=== PATIENT | female | born 1975 | race Caucasian/White ===

== ENCOUNTER 2019-02-02 20:59 | Emergency (ER) | payer MEDICAID ==
[~2019-02-02] VITALS: Ht 157.5 cm; Wt 101.5 kg
[2019-02-02 21:00] VITALS: BP 145/70
[2019-02-02] MEDS ORDERED: MOBI4TAB PO (23:44)
[2019-02-02] MEDS ORDERED: KETOROLAC TROMETHAMINE 10 MG TAB PO ONE (23:45)
--- NOTE | 2019-02-03 07:51 | REP ---
Clinical: Bilateral knee pain Technique: AP, lateral, bilateral oblique and sunrise views right and left knee . Findings: Right knee: The osseous structures and joint spaces are intact and normal for age. There is no evidence for acute fracture or dislocation. No joint effusion is appreciated. Surrounding soft tissues are unremarkable. No subcutaneous emphysema or radiodense foreign body. Left knee: The osseous structures and joint spaces are intact and normal for age. There is no evidence for acute fracture or dislocation. No joint effusion is appreciated. Surrounding soft tissues are unremarkable. No subcutaneous emphysema or radiodense foreign body. Impression: Normal age-appropriate bilateral knee radiograph series. Electronically Signed by Arnel Howard MD 02/03/2019 07:42 A
== END 2019-02-02 23:52 | disposition home or self-care (01) ==
LOC: M ED 20:59
DX: M25.561 Pain in right knee (principal); M25.562 Pain in left knee; J45.909 Unspecified asthma, uncomplicated; Z88.1 Allergy status to other antibiotic agents

== ENCOUNTER → 2019-02-28 | Outpatient (REF) | payer MEDICAID ==
[~2019-02-28] MED LIST: MOBI4TAB PO
[2019-02-28 16:02] LABS: BASO # 0.1 10^3/uL (0.0-0.2); BASO % 0.7 % (0.0-1.0); EOS # 0.2 10^3/uL (0.0-0.50); HEMATOCRIT 33.5 % (36.0-47.0); LYMPH # 2.3 10^3/uL (1.5-4.5); LYMPH % 25.5 % (24.0-44.0); MEAN CORPUSCULAR HEMOGLOBIN 21.4 pg (27.0-33.0); MEAN CORPUSCULAR HGB CONC 29.9 g/dl (32.0-36.5); MEAN CORPUSCULAR VOLUME 71.7 fl (80.0-96.0); MONO # 0.9 10^3/uL (0.0-0.8); MONO % 9.5 % (0.0-5.0); NEUTROPHILS # 5.6 10^3/uL (1.8-7.7); NEUTROPHILS % 61.9 % (36.0-66.0); PLATELET COUNT, AUTOMATED 483 10^3/uL (150-450); RED BLOOD COUNT 4.67 10^6/uL (4.00-5.40)
[2019-02-28 16:37] LABS: HEMOGLOBIN A1c 6.2 %
[2019-02-28 16:42] LABS: ALBUMIN 3.7 GM/DL (3.2-5.2); ALT/SGPT 19 U/L (12-78); BILIRUBIN,TOTAL 0.2 MG/DL (0.2-1.0); BLOOD UREA NITROGEN 10 MG/DL (7-18); CALCIUM LEVEL 9.7 MG/DL (8.5-10.1); CARBON DIOXIDE LEVEL 28 MEQ/L (21-32); CHLORIDE LEVEL 105 MEQ/L (98-107); CHOLESTEROL LEVEL 186 MG/DL (<200); CHOLESTEROL RISK RATIO 3.576 (<5); CREATININE FOR GFR 0.64 MG/DL (0.55-1.30); FREE T4 0.88 NG/DL (0.76-1.46); GLOMERULAR FILTRATION RATE > 60.0 (>58); GLUCOSE, FASTING 72 MG/DL (70-100); HDL CHOLESTEROL 52 MG/DL (>40); IRON (FE) 20 UG/DL (50-170); LDL CHOLESTEROL 80 MG/DL (<100); NON-HDL-C 134 MG/DL; SODIUM LEVEL 140 MEQ/L (136-145); TOTAL PROTEIN 7.5 GM/DL (6.4-8.2); TRIGLYCERIDES LEVEL 268 MG/DL (<150)
[2019-02-28 16:44] LABS: TOTAL 25(OH) VITAMIN D 17.8 NG/ML (30.0-100.0)
== END ==
LOC: M LAB REF 15:31
PROVIDERS: ATTEND Nurse Practitioner Adult Health
DX: Z13.9 Encounter for screening, unspecified (principal)

== ENCOUNTER → 2019-06-08 | Outpatient (CLI) | payer OTHER ==
--- NOTE | 2019-06-16 14:30 | REPMRS ---
Patient History The patient states she has not had a clinical breast exam in over a year. Family history of breast cancer in maternal aunt. Digital Mammo Screening Bilat: June 08, 2019 - Exam #: [id number] Bilateral CC and MLO view(s) were taken. Technologist: Estefani Bain, Technologist Prior study comparison: October 28, 2017, bilateral digital woman screen mammo, performed at [facility]. FINDINGS: There are scattered fibroglandular densities. There has been no change in the appearance of the mammogram from the prior studies. There is a mild amount of scattered fibroglandular density which is fairly symmetric. There is no interval development of dominant mass, architectural distortion, or grouped microcalcification suggestive of malignancy. 3-D tomosynthesis shows no additional findings. Assessment: BI-RADS/ACR category 1 mammogram. Negative Mammogram. Recommendation Routine screening mammogram of both breasts in 1 year (for women over age 40). This patient's Lifetime Breast Cancer Risk is estimated at 13.5 %. This mammogram was interpreted with the aid of an FDA-approved computer-aided dectection system. Electronically Signed By: Marlon Benton MD 06/16/19 [id number]
== END ==
LOC: M RAD 15:36
PROVIDERS: ATTEND Obstetrics & Gynecology
DX: Z12.31 Encounter for screening mammogram for malignant neoplasm of breast (principal)

== ENCOUNTER → 2019-06-10 | Outpatient (CLI) | payer OTHER ==
--- NOTE | 2019-06-11 13:53 | REP ---
Pelvic ultrasound including transabdominal, endovaginal and Doppler ultrasound assessment: The bladder is adequately distended. The uterus is anteverted and enlarged measuring 11.3 x 5.4 x 7.8 cm. The endometrium is not thickened for a premenopausal female, measuring 6.7 mm. If the patient is postmenopausal the endometrial thickness is thickened. There is a right subserosal fibroid measuring 3.1 x 2.0 x 2.6 cm. Right ovary: The right ovary is normal size measuring 4.0 3.2 x 3.7 cm. There is a 2.7 cm right ovarian cyst. With color Doppler assessment and venous vascular flow is identified indicating there is vascular flow in the right ovary. Left ovary: The left ovary is normal size measuring 2.4 x 1.5 x 2.0 cm. There is no dominant mass or cyst. There is vascular flow with the Doppler resistive index of the parenchymal arteries measuring 0.56. There is no free fluid in the pelvis. Impression: 2.7 cm right ovarian cyst. 1.3 cm subserosal uterine fibroid on the right . Endometrium is thickened for a postmenopausal female but not thickened for a premenopausal female. Electronically Signed by Raul Ag MD 06/11/2019 01:45 P
== END ==
LOC: M RAD 16:40
PROVIDERS: ATTEND Obstetrics & Gynecology
DX: N83.201 Unspecified ovarian cyst, right side (principal); N85.4 Malposition of uterus; D25.9 Leiomyoma of uterus, unspecified; N93.9 Abnormal uterine and vaginal bleeding, unspecified

== ENCOUNTER 2019-06-30 16:29 | Emergency (ER) | payer OTHER ==
[~2019-06-30] VITALS: Ht 157.5 cm; Wt 101.8 kg
[2019-06-30 16:29] VITALS: BP 145/84
[2019-06-30] MEDS ORDERED: FERR325T3 PO (16:35)
[2019-06-30] MEDS ORDERED: MELO7.5T35 PO (16:35)
[2019-06-30] MEDS ORDERED: D-101000 (16:35)
[2019-06-30] MEDS ORDERED: METF-791 PO (16:35)
[2019-06-30] MEDS ORDERED: AMOX875T PO (17:00)
[2019-06-30] MEDS ORDERED: AMOXICILLIN 500 MG CAP PO ONE (17:15)
== END 2019-06-30 17:12 | disposition home or self-care (01) ==
LOC: M ED 16:29
DX: H66.91 Otitis media, unspecified, right ear (principal); J06.9 Acute upper respiratory infection, unspecified; E11.9 Type 2 diabetes mellitus without complications; J45.909 Unspecified asthma, uncomplicated; M13.80 Other specified arthritis, unspecified site; Z20.828 Contact with and (suspected) exposure to other viral communicable diseases; Z79.51 Long term (current) use of inhaled steroids; Z79.2 Long term (current) use of antibiotics; Z79.84 Long term (current) use of oral hypoglycemic drugs; Z79.899 Other long term (current) drug therapy; Z88.1 Allergy status to other antibiotic agents; Z97.8 Presence of other specified devices

== ENCOUNTER → 2019-07-07 | Outpatient (REF) | payer OTHER ==
[~2019-07-07] MED LIST changes: +AMOX875T PO; +D-101000; +FERR325T3 PO; +MELO7.5T35 PO; +METF-791 PO
== END ==
LOC: M SFHCWAGY 19:18
PROVIDERS: ATTEND Obstetrics & Gynecology
DX: N93.9 Abnormal uterine and vaginal bleeding, unspecified (principal)

== ENCOUNTER 2019-07-15 07:28 | Day surgery (SDC) | payer OTHER ==
[~2019-07-15] VITALS: Ht 157.5 cm; Wt 98.9 kg
[~2019-07-15 07:28] MED LIST changes: +LR 1,000 ML IV ONE
[2019-07-15] MEDS ORDERED: ONDANSETRON 4MG/2ML VIAL (J2405) As Ordered ONE (07:52)
[2019-07-15] MEDS ORDERED: PROPOFOL 200 MG/20 ML VIAL As Ordered ONE (07:52)
[2019-07-15] MEDS ORDERED: LIDOCAINE 2% INJ 100 MG/5 ML SDV (FOR ANES.) As Ordered ONE (07:52)
[2019-07-15] MEDS ORDERED: KETOROLAC 60 MG/2 ML VIAL (J1885) As Ordered ONE (07:52)
[2019-07-15] MEDS ORDERED: dexameTHASONE 4 MG/ML 1ML VIAL (J1100) As Ordered ONE (07:52)
[2019-07-15] MEDS ORDERED: MIDAZOLAM INJ 2 MG/2 ML VIAL (J2250) As Ordered ONE (07:53)
[2019-07-15] MEDS ORDERED: fentaNYL 100 MCG/2 ML INJECTION (J3010) As Ordered ONE (07:53)
[2019-07-15 08:06] LABS: HEMATOCRIT 37.3 % (36.0-47.0); HEMOGLOBIN 11.2 g/dl (12.0-15.5); MEAN CORPUSCULAR HEMOGLOBIN 23.1 pg (27.0-33.0); MEAN CORPUSCULAR VOLUME 77.1 fl (80.0-96.0); PLATELET COUNT, AUTOMATED 427 10^3/uL (150-450); RED BLOOD COUNT 4.84 10^6/uL (4.00-5.40); WHITE BLOOD COUNT 6.7 10^3/uL (4.0-10.0)
[2019-07-15] MEDS ORDERED: OXYC1TAB23 PO (09:31)
[2019-07-15] MEDS ORDERED: IBUP80TA PO (09:32)
[2019-07-15] MEDS ORDERED: fentaNYL 100 MCG/2 ML INJECTION (J3010) IV PRN (10:15)
[2019-07-15] MEDS ORDERED: ONDANSETRON 4MG/2ML VIAL (J2405) IV PRN (10:15)
[2019-07-15] MEDS ORDERED: oxyCODONE 5MG TAB PO PRN (10:15)
[2019-07-15] MEDS ORDERED: LR 1,000 ML IV SCH ×2 (10:15)
[2019-07-15 11:05] VITALS: BP 160/80
== END 2019-07-15 11:12 | disposition home or self-care (01) ==
LOC: M SDC 07:28
PROVIDERS: ATTEND Obstetrics & Gynecology
DX: N93.9 Abnormal uterine and vaginal bleeding, unspecified (principal); E11.9 Type 2 diabetes mellitus without complications; Z79.84 Long term (current) use of oral hypoglycemic drugs; D64.9 Anemia, unspecified; J45.909 Unspecified asthma, uncomplicated; Z88.1 Allergy status to other antibiotic agents; Z79.899 Other long term (current) drug therapy
CPT/HCPCS: 36415; 58563; 84702; 85027; 86850; 86900; 86901; 88305; J1100; J1885; J2250; J2405; J3010

== ENCOUNTER 2019-09-11 20:12 | Emergency (ER) | payer OTHER ==
[~2019-09-11] VITALS: Ht 157.5 cm; Wt 100.0 kg
[~2019-09-11 20:12] MED LIST changes: +IBUP80TA PO; -LR 1,000 ML IV ONE; +OXYC1TAB23 PO
[2019-09-11 21:36] VITALS: BP 128/75
--- NOTE | 2019-09-12 08:07 | REP ---
Clinical: Trauma. Technique: AP, lateral, bilateral oblique views left first digit . Findings: Small bony shards are suggested along the lateral aspect of the first digit at the metacarpophalangeal joint level and may represent small fracture fragments. Correlation with mechanism of injury and point of tenderness is recommended. Remainder examination appears normal. Impression: Small suspected bony shards at the level of the MCP joint suggest corner fracture. Correlation with mechanism of injury and point of tenderness recommended. Electronically Signed by Arnel Howard MD 09/12/2019 07:58 A
== END 2019-09-11 21:46 | disposition home or self-care (01) ==
LOC: M ED 20:12
DX: S62.522A Displaced fracture of distal phalanx of left thumb, initial encounter for closed fracture (principal); W23.0XXA Caught, crushed, jammed, or pinched between moving objects, initial encounter; Y92.9 Unspecified place or not applicable; Y93.89 Activity, other specified; Y99.9 Unspecified external cause status; E11.9 Type 2 diabetes mellitus without complications; Z79.84 Long term (current) use of oral hypoglycemic drugs; Z79.891 Long term (current) use of opiate analgesic; Z79.899 Other long term (current) drug therapy; Z88.1 Allergy status to other antibiotic agents; Z91.013 Allergy to seafood

== ENCOUNTER → 2019-10-20 | Outpatient (CLI) | payer OTHER ==
[2019-10-20 13:12] LABS: BASO % 0.5 % (0.0-1.0); EOS # 0.2 10^3/uL (0.0-0.5); EOS % 2.1 % (0.0-3.0); HEMATOCRIT 41.9 % (36.0-47.0); HEMOGLOBIN 12.9 g/dl (12.0-15.5); LYMPH # 2.1 10^3/uL (1.5-5.0); LYMPH % 25.8 % (24.0-44.0); MEAN CORPUSCULAR HEMOGLOBIN 24.4 pg (27.0-33.0); MEAN CORPUSCULAR HGB CONC 30.8 g/dl (32.0-36.5); MEAN CORPUSCULAR VOLUME 79.2 fl (80.0-96.0); MONO # 0.9 10^3/uL (0.0-0.8); MONO % 10.6 % (0.0-5.0); NEUTROPHILS # 4.9 10^3/uL (1.5-8.5); NEUTROPHILS % 60.5 % (36.0-66.0); PLATELET COUNT, AUTOMATED 392 10^3/uL (150-450); RED BLOOD COUNT 5.29 10^6/uL (4.00-5.40); WHITE BLOOD COUNT 8.1 10^3/uL (4.0-10.0)
[2019-10-20 13:24] LABS: HEMOGLOBIN A1c 6.4 %
[2019-10-20 13:41] LABS: TOTAL 25(OH) VITAMIN D 21.4 NG/ML (30.0-100.0)
== END ==
LOC: M WUC 09:22
PROVIDERS: ATTEND Physician Assistant
DX: E61.1 Iron deficiency (principal); E55.9 Vitamin D deficiency, unspecified; R73.03 Prediabetes

== ENCOUNTER → 2020-01-10 | Outpatient (REF) | payer OTHER, MEDICAID ==
[~2020-01-10] MED LIST changes: -METF-791 PO; +METF-838 PO
== END ==
LOC: M LAB REF 12:17
PROVIDERS: ATTEND Physician Assistant
DX: R73.03 Prediabetes (principal)

== ENCOUNTER → 2020-04-11 | Outpatient (REF) | payer OTHER, MEDICAID ==
[2020-04-11 12:36] LABS: BASO % 0.2 % (0.0-1.0); EOS # 0.2 10^3/uL (0.0-0.5); EOS % 2.3 % (0.0-3.0); HEMATOCRIT 42.5 % (36.0-47.0); HEMOGLOBIN 13.6 g/dl (12.0-15.5); LYMPH # 2.1 10^3/uL (1.5-5.0); LYMPH % 23.9 % (24.0-44.0); MEAN CORPUSCULAR HEMOGLOBIN 27.3 pg (27.0-33.0); MEAN CORPUSCULAR VOLUME 85.2 fl (80.0-96.0); MONO # 0.8 10^3/uL (0.0-0.8); MONO % 8.7 % (0.0-5.0); NEUTROPHILS # 5.8 10^3/uL (1.5-8.5); NEUTROPHILS % 64.5 % (36.0-66.0); PLATELET COUNT, AUTOMATED 359 10^3/uL (150-450); RED BLOOD COUNT 4.99 10^6/uL (4.00-5.40)
[2020-04-11 13:16] LABS: ALBUMIN 3.3 GM/DL (3.2-5.2); ALT/SGPT 29 U/L (12-78); BILIRUBIN,TOTAL 0.2 MG/DL (0.2-1.0); BLOOD UREA NITROGEN 12 MG/DL (7-18); CALCIUM LEVEL 9.1 MG/DL (8.5-10.1); CARBON DIOXIDE LEVEL 27 MEQ/L (21-32); CHLORIDE LEVEL 106 MEQ/L (98-107); CHOLESTEROL LEVEL 174 MG/DL (<200); CHOLESTEROL RISK RATIO 3.702 (<5); CREATININE FOR GFR 0.62 MG/DL (0.55-1.30); FREE T4 0.94 NG/DL (0.76-1.46); GLOMERULAR FILTRATION RATE > 60.0 (>58); GLUCOSE, FASTING 106 MG/DL (70-100); HDL CHOLESTEROL 47 MG/DL (>40); LDL CHOLESTEROL 65 MG/DL (<100); NON-HDL-C 127 MG/DL; POTASSIUM SERUM 4.3 MEQ/L (3.5-5.1); SODIUM LEVEL 138 MEQ/L (136-145); TOTAL 25(OH) VITAMIN D 21.5 NG/ML (30.0-100.0); TOTAL PROTEIN 7.3 GM/DL (6.4-8.2); TRIGLYCERIDES LEVEL 310 MG/DL (<150)
[2020-04-11 13:56] LABS: HEMOGLOBIN A1c 6.1 %
== END ==
LOC: M LAB REF 08:20
PROVIDERS: ATTEND Physician Assistant
DX: J45.909 Unspecified asthma, uncomplicated (principal); E61.1 Iron deficiency; R73.03 Prediabetes; E55.9 Vitamin D deficiency, unspecified; E66.01 Morbid (severe) obesity due to excess calories; Z13.9 Encounter for screening, unspecified; Z68.41 Body mass index [BMI] 40.0-44.9, adult

== ENCOUNTER → 2020-04-19 | Outpatient (CLI) | payer OTHER, MEDICAID ==
--- NOTE | 2020-05-01 16:28 | REP ---
LUMBOSACRAL SPINE SERIES: CLINICAL: Lower back pain. TECHNIQUE: AP, lateral, flexion/extension, bilateral oblique and coned down views of the lumbosacral spine. FINDINGS: Alignment and lordosis is maintained. No acute fracture/compression injury or subluxation. No significant degenerative changes are appreciated. IMPRESSION: Essentially age appropriate lumbosacral spine radiograph series. If the patient remains symptomatic, consider MRI for further investigation. MTDD
== END ==
LOC: M RAD 11:27
PROVIDERS: ATTEND Physician Assistant
DX: M54.5 Low back pain (principal)

== ENCOUNTER → 2020-07-10 | Outpatient (REF) | payer OTHER ==
[2020-07-10 17:12] LABS: BASO % 0.4 % (0.0-1.0); EOS # 0.2 10^3/uL (0.0-0.5); EOS % 2.1 % (0.0-3.0); HEMATOCRIT 40.4 % (36.0-47.0); HEMOGLOBIN 12.9 g/dl (12.0-15.5); LYMPH # 1.9 10^3/uL (1.5-5.0); MEAN CORPUSCULAR HGB CONC 31.9 g/dl (32.0-36.5); MEAN CORPUSCULAR VOLUME 84.7 fl (80.0-96.0); MONO # 0.6 10^3/uL (0.0-0.8); MONO % 7.6 % (0.0-5.0); NEUTROPHILS # 5.3 10^3/uL (1.5-8.5); NEUTROPHILS % 65.5 % (36.0-66.0); PLATELET COUNT, AUTOMATED 351 10^3/uL (150-450); RED BLOOD COUNT 4.77 10^6/uL (4.00-5.40); WHITE BLOOD COUNT 8.1 10^3/uL (4.0-10.0)
[2020-07-10 17:18] LABS: ALBUMIN 3.4 GM/DL (3.2-5.2); ALT/SGPT 22 U/L (12-78); BILIRUBIN,TOTAL 0.2 MG/DL (0.2-1.0); BLOOD UREA NITROGEN 11 MG/DL (7-18); CALCIUM LEVEL 8.9 MG/DL (8.5-10.1); CARBON DIOXIDE LEVEL 27 MEQ/L (21-32); CHLORIDE LEVEL 108 MEQ/L (98-107); CHOLESTEROL LEVEL 166 MG/DL (<200); CHOLESTEROL RISK RATIO 3.458 (<5); CREATININE FOR GFR 0.64 MG/DL (0.55-1.30); FERRITIN 24 NG/ML (8-252); GLOMERULAR FILTRATION RATE > 60.0 (>58); GLUCOSE, FASTING 115 MG/DL (70-100); HDL CHOLESTEROL 48 MG/DL (>40); IRON (FE) 56 UG/DL (50-170); LDL CHOLESTEROL 82 MG/DL (<100); NON-HDL-C 118 MG/DL; PERCENT SATURATION 13.6 % (13.2-45.0); POTASSIUM SERUM 4.1 MEQ/L (3.5-5.1); SODIUM LEVEL 140 MEQ/L (136-145); TOTAL IRON BINDING CAPACITY 412 UG/DL (250-450); TRIGLYCERIDES LEVEL 179 MG/DL (<150)
[2020-07-10 17:20] LABS: TOTAL 25(OH) VITAMIN D 21.1 NG/ML (30.0-100.0)
== END ==
LOC: M LAB REF 16:30
PROVIDERS: ATTEND Physician Assistant
DX: E66.01 Morbid (severe) obesity due to excess calories (principal); E55.9 Vitamin D deficiency, unspecified; E61.1 Iron deficiency; R73.03 Prediabetes

== ENCOUNTER 2020-11-05 18:51 | Emergency (ER) | payer OTHER ==
[~2020-11-05] VITALS: Ht 152.4 cm; Wt 108.4 kg
[2020-11-05 22:25] LABS: BASO # 0.1 10^3/uL (0.0-0.2); BASO % 0.6 % (0.0-1.0); EOS # 0.2 10^3/uL (0.0-0.5); EOS % 1.8 % (0.0-3.0); HEMATOCRIT 44.2 % (36.0-47.0); LYMPH # 2.1 10^3/uL (1.5-5.0); LYMPH % 20.2 % (24.0-44.0); MEAN CORPUSCULAR HEMOGLOBIN 26.3 pg (27.0-33.0); MEAN CORPUSCULAR HGB CONC 31.7 g/dl (32.0-36.5); MEAN CORPUSCULAR VOLUME 82.9 fl (80.0-96.0); MONO # 0.8 10^3/uL (0.0-0.8); MONO % 7.3 % (2.0-8.0); NEUTROPHILS # 7.3 10^3/uL (1.5-8.5); NEUTROPHILS % 69.5 % (36.0-66.0); PLATELET COUNT, AUTOMATED 375 10^3/uL (150-450); RED BLOOD COUNT 5.33 10^6/uL (4.00-5.40); WHITE BLOOD COUNT 10.5 10^3/uL (4.0-10.0)
[2020-11-05 22:53] LABS: ALBUMIN 3.8 GM/DL (3.2-5.2); ALT/SGPT 27 U/L (12-78); BILIRUBIN,DIRECT < 0.1 MG/DL (0.0-0.2); BILIRUBIN,TOTAL 0.2 MG/DL (0.2-1.0); LIPASE 110 U/L (73-393)
--- NOTE | 2020-11-06 01:26 | REPVR ---
PROCEDURE INFORMATION: Exam: US Pelvis Complete, Transabdominal and US Pelvis, Transvaginal and US Duplex Artery and Vein, Ovaries, Complete Exam date and time: 11/06/2020 12:42 AM Age: 45 years old Clinical indication: Pelvic pain; Additional info: Rlq pain TECHNIQUE: Imaging protocol: Real-time transabdominal and transvaginal pelvic ultrasound (complete) with image documentation. Transvaginal imaging was used for better evaluation of the endometrium, adnexa, and/or cervix. Real-time duplex ultrasound scan of the arterial and venous flow of the ovaries with B-mode, color Doppler flow and spectral waveform analysis. COMPARISON: No relevant prior studies available. FINDINGS: Uterus/cervix: The anteverted uterus measures 11.3 cm x 6.1 cm x 8 cm. There is a 1.3 cm x 1 cm x 1 cm hypoechoic region in the right side of the body of the uterus, which likely represents an intramural fibroid. The endometrium is normal in appearance and measures 14 mm in thickness. Right adnexa: The right ovary measures 4.5 cm x 3.7 cm x 4 cm and contains a 2.8 cm x 2.5 cm x 2.7 cm dominant follicular cyst. The arterial and venous color Doppler flow and spectral waveforms within the right ovary are within normal limits, without evidence for right ovarian torsion. Left adnexa: The left ovary is normal in appearance. No left ovarian cyst or left adnexal mass is noted. The left ovary measures 2.9 cm x 2.1 cm x 2.8 cm. The arterial and venous color Doppler flow and spectral waveforms within the left ovary are within normal limits, without evidence for left ovarian torsion. Intraperitoneal space: No free fluid is seen from the images obtained. Urinary bladder: The urinary bladder was not distended for optimal evaluation. IMPRESSION: 1. 2.8 cm x 2.5 cm x 2.7 cm right ovarian follicular cyst, for which follow-up imaging is not necessary. 2. No evidence for ovarian torsion. 3. 1.3 cm x 1 cm x 1 cm hypoechoic region in the right side of the body of the uterus, which likely represents an intramural fibroid. Electronically signed by: David Trujillo On 11/06/2020 01:26:38 AM
[2020-11-06 02:55] VITALS: BP 143/76
== END 2020-11-06 02:56 | disposition home or self-care (01) ==
LOC: M ED 18:51
DX: D25.9 Leiomyoma of uterus, unspecified (principal); N83.201 Unspecified ovarian cyst, right side; R73.03 Prediabetes; Z79.84 Long term (current) use of oral hypoglycemic drugs; Z88.1 Allergy status to other antibiotic agents; Z91.018 Allergy to other foods

== ENCOUNTER 2021-06-20 15:17 | Emergency (ER) | payer OTHER ==
[~2021-06-20] VITALS: Ht 154.9 cm; Wt 106.8 kg
[2021-06-20 15:18] VITALS: BP 166/77
--- OUTSIDE RECORDS SUMMARY | 2021-06-21 02:02 | CCD | Continuity of Care Document ---
Author Author Erica WAITE PA-C Organization Unknown Address [address] [address] Phone [phone] Care Team Providers Care Developer Automatic Name Role Phone Gerson Madrid MD AUTM [phone] Ernesto Jay MD AUTM Unavailable Problems Description No Information Available Social History Type Date Description Comments Sex Unknown ETOH Use Denies alcohol use Tobacco Use Start: Unknown Denies Smoking Smoking Status Reviewed: 09/13/19 Denies Smoking Allergies and adverse reactions Active Allergies Criticality Reaction | Severity Comments Date Erythromycin Unable to assess criticality 09/13/2019 Medications Active Medications SIG Qnty Indications Ordering Provide r Date Vitamin D (Ergocalciferol) 50mcg (1999 Ut) Capsules Unknown Metformin HCL ER (Mod) 500mg Tablets ER 24HR 1 by mouth every day Unknown 000 Meloxicam 7.5mg Tablets Unknown Albuterol Sulfate (2 .5mg/3ML) 0.083% Nebulizer 1 vial four times a day as needed Unknown Oxycontin 10mg Tab ER 12H Abuse-De t 1 by mouth twice a day Unknown Iron Unknown Immunizations Description No Information Available Vital Signs Date Vital Result Comment 06/18/2021 10:46am Body Temperature 97.1 F Height 60 inches 5'0" Weight 235.25 lb BMI (Body Mass Index) 45.9 kg/m2 09/13/2019 1:21pm Body Temperature 97.3 F Height 56.5 inches 4'8.50" Weight 220.00 lb BMI (Body Mass Index) 48.4 kg/m2 Results Description No Information Available Procedures Date Code Description Status 06/18/2021 50488 Office/Outpatient Established Mo d MDM 30-39 Min Completed 06/18/2021 95203 X-Ray Knee Complete W/Obliques & Tunnel And/Or Standing Views Completed Medical Devices Description No Information Available Encounters Type Date Location Provider Dx Diagnosis Office Visit 06/18/2021 10:45a [facility] Dougie Waite PA-C M1 7.12 Unilateral primary osteoarthritis, left knee Assessments Date Code Description Provider 06/18/2021 M17.12 Unilateral primary osteoarthriti s, left knee Dougie Waite PA-C Plan of Treatment Future Appointment(s):* 07/17/2021 9:15 am - Dougie Waite PA-C at [facility] 06/18/2021 - Dougie Waite PA-C* M17.12 Unilateral primary osteoarthritis, left knee* Follow up:* 4-6 weeks Lt. knee mode with BMS. Functional Status Description No Information Available Mental Status Description No Information Available Referrals Description No Information Available
--- OUTSIDE RECORDS SUMMARY | 2021-06-21 02:02 | CCD ---
Author Organization Unknown Address [address] [place] [address] Phone [phone] Care Team Providers Care Shape Hand Name Role Phone Tyree Fuentes Parris Unavailable Unavailable Allergies Code Code System Name Reaction Severity Status Onset Erythromycin Active 019 Shellfish Containing Products Active 02/28/2019 Notes: SHELLFISH - Reaction: anaphylaxs is Medications Name Status Start Date Stop Date albuterol sulfate HFA 90 mcg/actuation aerosol inhaler Active Not available amoxicillin 500 mg capsule Completed 02/11 amoxicillin 875 mg tablet TAKE ONE TABLET BY MOUTH TWICE A DAY Completed cefdinir 300 mg capsule TAKE ONE CAPSULE BY MOUTH TWICE A DAY Completed 09/17/2019 cholecalciferol (vitamin D3) 50 mcg (2,0 00 unit) capsule TAKE ONE CAPSULE BY MOUTH EVERY DAY Active Not available ferrous sulfate 325 mg (65 mg iron) tabl et,delayed release TAKE ONE TABLET BY MOUTH EVERY DAY Active Not available fluconazole 150 mg tablet TAKE 1 TABLET BY MOUTH 7 10 DAYS NEEDED YEAST NEEDED VAGINITIS FROM ANTIBIOITC Completed 07/17/2020 hydrocodone 5 mg-acetaminophen 325 mg ta blet TAKE 1 TABLET BY MOUTH EVERY 4 6 HOUR NEEDED FOR PAIN MAXIMUM DAILY DOSE FOUR TABLETS Active Not available ibuprofen 800 mg tablet TAKE ONE TABLET BY MOUTH THREE TIMES A DAY NEEDED FOR PAIN Completed 07/17/2020 meloxicam 7.5 mg tablet TAKE ONE TABLET BY MOUTH TWICE A DAY WITH FOOD NEEDED FOR PAIN Active Not available metformin ER 500 mg tablet,extended rele ase 24 hr TAKE ONE TABLET BY MOUTH TWICE A DAY WITH FOOD Active Not available oxycodone-acetaminophen 5 mg-325 mg tabl et TAKE ONE TABLET BY MOUTH THREE TIMES A DAY NEEDED FOR PAIN MAXIMUM DAILY DOSE 3 Completed 07/17/2020 prednisone 10 mg tablet TAKE THREE TABLETS BY MOUTH EVERY DAY Completed 09/17/2019 Vitamin D2 1,250 mcg (50,000 unit) capsu le TAKE 1 CAPSULE BY MOUTH ONCE WEEKLY Completed Vitamin D3 25 mcg (1,000 unit) capsule TAKE ONE CAPSULE BY MOUTH EVERY DAY Active Not available Problems Name Status Onset Date Source Mild Intermittent Asthma Active 02/28/2019 History Pain in Right Knee Active 02/28/2019 History Procedure by Method Unknown 02/28/2019 History Pain in Female Genitalia Unknown 02/28/2019 History Clinical Finding Unknown 02/28/2019 History Severe Obesity Active 03/01/2019 History Vitamin D Deficiency Active 03/02/2019 History Iron Deficiency Active 03/02/2019 History Prediabetes Active 03/02/2019 History Finding of Body Mass Index Active 10/19/2019 Histo ry Microscopic Hematuria Unknown 02/14/2020 History Low Back Pain Active 02/14/2020 History Finding of Pattern of Menstrual Cycle Unknown 02/14/2020 History Dental Caries on Smooth Surface Penetrating into Pulp Active 04/03/2020 History Influenza Vaccine Needed Unknown 04/18/2020 History Screening Mammography Unknown 04/18/2020 History Impacted Cerumen of Bilateral Ears Unknown 04/18/2020 History Hypertriglyceridemia Active 02/28/2021 Procedures Notes: tubal ligation, ear drum replaced , uterine ablasion 07/2019 | tubal ligation, ear drum replaced, uterine ablation 07/2019 Results Lab Results Date Name Specimen Result Interpretation Description Value Range Status Address 01/22/2021 Lipid Panel, Blood Blood venous Cholesterol , Total 149 mg/dL <200 mg/dL Final [facility]: [address] [facility] Blood venous Low HDL Cholesterol 44 mg/dL > or = 50 mg/dL Final [facility]: [address] [facility] Blood venous High Triglycerides 271 mg/dL <150 mg/dL Final [facility]: [address] [facility] Blood venous LDL-cholesterol 69 mg/dL (karina c) <100 mg/dL (calc) Final [facility]: [address] [facility] Blood venous Chol/hdlc Ratio 3.4 calc <5.0 calc Final [facility]: [address] [facility] Blood venous Non HDL Cholesterol 105 mg/dL (calc) <130 mg/dL (calc) Final [facility]: [address] [facility] 01/22/2021 CMP, Serum or Plasma Blood venous High Glucose 115 mg/dL 65-99 mg/dL Final [facility]: [address] [facility] Blood venous Normal Urea Nitrogen (BUN) 12 mg/dL 7-25 mg/dL [facility]: [address] [facility] Blood venous Normal Creatinine 0.50 mg/dL 0.50-1. 10 mg/dL [facility]: [address] [facility] Blood venous Normal eGFR Non-afr. [place] 1 16 mL/min/1.73m2 > or = 60 mL/min/1.73m2 Final [facility] gh: [address] [facility] Blood venous Normal eGFR 13 5 mL/min/1.73m2 > or = 60 mL/min/1.73m2 Final [facility] gh: [address] [facility] Blood venous BUN/creatinine Ratio not applicable (calc) 6-22 (calc) [facility]: [address] [facility] Blood venous Normal Sodium 138 mmol/L 135-146 mmo l/L [facility]: [address] [facility] Blood venous Normal Potassium 3.9 mmol/L 3.5-5.3 mmol/L [facility]: [address] [facility] Blood venous Normal Chloride 104 mmol/L 98-110 mm ol/L [facility]: [address] [facility] Blood venous Normal Carbon Dioxide 24 mmol/L 20-3 2 mmol/L [facility]: [address] [facility] Blood venous Normal Calcium 9.1 mg/dL 8.6-10.2 mg /dL [facility]: [address] [facility] Blood venous Normal Protein, Total 6.7 g/dL 6.1-8 .1 g/dL [facility]: [address] [facility] Blood venous Normal Albumin 3.9 g/dL 3.6-5.1 g/dL [facility]: [address] [facility] Blood venous Normal Globulin 2.8 g/dL (calc) 1.9- 3.7 g/dL (calc) [facility]: [address] [facility] Blood venous Normal Albumin/globulin Ratio 1 .4 (calc) 1.0-2.5 (calc) [facility]: [address] [facility] Blood venous Normal Bilirubin, Total 0.3 mg/dL 0. 2-1.2 mg/dL Final [facility]: [address] [facility] Blood venous Normal Alkaline Phosphatase 74 U/L 3 1-125 U/L Final [facility]: [address] [facility] Blood venous Normal Ast 19 U/L 10-35 U/L Final [facility]: [address] [facility] Blood venous Normal Alt 23 U/L 6-29 U/L Final [facility]: [address] [facility] 01/22/2021 Vitamin D, 25-Hydroxy, Total, Serum Blood venous Low Vitamin D,25-Oh,total,ia 21 NG/mL 30-100 NG/mL Final [facility] 01/22/2021 HbA1C (Hemoglobin a1C), Blood High Hemoglobin a1C 6.2 % of total HGB <5.7 % of total HGB Final [facility]: [address] [facility] 11/06/2020 UA W/ Reflex to Culture Normal Appearance, Urine Rfx hazy clear [facility]: 83 0 [facility] Normal Color, Urine Rfx yellow yellow [facility]: [address] [facility] Normal pH,urine Rfx 5.0 units 5.0-9.0 units [facility]: [address] [facility] Normal Specific [place] Ur Auto Rfx 1.021 1.002-1.035 [facility]: [address] [facility] Normal Protein, Urine Auto Rfx negative mg/ dL negative mg/dL [facility]: [address] [facility] Normal Glucose, Urine (UA) Auto Rfx n egative mg/dL negative mg/dL [facility]: [address] [facility] High Ketone, Urine Auto Rfx trace mg/dL n egative mg/dL [facility]: [address] [facility] Normal Urobilinogen, Urine Auto Rfx 0.2 mg/ dL 0.0-2.0 mg/dL [facility]: [address] [facility] Normal Bilirubin, Urine Auto Rfx negative n egative [facility]: [address] [facility] Normal Nitrite, Urine Auto Rfx negative neg ative [facility]: [address] [facility] Normal Leukocyte Esterase Ur Auto Rfx negat julieta negative [facility]: [address] [facility] High Blood, Urine Blood Rfx 1+ negati ve [facility]: [address] [facility] Normal WBC, Urine Auto Rfx 1 /hpf 0-3 /hpf [facility]: [address] [facility] Normal RBC, Urine Auto Rfx 2 /hpf 0-3 /hpf [facility]: [address] [facility] Normal Bacteria, Urine Auto Rfx negative ne gative [facility]: [address] [facility] Normal Squam Epithelial Cell Ur Aurfx 1 /hp f 0-6 /hpf [facility]: [address] [facility] Normal Mucus, Urine Rfx small negative Fin al [facility]: [address] [facility] Normal Hyaline Cast, Urine Auto Rfx 0 /lpf 0-1 /lpf [facility]: [address] [facility] 11/05/2020 CBC W/ Auto Diff High White Blood Count 10.5 10 4.0-10.0 10 [facility]: [address] [facility] Normal Red Blood Count 5.33 10 4.00-5.40 10 [facility]: [address] [facility] Normal Hemoglobin 14.0 g/dL 12.0-15.5 g/dL [facility]: [address] [facility] Normal Hematocrit 44.2 % 36.0-47.0 % [facility]: [address] [facility] Normal Mean Corpuscular Volume 82.9 fL 80.0 -96.0 fL [facility]: [address] [facility] Low Mean Corpuscular Hemoglobin 26.3 pg 27.0-33.0 pg [facility]: [address] [facility] Low Mean Corpuscular HGB Conc 31.7 g/dL 32.0-36.5 g/dL [facility]: [address] [facility] High Red Cell Distribution Width 14.7 % 1 1.5-14.5 % [facility]: [address] [place] [address] Normal Platelet Count, Automated 375 10 150 -450 10 [facility]: [address] [facility] High Neutrophils % 69.5 % 36.0-66.0 % [facility]: [address] [facility] Low Lymph % 20.2 % 24.0-44.0 % Final [facility]: [address] [facility] Normal [place] % 7.3 % 2.0-8.0 % Final [facility]: [address] [place] [address] Normal Eos % 1.8 % 0.0-3.0 % [facility]: [address] [place] [address] Normal Baso % 0.6 % 0.0-1.0 % Final [facility]: [address] [facility] Normal Immature Granulocyte % 0.6 % 0-3.0 % [facility]: [address] [place] [address] Normal Nucleated Red Blood Cell % 0.0 % 0- 0 % [facility]: [address] [facility] Normal Neutrophils # 7.3 10 1.5-8.[address] [facility]: [address] [facility] Normal Lymph # 2.1 10 1.5-5.0 10 [facility]: [address] [facility] Normal [place] # 0.8 10 0.0-0.8 10 [facility]: [address] [place] [address] Normal Eos # 0.2 10 0.0-0.5 10 [facility]: 0 [facility] Normal Baso # 0.1 10 0.0-0.2 10 [facility]: [address] [place] [address] 11/05/2020 Istat Chem8+ Panel Normal Istat HCT 43.0 % 38. 0-51.0 % [facility]: [address] [facility] High Istat Glucose 109 mg/dL 70-105 mg/dL [facility]: [address] [facility] Normal Istat Sodium 140 mEq/L 136-145 mEq/L [facility]: [address] [facility] Normal Istat Potassium 4.0 mEq/L 3.5-5.1 mE q/L [facility]: [address] [facility] Normal Istat Ca++ 4.9 mg/dL 4.5-5.3 mg/dL F [facility]: [address] [facility] Normal Istat Chloride 102 mEq/L 98-109 mEq/ L [facility]: 0 [facility] High Istat CO2 28.0 mm/L 23.0-27.0 mm/L [facility]: [address] [facility] Normal Istat BUN 9 mg/dL 8-26 mg/dL [facility]: 0 [facility] Low Istat Creatinine 0.5 mg/dL 0.6-1.3 m g/dL [facility]: 0 [facility] 11/05/2020 Istat B-HCG Normal Istat B-HCG < 5.0 [facility]: [address] [facility] 11/05/2020 Hepatic Function Panel, Serum Normal AST/SG OT 18 U/L 7-37 U/L [facility]: [address] [facility] Normal ALT/SGPT 27 U/L 12-78 U/L [facility]: 0 [facility] Normal Alkaline Phosphatase 101 U/L 45-117 U/L [facility]: 0 [facility] Normal Bilirubin,total 0.2 mg/dL 0.2-1.0 mg /dL [facility]: 0 [facility] Normal Bilirubin,direct < 0.1 mg/dL 0.0-0.2 mg/dL [facility]: 0 [facility] Normal Total Protein 8.0 gm/dL 6.4-8.2 gm/d L [facility]: [address] [place] [address] Normal Albumin 3.8 gm/dL 3.2-5.2 gm/dL [facility]: [address] [place] [address] Low Albumin/globulin Ratio 0.9 1.2-2. 2 [facility]: [address] [place] [address] 11/05/2020 Lipase, Serum or Plasma Normal Lipase 110 U/L 73-393 U/L [facility]: [address] [place] [address] 07/10/2020 CBC W/ Auto Diff Normal White Blood Count 8.1 10 4.0-10.0 10 [facility]: [address] [place] [address] Normal Red Blood Count 4.77 10 4.00-5.40 10 [facility]: [address] [place] [address] Normal Hemoglobin 12.9 g/dL 12.0-15.5 g/dL [facility]: [address] [place] [address] Normal Hematocrit 40.4 % 36.0-47.0 % [facility]: [address] [place] [address] Normal Mean Corpuscular Volume 84.7 fL 80.0 -96.0 fL [facility]: [address] [place] [address] Normal Mean Corpuscular Hemoglobin 27.0 pg 27.0-33.0 pg [facility]: [address] [place] [address] Low Mean Corpuscular HGB Conc 31.9 g/dL 32.0-36.5 g/dL [facility]: [address] [place] [address] Normal Red Cell Distribution Width 13.2 % 1 1.5-14.5 % [facility]: [address] [place] [address] Normal Platelet Count, Automated 351 10 150 -450 10 [facility]: [address] [place] [address] Normal Neutrophils % 65.5 % 36.0-66.0 % [facility]: [address] [place] [address] Normal Lymph % 24.0 % 24.0-44.0 % [facility]: [address] [facility] High [place] % 7.6 % 0.0-5.0 % Final [facility]: [address] [place] [address] Normal Eos % 2.1 % 0.0-3.0 % [facility]: [address] [place] [address] Normal Baso % 0.4 % 0.0-1.0 % [facility]: [address] [place] [address] Normal Immature Granulocyte % 0.4 % 0-3.0 % [facility]: [address] [place] [address] Normal Nucleated Red Blood Cell % 0.0 % 0- 0 % [facility]: [address] [place] [address] Normal Neutrophils # 5.3 10 1.5-8.5 10 [facility]: [address] [place] [address] Normal Lymph # 1.9 10 1.5-5.0 10 [facility]: [address] [place] [address] Normal [place] # 0.6 10 0.0-0.8 10 [facility]: [address] [place] [address] Normal Eos # 0.2 10 0.0-0.5 10 [facility]: [address] [place] [address] Normal Baso # 0.0 10 0.0-0.2 10 [facility]: [address] [place] [address] 07/10/2020 CMP, Serum or Plasma Blood venous High Glu cose, Fasting 115 mg/dL 70-100 mg/dL [facility] nter: [address] [place] [address] Blood venous Normal Blood Urea Nitrogen 11 mg/dL 7-18 mg/dL [facility]: [address] [place] [address] Blood venous Normal Creatinine for GFR 0.64 mg/dL 0.55-1.30 mg/dL [facility]: [address] [place] [address] Blood venous Normal Glomerular Filtration Rate > 60.0 >58 [facility]: [address] [place] [address] Blood venous Normal Sodium Level 140 mEq/L 136-14 5 mEq/L [facility]: [address] [facility] Blood venous Normal Potassium Serum 4.1 mEq/L 3.5 -5.1 mEq/L [facility]: [address] [facility] Blood venous High Chloride Level 108 mEq/L 98-1 07 mEq/L [facility]: [address] [facility] Blood venous Normal Carbon Dioxide Level 27 mEq/L 21-32 mEq/L [facility]: [address] [facility] Blood venous Low Anion Gap 5 mEq/L 8-16 mEq/L [facility]: [address] [facility] Blood venous Normal Calcium Level 8.9 mg/dL 8.5-1 0.1 mg/dL [facility]: [address] [facility] Blood venous Normal AST/SGOT 10 U/L 7-37 U/L [facility] [place]: [address] [facility] Blood venous Normal ALT/SGPT 22 U/L 12-78 U/L [facility]: [address] [facility] Blood venous Normal Alkaline Phosphatase 84 U/L 4 5-117 U/L [facility]: [address] [facility] Blood venous Normal Bilirubin,total 0.2 mg/dL 0.2 -1.0 mg/dL [facility]: [address] [facility] Blood venous Normal Total Protein 7.0 gm/dL 6.4-8 .2 gm/dL [facility]: [address] [facility] Blood venous Normal Albumin 3.4 gm/dL 3.2-5.2 gm/ dL [facility]: [address] [place] [address] Blood venous Low Albumin/globulin Ratio 0.9 1.2-2.2 [facility]: 0 [facility] 07/10/2020 Lipid Panel, Blood High Triglycerides Lev el 179 mg/dL <150 mg/dL [facility]: 83 0 [facility] Normal Cholesterol Level 166 mg/dL <200 mg/ dL [facility]: [address] [facility] Normal HDL Cholesterol 48 mg/dL >40 mg/dL F inal [facility]: 0 [facility] Normal LDL Cholesterol 82 mg/dL <100 mg/dL Final [facility]: [address] [place] [address] Normal Non-hdl-c 118 mg/dL Final [facility]: [address] [facility] Normal Cholesterol Risk Ratio 3.458 <5 Final [facility]: [address] [place] [address] 07/10/2020 TIBC (Total Iron-binding Capacity), Serum Normal Iron (Fe) 56 ug/dL 50-170 ug/dL [facility] nter: [address] [place] [address] Normal Total Iron Binding Capacity 412 ug/d L 250-450 ug/dL [facility]: [address] [place] [address] Normal Percent Saturation 13.6 % 13.2-45.0 % [facility]: [address] [place] [address] 07/10/2020 Vitamin D, 25-Hydroxy, Total, Serum Blood venous Low Total 25(Oh) Vitamin D 21.1 NG/mL 30.0-100.0 NG/mL [facility]: [address] [place] [address] 07/10/2020 Ferritin, Serum or Plasma Normal Ferritin 24 NG/mL 8-252 NG/mL [facility]: [address] [place] [address] 07/10/2020 HbA1C (Hemoglobin a1C), Blood Normal Hemogl obin a1C 6.0 % [facility]: [address] [place] [address] High Estimated Average Glucose 126 mg/dL 60-110 mg/dL [facility]: [address] [place] [address] Past Encounters 05/22/2021 Iron Deficiency; Prediabetes; Vitamin D Deficiency Tyree Fuentes RPA-C: [address] [place] [address] [address] [place] [phone], Ph. 02/11/2021 Patient Informed - Test Result; Vitamin D Deficiency; Iron Deficiency; Prediabetes; Low Back Pain; Hypertriglyceridemia Tyree Fuentes RPA-C: [address] [place] [address] [address], [place] [address], Ph. 01/22/2021 Vitamin D Deficiency; Prediabetes SHON ManzanoC: [address] [facility] [address], [place] [address], Ph. 07/17/2020 Prediabetes; Severe Obesity; Vitamin D Deficiency; Iron Deficiency Tyree Fuentes RPA-C: [address] [facility], [facility] [address], [place] [address], Ph. 07/10/2020 Morbid Obesity; Vitamin D Deficiency; Iron Deficiency; Prediabetes Tyree Fuentes RPA-C: [address] [facility], [facility] [address], [place] [address], Ph. Social History Tobacco Smoking Status Never Smoker Vaccine List Vaccine Type Tdap 04/18/2020 Plan of Care Reminders Provider Appointments None recorded. Lab None recorded. Referral None recorded. Procedures None recorded. Surgeries None recorded. Imaging None recorded. Vitals 02/11/2021 11:40AM [facility] 20 Height 62 in 07/17/2020 09:50AM TELEHEALTH 20 Height 62 in 04/18/2020 Height Weight BMI Blood Pressure 62 in 234 lbs 3.2 oz 42.99 kg/m2 102/64 mm[Hg ] 02/14/2020 Height Weight BMI Blood Pressure 62 in 234 lbs 42.95 kg/m2 98/67 mm[Hg] 01/04/2020 Height Weight BMI Blood Pressure 62 in 224 lbs 6.08 oz 41.19 kg/m2 131/83 mm[H g] 10/19/2019 Height Weight BMI Blood Pressure 62 in 224 lbs 41.12 kg/m2 131/83 mm[Hg] 08/02/2019 Height Weight BMI Blood Pressure 62 in 221 lbs 3.2 oz 40.60 kg/m2 129/82 mm[Hg ] 05/31/2019 Height Weight BMI Blood Pressure 62 in 219 lbs 6.08 oz 40.27 kg/m2 126/82 mm[H g] 02/28/2019 Height Weight BMI Blood Pressure 62 in 219 lbs 9.6 oz 40.31 kg/m2 109/58 mm[Hg ]"
--- OUTSIDE RECORDS SUMMARY | 2021-06-21 02:03 | CCD ---
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 Name Role Phone FUENTES, ANDRIA TYREE RPA-C Unavailable Unavailable FUENTES, ANDRIA TYREE RPA-C Unavailable Unavailable FUENTES, ANDRIA TYREE RPA-C Unavailable Unavailable FUENTES, ANDRIA TYREE RPA-C Unavailable Unavailable FUENTES, ANDRIA TYREE RPA-C Unavailable Unavailable FUENTES, ANDRIA TYREE RPA-C Unavailable Unavailable FUENTES, ANDRIA TYREE RPA-C Unavailable Unavailable FUENTES, ANDRIA TYREE RPA-C Unavailable Unavailable FUENTES, ANDRIA TYREE RPA-C Unavailable Unavailable FUENTES, ANDRIA TYREE RPA-C Unavailable Unavailable FUENTES, ANDRIA TYREE RPA-C Unavailable Unavailable FUENTES, ANDRIA TYREE RPA-C Unavailable Unavailable FUENTES, ANDRIA TYREE RPA-C Unavailable Unavailable FUENTES, ANDRIA TYREE RPA-C Unavailable Unavailable FUENTES, ANDRIA TYREE RPA-C Unavailable Unavailable FUENTES, ANDRIA TYREE RPA-C Unavailable Unavailable FUENTES, ANDRIA TYREE RPA-C Unavailable Unavailable FUENTES, ANDRIA TYREE RPA-C Unavailable Unavailable FUENTES, ANDRIA TYREE RPA-C Unavailable Unavailable FUENTES, ANDRIA TYREE RPA-C Unavailable Unavailable FUENTES, ANDRIA TYREE RPA-C Unavailable Unavailable FUENTES, ANDRIA TYREE RPA-C Unavailable Unavailable FUENTES, ANDRIA TYREE RPA-C Unavailable Unavailable FUENTES, ANDRIA TYREE RPA-C Unavailable Unavailable FUENTES, ANDRIA TYREE RPA-C Unavailable Unavailable FUENTES, ANDRIA TYREE RPA-C Unavailable Unavailable FUENTES, ANDRIA TYREE RPA-C Unavailable Unavailable FUENTES, ANDRIA TYREE RPA-C Unavailable Unavailable FUENTES, ANDRIA TYREE RPA-C Unavailable Unavailable FUENTES, ANDRIA TYREE RPA-C Unavailable Unavailable FUENTES, ANDRIA TYREE RPA-C Unavailable Unavailable FUENTES, ANDRIA TYREE RPA-C Unavailable Unavailable FEUNTES, ANDRIA TYREE RPA-C Unavailable Unavailable FUENTES, ANDRIA TYREE RPA-C Unavailable Unavailable FUENTES, ANDRIA TYREE RPA-C Unavailable Unavailable FUENTES, ANDRIA TYREE RPA-C Unavailable Unavailable FUENTES, ANDRIA TYREE RPA-C Unavailable Unavailable FUENTES, ANDRIA TYREE RPA-C Unavailable Unavailable FUENTES, ANDRIA TYREE RPA-C Unavailable Unavailable FUENTES, ANDRIA TYREE RPA-C Unavailable Unavailable FUENTES, ANDRIA TYREE RPA-C Unavailable Unavailable FUENTES, ANDRIA TYREE RPA-C Unavailable Unavailable FUENTES, ANDRIA TYREE RPA-C Unavailable Unavailable FUENTES, ANDRIA TYREE RPA-C Unavailable Unavailable FUENTES, ANDRIA TYREE RPA-C Unavailable Unavailable FUENTES, ANDRIA TYREE RPA-C Unavailable Unavailable FUENTES, ANDRIA TYREE RPA-C Unavailable Unavailable FUENTES, ANDRIA TYREE RPA-C Unavailable Unavailable FUENTES, ANDRIA TYREE RPA-C Unavailable Unavailable FUENTES, ANDRIA TYREE RPA-C Unavailable Unavailable FUENTES, ANDRIA TYREE RPA-C Unavailable Unavailable FUENTES, ANDRIA TYREE RPA-C Unavailable Unavailable FUENTES, ANDRIA TYREE RPA-C Unavailable Unavailable FUENTES, ANDRIA TYREE RPA-C Unavailable Unavailable FUENTES, ANDRIA TYREE RPA-C Unavailable Unavailable FUENTES, ANDRIA TYREE RPA-C Unavailable Unavailable FUENTES, ANDRIA TYREE RPA-C Unavailable Unavailable FUENTES, ANDRIA TYREE RPA-C Unavailable Unavailable FUENTES, ANDRIA TYREE RPA-C Unavailable Unavailable FUENTES, ANDRIA TYREE RPA-C Unavailable Unavailable FUENTES, ANDRIA TYREE RPA-C Unavailable Unavailable FUENTES, ANDRIA TYREE RPA-C Unavailable Unavailable FUENTES, ANDRIA TYREE RPA-C Unavailable Unavailable FUENTES, ANDRIA TYREE RPA-C Unavailable Unavailable FUENTES, ANDRIA TYREE RPA-C Unavailable Unavailable FUENTES, ANDRIA TYREE RPA-C Unavailable Unavailable FUENTES, ANDRIA TYREE RPA-C Unavailable Unavailable FUENTES, ANDRIA TYREE RPA-C Unavailable Unavailable FUENTES, ANDRIA TYREE RPA-C Unavailable Unavailable FUENTES, ANDRIA TYREE RPA-C Unavailable Unavailable FUENTES, ANDRIA TYREE RPA-C Unavailable Unavailable FUENTES, ANDRIA TYREE RPA-C Unavailable Unavailable FUENTES, ANDRIA TYREE RPA-C Unavailable Unavailable FUENTES, ANDRIA TYREE RPA-C Unavailable Unavailable FUENTES, ANDRIA TYREE RPA-C Unavailable Unavailable UFENTES, ANDRIA TYREE RPA-C Unavailable Unavailable FUENTES, ANDRIA TYREE RPA-C Unavailable Unavailable FUENTES, ANDRIA TYREE RPA-C Unavailable Unavailable FUENTES, ANDRIA TYREE RPA-C Unavailable Unavailable FUENTES, ANDRIA TYREE RPA-C Unavailable Unavailable FUENTES, ANDRIA TYREE RPA-C Unavailable Unavailable FUENTES, ANDRIA TYREE RPA-C Unavailable Unavailable FUENTES, ANDRIA TYREE RPA-C Unavailable Unavailable FUENTES, ANDRIA TYREE RPA-C Unavailable Unavailable FUENTES, ANDRIA TYREE RPA-C Unavailable Unavailable FUENTES, ANDRIA TYREE RPA-C Unavailable Unavailable Quinones, Jaqueline Alice NPP Unavailable Unavailable Quinones, Jaqueline Alice NPP Unavailable Unavailable Quinones, Jaqueline Alice NPP Unavailable Unavailable Quinones, Jaqueline Alice NPP Unavailable Unavailable Quinones, Jaqueline Alice NPP Unavailable Unavailable Quinones, Jaqueline Alice NPP Unavailable Unavailable Quinones, Jaqueline Alice NPP Unavailable Unavailable Quinones, Jaqueline Alice NPP Unavailable Unavailable Quinones, Jaqueline Alice NPP Unavailable Unavailable Joni, Jaqueline Biswasie NPP Unavailable Unavailable Marino Estrada MD Unavailable Unavailable Marino Estrada MD Unavailable Unavailable Marino Estrada MD Unavailable Unavailable Marino Estrada MD Unavailable Unavailable Marino Estrada MD Unavailable Unavailable Marino Estrada MD Unavailable Unavailable Marino Estrada MD Unavailable Unavailable Marino Estrada MD Unavailable Unavailable Marino Estrada MD Unavailable Unavailable Marino Estrada MD Unavailable Unavailable Marino Estrada MD Unavailable Unavailable Marino Estrada MD Unavailable Unavailable Marino Estrada MD Unavailable Unavailable Marino Estrada MD Unavailable Unavailable Marino Estrada MD Unavailable Unavailable Marino Estrada MD Unavailable Unavailable Marino Estrada MD Unavailable Unavailable Marino Estrada MD Unavailable Unavailable Marino Estrada MD Unavailable Unavailable Marino Estrada MD Unavailable Unavailable Marino Estrada MD Unavailable Unavailable Marino Estrada MD Unavailable Unavailable Marino Estrada MD Unavailable Unavailable Marino Estrada MD Unavailable Unavailable Marino Estrada MD Unavailable Unavailable Marino Estrada MD Unavailable Unavailable Marino Estrada MD Unavailable Unavailable Marino Estrada MD Unavailable Unavailable Marino Estrada MD Unavailable Unavailable Marino Estrada MD Unavailable Unavailable Marino Estrada MD Unavailable Unavailable Marino Estrada MD Unavailable Unavailable Marino Estrada MD Unavailable Unavailable Marino Estrada MD Unavailable Unavailable Marino Estrada MD Unavailable Unavailable Marino Estrada MD Unavailable Unavailable Marino Estrada MD Unavailable Unavailable Marino Estrada MD Unavailable Unavailable Marino Estrada MD Unavailable Unavailable Marino Estrada MD Unavailable Unavailable Marino Estrada MD Unavailable Unavailable Marino Estrada MD Unavailable Unavailable Marino Estrada MD Unavailable Unavailable Marino Estrada MD Unavailable Unavailable Marino Estrada MD Unavailable Unavailable Marino Estrada MD Unavailable Unavailable Marino Estrada MD Unavailable Unavailable Marino Estrada MD Unavailable Unavailable Marino Estrada MD Unavailable Unavailable Marino Estrada MD Unavailable Unavailable Marino Estrada MD Unavailable Unavailable Marino Estrada MD Unavailable Unavailable Marino Estrada MD Unavailable Unavailable Marino Estrada MD Unavailable Unavailable Marino Estrada MD Unavailable Unavailable Marino Estrada MD Unavailable Unavailable Marino Estrada MD Unavailable Unavailable Marino Estrada MD Unavailable Unavailable Marino Estrada MD Unavailable Unavailable Marino Estrada MD Unavailable Unavailable Marino Estrada MD Unavailable Unavailable Marino Estrada MD Unavailable Unavailable Marino Estrada MD Unavailable Unavailable Marino Estrada MD Unavailable Unavailable Waite, M Barratt PA Unavailable Unavailable Waite, M Barratt PA Unavailable Unavailable Waite, M Barratt PA Unavailable Unavailable Waite, M Barratt PA Unavailable Unavailable Waite, M Barratt PA Unavailable Unavailable Waite, M Barratt PA Unavailable Unavailable Waite, M Barratt PA Unavailable Unavailable Waite, M Barratt PA Unavailable Unavailable Waite, M Barratt PA Unavailable Unavailable Waite, M Barratt PA Unavailable Unavailable Waite, M Barratt PA Unavailable Unavailable Waite, M Barratt PA Unavailable Unavailable Waite, M Barratt PA Unavailable Unavailable Waite, M Barratt PA Unavailable Unavailable Waite, M Barratt PA Unavailable Unavailable Waite, M Barratt PA Unavailable Unavailable Waite, M Barratt PA Unavailable Unavailable Waite, M Barratt PA Unavailable Unavailable Waite, M Barratt PA Unavailable Unavailable Waite, M Barratt PA Unavailable Unavailable Waite, M Barratt PA Unavailable Unavailable Waite M Barratt PA Unavailable Unavailable WaiteShane Barratt PA Unavailable Unavailable WaiteShane Barratt PA Unavailable Unavailable Waite M Barratt PA Unavailable Unavailable Waite, M Barratt PA Unavailable Unavailable Waite, M Barratt PA Unavailable Unavailable Waite, M Barratt PA Unavailable Unavailable Waite, M Barratt PA Unavailable Unavailable Re-disclosure Warning The records that you are about to access may contain information from federally-assisted alcohol or drug abuse programs. If such information is present, then the following federally mandated warning applies: This information has been disclosed to you from records protected by federal confidentiality rules (42 CFR part 2). The federal rules prohibit you from making any further disclosure of this information unless further disclosure is expressly permitted by the written consent of the person to whom it pertains or as otherwise permitted by 42 CFR part 2. A general authorization for the release of medical or other information is NOT sufficient for this purpose. The Federal rules restrict any use of the information to criminally investigate or prosecute any alcohol or drug abuse patient.The records that you are about to access may contain highly sensitive health information, the redisclosure of which is protected by Article 27-F of the [facility] Public Health law. If you continue you may have access to information: Regarding HIV / AIDS; Provided by facilities licensed or operated by the [facility] Office of Mental Health; or Provided by the [facility] Office for People With Developmental Disabilities. If such information is present, then the following [facility] mandated warning applies: This information has been disclosed to you from confidential records which are protected by state law. State law prohibits you from making any further disclosure of this information without the specific written consent of the person to whom it pertains, or as otherwise permitted by law. Any unauthorized further disclosure in violation of state law may result in a fine or residential sentence or both. A general authorization for the release of medical or other information is NOT sufficient authorization for further disc losure. Encounters Encounter Providers Location Date Indications Data Source(s ) Outpatient Attender: Dougie BULLOCK Physical Therapy 09:45:[address] [facility] Tyree Fuentes, RPA-C: [address], [facility] [address] [address], Ph. Attender: TYREE FUENTES RPA-C [facility] 05/29/2021 12:00:00 AM EDT [place] ([facility]) Outpatient Attender: Torrey Estrada MDAdmitter: Torrey Estrada MD E [email or web address] 05/27/2021 08:27:46 AM EDT [facility] Tyree Fuentes, RPA-C: [address], [place] [address], Ph. Attender: TYREE FUENTES RPA-C [facility] Medical 05/22/2021 12:00:00 AM EDT [place] ([facility]) Tyree Fuentes, RPA-C: [address], [place] [address], Ph. Attender: TYREE FUENTES RPA-C [facility] Medical 05/22/2021 12:00:00 AM EDT [place] ([facility]) Outpatient Attender: Alice WALLACE [email or web address] 04/26/2021 12:00:00 AM EDT [facility] Tyree Fuentes, RPA-C: [address], [place] [address], Ph. Attender: TYREE FUENTES RPA-C [facility] Medical 02/11/2021 12:00:00 AM EDT [place] ([facility]) Tyree Fuentes, RPA-C: [address], [place] [address], Ph. Attender: TYREE FUENTES RPA-C [facility] 02/11/2021 12:00:00 AM EDT [place] ([facility]) Tyree Fuentes, RPA-C: [address], [place] [address], Ph. Attender: TYREE FUENTES RPA-C [facility] 02/11/2021 12:00:00 AM EDT [place] ([facility]) Tyree Fuentes, RPA-C: [address], [place] [address], Ph. Attender: TYREE FUENTES RPA-C [facility] 01/22/2021 12:00:00 AM EDT [place] ([facility]) Tyree Fuentes, RPA-C: [address], [place] [address], Ph. Attender: TYREE FUENTES RPA-C [facility] 01/22/2021 12:00:00 AM EDT [place] ([facility]) Tyree Fuentes, RPA-C: [address], [place] [address], Ph. Attender: TYREE FUENTES RPA-C [facility] 01/22/2021 12:00:00 AM EDT [place] ([facility]) Tyree Fuentes, RPA-C: [address], [place] [address], Ph. Attender: TYREE FUENTES RPA-C [facility] 01/22/2021 12:00:00 AM EDT [place] ([facility]) Tyree Fuentes, RPA-C: [address], [place] [address], Ph. Attender: TYREE FUENTES RPA-C [facility] 07/17/2020 12:00:00 AM EST [place] ([facility]) Tyree Fuentes RPA-C: [address], [place] [address], Ph. Attender: TYREE FUENTES RPA-C [facility] 07/17/2020 12:00:00 AM EST [place] ([facility]) Tyree Fuentes RPA-C: [address], [place] [address], Ph. Attender: TYREE FUENTES RPA-C [facility] 07/17/2020 12:00:00 AM EST [place] ([facility]) Tyree Fuentes RPA-C: [address], [place] [address], Ph. Attender: TYREE FUENTES RPA-C [facility] 07/17/2020 12:00:00 AM EST [place] ([facility]) Tyree Fuentes RPA-C: [address], [place] [address], Ph. Attender: TYREE FUENTES RPA-C [facility] 07/17/2020 12:00:00 AM EST [place] ([facility]) Tyree Fuentes RPA-C: [address], [place] [address], Ph. Attender: TYREE FUENTES RPA-C [facility] Medical 07/10/2020 12:00:00 AM EST [place] ([facility]) Tyree Fuentes, RPA-C: [address], [place] [address], Ph. Attender: TYREE FUENTES RPA-C [facility] 07/10/2020 12:00:00 AM EST [place] ([facility]) Tyree Fuentes, RPA-C: [address], [place] [address], Ph. Attender: TYREE FUENTES RPA-C [facility] 07/10/2020 12:00:00 AM EST [place] ([facility]) Tyree Fuentes, RPA-C: [address], [place] [address], Ph. Attender: TYREE FUENTES RPA-C [facility] 07/10/2020 12:00:00 AM EST [place] ([facility]) Tyree Fuentes RPA-C: [address], [place] [address], Ph. Attender: TYREE FUENTES RPA-C [facility] 07/10/2020 12:00:00 AM EST [place] ([facility]) Tyree Fuentes RPA-C: [address], [place] [address], Ph. Attender: TYREE FUENTES RPA-C [facility] 07/10/2020 12:00:00 AM EST [place] ([facility]) Outpatient Attender: TYREE FUENTES RPA-C [facility] 05/07/2020 08:50:03 AM EDT [facility] Immunizations Vaccine Date Status Description Data Source(s) COVID-19, mRNA, LNP-S, PF, 100 mcg/0.5 mL dose 10/26/2020 12 :00:00 AM EDT completed 10/26/2020 [place] ([facility]) COVID-19 VACCINE Moderna 10/26/2020 12:00:00 AM EDT completed [facility] Vaccine Series Complete: YESThis Data wa s Submitted to [facility] Via [employer]. COVID-19, mRNA, LNP-S, PF, 100 mcg/0.5 mL dose 09/28/2020 12 :00:00 AM EST completed 09/28/2020 [place] ([facility]) COVID-19 VACCINE Moderna 09/28/2020 12:00:00 AM EST completed [facility] Vaccine Series Complete: NOThis Data was Submitted to [facility] Via [employer]. Medications Medication Brand Name Start Date Product Form Dose Route Admi nistrative Instructions Pharmacy Instructions Status Indications Reaction Description Data Source(s) 90 mcg/actuation 04/19/2020 12:00:00 AM EDT [facility] aerosol inha ler 18 INHALE 2 PUFFS BY MOUTH FOUR TIMES A DAY NEEDED INHALE 2 PUFFS BY MOUTH FOUR TIMES A DAY NEEDED SOLD: 04/25/2020 [facility] 325 mg (65 mg iron) 10/28/2019 12:00:00 AM EDT tablet, delayed release (DR/EC) 30 TAKE 1 TABLET BY MOUTH ONCE DAILY TAKE 1 TABLET BY MOUTH ONCE DAILY SOLD: 05/04/2020 [facility] 25 mcg (1,000 unit) 10/28/2019 12:00:00 AM EDT capsule 30 TAKE ONE CAPSULE BY MOUTH EVERY DAY TAKE ONE CAPSULE BY MOUTH EVERY DAY SOLD: 05/04/2020 [facility] 500 mg 10/28/2019 12:00:00 AM EDT tablet extended release 24 hr 30 TAKE ONE TABLET BY MOUTH EVERY DAY TAKE ONE TABLET BY MOUTH EVERY DAY SOLD: 05/04/2020 [facility] Ibuprofen 800 MG Oral Tablet ibuprofen 8 00 mg tablet TAKE ONE TABLET BY MOUTH THREE TIMES A DAY NEEDED FOR PAIN ibuprofen 800 mg tablet TAKE ONE TABLET BY MOUTH THREE TIMES A DAY NEEDED FOR PAIN completed ibuprofen 800 MG Oral Tablet [place] ([facility]) Ergocalciferol 63520 UNT Oral Capsule Vi tamin D2 1,250 mcg (50,000 unit) capsule TAKE 1 CAPSULE BY MOUTH ONCE WEEKLY Vitamin D2 1,250 mcg (50,000 unit) capsu le TAKE 1 CAPSULE BY MOUTH ONCE WEEKLY co mpleted ergocalciferol 1.25 MG Oral Capsule [place] ([facility]) Amoxicillin 875 MG Oral Tablet amoxicill in 875 mg tablet TAKE ONE TABLET BY MOUTH TWICE A DAY amoxicillin 875 mg tablet TAKE ONE TABLE T BY MOUTH TWICE A DAY completed amoxicillin 875 MG Oral Tablet [place] ([facility]) Fluconazole 150 MG Oral Tablet fluconazo le 150 mg tablet TAKE 1 TABLET BY MOUTH 7 10 DAYS NEEDED YEAST NEEDED VAGINITIS FROM ANTIBIOITC fluconazole 150 mg tablet TAKE 1 TABLET BY MOUTH 7 10 DAYS NEEDED YEAST NEEDED VAGINITIS FROM ANTIBIOITC completed fluconazole 150 MG Oral Tablet [place] ([facility]) Acetaminophen 325 MG / Hydrocodone Angie trate 5 MG Oral Tablet hydrocodone 5 mg- acetaminophen 325 mg tablet TAKE 1 TABLET BY MOUTH EVERY 4 6 HOUR NEEDED FOR PAIN MAXIMUM DAILY DOSE FOUR TABLETS hydrocodone 5 mg-acetaminophen 325 mg tablet TAKE 1 TABLET BY MOUTH EVERY 4 6 HOUR NEEDED FOR PAIN MAXIMUM DAILY DOSE FOUR TABLETS completed acetaminophen 325 MG / hydrocodone bitartrate 5 MG Oral Tablet [place] ([facility]) Prednisone 10 MG Oral Tablet prednisone 10 mg tablet TAKE THREE TABLETS BY MOUTH EVERY DAY prednisone 10 mg tablet TAKE THREE TABLETS BY MOUTH EVERY DAY completed prednisone 10 MG Oral Tab let [place] ([facility]) Cholecalciferol 1000 UNT Oral Capsule Vi tamin D3 25 mcg (1,000 unit) capsule TAKE ONE CAPSULE BY MOUTH EVERY DAY Vitamin D3 25 mcg (1,000 unit) capsule T [place] ONE CAPSULE BY MOUTH EVERY DAY complet ed cholecalciferol 0.025 MG Oral Capsule [place] ([facility]) cefdinir 300 MG Oral Capsule cefdinir 30 0 mg capsule TAKE ONE CAPSULE BY MOUTH TWICE A DAY cefdinir 300 mg capsule TAKE ONE CAPSULE BY MOUTH TWICE A DAY completed cefdinir 300 MG Oral Capsule [place] ([facility]) Fluconazole 150 MG Oral Tablet fluconazo le 150 mg tablet TAKE 1 TABLET BY MOUTH 7 10 DAYS NEEDED YEAST NEEDED VAGINITIS FROM ANTIBIOITC fluconazole 150 mg tablet TAKE 1 TABLET BY MOUTH 7 10 DAYS NEEDED YEAST NEEDED VAGINITIS FROM ANTIBIOITC completed fluconazole 150 MG Oral Tablet [place] ([facility]) Amoxicillin 875 MG Oral Tablet amoxicill in 875 mg tablet TAKE ONE TABLET BY MOUTH TWICE A DAY amoxicillin 875 mg tablet TAKE ONE TABLE T BY MOUTH TWICE A DAY completed amoxicillin 875 MG Oral Tablet [place] ([facility]) cefdinir 300 MG Oral Capsule cefdinir 30 0 mg capsule TAKE ONE CAPSULE BY MOUTH TWICE A DAY cefdinir 300 mg capsule TAKE ONE CAPSULE BY MOUTH TWICE A DAY completed cefdinir 300 MG Oral Capsule [place] ([facility]) Ergocalciferol 16621 UNT Oral Capsule Vi tamin D2 1,250 mcg (50,000 unit) capsule TAKE 1 CAPSULE BY MOUTH ONCE WEEKLY Vitamin D2 1,250 mcg (50,000 unit) capsu le TAKE 1 CAPSULE BY MOUTH ONCE WEEKLY co mpleted ergocalciferol 1.25 MG Oral Capsule [place] ([facility]) Fluconazole 150 MG Oral Tablet fluconazo le 150 mg tablet TAKE 1 TABLET BY MOUTH 7 10 DAYS NEEDED YEAST NEEDED VAGINITIS FROM ANTIBIOITC fluconazole 150 mg tablet TAKE 1 TABLET BY MOUTH 7 10 DAYS NEEDED YEAST NEEDED VAGINITIS FROM ANTIBIOITC completed fluconazole 150 MG Oral Tablet [place] ([facility]) Amoxicillin 875 MG Oral Tablet amoxicill in 875 mg tablet TAKE ONE TABLET BY MOUTH TWICE A DAY amoxicillin 875 mg tablet TAKE ONE TABLE T BY MOUTH TWICE A DAY completed amoxicillin 875 MG Oral Tablet [place] ([facility]) Acetaminophen 325 MG / Oxycodone Hydroch loride 5 MG Oral Tablet oxycodone- acetaminophen 5 mg-325 mg tablet TAKE ONE TABLET BY MOUTH THREE TIMES A DAY NEEDED FOR PAIN MAXIMUM DAILY DOSE 3 oxycodone-acetaminophen 5 mg-325 mg tablet TAKE ONE TABLET BY MOUTH THREE TIMES A DAY NEEDED FOR PAIN MAXIMUM DAILY DOSE 3 completed acetaminophen 325 MG / oxycodone hydrochloride 5 MG Oral Tablet [place] ([facility]) Amoxicillin 875 MG Oral Tablet amoxicill in 875 mg tablet TAKE ONE TABLET BY MOUTH TWICE A DAY amoxicillin 875 mg tablet TAKE ONE TABLE T BY MOUTH TWICE A DAY completed amoxicillin 875 MG Oral Tablet [place] ([facility]) Acetaminophen 325 MG / Oxycodone Hydroch loride 5 MG Oral Tablet oxycodone- acetaminophen 5 mg-325 mg tablet TAKE ONE TABLET BY MOUTH THREE TIMES A DAY NEEDED FOR PAIN MAXIMUM DAILY DOSE 3 oxycodone-acetaminophen 5 mg-325 mg tablet TAKE ONE TABLET BY MOUTH THREE TIMES A DAY NEEDED FOR PAIN MAXIMUM DAILY DOSE 3 completed acetaminophen 325 MG / oxycodone hydrochloride 5 MG Oral Tablet [place] ([facility]) Amoxicillin 875 MG Oral Tablet amoxicill in 875 mg tablet TAKE ONE TABLET BY MOUTH TWICE A DAY amoxicillin 875 mg tablet TAKE ONE TABLE T BY MOUTH TWICE A DAY completed amoxicillin 875 MG Oral Tablet [place] ([facility]) Amoxicillin 500 MG Oral Capsule amoxicillin 500 mg cap timbo amoxicillin 500 mg capsule completed amoxicillin 50 0 MG Oral Capsule [place] ([facility]) Prednisone 10 MG Oral Tablet prednisone 10 mg tablet TAKE THREE TABLETS BY MOUTH EVERY DAY prednisone 10 mg tablet TAKE THREE TABLETS BY MOUTH EVERY DAY completed prednisone 10 MG Oral Tab let [place] ([facility]) Ibuprofen 800 MG Oral Tablet ibuprofen 8 00 mg tablet TAKE ONE TABLET BY MOUTH THREE TIMES A DAY NEEDED FOR PAIN ibuprofen 800 mg tablet TAKE ONE TABLET BY MOUTH THREE TIMES A DAY NEEDED FOR PAIN completed ibuprofen 800 MG Oral Tablet [facility] ([facility]) Acetaminophen 325 MG / Oxycodone Hydroch loride 5 MG Oral Tablet oxycodone- acetaminophen 5 mg-325 mg tablet TAKE ONE TABLET BY MOUTH THREE TIMES A DAY NEEDED FOR PAIN MAXIMUM DAILY DOSE 3 oxycodone-acetaminophen 5 mg-325 mg tablet TAKE ONE TABLET BY MOUTH THREE TIMES A DAY NEEDED FOR PAIN MAXIMUM DAILY DOSE 3 completed acetaminophen 325 MG / oxycodone hydrochloride 5 MG Oral Tablet [facility] ([facility]) Acetaminophen 325 MG / Oxycodone Hydroch loride 5 MG Oral Tablet oxycodone- acetaminophen 5 mg-325 mg tablet TAKE ONE TABLET BY MOUTH THREE TIMES A DAY NEEDED FOR PAIN MAXIMUM DAILY DOSE 3 oxycodone-acetaminophen 5 mg-325 mg tablet TAKE ONE TABLET BY MOUTH THREE TIMES A DAY NEEDED FOR PAIN MAXIMUM DAILY DOSE 3 completed acetaminophen 325 MG / oxycodone hydrochloride 5 MG Oral Tablet [facility] ([facility]) Ibuprofen 800 MG Oral Tablet ibuprofen 8 00 mg tablet TAKE ONE TABLET BY MOUTH THREE TIMES A DAY NEEDED FOR PAIN ibuprofen 800 mg tablet TAKE ONE TABLET BY MOUTH THREE TIMES A DAY NEEDED FOR PAIN completed ibuprofen 800 MG Oral Tablet [place] ([facility]) Amoxicillin 500 MG Oral Capsule amoxicillin 500 mg cap timbo amoxicillin 500 mg capsule completed amoxicillin 50 0 MG Oral Capsule [place] ([facility]) Ergocalciferol 22058 UNT Oral Capsule Vi tamin D2 1,250 mcg (50,000 unit) capsule TAKE 1 CAPSULE BY MOUTH ONCE WEEKLY Vitamin D2 1,250 mcg (50,000 unit) capsu le TAKE 1 CAPSULE BY MOUTH ONCE WEEKLY co mpleted ergocalciferol 1.25 MG Oral Capsule [place] ([facility]) cefdinir 300 MG Oral Capsule cefdinir 30 0 mg capsule TAKE ONE CAPSULE BY MOUTH TWICE A DAY cefdinir 300 mg capsule TAKE ONE CAPSULE BY MOUTH TWICE A DAY completed cefdinir 300 MG Oral Capsule [place] ([facility]) Ergocalciferol 11906 UNT Oral Capsule Vi tamin D2 1,250 mcg (50,000 unit) capsule TAKE 1 CAPSULE BY MOUTH ONCE WEEKLY Vitamin D2 1,250 mcg (50,000 unit) capsu le TAKE 1 CAPSULE BY MOUTH ONCE WEEKLY co mpleted ergocalciferol 1.25 MG Oral Capsule [place] ([facility]) cefdinir 300 MG Oral Capsule cefdinir 30 0 mg capsule TAKE ONE CAPSULE BY MOUTH TWICE A DAY cefdinir 300 mg capsule TAKE ONE CAPSULE BY MOUTH TWICE A DAY completed cefdinir 300 MG Oral Capsule [place] ([facility]) Fluconazole 150 MG Oral Tablet fluconazo le 150 mg tablet TAKE 1 TABLET BY MOUTH 7 10 DAYS NEEDED YEAST NEEDED VAGINITIS FROM ANTIBIOITC fluconazole 150 mg tablet TAKE 1 TABLET BY MOUTH 7 10 DAYS NEEDED YEAST NEEDED VAGINITIS FROM ANTIBIOITC completed fluconazole 150 MG Oral Tablet [place] ([facility]) Prednisone 10 MG Oral Tablet prednisone 10 mg tablet TAKE THREE TABLETS BY MOUTH EVERY DAY prednisone 10 mg tablet TAKE THREE TABLETS BY MOUTH EVERY DAY completed prednisone 10 MG Oral Tab let [facility]) Ibuprofen 800 MG Oral Tablet ibuprofen 8 00 mg tablet TAKE ONE TABLET BY MOUTH THREE TIMES A DAY NEEDED FOR PAIN ibuprofen 800 mg tablet TAKE ONE TABLET BY MOUTH THREE TIMES A DAY NEEDED FOR PAIN completed ibuprofen 800 MG Oral Tablet [place] ([facility]) Amoxicillin 500 MG Oral Capsule amoxicillin 500 mg cap timbo amoxicillin 500 mg capsule completed amoxicillin 50 0 MG Oral Capsule [place] ([facility]) Acetaminophen 325 MG / Oxycodone Hydroch loride 5 MG Oral Tablet oxycodone- acetaminophen 5 mg-325 mg tablet TAKE ONE TABLET BY MOUTH THREE TIMES A DAY NEEDED FOR PAIN MAXIMUM DAILY DOSE 3 oxycodone-acetaminophen 5 mg-325 mg tablet TAKE ONE TABLET BY MOUTH THREE TIMES A DAY NEEDED FOR PAIN MAXIMUM DAILY DOSE 3 completed acetaminophen 325 MG / oxycodone hydrochloride 5 MG Oral Tablet [place] ([facility]) Prednisone 10 MG Oral Tablet prednisone 10 mg tablet TAKE THREE TABLETS BY MOUTH EVERY DAY prednisone 10 mg tablet TAKE THREE TABLETS BY MOUTH EVERY DAY completed prednisone 10 MG Oral Tab let [place] ([facility]) Ergocalciferol 74671 UNT Oral Capsule Vi tamin D2 1,250 mcg (50,000 unit) capsule TAKE 1 CAPSULE BY MOUTH ONCE WEEKLY Vitamin D2 1,250 mcg (50,000 unit) capsu le TAKE 1 CAPSULE BY MOUTH ONCE WEEKLY co mpleted ergocalciferol 1.25 MG Oral Capsule [place] ([facility]) Prednisone 10 MG Oral Tablet prednisone 10 mg tablet TAKE THREE TABLETS BY MOUTH EVERY DAY prednisone 10 mg tablet TAKE THREE TABLETS BY MOUTH EVERY DAY completed prednisone 10 MG Oral Tab let [place] ([facility]) cefdinir 300 MG Oral Capsule cefdinir 30 0 mg capsule TAKE ONE CAPSULE BY MOUTH TWICE A DAY cefdinir 300 mg capsule TAKE ONE CAPSULE BY MOUTH TWICE A DAY completed cefdinir 300 MG Oral Capsule [place] ([facility]) Ibuprofen 800 MG Oral Tablet ibuprofen 8 00 mg tablet TAKE ONE TABLET BY MOUTH THREE TIMES A DAY NEEDED FOR PAIN ibuprofen 800 mg tablet TAKE ONE TABLET BY MOUTH THREE TIMES A DAY NEEDED FOR PAIN completed ibuprofen 800 MG Oral Tablet [place] ([facility]) Fluconazole 150 MG Oral Tablet fluconazo le 150 mg tablet TAKE 1 TABLET BY MOUTH 7 10 DAYS NEEDED YEAST NEEDED VAGINITIS FROM ANTIBIOITC fluconazole 150 mg tablet TAKE 1 TABLET BY MOUTH 7 10 DAYS NEEDED YEAST NEEDED VAGINITIS FROM ANTIBIOITC completed fluconazole 150 MG Oral Tablet [place] ([facility]) Insurance Providers Payer name Policy type / Coverage type Policy ID Covered alliance party ID Covered alliance party's relationship to melara Policy Melara Plan Information Medicaid S [id number] S [id number] [place] [id number] [place] [id number] Kiya 7 [id number] Managed Care [place] P [id number] S [id number] BIR[employer]IE BUS UNAVAILABLE UNAVAIL ABLE [place] [id number] SP [id number] MEDICAID ([id number]) [id number] [employer]EDNY [id number] SP [id number] [facility] [id number] S [id number] MEDICAID [id number] Problems, Conditions, and Diagnoses Code Display Name Description Problem Type Effective Dates Data Source(s) K21.9 Gastro-esophageal reflux disease without esophagitis Gastro-esophageal reflux disease without Diagnosis 06/20/2021 01:08:06 PM [facility] [id number] Hypertriglyceridemia Hypertriglyceridemia Problem 02/28/2021 12:00:00 AM EDT [place] ([facility]) [id number] Hypertriglyceridemia Hypertriglyceridemia Problem 02/28/2021 12:00:00 AM EDT [place] ([facility]) [id number] Hypertriglyceridemia Hypertriglyceridemia Problem 02/28/2021 12:00:00 AM EDT [place] ([facility]) [id number] Impacted cerumen of bilateral ears Impac mandy Cerumen of Bilateral Ears Problem 04/18/2020 12:00:00 AM EDT - 02/11/2021 12:00:00 AM EDT [place] ([facility]) [id number] Screening mammography Screening Mammography Problem 04/18/2020 12:00:00 AM EDT - 02/28/2021 12:00:00 AM EDT [place] ([facility]) [id number] Influenza vaccine needed Influenza Vaccine Needed Pro blem 04/18/2020 12:00:00 AM EDT - 02/11/2021 12:00:00 AM EDT [place] ([facility]) [id number] Impacted cerumen of bilateral ears Impac mandy Cerumen of Bilateral Ears Problem 04/18/2020 12:00:00 AM EDT - 02/11/2021 12:00:00 AM EDT [place] ([facility]) [id number] Screening mammography Screening Mammography Problem 04/18/2020 12:00:00 AM EDT - 02/28/2021 12:00:00 AM EDT [place] ([facility]) [id number] Influenza vaccine needed Influenza Vaccine Needed Pro blem 04/18/2020 12:00:00 AM EDT - 02/11/2021 12:00:00 AM EDT [place] ([facility]) [id number] Impacted cerumen of bilateral ears Impac mandy Cerumen of Bilateral Ears Problem 04/18/2020 12:00:00 AM EDT - 02/11/2021 12:00:00 AM EDT [place] ([facility]) [id number] Screening mammography Screening Mammography Problem 04/18/2020 12:00:00 AM EDT - 02/28/2021 12:00:00 AM EDT [place] ([facility]) [id number] Influenza vaccine needed Influenza Vaccine Needed Pro blem 04/18/2020 12:00:00 AM EDT - 02/11/2021 12:00:00 AM EDT [place] ([facility]) [id number] Finding of pattern of menstrual cycle Fi nding of Pattern of Menstrual Cycle Problem 02/14/2020 12:00:00 AM EDT - 02/11/2021 12:00:00 AM EDT [place] ([facility]) [id number] Microscopic hematuria Microscopic Hematuria Problem 02/14/2020 12:00:00 AM EDT - 07/17/2020 12:00:00 AM EST [place] ([facility]) [id number] Finding of pattern of menstrual cycle Fi nding of Pattern of Menstrual Cycle Problem 02/14/2020 12:00:00 AM EDT - 02/11/2021 12:00:00 AM EDT [place] ([facility]) [id number] Microscopic hematuria Microscopic Hematuria Problem 02/14/2020 12:00:00 AM EDT - 07/17/2020 12:00:00 AM [place]ATOLIY [place] ([facility]) [id number] Finding of pattern of menstrual cycle Fi nding of Pattern of Menstrual Cycle Problem 02/14/2020 12:00:00 AM EDT - 02/11/2021 12:00:00 AM EDT [place] ([facility]) [id number] Microscopic hematuria Microscopic Hematuria Problem 02/14/2020 12:00:00 AM EDT - 07/17/2020 12:00:00 AM EST [place] ([facility]) [id number] Microscopic hematuria Microscopic Hematuria Problem 02/14/2020 12:00:00 AM EDT - 07/17/2020 12:00:00 AM EST [place] ([facility]) [id number] Microscopic hematuria Microscopic Hematuria Problem 02/14/2020 12:00:00 AM EDT - 07/17/2020 12:00:00 AM EST [place] ([facility]) [id number] Clinical finding Clinical Finding Problem 019 12:00:00 AM EDT - 07/17/2020 12:00:00 AM EST [place] ([facility]) [id number] Pain in female genitalia Pain in Female Genitalia Prob mariana 02/28/2019 12:00:00 AM EDT - 02/11/2021 12:00:00 AM EDT [place] ([facility]) [id number] Procedure by method Procedure by Method Problem 0 02/28/2019 12:00:00 AM EDT - 07/17/2020 12:00:00 AM EST [place] ([facility]) [id number] Clinical finding Clinical Finding Problem 12:00:00 AM EDT - 07/17/2020 12:00:00 AM EST [place] ([facility]) [id number] Pain in female genitalia Pain in Female Genitalia Prob mariana 02/28/2019 12:00:00 AM EDT - 02/11/2021 12:00:00 AM EDT [place] ([facility]) [id number] Procedure by method Procedure by Method Problem 0 02/28/2019 12:00:00 AM EDT - 07/17/2020 12:00:00 AM EST [place] ([facility]) [id number] Clinical finding Clinical Finding Problem 12:00:00 AM EDT - 07/17/2020 12:00:00 AM EST [place] ([facility]) [id number] Female genitalia finding Female Genitalia Finding Prob mariana 02/28/2019 12:00:00 AM EDT - 02/11/2021 12:00:00 AM EDT [place] ([facility]) [id number] Procedure by method Procedure by Method Problem 0 02/28/2019 12:00:00 AM EDT - 07/17/2020 12:00:00 AM EST [place] ([facility]) [id number] Clinical finding Clinical Finding Problem 12:00:00 AM EDT - 07/17/2020 12:00:00 AM EST [place] ([facility]) [id number] Procedure by method Procedure by Method Problem 0 02/28/2019 12:00:00 AM EDT - 07/17/2020 12:00:00 AM EST [place] ([facility]) [id number] Clinical finding Clinical Finding Problem 019 12:00:00 AM EDT - 07/17/2020 12:00:00 AM EST [place] ([facility]) [id number] Procedure by method Procedure by Method Problem 0 02/28/2019 12:00:00 AM EDT - 07/17/2020 12:00:00 AM EST [place] ([facility]) Surgeries/Procedures Procedure Description Date Indications Data Source(s) RADIOLOGIC EXAM KNEE COMPLETE 4/MORE VIEWS 06/18/2021 12:00:00 AM EST [facility] ([facility]) OFFICE OUTPATIENT VISIT 25 MINUTES 06/18/2021 12:00:00 AM EST [facility] ([facility]) Results ID Date Data Source [id number] 05/22/2021 09:13:00 AM EDT [facility]) Name Value Range Interpretation Code Description Data Gillian rce(s) Supporting Document(s) Hemoglobin A1c/Hemoglobin.total in Blood 6.4 %_of_total_HGB <5.7 Above high normal Hemoglobin a1C [place] ([facility]) ID Date Data Source [id number] 05/22/2021 09:13:00 AM EDT [place] ([facility]) Name Value Range Interpretation Code Description Data Gillian rce(s) Supporting Document(s) Calcidiol [Mass/volume] in Serum or Plasma 24 NG/mL 30-100 Below low normal Vitamin D,25-Oh,total,ia [place] ([facility]) ID Date Data Source [id number] 05/22/2021 09:13:00 AM EDT [place] ([facility]) Name Value Range Interpretation Code Description Data Gillian rce(s) Supporting Document(s) Leukocytes [#/volume] in Blood by Automated count 8.1 thousand/uL 3 .8-10.8 White Blood Cell Count [place] ([facility]) Erythrocytes [#/volume] in Blood by Automated count 4.65 million/uL 3.80-5.10 Red Blood Cell Count [place] ([facility]) Hemoglobin [Mass/volume] in Blood 12.3 g/dL 11.7-15.5 He moglobin [place] ([facility]) Hematocrit [Volume Fraction] of Blood by Automated count 37.7 % 35.0-45.0 Hematocrit [place] ([facility]) Erythrocyte mean corpuscular volume [Entitic volume] by Auto mated count 81.1 fL 80.0-100.0 Mcv [place] ([facility]) Erythrocyte mean corpuscular hemoglobin [Entitic mass] by Automated count 26.5 pg 27.0-33.0 Below low normal Mch [facility] ([facility]) Erythrocyte mean corpuscular hemoglobin concentration [Mass/volume] by Automated count 32.6 g/dL 32.0-36.0 Mchc [place] ([facility]) Platelets [#/volume] in Blood by Automated count 369 thousand/uL 14 0-400 Platelet Count [place] ([facility]) Erythrocyte distribution width [Ratio] by Automated count 14.4 % 11.0-15.0 Rdw [place] ([facility]) Platelet mean volume [Entitic volume] in Blood by Rosa Mker 9.7 fL 7.5-12.5 Mpv [place] ([facility]) Lymphocytes [#/volume] in Blood by Automated count 2365 cells/uL 85 0-3900 Absolute Lymphocytes [place] ([facility]) Neutrophils [#/volume] in Blood by Automated count 4698 cells/uL 15 00-7800 Absolute Neutrophils [place] ([facility]) Monocytes [#/volume] in Blood by Automated count 818 cells/uL 200-9 50 Absolute Monocytes [place] ([facility]) Eosinophils [#/volume] in Blood by Automated count 178 cells/uL 15- 500 Absolute Eosinophils [place] ([facility]) Basophils [#/volume] in Blood by Automated count 41 cells/uL 0-200 Absolute Basophils [place] ([facility]) Neutrophils/100 leukocytes in Blood by Automated count 58 % 38- 80 Neutrophils [place] ([facility]) Monocytes/100 leukocytes in Blood by Automated count 10.1 % 0-13 Monocytes [place] ([facility]) Lymphocytes/100 leukocytes in Blood by Automated count 29.2 % 15-49 Lymphocytes [place] ([facility]) Eosinophils/100 leukocytes in Blood by Automated count 2.2 % 0-8 Eosinophils [place] ([facility]) Basophils/100 leukocytes in Blood by Automated count 0.5 % 0-2 Basophils [place] ([facility]) ID Date Data Source [id number] 05/22/2021 09:13:00 AM EDT [place] ([facility]) Name Value Range Interpretation Code Description Data Gillian rce(s) Supporting Document(s) Glucose [Mass/volume] in Serum or Plasma 97 mg/dL 65-99 Glucose [place] ([facility]) Urea nitrogen [Mass/volume] in Serum or Plasma 16 mg/dL 7-25 Urea Nitrogen (BUN) [place] ([facility]) Creatinine [Mass/volume] in Serum or Plasma 0.50 mg/dL 0.50-1.10 Creatinine [place] ([facility]) Glomerular filtration rate/1.73 sq M.pre dicted among blacks [Volume Rate/Area] in Serum, Plasma or Blood by Creatinine-based formula (CKD-EPI) 135 mL/min/1.73m2 > or = 60 eGFR [place] ([facility]) Glomerular filtration rate/1.73 sq M.pre dicted among non-blacks [Volume Rate/Area] in Serum, Plasma or Blood by Creatinine-based formula (CKD-EPI) 116 mL/min/1.73m2 > or = 60 eGFR Non-afr. Bur[place]an [place] ([facility]) Urea nitrogen/Creatinine [Mass Ratio] in Serum or Plasma not applic able 6-22 BUN/creatinine Ratio [place] ([facility]) Sodium [Moles/volume] in Serum or Plasma 139 mmol/L 135-146 Sodium [place] ([facility]) Potassium [Moles/volume] in Serum or Plasma 4.2 mmol/L 3.5-5.3 Potassium [place] ([facility]) Chloride [Moles/volume] in Serum or Plasma 106 mmol/L 98-110 Chloride [place] ([facility]) Calcium [Mass/volume] in Serum or Plasma 8.7 mg/dL 8.6-10.2 Calcium [place] ([facility]) Carbon dioxide, total [Moles/volume] in Serum or Plasma 26 mmol/L 20-32 Carbon Dioxide [place] ([facility]) Albumin [Mass/volume] in Serum or Plasma 4.1 g/dL 3.6-5.1 Albumin [place] ([facility]) Protein [Mass/volume] in Serum or Plasma 6.9 g/dL 6.1-8.1 Protein, Total [place] ([facility]) Albumin/Globulin [Mass Ratio] in Serum or Plasma 1.5 (calc) 1.0-2 .5 Albumin/globulin Ratio [place] ([facility]) Globulin [Mass/volume] in Serum by calculation 2.8 g/dL_(calc) 1.9- 3.7 Globulin [place] ([facility]) Alkaline phosphatase [Enzymatic activity/volume] in Serum or Plasma 85 U/L 31-125 Alkaline Phosphatase [place] ([facility]) Bilirubin.total [Mass/volume] in Serum or Plasma 0.2 mg/dL 0.2-1 .2 Bilirubin, Total [place] ([facility]) Aspartate aminotransferase [Enzymatic activity/volume] in Serum or Plasma 10 U/L 10-35 Ast [place] ([facility]) Alanine aminotransferase [Enzymatic activity/volume] in Seru m or Plasma 12 U/L 6-29 Alt [facility] ([facility]) ID Date Data Source [id number] 05/22/2021 09:13:00 AM EDT [place] ([facility]) Name Value Range Interpretation Code Description Data Gillian rce(s) Supporting Document(s) Iron [Mass/volume] in Serum or Plasma 47 mcg/dL 40-190 Iron, Total [place] ([facility]) Iron binding capacity [Mass/volume] in Serum or Plasma 468 m cg/dL_(calc) 250-450 Above high normal Iron Binding Capacity [place] ([facility]) Iron saturation [Mass Fraction] in Serum or Plasma 10 %_(calc) 16-45 Below low normal % Saturation [place] ([facility]) Ferritin [Mass/volume] in Serum or Plasma 27 NG/mL 16-232 Ferritin [place] ([facility]) ID Date Data Source [id number] 01/22/2021 09:47:00 AM EDT [facility]) Name Value Range Interpretation Code Description Data Gillian rce(s) Supporting Document(s) Hemoglobin A1c/Hemoglobin.total in Blood 6.2 %_of_total_HGB <5.7 Above high normal Hemoglobin a1C [place] ([facility]) ID Date Data Source [id number] 01/22/2021 09:47:00 [facility] Name Value Range Interpretation Code Description Data Gillian rce(s) Supporting Document(s) Calcidiol [Mass/volume] in Serum or Plasma 21 NG/mL 30-100 Below low normal Vitamin D,25-Oh,total,ia [place] ([facility]) ID Date Data Source [id number] 01/22/2021 09:47:00 AM EDT [facility]) Name Value Range Interpretation Code Description Data Gillian rce(s) Supporting Document(s) Creatinine [Mass/volume] in Serum or Plasma 0.50 mg/dL 0.50-1.10 Creatinine [place] ([facility]) Glucose [Mass/volume] in Serum or Plasma 115 mg/dL 65-99 Above high normal Glucose [place] ([facility]) Urea nitrogen [Mass/volume] in Serum or Plasma 12 mg/dL 7-25 Urea Nitrogen (BUN) [place] ([facility]) Glomerular filtration rate/1.73 sq M.pre dicted among blacks [Volume Rate/Area] in Serum, Plasma or Blood by Creatinine-based formula (CKD-EPI) 135 mL/min/1.73m2 > or = 60 eGFR [place] ([facility]) Glomerular filtration rate/1.73 sq M.pre dicted among non-blacks [Volume Rate/Area] in Serum, Plasma or Blood by Creatinine-based formula (CKD-EPI) 116 mL/min/1.73m2 > or = 60 eGFR Non-afr. [place]an [place] ([facility]) Sodium [Moles/volume] in Serum or Plasma 138 mmol/L 135-146 Sodium [place] ([facility]) Urea nitrogen/Creatinine [Mass Ratio] in Serum or Plasma not applic able 6-22 BUN/creatinine Ratio [place] ([facility]) Potassium [Moles/volume] in Serum or Plasma 3.9 mmol/L 3.5-5.3 Potassium [place] ([facility]) Chloride [Moles/volume] in Serum or Plasma 104 mmol/L 98-110 [facility] Carbon dioxide, total [Moles/volume] in Serum or Plasma 24 mmol/L 20-32 Carbon Dioxide [place] ([facility]) Albumin [Mass/volume] in Serum or Plasma 3.9 g/dL 3.6-5.1 Albumin [place] ([facility]) Protein [Mass/volume] in Serum or Plasma 6.7 g/dL 6.1-8.1 Protein, Total [facility] Calcium [Mass/volume] in Serum or Plasma 9.1 mg/dL 8.6-10.2 Calcium [place] ([facility]) Globulin [Mass/volume] in Serum by calculation 2.8 g/dL_(calc) 1.9- 3.7 Globulin [place] ([facility]) Albumin/Globulin [Mass Ratio] in Serum or Plasma 1.4 (calc) 1.0-2 .5 Albumin/globulin Ratio [place] ([facility]) Alkaline phosphatase [Enzymatic activity/volume] in Serum or Plasma 74 U/L 31-125 Alkaline Phosphatase [facility] ([facility]) Aspartate aminotransferase [Enzymatic activity/volume] in Serum or Plasma 19 U/L 10-35 Ast [place] ([facility]) Bilirubin.total [Mass/volume] in Serum or Plasma 0.3 mg/dL 0.2-1 .2 Bilirubin, Total [place] ([facility]) Alanine aminotransferase [Enzymatic activity/volume] in Seru m or Plasma 23 U/L 6-29 Alt [facility] ([facility]) ID Date Data Source [id number] 01/22/2021 09:47:00 AM EDT [place] ([facility]) Name Value Range Interpretation Code Description Data Gillian rce(s) Supporting Document(s) Cholesterol [Mass/volume] in Serum or Plasma 149 mg/dL <200 Cholesterol, Total [place] ([facility]) Cholesterol in HDL [Mass/volume] in Serum or Plasma 44 mg/dL > or = 50 Below low normal HDL Cholesterol [place] ([facility]) Triglyceride [Mass/volume] in Serum or Plasma 271 mg/dL <150 Above high normal Triglycerides [facility] ([facility]) Cholesterol non HDL [Mass/volume] in Serum or Plasma 105 mg/dL_(karina c) <130 Non HDL Cholesterol [place] ([facility]) Cholesterol in LDL [Mass/volume] in Serum or Plasma by calculation 69 mg/dL_(calc) <100 LDL-cholesterol [facility] ([facility]) Cholesterol.total/Cholesterol in HDL [Mass Ratio] in Serum o r Plasma 3.4 calc <5.0 Chol/hdlc Ratio [facility] ([facility]) ID Date Data Source [id number] 01/22/2021 09:47:00 AM EDT [place] ([facility]) Name Value Range Interpretation Code Description Data Gillian rce(s) Supporting Document(s) Hemoglobin A1c/Hemoglobin.total in Blood 6.2 %_of_total_HGB <5.7 Above high normal Hemoglobin a1C [facility] ([facility]) ID Date Data Source [id number] 01/22/2021 09:47:00 AM EDT [place] ([facility]) Name Value Range Interpretation Code Description Data Gillian rce(s) Supporting Document(s) Calcidiol [Mass/volume] in Serum or Plasma 21 NG/mL 30-100 Below low normal Vitamin D,25-Oh,total,ia [place] ([facility]) ID Date Data Source [id number] 01/22/2021 09:47:00 AM EDT [facility]) Name Value Range Interpretation Code Description Data Gillian rce(s) Supporting Document(s) Glucose [Mass/volume] in Serum or Plasma 115 mg/dL 65-99 Above high normal Glucose [place] ([facility]) Urea nitrogen [Mass/volume] in Serum or Plasma 12 mg/dL 7-25 Urea Nitrogen (BUN) [facility]) Creatinine [Mass/volume] in Serum or Plasma 0.50 mg/dL 0.50-1.10 Creatinine [place] ([facility]) Glomerular filtration rate/1.73 sq M.pre dicted among non-blacks [Volume Rate/Area] in Serum, Plasma or Blood by Creatinine-based formula (CKD-EPI) 116 mL/min/1.73m2 > or = 60 eGFR Non-afr. [place] ([facility]) Urea nitrogen/Creatinine [Mass Ratio] in Serum or Plasma not applic able 6-22 BUN/creatinine Ratio [place] ([facility]) Glomerular filtration rate/1.73 sq M.pre dicted among blacks [Volume Rate/Area] in Serum, Plasma or Blood by Creatinine-based formula (CKD-EPI) 135 mL/min/1.73m2 > or = 60 eGFR [place] ([facility]) Sodium [Moles/volume] in Serum or Plasma 138 mmol/L 135-146 Sodium [place] ([facility]) Potassium [Moles/volume] in Serum or Plasma 3.9 mmol/L 3.5-5.3 Potassium [place] ([facility]) Calcium [Mass/volume] in Serum or Plasma 9.1 mg/dL 8.6-10.2 Calcium [place] ([facility]) Carbon dioxide, total [Moles/volume] in Serum or Plasma 24 mmol/L 20-32 Carbon Dioxide [place] ([facility]) Chloride [Moles/volume] in Serum or Plasma 104 mmol/L 98-110 Chloride [place] ([facility]) Protein [Mass/volume] in Serum or Plasma 6.7 g/dL 6.1-8.1 Protein, Total [place] ([facility]) Albumin [Mass/volume] in Serum or Plasma 3.9 g/dL 3.6-5.1 Albumin [place] ([facility]) Albumin/Globulin [Mass Ratio] in Serum or Plasma 1.4 (calc) 1.0-2 .5 Albumin/globulin Ratio [place] ([facility]) Globulin [Mass/volume] in Serum by calculation 2.8 g/dL_(calc) 1.9- 3.7 Globulin [place] ([facility]) Bilirubin.total [Mass/volume] in Serum or Plasma 0.3 mg/dL 0.2-1 .2 Bilirubin, Total [place] ([facility]) Alanine aminotransferase [Enzymatic activity/volume] in Seru m or Plasma 23 U/L 6-29 Alt [place] ([facility]) Alkaline phosphatase [Enzymatic activity/volume] in Serum or Plasma 74 U/L 31-125 Alkaline Phosphatase [place] ([facility]) Aspartate aminotransferase [Enzymatic activity/volume] in Serum or Plasma 19 U/L 10-35 Ast [place] ([facility]) ID Date Data Source [id number] 01/22/2021 09:47:00 AM EDT [place] ([facility]) Name Value Range Interpretation Code Description Data Gillian rce(s) Supporting Document(s) Cholesterol [Mass/volume] in Serum or Plasma 149 mg/dL <200 Cholesterol, Total [place] ([facility]) Cholesterol in HDL [Mass/volume] in Serum or Plasma 44 mg/dL > or = 50 Below low normal HDL Cholesterol [place] ([facility]) Triglyceride [Mass/volume] in Serum or Plasma 271 mg/dL <150 Above high normal Triglycerides [place] ([facility]) Cholesterol in LDL [Mass/volume] in Serum or Plasma by calculation 69 mg/dL_(calc) <100 LDL-cholesterol [place] ([facility]) Cholesterol.total/Cholesterol in HDL [Mass Ratio] in Serum o r Plasma 3.4 calc <5.0 Chol/hdlc Ratio [place] ([facility]) Cholesterol non HDL [Mass/volume] in Serum or Plasma 105 mg/dL_(karina c) <130 Non HDL Cholesterol [place] ([facility]) ID Date Data Source [id number] 01/22/2021 09:47:00 AM EDT [facility]) Name Value Range Interpretation Code Description Data Gillian rce(s) Supporting Document(s) Hemoglobin A1c/Hemoglobin.total in Blood 6.2 %_of_total_HGB <5.7 Above high normal Hemoglobin a1C [facility]) ID Date Data Source [id number] 01/22/2021 09:47:00 AM EDT [facility]) Name Value Range Interpretation Code Description Data Gillian rce(s) Supporting Document(s) Calcidiol [Mass/volume] in Serum or Plasma 21 NG/mL 30-100 Below low normal Vitamin D,25-Oh,total,ia [facility]) ID Date Data Source [id number] 01/22/2021 09:47:00 AM EDT [facility]) Name Value Range Interpretation Code Description Data Gillian rce(s) Supporting Document(s) Glucose [Mass/volume] in Serum or Plasma 115 mg/dL 65-99 Above high normal Glucose [place] ([facility]) Urea nitrogen [Mass/volume] in Serum or Plasma 12 mg/dL 7-25 Urea Nitrogen (BUN) [place] ([facility]) Creatinine [Mass/volume] in Serum or Plasma 0.50 mg/dL 0.50-1.10 Creatinine [place] ([facility]) Glomerular filtration rate/1.73 sq M.pre dicted among non-blacks [Volume Rate/Area] in Serum, Plasma or Blood by Creatinine-based formula (CKD-EPI) 116 mL/min/1.73m2 > or = 60 eGFR Non-afr. [place] ([facility]) Glomerular filtration rate/1.73 sq M.pre dicted among blacks [Volume Rate/Area] in Serum, Plasma or Blood by Creatinine-based formula (CKD-EPI) 135 mL/min/1.73m2 > or = 60 eGFR [place] ([facility]) Urea nitrogen/Creatinine [Mass Ratio] in Serum or Plasma not applic able 6-22 BUN/creatinine Ratio [place] ([facility]) Potassium [Moles/volume] in Serum or Plasma 3.9 mmol/L 3.5-5.3 Potassium [place] ([facility]) Sodium [Moles/volume] in Serum or Plasma 138 mmol/L 135-146 Sodium [place] ([facility]) Carbon dioxide, total [Moles/volume] in Serum or Plasma 24 mmol/L 20-32 Carbon Dioxide [place] ([facility]) Chloride [Moles/volume] in Serum or Plasma 104 mmol/L 98-110 Chloride [place] ([facility]) Protein [Mass/volume] in Serum or Plasma 6.7 g/dL 6.1-8.1 Protein, Total [place] ([facility]) Calcium [Mass/volume] in Serum or Plasma 9.1 mg/dL 8.6-10.2 Calcium [place] ([facility]) Albumin [Mass/volume] in Serum or Plasma 3.9 g/dL 3.6-5.1 Albumin [place] ([facility]) Albumin/Globulin [Mass Ratio] in Serum or Plasma 1.4 (calc) 1.0-2 .5 Albumin/globulin Ratio [place] ([facility]) Globulin [Mass/volume] in Serum by calculation 2.8 g/dL_(calc) 1.9- 3.7 Globulin [facility]) Bilirubin.total [Mass/volume] in Serum or Plasma 0.3 mg/dL 0.2-1 .2 Bilirubin, Total [place] ([facility]) Alkaline phosphatase [Enzymatic activity/volume] in Serum or Plasma 74 U/L 31-125 Alkaline Phosphatase [place] ([facility]) Aspartate aminotransferase [Enzymatic activity/volume] in Serum or Plasma 19 U/L 10-35 Ast [place] ([facility]) Alanine aminotransferase [Enzymatic activity/volume] in Seru m or Plasma 23 U/L 6-29 Alt [place] ([facility]) ID Date Data Source [id number] 01/22/2021 09:47:00 AM EDT [place] ([facility]) Name Value Range Interpretation Code Description Data Gillian rce(s) Supporting Document(s) Cholesterol in HDL [Mass/volume] in Serum or Plasma 44 mg/dL > or = 50 Below low normal HDL Cholesterol [place] ([facility]) Cholesterol [Mass/volume] in Serum or Plasma 149 mg/dL <200 Cholesterol, Total [facility]) Cholesterol in LDL [Mass/volume] in Serum or Plasma by calculation 69 mg/dL_(calc) <100 LDL-cholesterol [place] ([facility]) Triglyceride [Mass/volume] in Serum or Plasma 271 mg/dL <150 Above high normal Triglycerides [place] ([facility]) Cholesterol.total/Cholesterol in HDL [Mass Ratio] in Serum o r Plasma 3.4 calc <5.0 Chol/hdlc Ratio [place] ([facility]) Cholesterol non HDL [Mass/volume] in Serum or Plasma 105 mg/dL_(karina c) <130 Non HDL Cholesterol [place] ([facility]) ID Date Data Source [id number] 11/06/2020 12:45:00 AM EDT [place] ([facility]) Name Value Range Interpretation Code Description Data Gillian rce(s) Supporting Document(s) appearance, urine rfx hazy clear Appearance, Ur ine Rfx [place] ([facility]) color, urine rfx yellow yellow Color, Urine Rfx AT [place] ([facility]) specific gravity ur auto rfx 1.002-1.035 Specif ic [place] Ur Auto Rfx [place] ([facility]) pH,urine rfx 5.0 units 5.0-9.0 pH,urine Rfx [place] ([facility]) ketone, urine auto rfx trace negative Above high normal Ketone , Urine Auto Rfx [place] ([facility]) protein, urine auto rfx negative negative Protein, Uri ne Auto Rfx [place] ([facility]) glucose, urine (UA) auto rfx negative negative Glucose , Urine (UA) Auto Rfx [place] ([facility]) urobilinogen, urine auto rfx 0.2 mg/dL 0.0-2.0 Urobili nogen, Urine Auto Rfx [place] ([facility]) bilirubin, urine auto rfx negative negative Bilirubin, Urine Auto Rfx [place] ([facility]) nitrite, urine auto rfx negative negative Nitrite, Uri ne Auto Rfx [place] ([facility]) leukocyte esterase ur auto rfx negative negative Leukocyte Esterase Ur Auto Rfx [place] ([facility]) blood, urine blood rfx 1+ negative Above high normal Blood, Urine Blood Rfx [place] ([facility]) WBC, urine auto rfx 1 /hpf 0-3 WBC, Urine Auto Rfx [place] ([facility]) RBC, urine auto rfx 2 /hpf 0-3 RBC, Urine Auto Rfx [place] ([facility]) squam epithelial cell ur aurfx 1 /hpf 0-6 Squam Epithelial Cell Ur Aurfx [place] ([facility]) bacteria, urine auto rfx negative negative Bacteria, U rine Auto Rfx [place] ([facility]) hyaline cast, urine auto rfx 0 /lpf 0-1 Hyaline Cast, Urine Auto Rfx [place] ([facility]) mucus, urine rfx small negative Mucus, Urine Rfx AT [facility]) ID Date Data Source [id number] 11/06/2020 12:45:00 AM EDT [facility]) Name Value Range Interpretation Code Description Data Gillian rce(s) Supporting Document(s) appearance, urine rfx hazy clear Appearance, Ur ine Rfx [facility]) color, urine rfx yellow yellow Color, Urine Rfx AT [facility]) pH,urine rfx 5.0 units 5.0-9.0 pH,urine Rfx [place] ([facility]) protein, urine auto rfx negative negative Protein, Uri ne Auto Rfx [place] ([facility]) specific gravity ur auto rfx 1.002-1.035 Specif ic [place] Ur Auto Rfx [place] ([facility]) urobilinogen, urine auto rfx 0.2 mg/dL 0.0-2.0 Urobili nogen, Urine Auto Rfx [place] ([facility]) ketone, urine auto rfx trace negative Above high normal Ketone , Urine Auto Rfx [place] ([facility]) glucose, urine (UA) auto rfx negative negative Glucose , Urine (UA) Auto Rfx [place] ([facility]) nitrite, urine auto rfx negative negative Nitrite, Uri ne Auto Rfx [place] ([facility]) bilirubin, urine auto rfx negative negative Bilirubin, Urine Auto Rfx [place] ([facility]) WBC, urine auto rfx 1 /hpf 0-3 WBC, Urine Auto Rfx [place] ([facility]) blood, urine blood rfx 1+ negative Above high normal Blood, Urine Blood Rfx [place] ([facility]) leukocyte esterase ur auto rfx negative negative Leukocyte Esterase Ur Auto Rfx [place] ([facility]) RBC, urine auto rfx 2 /hpf 0-3 RBC, Urine Auto Rfx [place] ([facility]) bacteria, urine auto rfx negative negative Bacteria, U rine Auto Rfx [place] ([facility]) mucus, urine rfx small negative Mucus, Urine Rfx AT [facility]) squam epithelial cell ur aurfx 1 /hpf 0-6 Squam Epithelial Cell Ur Aurfx [place] ([facility]) hyaline cast, urine auto rfx 0 /lpf 0-1 Hyaline Cast, Urine Auto Rfx [facility]) ID Date Data Source [id number] 11/06/2020 12:45:00 AM EDT [place] ([facility]) Name Value Range Interpretation Code Description Data Gillian rce(s) Supporting Document(s) color, urine rfx yellow yellow Color, Urine Rfx AT [facility] ([facility]) appearance, urine rfx hazy clear Appearance, Ur ine Rfx [place] ([facility]) pH,urine rfx 5.0 units 5.0-9.0 pH,urine Rfx [place] ([facility]) specific gravity ur auto rfx 1.002-1.035 Specif ic [place] Ur Auto Rfx [place] ([facility]) glucose, urine (UA) auto rfx negative negative Glucose , Urine (UA) Auto Rfx [place] ([facility]) protein, urine auto rfx negative negative Protein, Uri ne Auto Rfx [place] ([facility]) ketone, urine auto rfx trace negative Above high normal Ketone , Urine Auto Rfx [place] ([facility]) urobilinogen, urine auto rfx 0.2 mg/dL 0.0-2.0 Urobili nogen, Urine Auto Rfx [place] ([facility]) bilirubin, urine auto rfx negative negative Bilirubin, Urine Auto Rfx [place] ([facility]) leukocyte esterase ur auto rfx negative negative Leukocyte Esterase Ur Auto Rfx [place] ([facility]) nitrite, urine auto rfx negative negative Nitrite, Uri ne Auto Rfx [place] ([facility]) blood, urine blood rfx 1+ negative Above high normal Blood, Urine Blood Rfx [place] ([facility]) WBC, urine auto rfx 1 /hpf 0-3 WBC, Urine Auto Rfx [place] ([facility]) RBC, urine auto rfx 2 /hpf 0-3 RBC, Urine Auto Rfx [place] ([facility]) squam epithelial cell ur aurfx 1 /hpf 0-6 Squam Epithelial Cell Ur Aurfx [place] ([facility]) bacteria, urine auto rfx negative negative Bacteria, U rine Auto Rfx [place] ([facility]) mucus, urine rfx small negative Mucus, Urine Rfx AT [facility] ([facility]) hyaline cast, urine auto rfx 0 /lpf 0-1 Hyaline Cast, Urine Auto Rfx [place] ([facility]) ID Date Data Source [id number] 11/06/2020 12:45:00 AM EDT [place] ([facility]) Name Value Range Interpretation Code Description Data Gillian rce(s) Supporting Document(s) appearance, urine rfx hazy clear Appearance, Ur ine Rfx [place] ([facility]) color, urine rfx yellow yellow Color, Urine Rfx AT [place] ([facility]) specific gravity ur auto rfx 1.002-1.035 Specif ic [place] Ur Auto Rfx [place] ([facility]) pH,urine rfx 5.0 units 5.0-9.0 pH,urine Rfx [place] ([facility]) glucose, urine (UA) auto rfx negative negative Glucose , Urine (UA) Auto Rfx [place] ([facility]) protein, urine auto rfx negative negative Protein, Uri ne Auto Rfx [place] ([facility]) urobilinogen, urine auto rfx 0.2 mg/dL 0.0-2.0 Urobili nogen, Urine Auto Rfx [place] ([facility]) ketone, urine auto rfx trace negative Above high normal Ketone , Urine Auto Rfx [place] ([facility]) bilirubin, urine auto rfx negative negative Bilirubin, Urine Auto Rfx [place] ([facility]) nitrite, urine auto rfx negative negative Nitrite, Uri ne Auto Rfx [place] ([facility]) leukocyte esterase ur auto rfx negative negative Leukocyte Esterase Ur Auto Rfx [place] ([facility]) blood, urine blood rfx 1+ negative Above high normal Blood, Urine Blood Rfx [place] ([facility]) WBC, urine auto rfx 1 /hpf 0-3 WBC, Urine Auto Rfx [place] ([facility]) squam epithelial cell ur aurfx 1 /hpf 0-6 Squam Epithelial Cell Ur Aurfx [place] ([facility]) bacteria, urine auto rfx negative negative Bacteria, U rine Auto Rfx [place] ([facility]) RBC, urine auto rfx 2 /hpf 0-3 RBC, Urine Auto Rfx [place] ([facility]) hyaline cast, urine auto rfx 0 /lpf 0-1 Hyaline Cast, Urine Auto Rfx [place] ([facility]) mucus, urine rfx small negative Mucus, Urine Rfx AT [facility] ([facility]) ID Date Data Source [id number] 11/05/2020 10:19:00 PM EDT [place] ([facility]) Name Value Range Interpretation Code Description Data Gillian rce(s) Supporting Document(s) lipase 110 U/L 73-393 Lipase [place] ([facility]) ID Date Data Source [id number] 11/05/2020 10:19:00 PM EDT [place] ([facility]) Name Value Range Interpretation Code Description Data Gillian rce(s) Supporting Document(s) ALT/SGPT 27 U/L 12-78 ALT/SGPT [place] ([facility]) AST/SGOT 18 U/L 7-37 AST/SGOT [place] ([facility]) bilirubin,direct < 0.1 0.0-0.2 Bilirubin,direct AT [facility] ([facility]) alkaline phosphatase 101 U/L 45-117 Alkaline Phosph atase [place] ([facility]) bilirubin,total 0.2 mg/dL 0.2-1.0 Bilirubin,total [place] ([facility]) total protein 8.0 gm/dL 6.4-8.2 Total Protein [place] ( [facility]) albumin/globulin ratio 1.2-2.2 Below low normal Albumin /globulin Ratio [place] ([facility]) albumin 3.8 gm/dL 3.2-5.2 Albumin [place] ([facility]) ID Date Data Source [id number] 11/05/2020 10:19:00 PM EDT [place] ([facility]) Name Value Range Interpretation Code Description Data Gillian rce(s) Supporting Document(s) white blood count 10.5 10 4.0-10.0 Above high normal White Blood Count [place] ([facility]) hematocrit 44.2 % 36.0-47.0 Hematocrit [place] ([facility]) hemoglobin 14.0 g/dL 12.0-15.5 Hemoglobin [place] ([facility]) red blood count 5.33 10 4.00-5.40 Red Blood Count [place] ([facility]) mean corpuscular volume 82.9 fL 80.0-96.0 Mean Corpusc ular Volume [place] ([facility]) mean corpuscular hemoglobin 26.3 pg 27.0-33.0 Below low nor mal Mean Corpuscular Hemoglobin [place] ([facility]) mean corpuscular HGB conc 31.7 g/dL 32.0-36.5 Below low antwon l Mean Corpuscular HGB Conc [place] ([facility]) platelet count, automated 375 10 150-450 Platelet C ount, Automated [place] ([facility]) red cell distribution width 14.7 % 11.5-14.5 Above high no rmal Red Cell Distribution Width [place] ([facility]) neutrophils % 69.5 % 36.0-66.0 Above high normal Neutrophils % A [place] ([facility]) mono % 7.3 % 2.0-8.0 [place] % [place] ([facility]) lymph % 20.2 % 24.0-44.0 Below low normal Lymph % [place] ( [facility]) baso % 0.6 % 0.0-1.0 Baso % [place] ([facility]) eos % 1.8 % 0.0-3.0 Eos % [place] ([facility]) immature granulocyte % 0.6 % 0-3.0 Immature Gran ulocyte % [place] ([facility]) neutrophils # 7.3 10 1.5-8.5 Neutrophils # [place] ( [facility]) nucleated red blood cell % 0.0 % 0-0 Nucleated Red Blood Cell % [place] ([facility]) lymph # 2.1 10 1.5-5.0 Lymph # [place] ([facility]) baso # 0.1 10 0.0-0.2 Baso # [place] ([facility]) mono # 0.8 10 0.0-0.8 [place] # [place] ([facility]) eos # 0.2 10 0.0-0.5 Eos # [place] ([facility]) ID Date Data Source [id number] 11/05/2020 10:19:00 PM EDT [place] ([facility]) Name Value Range Interpretation Code Description Data Gillian rce(s) Supporting Document(s) lipase 110 U/L 73-393 Lipase [place] ([facility]) ID Date Data Source [id number] 11/05/2020 10:19:00 PM EDT [place] ([facility]) Name Value Range Interpretation Code Description Data Gillian rce(s) Supporting Document(s) alkaline phosphatase 101 U/L 45-117 Alkaline Phosph atase [place] ([facility]) AST/SGOT 18 U/L 7-37 AST/SGOT [place] ([facility]) ALT/SGPT 27 U/L 12-78 ALT/SGPT [place] ([facility]) bilirubin,total 0.2 mg/dL 0.2-1.0 Bilirubin,total [place] NA ([facility]) bilirubin,direct < 0.1 0.0-0.2 Bilirubin,direct AT [place] ([facility]) total protein 8.0 gm/dL 6.4-8.2 Total Protein [place] ( [facility]) albumin 3.8 gm/dL 3.2-5.2 Albumin [place] ([facility]) albumin/globulin ratio 1.2-2.2 Below low normal Albumin /globulin Ratio [place] ([facility]) ID Date Data Source [id number] 11/05/2020 10:19:00 PM EDT [place] ([facility]) Name Value Range Interpretation Code Description Data Gillian rce(s) Supporting Document(s) white blood count 10.5 10 4.0-10.0 Above high normal White Blood Count [place] ([facility]) hemoglobin 14.0 g/dL 12.0-15.5 Hemoglobin [place] ([facility]) red blood count 5.33 10 4.00-5.40 Red Blood Count [facility] NA ([facility]) hematocrit 44.2 % 36.0-47.0 Hematocrit [place] ([facility]) mean corpuscular hemoglobin 26.3 pg 27.0-33.0 Below low nor mal Mean Corpuscular Hemoglobin [place] ([facility]) mean corpuscular HGB conc 31.7 g/dL 32.0-36.5 Below low antwon l Mean Corpuscular HGB Conc [place] ([facility]) mean corpuscular volume 82.9 fL 80.0-96.0 Mean Corpusc ular Volume [place] ([facility]) red cell distribution width 14.7 % 11.5-14.5 Above high no rmal Red Cell Distribution Width [place] ([facility]) platelet count, automated 375 10 150-450 Platelet C ount, Automated [place] ([facility]) lymph % 20.2 % 24.0-44.0 Below low normal Lymph % [place] ( [facility]) neutrophils % 69.5 % 36.0-66.0 Above high normal Neutrophils % A [place] ([facility]) eos % 1.8 % 0.0-3.0 Eos % [place] ([facility]) mono % 7.3 % 2.0-8.0 [place] % [place] ([facility]) nucleated red blood cell % 0.0 % 0-0 Nucleated Red Blood Cell % [place] ([facility]) immature granulocyte % 0.6 % 0-3.0 Immature Gran ulocyte % [place] ([facility]) baso % 0.6 % 0.0-1.0 Baso % [place] ([facility]) neutrophils # 7.3 10 1.5-8.5 Neutrophils # [place] ( [facility]) mono # 0.8 10 0.0-0.8 [place] # [place] ([facility] [facility] lymph # 2.1 10 1.5-5.0 Lymph # SHERRY ([facility]) eos # 0.2 10 0.0-0.5 Eos # [facility] ([facility]) baso # 0.1 10 0.0-0.2 Baso # SHERRY ([facility]) ID Date Data Source [id number] 11/05/2020 10:19:00 PM EDT SHERRY ([facility]) Name Value Range Interpretation Code Description Data Gillian rce(s) Supporting Document(s) lipase 110 U/L 73-393 Lipase SHERRY ([facility]) ID Date Data Source [id number] 11/05/2020 10:19:00 PM EDT SHERRY ([facility]) Name Value Range Interpretation Code Description Data Gillian rce(s) Supporting Document(s) AST/SGOT 18 U/L 7-37 AST/SGOT [place] ([facility]) ALT/SGPT 27 U/L 12-78 ALT/SGPT [place] ([facility]) alkaline phosphatase 101 U/L 45-117 Alkaline Phosph atase SHERRY ([facility]) bilirubin,direct < 0.1 0.0-0.2 Bilirubin,direct AT [place] ([facility]) bilirubin,total 0.2 mg/dL 0.2-1.0 Bilirubin,total ATHE NA ([facility]) albumin 3.8 gm/dL 3.2-5.2 Albumin SHERRY ([facility]) total protein 8.0 gm/dL 6.4-8.2 Total Protein SH[place]Y ( [facility]) albumin/globulin ratio 1.2-2.2 Below low normal Albumin /globulin Ratio SHERRY ([facility]) ID Date Data Source [id number] 11/05/2020 10:19:00 PM EDT SHERRY ([facility]) Name Value Range Interpretation Code Description Data Gillian rce(s) Supporting Document(s) white blood count 10.5 10 4.0-10.0 Above high normal White Blood Count SHERRY ([facility]) red blood count 5.33 10 4.00-5.40 Red Blood Count ATHE NA ([facility]) hemoglobin 14.0 g/dL 12.0-15.5 Hemoglobin SHERRY ([facility]) hematocrit 44.2 % 36.0-47.0 Hematocrit SHERRY ([facility]) mean corpuscular HGB conc 31.7 g/dL 32.0-36.5 Below low antwon l Mean Corpuscular HGB Conc SHERRY ([facility]) mean corpuscular hemoglobin 26.3 pg 27.0-33.0 Below low nor mal Mean Corpuscular Hemoglobin SHERRY ([facility]) mean corpuscular volume 82.9 fL 80.0-96.0 Mean Corpusc ular Volume SHERRY ([facility]) platelet count, automated 375 10 150-450 Platelet C ount, Automated SH[place]Y ([facility]) red cell distribution width 14.7 % 11.5-14.5 Above high no rmal Red Cell Distribution Width SH[place]Y ([facility]) neutrophils % 69.5 % 36.0-66.0 Above high normal Neutrophils % A THENA ([facility]) eos % 1.8 % 0.0-3.0 Eos % [place] ([facility]) lymph % 20.2 % 24.0-44.0 Below low normal Lymph % SHERRY ( [facility]) mono % 7.3 % 2.0-8.0 [place] % SHERRY ([facility]) baso % 0.6 % 0.0-1.0 Baso % SHERRY ([facility]) immature granulocyte % 0.6 % 0-3.0 Immature Gran ulocyte % SHERRY ([facility]) nucleated red blood cell % 0.0 % 0-0 Nucleated Red Blood Cell % SHERRY ([facility]) lymph # 2.1 10 1.5-5.0 Lymph # SH[place]Y ([facility]) neutrophils # 7.3 10 1.5-8.5 Neutrophils # [place] ( [facility]) eos # 0.2 10 0.0-0.5 Eos # SHERRY ([facility]) mono # 0.8 10 0.0-0.8 [place] # SHERRY ([facility]) baso # 0.1 10 0.0-0.2 Baso # SHERRY ([facility]) ID Date Data Source [id number] 11/05/2020 10:19:00 PM EDT SHERRY ([facility]) Name Value Range Interpretation Code Description Data Gillian rce(s) Supporting Document(s) lipase 110 U/L 73-393 Lipase SHERRY ([facility]) ID Date Data Source [id number] 11/05/2020 10:19:00 PM EDT SHERRY ([facility]) Name Value Range Interpretation Code Description Data Gillian rce(s) Supporting Document(s) AST/SGOT 18 U/L 7-37 AST/SGOT [place] ([facility]) ALT/SGPT 27 U/L 12-78 ALT/SGPT [place] ([facility]) alkaline phosphatase 101 U/L 45-117 Alkaline Phosph atase [place] ([facility]) bilirubin,direct < 0.1 0.0-0.2 Bilirubin,direct AT [place] ([facility]) bilirubin,total 0.2 mg/dL 0.2-1.0 Bilirubin,total ATHE NA ([facility]) albumin 3.8 gm/dL 3.2-5.2 Albumin SH[place]Y ([facility]) total protein 8.0 gm/dL 6.4-8.2 Total Protein [place] ( [facility]) albumin/globulin ratio 1.2-2.2 Below low normal Albumin /globulin Ratio SHERRY ([facility]) ID Date Data Source [id number] 11/05/2020 10:19:00 PM EDT SHERRY ([facility]) Name Value Range Interpretation Code Description Data Gillian rce(s) Supporting Document(s) white blood count 10.5 10 4.0-10.0 Above high normal White Blood Count SH[place]Y ([facility]) red blood count 5.33 10 4.00-5.40 Red Blood Count ATHE NA ([facility]) hemoglobin 14.0 g/dL 12.0-15.5 Hemoglobin SH[place]Y ([facility]) hematocrit 44.2 % 36.0-47.0 Hematocrit [place]Y ([facility]) mean corpuscular volume 82.9 fL 80.0-96.0 Mean Corpusc ular Volume SHERRY ([facility]) red cell distribution width 14.7 % 11.5-14.5 Above high no rmal Red Cell Distribution Width [place] ([facility]) mean corpuscular HGB conc 31.7 g/dL 32.0-36.5 Below low antwon l Mean Corpuscular HGB Conc SHERRY ([facility]) mean corpuscular hemoglobin 26.3 pg 27.0-33.0 Below low nor mal Mean Corpuscular Hemoglobin SHERRY ([facility]) platelet count, automated 375 10 150-450 Platelet C ount, Automated [place] ([facility]) neutrophils % 69.5 % 36.0-66.0 Above high normal Neutrophils % A THENA ([facility]) eos % 1.8 % 0.0-3.0 Eos % [place] ([facility]) lymph % 20.2 % 24.0-44.0 Below low normal Lymph % [place] ( [facility]) mono % 7.3 % 2.0-8.0 [place] % SHERRY ([facility]) nucleated red blood cell % 0.0 % 0-0 Nucleated Red Blood Cell % SHERRY ([facility]) immature granulocyte % 0.6 % 0-3.0 Immature Gran ulocyte % SH[place]Y ([facility]) baso % 0.6 % 0.0-1.0 Baso % [place] ([facility]) lymph # 2.1 10 1.5-5.0 Lymph # SH[place]Y ([facility]) neutrophils # 7.3 10 1.5-8.5 Neutrophils # [place] ( [facility]) eos # 0.2 10 0.0-0.5 Eos # [place] ([facility]) mono # 0.8 10 0.0-0.8 [place] # SHERRY ([facility]) baso # 0.1 10 0.0-0.2 Baso # SH[place]Y ([facility]) ID Date Data Source [id number] 11/05/2020 10:18:00 PM EDT SHERRY ([facility]) Name Value Range Interpretation Code Description Data Gillian rce(s) Supporting Document(s) istat B-HCG < 5.0 Istat B-HCG [place] ([facility]) ID Date Data Source [id number] 11/05/2020 10:18:00 PM EDT SHERRY ([facility]) Name Value Range Interpretation Code Description Data Gillian rce(s) Supporting Document(s) istat B-HCG < 5.0 Istat B-HCG [place] ([facility]) ID Date Data Source [id number] 11/05/2020 10:18:00 PM EDT [facility]) Name Value Range Interpretation Code Description Data Gillian rce(s) Supporting Document(s) istat B-HCG < 5.0 Istat B-HCG [place] ([facility]) ID Date Data Source [id number] 11/05/2020 10:18:00 PM EDT SHERRY ([facility]) Name Value Range Interpretation Code Description Data Gillian rce(s) Supporting Document(s) istat B-HCG < 5.0 Istat B-HCG [place] ([facility]) ID Date Data Source [id number] 11/05/2020 10:11:00 PM EDT SHERRY ([facility]) Name Value Range Interpretation Code Description Data Gillian rce(s) Supporting Document(s) istat glucose 109 mg/dL 70-105 Above high normal Istat Glucose A THENA ([facility]) istat HCT 43.0 % 38.0-51.0 Istat HCT SHERRY ([facility]) istat sodium 140 mEq/L 136-145 Istat Sodium [place]ERRY ([facility]) istat Ca++ 4.9 mg/dL 4.5-5.3 Istat Ca++ SH[place] ([facility]) istat chloride 102 mEq/L 98-109 Istat Chloride [place] ([facility]) istat potassium 4.0 mEq/L 3.5-5.1 Istat Potassium ATHE NA ([facility]) istat creatinine 0.5 mg/dL 0.6-1.3 Below low normal Istat Creatin ine SH[place]Y ([facility]) istat CO2 28.0 mm/L 23.0-27.0 Above high normal Istat CO2 [place] ([facility]) istat BUN 9 mg/dL 8-26 Istat BUN [place] ([facility]) ID Date Data Source [id number] 11/05/2020 10:11:00 PM [facility] Name Value Range Interpretation Code Description Data Gillian rce(s) Supporting Document(s) istat HCT 43.0 % 38.0-51.0 Istat HCT [place] ([facility]) istat glucose 109 mg/dL 70-105 Above high normal Istat Glucose A THENA ([facility]) istat potassium 4.0 mEq/L 3.5-5.1 Istat Potassium ATHE NA ([facility]) istat Ca++ 4.9 mg/dL 4.5-5.3 Istat Ca++ [place] ([facility]) istat sodium 140 mEq/L 136-145 Istat Sodium [facility] ([facility]) istat BUN 9 mg/dL 8-26 Istat BUN [place] ([facility]) istat chloride 102 mEq/L 98-109 Istat Chloride [place] ([facility]) istat CO2 28.0 mm/L 23.0-27.0 Above high normal Istat CO2 [place] ([facility]) istat creatinine 0.5 mg/dL 0.6-1.3 Below low normal Istat Creatin ine [place] ([facility]) ID Date Data Source [id number] 11/05/2020 10:11:00 PM EDT SH[place] ([facility]) Name Value Range Interpretation Code Description Data Gillian rce(s) Supporting Document(s) istat HCT 43.0 % 38.0-51.0 Istat HCT [place] ([facility]) istat glucose 109 mg/dL 70-105 Above high normal Istat Glucose A THENA ([facility]) istat Ca++ 4.9 mg/dL 4.5-5.3 Istat Ca++ [place] ([facility]) istat sodium 140 mEq/L 136-145 Istat Sodium [place] ([facility]) istat potassium 4.0 mEq/L 3.5-5.1 Istat Potassium ATHE NA ([facility]) istat BUN 9 mg/dL 8-26 Istat BUN [place] ([facility]) istat CO2 28.0 mm/L 23.0-27.0 Above high normal Istat CO2 [place] ([facility]) istat chloride 102 mEq/L 98-109 Istat Chloride [place] ([facility]) istat creatinine 0.5 mg/dL 0.6-1.3 Below low normal Istat Creatin ine [facility] ([facility]) ID Date Data Source [id number] 11/05/2020 10:11:00 PM EDT SHERRY ([facility]) Name Value Range Interpretation Code Description Data Gillian rce(s) Supporting Document(s) istat HCT 43.0 % 38.0-51.0 Istat HCT [place] ([facility]) istat potassium 4.0 mEq/L 3.5-5.1 Istat Potassium ATHE NA ([facility]) istat sodium 140 mEq/L 136-145 Istat Sodium [place]ERRY ([facility]) istat glucose 109 mg/dL 70-105 Above high normal Istat Glucose A THENA ([facility]) istat chloride 102 mEq/L 98-109 Istat Chloride [place] ([facility]) istat Ca++ 4.9 mg/dL 4.5-5.3 Istat Ca++ [place] ([facility]) istat CO2 28.0 mm/L 23.0-27.0 Above high normal Istat CO2 [place] ([facility]) istat creatinine 0.5 mg/dL 0.6-1.3 Below low normal Istat Creatin ine [place] ([facility]) istat BUN 9 mg/dL 8-26 Istat BUN [place] ([facility]) ID Date Data Source [id number] 07/10/2020 09:14:00 AM EST [place] ([facility]) Name Value Range Interpretation Code Description Data Gillian rce(s) Supporting Document(s) Hemoglobin A1c/Hemoglobin.total in Blood 6.0 % Hemoglobin a1C [place] ([facility]) estimated average glucose 126 mg/dL 60-110 Above high norm al Estimated Average Glucose [place]Y ([facility]) ID Date Data Source [id number] 07/10/2020 09:14:00 AM EST [place] ([facility]) Name Value Range Interpretation Code Description Data Gillian rce(s) Supporting Document(s) ferritin 24 NG/mL 8-252 Ferritin [place] ([facility]) ID Date Data Source [id number] 07/10/2020 09:14:00 AM EST [place] ([facility]) Name Value Range Interpretation Code Description Data Gillian rce(s) Supporting Document(s) total 25(oh) vitamin D 21.1 NG/mL 30.0-100.0 Below low normal T otal 25(Oh) Vitamin D SHERR[place] ([facility]) ID Date Data Source [id number] 07/10/2020 09:14:00 AM EST [place] ([facility]) Name Value Range Interpretation Code Description Data Gillian rce(s) Supporting Document(s) iron (fe) 56 ug/dL 50-170 Iron (Fe) [place] ([facility]) total iron binding capacity 412 ug/dL 250-450 Total Ir on Binding Capacity SH[place]Y ([facility]) percent saturation 13.6 % 13.2-45.0 Percent Saturatio n SHERRY ([facility]) ID Date Data Source [id number] 07/10/2020 09:14:00 AM EST [place] ([facility]) Name Value Range Interpretation Code Description Data Gillian rce(s) Supporting Document(s) triglycerides level 179 mg/dL <150 Above high normal Triglycer ides Level [place] ([facility]) cholesterol level 166 mg/dL <200 Cholesterol Level [place] ([facility]) non-HDL-C 118 mg/dL Non-hdl-c [place] ([facility]) cholesterol risk ratio <5 Cholesterol R isk Ratio SH[place]Y ([facility]) HDL cholesterol 48 mg/dL >40 HDL Cholesterol ATHE NA ([facility]) Cholesterol in LDL [Mass/volume] in Serum or Plasma 82 mg/dL <1 00 LDL Cholesterol [place] ([facility]) ID Date Data Source [id number] 07/10/2020 09:14:00 AM [facility] Name Value Range Interpretation Code Description Data Gillian rce(s) Supporting Document(s) creatinine for GFR 0.64 mg/dL 0.55-1.30 Creatinine for GF R [place] ([facility]) glomerular filtration rate > 60.0 >58 Glomerula r Filtration Rate SH[place] ([facility]) glucose, fasting 115 mg/dL 70-100 Above high normal Glucose, Fas ting [place] ([facility]) blood urea nitrogen 11 mg/dL 7-18 Blood Urea Nitro gen [place] ([facility]) carbon dioxide level 27 mEq/L 21-32 Carbon Dioxide Level [place] ([facility]) sodium level 140 mEq/L 136-145 Sodium Level [place] ([facility]) chloride level 108 mEq/L 98-107 Above high normal Chloride Level [place] ([facility]) potassium serum 4.1 mEq/L 3.5-5.1 Potassium Serum AT[place] ([facility]) alkaline phosphatase 84 U/L 45-117 Alkaline Phosph atase [place] ([facility]) anion gap 5 mEq/L 8-16 Below low normal Anion Gap [place] ( [facility]) ALT/SGPT 22 U/L 12-78 ALT/SGPT [place] ([facility]) AST/SGOT 10 U/L 7-37 AST/SGOT [place] ([facility]) calcium level 8.9 mg/dL 8.5-10.1 Calcium Level [place] ( [facility]) bilirubin,total 0.2 mg/dL 0.2-1.0 Bilirubin,total AT[place] ([facility]) total protein 7.0 gm/dL 6.4-8.2 Total Protein [place] ( [facility]) albumin/globulin ratio 1.2-2.2 Below low normal Albumin /globulin Ratio [place] ([facility]) albumin 3.4 gm/dL 3.2-5.2 Albumin [place] ([facility]) ID Date Data Source [id number] 07/10/2020 09:14:00 AM EST [place] ([facility]) Name Value Range Interpretation Code Description Data Gillian rce(s) Supporting Document(s) white blood count 8.1 10 4.0-10.0 White Blood Count [place] ([facility]) red blood count 4.77 10 4.00-5.40 Red Blood Count ATHE NA ([facility]) hematocrit 40.4 % 36.0-47.0 Hematocrit [place] ([facility]) mean corpuscular hemoglobin 27.0 pg 27.0-33.0 Mean Cor puscular Hemoglobin [place] ([facility]) mean corpuscular volume 84.7 fL 80.0-96.0 Mean Corpusc ular Volume [place] ([facility]) hemoglobin 12.9 g/dL 12.0-15.5 Hemoglobin [place] ([facility]) red cell distribution width 13.2 % 11.5-14.5 Red Cell Distribution Width [place] ([facility]) platelet count, automated 351 10 150-450 Platelet C ount, Automated [place] ([facility]) mean corpuscular HGB conc 31.9 g/dL 32.0-36.5 Below low antwon l Mean Corpuscular HGB Conc [place] ([facility]) eos % 2.1 % 0.0-3.0 Eos % [place] ([facility]) neutrophils % 65.5 % 36.0-66.0 Neutrophils % [place] ( [facility]) lymph % 24.0 % 24.0-44.0 Lymph % [place] ([facility]) mono % 7.6 % 0.0-5.0 Above high normal [place] % SH[facility] ([facility]) baso % 0.4 % 0.0-1.0 Baso % [place] ([facility]) neutrophils # 5.3 10 1.5-8.5 Neutrophils # [place] ( [facility]) nucleated red blood cell % 0.0 % 0-0 Nucleated Red Blood Cell % [place] ([facility]) immature granulocyte % 0.4 % 0-3.0 Immature Gran ulocyte % [place] ([facility]) lymph # 1.9 10 1.5-5.0 Lymph # [place] ([facility]) baso # 0.0 10 0.0-0.2 Baso # [place] ([facility]) mono # 0.6 10 0.0-0.8 [place] # [place]Y ([facility]) eos # 0.2 10 0.0-0.5 Eos # [place] ([facility]) ID Date Data Source [id number] 07/10/2020 09:14:00 AM EST [place] ([facility]) Name Value Range Interpretation Code Description Data Gillian rce(s) Supporting Document(s) estimated average glucose 126 mg/dL 60-110 Above high norm al Estimated Average Glucose [place] ([facility]) Hemoglobin A1c/Hemoglobin.total in Blood 6.0 % Hemoglobin a1C [place] ([facility]) ID Date Data Source [id number] 07/10/2020 09:14:00 AM EST [place] ([facility]) Name Value Range Interpretation Code Description Data Gillian rce(s) Supporting Document(s) ferritin 24 NG/mL 8-252 Ferritin [place] ([facility]) ID Date Data Source [id number] 07/10/2020 09:14:00 AM EST [place] ([facility]) Name Value Range Interpretation Code Description Data Gillian rce(s) Supporting Document(s) total 25(oh) vitamin D 21.1 NG/mL 30.0-100.0 Below low normal T otal 25(Oh) Vitamin D [place] ([facility]) ID Date Data Source [id number] 07/10/2020 09:14:00 AM EST [place] ([facility]) Name Value Range Interpretation Code Description Data Gillian rce(s) Supporting Document(s) iron (fe) 56 ug/dL 50-170 Iron (Fe) [place] ([facility]) total iron binding capacity 412 ug/dL 250-450 Total Ir on Binding Capacity [place] ([facility]) percent saturation 13.6 % 13.2-45.0 Percent Saturatio n [place] ([facility]) ID Date Data Source [id number] 07/10/2020 09:14:00 AM EST [place] ([facility]) Name Value Range Interpretation Code Description Data Gillian rce(s) Supporting Document(s) triglycerides level 179 mg/dL <150 Above high normal Triglycer ides Level [place] ([facility]) Cholesterol in LDL [Mass/volume] in Serum or Plasma 82 mg/dL <1 00 LDL Cholesterol [place] ([facility]) non-HDL-C 118 mg/dL Non-hdl-c [place] ([facility]) cholesterol risk ratio <5 Cholesterol R isk Ratio [place] ([facility]) HDL cholesterol 48 mg/dL >40 HDL Cholesterol ATHE ([facility]) cholesterol level 166 mg/dL <200 Cholesterol Level [place] ([facility]) ID Date Data Source [id number] 07/10/2020 09:14:00 AM EST [place] ([facility]) Name Value Range Interpretation Code Description Data Gillian rce(s) Supporting Document(s) glucose, fasting 115 mg/dL 70-100 Above high normal Glucose, Fas ting [place] ([facility]) creatinine for GFR 0.64 mg/dL 0.55-1.30 Creatinine for GF R [place] ([facility]) blood urea nitrogen 11 mg/dL 7-18 Blood Urea Nitro gen [place] ([facility]) sodium level 140 mEq/L 136-145 Sodium Level [place] ([facility]) glomerular filtration rate > 60.0 >58 Glomerula r Filtration Rate [place] ([facility]) chloride level 108 mEq/L 98-107 Above high normal Chloride Level [place] ([facility]) carbon dioxide level 27 mEq/L 21-32 Carbon Dioxide Level [place] ([facility]) potassium serum 4.1 mEq/L 3.5-5.1 Potassium Serum AT[place] ([facility]) anion gap 5 mEq/L 8-16 Below low normal Anion Gap [place] ( [facility]) alkaline phosphatase 84 U/L 45-117 Alkaline Phosph atase [place] ([facility]) ALT/SGPT 22 U/L 12-78 ALT/SGPT [place] ([facility]) AST/SGOT 10 U/L 7-37 AST/SGOT [place] ([facility]) calcium level 8.9 mg/dL 8.5-10.1 Calcium Level [place] ( [facility]) albumin/globulin ratio 1.2-2.2 Below low normal Albumin /globulin Ratio [place] ([facility]) total protein 7.0 gm/dL 6.4-8.2 Total Protein [place] ( [facility]) bilirubin,total 0.2 mg/dL 0.2-1.0 Bilirubin,total ATHE NA ([facility]) albumin 3.4 gm/dL 3.2-5.2 Albumin [place] ([facility]) ID Date Data Source [id number] 07/10/2020 09:14:00 AM EST [place] ([facility]) Name Value Range Interpretation Code Description Data Gillian rce(s) Supporting Document(s) white blood count 8.1 10 4.0-10.0 White Blood Count [place] ([facility]) red blood count 4.77 10 4.00-5.40 Red Blood Count ATHE NA ([facility]) hemoglobin 12.9 g/dL 12.0-15.5 Hemoglobin [place] ([facility]) hematocrit 40.4 % 36.0-47.0 Hematocrit [place] ([facility]) mean corpuscular volume 84.7 fL 80.0-96.0 Mean Corpusc ular Volume [place] ([facility]) mean corpuscular HGB conc 31.9 g/dL 32.0-36.5 Below low antwon l Mean Corpuscular HGB Conc [place] ([facility]) mean corpuscular hemoglobin 27.0 pg 27.0-33.0 Mean Cor puscular Hemoglobin [place] ([facility]) red cell distribution width 13.2 % 11.5-14.5 Red Cell Distribution Width [place] ([facility]) lymph % 24.0 % 24.0-44.0 Lymph % [place] ([facility]) neutrophils % 65.5 % 36.0-66.0 Neutrophils % [place] ( [facility]) platelet count, automated 351 10 150-450 Platelet C ount, Automated [place] ([facility]) mono % 7.6 % 0.0-5.0 Above high normal [place] % [facility] ([facility]) eos % 2.1 % 0.0-3.0 Eos % [place] ([facility]) baso % 0.4 % 0.0-1.0 Baso % SHERRY ([facility]) immature granulocyte % 0.4 % 0-3.0 Immature Gran ulocyte % SHERRY ([facility]) neutrophils # 5.3 10 1.5-8.5 Neutrophils # SHERRY ( [facility]) lymph # 1.9 10 1.5-5.0 Lymph # SHERRY ([facility]) mono # 0.6 10 0.0-0.8 [place] # SHERRY ([facility]) nucleated red blood cell % 0.0 % 0-0 Nucleated Red Blood Cell % SHERRY ([facility]) eos # 0.2 10 0.0-0.5 Eos # SHERRY ([facility]) baso # 0.0 10 0.0-0.2 Baso # SHERRY ([facility]) ID Date Data Source [id number] 07/10/2020 09:14:00 AM EST SHERRY ([facility]) Name Value Range Interpretation Code Description Data Gillian rce(s) Supporting Document(s) Hemoglobin A1c/Hemoglobin.total in Blood 6.0 % Hemoglobin a1C SHERRY ([facility]) estimated average glucose 126 mg/dL 60-110 Above high norm al Estimated Average Glucose SHERRY ([facility]) ID Date Data Source [id number] 07/10/2020 09:14:00 AM EST SHERRY ([facility]) Name Value Range Interpretation Code Description Data Gillian rce(s) Supporting Document(s) ferritin 24 NG/mL 8-252 Ferritin SHERRY ([facility]) ID Date Data Source [id number] 07/10/2020 09:14:00 AM EST SHERRY ([facility]) Name Value Range Interpretation Code Description Data Gillian rce(s) Supporting Document(s) total 25(oh) vitamin D 21.1 NG/mL 30.0-100.0 Below low normal T otal 25(Oh) Vitamin D SHERRY ([facility]) ID Date Data Source [id number] 07/10/2020 09:14:00 AM EST SHERRY ([facility]) Name Value Range Interpretation Code Description Data Gillian rce(s) Supporting Document(s) total iron binding capacity 412 ug/dL 250-450 Total Ir on Binding Capacity SHERRY ([facility]) iron (fe) 56 ug/dL 50-170 Iron (Fe) SHERRY ([facility]) percent saturation 13.6 % 13.2-45.0 Percent Saturatio n SHERRY ([facility]) ID Date Data Source [id number] 07/10/2020 09:14:00 AM EST SHERRY ([facility]) Name Value Range Interpretation Code Description Data Gillian rce(s) Supporting Document(s) triglycerides level 179 mg/dL <150 Above high normal Triglycer ides Level SHERRY ([facility]) cholesterol level 166 mg/dL <200 Cholesterol Level SHERRY ([facility]) Cholesterol in LDL [Mass/volume] in Serum or Plasma 82 mg/dL <1 00 LDL Cholesterol SHERRY ([facility]) HDL cholesterol 48 mg/dL >40 HDL Cholesterol ATHE NA ([facility]) cholesterol risk ratio <5 Cholesterol R isk Ratio SHERRY ([facility]) non-HDL-C 118 mg/dL Non-hdl-c SHERRY ([facility]) ID Date Data Source [id number] 07/10/2020 09:14:00 AM EST SHERRY ([facility]) Name Value Range Interpretation Code Description Data Gillian rce(s) Supporting Document(s) glucose, fasting 115 mg/dL 70-100 Above high normal Glucose, Fas ting SHERRY ([facility]) blood urea nitrogen 11 mg/dL 7-18 Blood Urea Nitro gen SHERRY ([facility]) creatinine for GFR 0.64 mg/dL 0.55-1.30 Creatinine for GF R SHERRY ([facility]) glomerular filtration rate > 60.0 >58 Glomerula r Filtration Rate SHERRY ([facility]) sodium level 140 mEq/L 136-145 Sodium Level SHERRY ([facility]) chloride level 108 mEq/L 98-107 Above high normal Chloride Level SHERRY ([facility]) carbon dioxide level 27 mEq/L 21-32 Carbon Dioxide Level [place] ([facility]) potassium serum 4.1 mEq/L 3.5-5.1 Potassium Serum ATHE NA ([facility]) AST/SGOT 10 U/L 7-37 AST/SGOT SHERRY ([facility]) ALT/SGPT 22 U/L 12-78 ALT/SGPT SHERRY ([facility]) calcium level 8.9 mg/dL 8.5-10.1 Calcium Level SHERRY ( [facility]) anion gap 5 mEq/L 8-16 Below low normal Anion Gap SHERRY ( [facility]) alkaline phosphatase 84 U/L 45-117 Alkaline Phosph atase SHERRY ([facility]) albumin 3.4 gm/dL 3.2-5.2 Albumin SHERRY ([facility]) total protein 7.0 gm/dL 6.4-8.2 Total Protein SHERRY ( [facility]) bilirubin,total 0.2 mg/dL 0.2-1.0 Bilirubin,total ATHE ([facility]) albumin/globulin ratio 1.2-2.2 Below low normal Albumin /globulin Ratio SHERRY ([facility]) ID Date Data Source [id number] 07/10/2020 09:14:00 AM EST SHERRY ([facility]) Name Value Range Interpretation Code Description Data Gillian rce(s) Supporting Document(s) white blood count 8.1 10 4.0-10.0 White Blood Count SHERRY ([facility]) hemoglobin 12.9 g/dL 12.0-15.5 Hemoglobin SHERRY ([facility]) hematocrit 40.4 % 36.0-47.0 Hematocrit SHERRY ([facility]) red blood count 4.77 10 4.00-5.40 Red Blood Count ATHE NA ([facility]) mean corpuscular HGB conc 31.9 g/dL 32.0-36.5 Below low antwon l Mean Corpuscular HGB Conc SHERRY ([facility]) mean corpuscular hemoglobin 27.0 pg 27.0-33.0 Mean Cor puscular Hemoglobin SHERRY ([facility]) mean corpuscular volume 84.7 fL 80.0-96.0 Mean Corpusc ular Volume SHERRY ([facility]) neutrophils % 65.5 % 36.0-66.0 Neutrophils % SHERRY ( [facility]) red cell distribution width 13.2 % 11.5-14.5 Red Cell Distribution Width SHERRY ([facility]) platelet count, automated 351 10 150-450 Platelet C ount, Automated SHERRY ([facility]) lymph % 24.0 % 24.0-44.0 Lymph % SHERRY ([facility]) mono % 7.6 % 0.0-5.0 Above high normal [place] % SHERRY ([facility]) eos % 2.1 % 0.0-3.0 Eos % SHERRY ([facility]) baso % 0.4 % 0.0-1.0 Baso % SHERRY ([facility]) neutrophils # 5.3 10 1.5-8.5 Neutrophils # SHERRY ( [facility]) immature granulocyte % 0.4 % 0-3.0 Immature Gran ulocyte % SHERRY ([facility]) lymph # 1.9 10 1.5-5.0 Lymph # SHERRY ([facility]) nucleated red blood cell % 0.0 % 0-0 Nucleated Red Blood Cell % SHERRY ([facility]) eos # 0.2 10 0.0-0.5 Eos # SHERRY ([facility]) mono # 0.6 10 0.0-0.8 [place] # SHERRY ([facility]) baso # 0.0 10 0.0-0.2 Baso # SHERRY ([facility]) ID Date Data Source [id number] 07/10/2020 09:14:00 AM EST SHERRY ([facility]) Name Value Range Interpretation Code Description Data Gillian rce(s) Supporting Document(s) Hemoglobin A1c/Hemoglobin.total in Blood 6.0 % Hemoglobin a1C SHERRY ([facility]) estimated average glucose 126 mg/dL 60-110 Above high norm al Estimated Average Glucose [place] ([facility]) ID Date Data Source [id number] 07/10/2020 09:14:00 AM EST SHERRY ([facility]) Name Value Range Interpretation Code Description Data Gillian rce(s) Supporting Document(s) ferritin 24 NG/mL 8-252 Ferritin SHERRY ([facility]) ID Date Data Source [id number] 07/10/2020 09:14:00 AM EST SHERRY ([facility]) Name Value Range Interpretation Code Description Data Gillian rce(s) Supporting Document(s) total 25(oh) vitamin D 21.1 NG/mL 30.0-100.0 Below low normal T otal 25(Oh) Vitamin D SHERRY ([facility]) ID Date Data Source [id number] 07/10/2020 09:14:00 AM EST SHERRY ([facility]) Name Value Range Interpretation Code Description Data Gillian rce(s) Supporting Document(s) iron (fe) 56 ug/dL 50-170 Iron (Fe) SHERRY ([facility]) percent saturation 13.6 % 13.2-45.0 Percent Saturatio n SHERRY ([facility]) total iron binding capacity 412 ug/dL 250-450 Total Ir on Binding Capacity SHERRY ([facility]) ID Date Data Source [id number] 07/10/2020 09:14:00 AM EST SHERRY ([facility]) Name Value Range Interpretation Code Description Data Gillian rce(s) Supporting Document(s) HDL cholesterol 48 mg/dL >40 HDL Cholesterol ATHE ([facility]) triglycerides level 179 mg/dL <150 Above high normal Triglycer ides Level SHERRY ([facility]) Cholesterol in LDL [Mass/volume] in Serum or Plasma 82 mg/dL <1 00 LDL Cholesterol SHERRY ([facility]) cholesterol level 166 mg/dL <200 Cholesterol Level SHERRY ([facility]) non-HDL-C 118 mg/dL Non-hdl-c SHERRY ([facility]) cholesterol risk ratio <5 Cholesterol R isk Ratio SHERRY ([facility]) ID Date Data Source [id number] 07/10/2020 09:14:00 AM EST SHERRY ([facility]) Name Value Range Interpretation Code Description Data Gillian rce(s) Supporting Document(s) glucose, fasting 115 mg/dL 70-100 Above high normal Glucose, Fas ting SHERRY ([facility]) creatinine for GFR 0.64 mg/dL 0.55-1.30 Creatinine for GF R SHERRY ([facility]) blood urea nitrogen 11 mg/dL 7-18 Blood Urea Nitro gen SHERRY ([facility]) sodium level 140 mEq/L 136-145 Sodium Level SHERRY ([facility]) glomerular filtration rate > 60.0 >58 Glomerula r Filtration Rate SHERRY ([facility]) potassium serum 4.1 mEq/L 3.5-5.1 Potassium Serum ATHE NA ([facility]) chloride level 108 mEq/L 98-107 Above high normal Chloride Level [place] ([facility]) calcium level 8.9 mg/dL 8.5-10.1 Calcium Level SHERRY ( [facility]) carbon dioxide level 27 mEq/L 21-32 Carbon Dioxide Level [place] ([facility]) anion gap 5 mEq/L 8-16 Below low normal Anion Gap SHERRY ( [facility]) ALT/SGPT 22 U/L 12-78 ALT/SGPT SHERRY ([facility]) alkaline phosphatase 84 U/L 45-117 Alkaline Phosph atase SHERRY ([facility]) AST/SGOT 10 U/L 7-37 AST/SGOT SHERRY ([facility]) albumin/globulin ratio 1.2-2.2 Below low normal Albumin /globulin Ratio SHERRY ([facility]) bilirubin,total 0.2 mg/dL 0.2-1.0 Bilirubin,total ATHE NA ([facility]) total protein 7.0 gm/dL 6.4-8.2 Total Protein SHERRY ( [facility]) albumin 3.4 gm/dL 3.2-5.2 Albumin SHERRY ([facility]) ID Date Data Source [id number] 07/10/2020 09:14:00 AM EST SHERRY ([facility]) Name Value Range Interpretation Code Description Data Gillian rce(s) Supporting Document(s) white blood count 8.1 10 4.0-10.0 White Blood Count SHERRY ([facility]) red blood count 4.77 10 4.00-5.40 Red Blood Count ATHE ([facility]) hemoglobin 12.9 g/dL 12.0-15.5 Hemoglobin SHERRY ([facility]) hematocrit 40.4 % 36.0-47.0 Hematocrit SHERRY ([facility]) mean corpuscular hemoglobin 27.0 pg 27.0-33.0 Mean Cor puscular Hemoglobin SHERRY ([facility]) mean corpuscular volume 84.7 fL 80.0-96.0 Mean Corpusc ular Volume SHERRY ([facility]) red cell distribution width 13.2 % 11.5-14.5 Red Cell Distribution Width SH[facility] ([facility]) platelet count, automated 351 10 150-450 Platelet C ount, Automated SHERRY ([facility]) mean corpuscular HGB conc 31.9 g/dL 32.0-36.5 Below low antwon l Mean Corpuscular HGB Conc SHERRY ([facility]) lymph % 24.0 % 24.0-44.0 Lymph % SHERRY ([facility]) eos % 2.1 % 0.0-3.0 Eos % SHERRY ([facility]) mono % 7.6 % 0.0-5.0 Above high normal [place] % SHERRY ([facility]) neutrophils % 65.5 % 36.0-66.0 Neutrophils % SHERRY ( [facility]) baso % 0.4 % 0.0-1.0 Baso % SHERRY ([facility]) nucleated red blood cell % 0.0 % 0-0 Nucleated Red Blood Cell % SHERRY ([facility]) immature granulocyte % 0.4 % 0-3.0 Immature Gran ulocyte % SHERRY ([facility]) neutrophils # 5.3 10 1.5-8.5 Neutrophils # SHERRY ( [facility]) lymph # 1.9 10 1.5-5.0 Lymph # SHERRY ([facility]) mono # 0.6 10 0.0-0.8 [place] # SHERRY ([facility]) baso # 0.0 10 0.0-0.2 Baso # SHERRY ([facility]) eos # 0.2 10 0.0-0.5 Eos # SHERRY ([facility]) ID Date Data Source [id number] 07/10/2020 09:14:00 AM EST SHERRY ([facility]) Name Value Range Interpretation Code Description Data Gillian rce(s) Supporting Document(s) Hemoglobin A1c/Hemoglobin.total in Blood 6.0 % Hemoglobin a1C SH[facility]Y ([facility]) estimated average glucose 126 mg/dL 60-110 Above high norm al Estimated Average Glucose SHERRY ([facility]) ID Date Data Source [id number] 07/10/2020 09:14:00 AM EST SHERRY ([facility]) Name Value Range Interpretation Code Description Data Gillian rce(s) Supporting Document(s) ferritin 24 NG/mL 8-252 Ferritin SHERRY ([facility]) ID Date Data Source [id number] 07/10/2020 09:14:00 AM EST SHERRY ([facility]) Name Value Range Interpretation Code Description Data Gillian rce(s) Supporting Document(s) total 25(oh) vitamin D 21.1 NG/mL 30.0-100.0 Below low normal T otal 25(Oh) Vitamin D SHERRY ([facility]) ID Date Data Source [id number] 07/10/2020 09:14:00 AM EST SHERRY ([facility]) Name Value Range Interpretation Code Description Data Gillian rce(s) Supporting Document(s) iron (fe) 56 ug/dL 50-170 Iron (Fe) SHERRY ([facility]) total iron binding capacity 412 ug/dL 250-450 Total Ir on Binding Capacity SHERRY ([facility]) percent saturation 13.6 % 13.2-45.0 Percent Saturatio n SHERRY ([facility]) ID Date Data Source [id number] 07/10/2020 09:14:00 AM EST SHERRY ([facility]) Name Value Range Interpretation Code Description Data Gillian rce(s) Supporting Document(s) triglycerides level 179 mg/dL <150 Above high normal Triglycer ides Level SHERRY ([facility]) cholesterol level 166 mg/dL <200 Cholesterol Level SHERRY ([facility]) Cholesterol in LDL [Mass/volume] in Serum or Plasma 82 mg/dL <1 00 LDL Cholesterol SHERRY ([facility]) non-HDL-C 118 mg/dL Non-hdl-c SH[facility] ([facility]) cholesterol risk ratio <5 Cholesterol R isk Ratio SHERRY ([facility]) HDL cholesterol 48 mg/dL >40 HDL Cholesterol ATHE NA ([facility]) ID Date Data Source [id number] 07/10/2020 09:14:00 AM EST SHERRY ([facility]) Name Value Range Interpretation Code Description Data Gillian rce(s) Supporting Document(s) glucose, fasting 115 mg/dL 70-100 Above high normal Glucose, Fas ting SHERRY ([facility]) blood urea nitrogen 11 mg/dL 7-18 Blood Urea Nitro gen SHERRY ([facility]) glomerular filtration rate > 60.0 >58 Glomerula r Filtration Rate SHERRY ([facility]) sodium level 140 mEq/L 136-145 Sodium Level SHERRY ([facility]) chloride level 108 mEq/L 98-107 Above high normal Chloride Level [facility] ([facility]) creatinine for GFR 0.64 mg/dL 0.55-1.30 Creatinine for GF R SHERRY ([facility]) potassium serum 4.1 mEq/L 3.5-5.1 Potassium Serum ATHE ([facility]) carbon dioxide level 27 mEq/L 21-32 Carbon Dioxide Level [place] ([facility]) anion gap 5 mEq/L 8-16 Below low normal Anion Gap SHERRY ( [facility]) AST/SGOT 10 U/L 7-37 AST/SGOT [facility] ([facility]) calcium level 8.9 mg/dL 8.5-10.1 Calcium Level SHERRY ( [facility]) total protein 7.0 gm/dL 6.4-8.2 Total Protein SHERRY ( [facility]) ALT/SGPT 22 U/L 12-78 ALT/SGPT [facility] ([facility]) bilirubin,total 0.2 mg/dL 0.2-1.0 Bilirubin,total ATHE ([facility]) alkaline phosphatase 84 U/L 45-117 Alkaline Phosph atase SHERRY ([facility]) albumin/globulin ratio 1.2-2.2 Below low normal Albumin /globulin Ratio SHERRY ([facility]) albumin 3.4 gm/dL 3.2-5.2 Albumin SHERRY ([facility]) ID Date Data Source [id number] 07/10/2020 09:14:00 AM EST SHERRY ([facility]) Name Value Range Interpretation Code Description Data Gillian rce(s) Supporting Document(s) white blood count 8.1 10 4.0-10.0 White Blood Count SHERRY ([facility]) hematocrit 40.4 % 36.0-47.0 Hematocrit SH[facility]Y ([facility]) red blood count 4.77 10 4.00-5.40 Red Blood Count ATHE NA ([facility]) hemoglobin 12.9 g/dL 12.0-15.5 Hemoglobin SHERRY ([facility]) mean corpuscular volume 84.7 fL 80.0-96.0 Mean Corpusc ular Volume SHERRY ([facility]) mean corpuscular HGB conc 31.9 g/dL 32.0-36.5 Below low antwon l Mean Corpuscular HGB Conc SHERRY ([facility]) mean corpuscular hemoglobin 27.0 pg 27.0-33.0 Mean Cor puscular Hemoglobin SHERRY ([facility]) lymph % 24.0 % 24.0-44.0 Lymph % SHERRY ([facility]) platelet count, automated 351 10 150-450 Platelet C ount, Automated SHERRY ([facility]) neutrophils % 65.5 % 36.0-66.0 Neutrophils % SHERRY ( [facility]) mono % 7.6 % 0.0-5.0 Above high normal [place] % SHERRY ([facility]) immature granulocyte % 0.4 % 0-3.0 Immature Gran ulocyte % SHERRY ([facility]) eos % 2.1 % 0.0-3.0 Eos % SHERRY ([facility]) baso % 0.4 % 0.0-1.0 Baso % SHERRY ([facility]) lymph # 1.9 10 1.5-5.0 Lymph # SHERRY ([facility]) mono # 0.6 10 0.0-0.8 [place] # SHERRY ([facility]) neutrophils # 5.3 10 1.5-8.5 Neutrophils # SHERRY ( [facility]) nucleated red blood cell % 0.0 % 0-0 Nucleated Red Blood Cell % SHERRY ([facility]) eos # 0.2 10 0.0-0.5 Eos # SHERRY ([facility]) baso # 0.0 10 0.0-0.2 Baso # SHERRY ([facility]) Procedure Social History No Information Vital Signs ID Date Data Source [id number] Name Value Range Interpretation Code Description Data Source(s) Body weight 235.25 [lb_av] 235.25 [lb_av] MEDEN T ([facility]) Body mass index (BMI) [Ratio] 45.9 kg/m2 45.9 k g/m2 MEDENT ([facility]) Body temperature 97.1 [degF] 97.1 [degF] MEDENT ([facility]) Body height 60 [in_i] 60 [in_i] MEDENT ([facility]) 5'0" Diastolic blood pressure 83 mm[Hg] 83 mm[Hg] SHERRY ([facility]) Body height 62 [in_i] 62 [in_i] SHERRY ([facility]) Body mass index (BMI) [Ratio] 43.3 kg/m2 43.3 k g/m2 SHERRY ([facility]) Systolic blood pressure 132 mm[Hg] 132 mm[Hg] Tre THENA ([facility]) Body weight 3788.8 [oz_av] 3788.8 [oz_av] ATHEN A ([facility]) Body height 62 [in_i] 62 [in_i] SHERRY ([facility]) Body height 62 [in_i] 62 [in_i] SHERRY ([facility]) Body height 62 [in_i] 62 [in_i] SHERRY ([facility]) Body height 62 [in_i] 62 [in_i] SHERRY ([facility]) Body height 62 [in_i] 62 [in_i] SHERRY ([facility]) Body height 62 [in_i] 62 [in_i] SHERRY ([facility]) Body height 62 [in_i] 62 [in_i] SHERRY ([facility]) Body height 62 [in_i] 62 [in_i] SHERRY ([facility]) Patient Treatment Plan of Care Planned Activity Planned Date Details Description Data Source (s) Ibuprofen 800 MG Oral Tablet SHERRY ([facility]) Acetaminophen 325 MG / Hydrocodone Bitartrate 5 MG Oral Tablet SHERRY ([facility]) Fluconazole 150 MG Oral Tablet [facility]ERRY ([facility]) cefdinir 300 MG Oral Capsule SHERRY ([facility]) Amoxicillin 875 MG Oral Tablet [facility]Y ([facility]) Amoxicillin 500 MG Oral Capsule SHERRY ([facility]) Ergocalciferol 73226 UNT Oral Capsule SHERRY ([facility]) Prednisone 10 MG Oral Tablet SHERRY ([facility]) Acetaminophen 325 MG / Oxycodone Hydrochloride 5 MG Oral Tablet SHERRY ([facility]) Ibuprofen 800 MG Oral Tablet SHERRY ([facility]) Fluconazole 150 MG Oral Tablet [facility]ERRY ([facility]) cefdinir 300 MG Oral Capsule [facility]ERRY ([facility]) Amoxicillin 875 MG Oral Tablet [facility] ([facility]) Amoxicillin 500 MG Oral Capsule SHERRY ([facility]) Ergocalciferol 33998 UNT Oral Capsule SHERRY ([facility]) Prednisone 10 MG Oral Tablet SHERRY ([facility]) Acetaminophen 325 MG / Oxycodone Hydrochloride 5 MG Oral Tablet SHERRY ([facility]) Ibuprofen 800 MG Oral Tablet SHERRY ([facility]) Fluconazole 150 MG Oral Tablet SHERRY ([facility]) cefdinir 300 MG Oral Capsule SHERRY ([facility]) Amoxicillin 875 MG Oral Tablet SHERRY ([facility]) Amoxicillin 500 MG Oral Capsule SHERRY ([facility]) Ergocalciferol 92458 UNT Oral Capsule SHERRY ([facility]) Prednisone 10 MG Oral Tablet SHERRY ([facility]) Acetaminophen 325 MG / Oxycodone Hydrochloride 5 MG Oral Tablet SHERRY ([facility]) Ibuprofen 800 MG Oral Tablet SHERRY ([facility]) Fluconazole 150 MG Oral Tablet SHERRY ([facility]) cefdinir 300 MG Oral Capsule SHERRY ([facility]) Amoxicillin 875 MG Oral Tablet SHERRY ([facility]) Ergocalciferol 87906 UNT Oral Capsule SHERRY ([facility]) Prednisone 10 MG Oral Tablet SHERRY ([facility]) Acetaminophen 325 MG / Oxycodone Hydrochloride 5 MG Oral Tablet SHERRY ([facility]) Ibuprofen 800 MG Oral Tablet SHERRY ([facility]) Fluconazole 150 MG Oral Tablet SH[facility] ([facility]) cefdinir 300 MG Oral Capsule SHERRY ([facility]) Cholecalciferol 1000 UNT Oral Capsule SHERRY ([facility]) Ergocalciferol 65656 UNT Oral Capsule SHERRY ([facility]) Prednisone 10 MG Oral Tablet SHERRY ([facility]) Acetaminophen 325 MG / Oxycodone Hydrochloride 5 MG Oral Tablet SHERRY ([facility]) Amoxicillin 875 MG Oral Tablet SHERRY ([facility])
[2021-06-21] MEDS ORDERED: PRED20TA PO (13:21)
== END 2021-06-21 02:32 | disposition left against medical advice (07) ==
LOC: M ED 15:17
DX: Z53.29 Procedure and treatment not carried out because of patient's decision for other reasons (principal)

== ENCOUNTER 2021-06-21 08:57 | Emergency (ER) | payer OTHER ==
[~2021-06-21] VITALS: Ht 154.9 cm; Wt 106.8 kg
--- OUTSIDE RECORDS SUMMARY | 2021-06-21 09:06 | CCD ---
Author Author [facility] Organization [facility] Address Unknown Phone Unavailable Care Team Providers Care Acid Supervisor Name Role Phone FUENTES, ANDRIA TYREE RPA-C [...] FUENTES, ANDRIA TYREE RPA-C Unavailable Unavailable FUENTES, ANDRAI TYREE RPA-C Unavailable Unavailable FUENTES, ANDRIA TYREE [...] Jaqueline Alice NPP Unavailable Unavailable Quinones, Jaqueline Aliec NPP Unavailable Unavailable Quinones, Jaqueline Biswasie NPP Unavailable Unavailable Marino Estrada [...] by Article 27-F of the [facility] Public Health law. If you continue you may have access to information: Regarding HIV / AIDS; Provided by facilities licensed or operated by the [facility] Office of Mental Health; or Provided by the [facility] Office for People With Developmental Disabilities. If such information is present, then the following [facility] mandated warning applies: This information has [...] law may result in a fine or mcc sentence or both. A general authorization for the release of medical or other information is NOT sufficient authorization for further disc losure. Encounters Encounter Providers Location Date Indications Data Source(s ) Outpatient Attender: Dougie BULLOCK Physical Therapy 09:45:00 AM [facility] Tyree Fuentes, RPA-C: [address] [facility] [address] [address], Ph. Attender: TYREE FUENTES RPA-C [facility] Medical 05/29/2021 12:00:00 AM EDT [facility] ([facility]) Outpatient Attender: Torrey Estrada MDAdmitter: Torrey Estrada MD E [email or web address] 05/27/2021 08:27:46 AM EDT [facility] Tyree Fuentes, RPA-C: [address], [place] [address], Ph. Attender: TYREE FUENTES RPA-C [facility] Medical 05/22/2021 12:00:00 AM EDT [facility] ([facility]) Tyree Fuentes, RPA-C: [address], [place] [address], Ph. Attender: TYREE FUENTES RPA-C [facility] Medical 05/22/2021 12:00:00 AM EDT [facility] ([facility]) Outpatient Attender: Alice WALLACE [id number] 04/26/2021 12:00:00 AM EDT [facility] Tyree Fuentes, RPA-C: [address], [place] [address], Ph. Attender: TYREE FUENTES RPA-C [facility] Medical 02/11/2021 12:00:00 AM EDT [facility] ([facility]) Tyree Fuentes, RPA-C: [address], [place] [address], Ph. Attender: TYREE FUENTES RPA-C [facility] Medical 02/11/2021 12:00:00 AM EDT [facility] ([facility]) Tyree Fuentes, RPA-C: [address], [place] [address], Ph. Attender: TYREE FUENTES RPA-C [facility] Medical 02/11/2021 12:00:00 AM EDT [facility] ([facility]) Tyree Fuentes, RPA-C: [address], [place] [address], Ph. Attender: TYREE FUENTES RPA-C [facility] Medical 01/22/2021 12:00:00 AM EDT [facility] ([facility]) Tyree Fuentes, RPA-C: [address], [place] [address], Ph. Attender: TYREE FUENTES RPA-C [facility] Medical 01/22/2021 12:00:00 AM EDT [facility] ([facility]) Tyree Fuentes, RPA-C: [address], [place] [address], Ph. Attender: TYREE FUENTES RPA-C [facility] Medical 01/22/2021 12:00:00 AM EDT [facility] ([facility]) Tyree Fuentes RPA-C: [address], [place] [address], Ph. Attender: TRYEE FUENTES RPA-C [facility] Medical 01/22/2021 12:00:00 AM EDT [facility] ([facility]) Tyree Fuentes, RPA-C: [address], [place] [address], Ph. Attender: TYREE FUENTES RPA-C [facility] Medical 07/17/2020 12:00:00 AM EST [facility] ([facility]) Tyree Fuentes RPA-C: [address], [place] [address], Ph. Attender: TYREE FUENTES RPA-C [facility] Medical 07/17/2020 12:00:00 AM EST [facility] ([facility]) Tyree Fuentes RPA-C: [address], [place] [address], Ph. Attender: TRYEE FUENTES RPA-C [facility] Medical 07/17/2020 12:00:00 AM EST [facility] ([facility]) Tyree Fuentes, RPA-C: [address], [place] [address], Ph. Attender: TYREE FUENTES RPA-C [facility] Medical 07/17/2020 12:00:00 AM EST [facility] ([facility]) Tyree Fuentes RPA-C: [address], [place] [address], Ph. Attender: TYREE FUENTES RPA-C [facility] Medical 07/17/2020 12:00:00 AM EST [facility] ([facility]) Tyree Fuentes, RPA-C: [address], [place] [address], Ph. Attender: TYREE FUENTES RPA-C [facility] Medical 07/10/2020 12:00:00 AM EST [facility] ([facility]) Tyree Fuentes, RPA-C: [address], [place] [address], Ph. Attender: TYREE FUENTES RPA-C [facility] Medical 07/10/2020 12:00:00 AM EST [facility] ([facility]) Tyree Fuentes, RPA-C: [address], [place] [address], Ph. Attender: TYREE FUENTES RPA-C [facility] Medical 07/10/2020 12:00:00 AM EST [facility] ([facility]) Tyree Fuentes RPA-C: [address], [place] [address], Ph. Attender: TYREE FUENTES RPA-C [facility] Medical 07/10/2020 12:00:00 AM EST [facility] ([facility]) Tyree Fuentes RPA-C: [address], [place] [address], Ph. Attender: TYREE FUENTES RPA-C [facility] Medical 07/10/2020 12:00:00 AM EST [facility] ([facility]) Tyree Fuentes RPA-C: [address], [place] [address], Ph. Attender: TYREE FUENTES RPA-C [facility] Medical 07/10/2020 12:00:00 AM EST [facility] ([facility]) Outpatient Attender: TYREE FUENTES RPA-C [facility] 05/07/2020 08:50:03 AM EDT [facility] Immunizations Vaccine Date Status Description Data Source(s) COVID-19, mRNA, LNP-S, PF, 100 mcg/0.5 mL dose 10/26/2020 12 :00:00 AM EDT completed 10/26/2020 [facility] ([facility]) COVID-19 VACCINE Moderna 10/26/2020 12:00:00 AM EDT completed [facility] Vaccine Series Complete: YESThis Data wa s Submitted to [facility] Via [employer]. COVID-19, mRNA, LNP-S, PF, 100 mcg/0.5 mL dose 09/28/2020 12 :00:00 AM EST completed 09/28/2020 [facility] ([facility]) COVID-19 VACCINE Moderna 09/28/2020 12:00:00 AM EST completed [facility] Vaccine Series Complete: NOThis Data was Submitted to [facility] Via [employer]. Medications Medication Brand Name Start Date Product [...] completed ibuprofen 800 MG Oral Tablet [facility] ([facility]) Ergocalciferol 36924 UNT Oral Capsule Vi tamin D2 1,250 mcg (50,000 unit) capsule TAKE 1 CAPSULE BY MOUTH ONCE WEEKLY Vitamin D2 1,250 mcg (50,000 unit) capsu le TAKE 1 CAPSULE BY MOUTH ONCE WEEKLY co mpleted ergocalciferol 1.25 MG Oral Capsule [facility] ([facility]) Amoxicillin 875 MG Oral Tablet amoxicill in 875 mg tablet TAKE ONE TABLET BY MOUTH TWICE A DAY amoxicillin 875 mg tablet TAKE ONE TABLE T BY MOUTH TWICE A DAY completed amoxicillin 875 MG Oral Tablet [facility] ([facility]) Fluconazole 150 MG Oral Tablet fluconazo le 150 mg tablet TAKE 1 TABLET BY MOUTH 7 10 DAYS NEEDED YEAST NEEDED VAGINITIS FROM ANTIBIOITC fluconazole 150 mg tablet TAKE 1 TABLET BY MOUTH 7 10 DAYS NEEDED YEAST NEEDED VAGINITIS FROM ANTIBIOITC completed fluconazole 150 MG Oral Tablet [facility] ([facility]) Acetaminophen 325 MG / Hydrocodone Angie trate [...] / hydrocodone bitartrate 5 MG Oral Tablet [facility] ([facility]) Prednisone 10 MG Oral Tablet prednisone 10 mg tablet TAKE THREE TABLETS BY MOUTH EVERY DAY prednisone 10 mg tablet TAKE THREE TABLETS BY MOUTH EVERY DAY completed prednisone 10 MG Oral Tab let [facility] ([facility]) Cholecalciferol 1000 UNT Oral Capsule Vi tamin D3 25 mcg (1,000 unit) capsule TAKE ONE CAPSULE BY MOUTH EVERY DAY Vitamin D3 25 mcg (1,000 unit) capsule T SEBASTIAN ONE CAPSULE BY MOUTH EVERY DAY complet ed cholecalciferol 0.025 MG Oral Capsule [facility] ([facility]) cefdinir 300 MG Oral Capsule cefdinir 30 0 mg capsule TAKE ONE CAPSULE BY MOUTH TWICE A DAY cefdinir 300 mg capsule TAKE ONE CAPSULE BY MOUTH TWICE A DAY completed cefdinir 300 MG Oral Capsule [facility] ([facility]) Fluconazole 150 MG Oral Tablet fluconazo le 150 mg tablet TAKE 1 TABLET BY MOUTH 7 10 DAYS NEEDED YEAST NEEDED VAGINITIS FROM ANTIBIOITC fluconazole 150 mg tablet TAKE 1 TABLET BY MOUTH 7 10 DAYS NEEDED YEAST NEEDED VAGINITIS FROM ANTIBIOITC completed fluconazole 150 MG Oral Tablet [facility] ([facility]) Amoxicillin 875 MG Oral Tablet amoxicill in 875 mg tablet TAKE ONE TABLET BY MOUTH TWICE A DAY amoxicillin 875 mg tablet TAKE ONE TABLE T BY MOUTH TWICE A DAY completed amoxicillin 875 MG Oral Tablet [facility] ([facility]) cefdinir 300 MG Oral Capsule cefdinir 30 0 mg capsule TAKE ONE CAPSULE BY MOUTH TWICE A DAY cefdinir 300 mg capsule TAKE ONE CAPSULE BY MOUTH TWICE A DAY completed cefdinir 300 MG Oral Capsule [facility] ([facility]) Ergocalciferol 03261 UNT Oral Capsule Vi tamin D2 1,250 mcg (50,000 unit) capsule TAKE 1 CAPSULE BY MOUTH ONCE WEEKLY Vitamin D2 1,250 mcg (50,000 unit) capsu le TAKE 1 CAPSULE BY MOUTH ONCE WEEKLY co mpleted ergocalciferol 1.25 MG Oral Capsule [facility] ([facility]) Fluconazole 150 MG Oral Tablet fluconazo le 150 mg tablet TAKE 1 TABLET BY MOUTH 7 10 DAYS NEEDED YEAST NEEDED VAGINITIS FROM ANTIBIOITC fluconazole 150 mg tablet TAKE 1 TABLET BY MOUTH 7 10 DAYS NEEDED YEAST NEEDED VAGINITIS FROM ANTIBIOITC completed fluconazole 150 MG Oral Tablet [facility] ([facility]) Amoxicillin 875 MG Oral Tablet amoxicill in 875 mg tablet TAKE ONE TABLET BY MOUTH TWICE A DAY amoxicillin 875 mg tablet TAKE ONE TABLE T BY MOUTH TWICE A DAY completed amoxicillin 875 MG Oral Tablet [facility] ([facility]) Acetaminophen 325 MG / Oxycodone Hydroch [...] oxycodone hydrochloride 5 MG Oral Tablet [facility] ([facility]) Amoxicillin 875 MG Oral Tablet amoxicill in 875 mg tablet TAKE ONE TABLET BY MOUTH TWICE A DAY amoxicillin 875 mg tablet TAKE ONE TABLE T BY MOUTH TWICE A DAY completed amoxicillin 875 MG Oral Tablet [facility] ([facility]) Acetaminophen 325 MG / Oxycodone Hydroch [...] completed amoxicillin 875 MG Oral Tablet [facility] ([facility]) Amoxicillin 500 MG Oral Capsule amoxicillin 500 mg cap timbo amoxicillin 500 mg capsule completed amoxicillin 50 0 MG Oral Capsule [facility] ([facility]) Prednisone 10 MG Oral Tablet prednisone 10 mg tablet TAKE THREE TABLETS BY MOUTH EVERY DAY prednisone 10 mg tablet TAKE THREE TABLETS BY MOUTH EVERY DAY completed prednisone 10 MG Oral Tab let [facility] ([facility]) Ibuprofen 800 MG Oral Tablet ibuprofen 8 00 mg tablet TAKE ONE TABLET BY MOUTH THREE TIMES A DAY NEEDED FOR PAIN ibuprofen 800 mg tablet TAKE ONE TABLET BY MOUTH THREE TIMES A DAY NEEDED FOR PAIN completed ibuprofen 800 MG Oral Tablet [facility] ([facility]) Acetaminophen 325 MG / Oxycodone Hydroch loride [...] oxycodone hydrochloride 5 MG Oral Tablet [facility] ([facility]) Acetaminophen 325 MG / Oxycodone Hydroch loride [...] oxycodone hydrochloride 5 MG Oral Tablet [facility] ([facility]) Ibuprofen 800 MG Oral Tablet ibuprofen 8 00 mg tablet TAKE ONE TABLET BY MOUTH THREE TIMES A DAY NEEDED FOR PAIN ibuprofen 800 mg tablet TAKE ONE TABLET BY MOUTH THREE TIMES A DAY NEEDED FOR PAIN completed ibuprofen 800 MG Oral Tablet [facility] ([facility]) Amoxicillin 500 MG Oral Capsule amoxicillin 500 mg cap timbo amoxicillin 500 mg capsule completed amoxicillin 50 0 MG Oral Capsule [facility] ([facility]) Ergocalciferol 62287 UNT Oral Capsule Vi tamin D2 1,250 mcg (50,000 unit) capsule TAKE 1 CAPSULE BY MOUTH ONCE WEEKLY Vitamin D2 1,250 mcg (50,000 unit) capsu le TAKE 1 CAPSULE BY MOUTH ONCE WEEKLY co mpleted ergocalciferol 1.25 MG Oral Capsule [facility] ([facility]) cefdinir 300 MG Oral Capsule cefdinir 30 0 mg capsule TAKE ONE CAPSULE BY MOUTH TWICE A DAY cefdinir 300 mg capsule TAKE ONE CAPSULE BY MOUTH TWICE A DAY completed cefdinir 300 MG Oral Capsule [facility] ([facility]) Ergocalciferol 17771 UNT Oral Capsule Vi tamin D2 1,250 mcg (50,000 unit) capsule TAKE 1 CAPSULE BY MOUTH ONCE WEEKLY Vitamin D2 1,250 mcg (50,000 unit) capsu le TAKE 1 CAPSULE BY MOUTH ONCE WEEKLY co mpleted ergocalciferol 1.25 MG Oral Capsule [facility] ([facility]) cefdinir 300 MG Oral Capsule cefdinir 30 0 mg capsule TAKE ONE CAPSULE BY MOUTH TWICE A DAY cefdinir 300 mg capsule TAKE ONE CAPSULE BY MOUTH TWICE A DAY completed cefdinir 300 MG Oral Capsule [facility] ([facility]) Fluconazole 150 MG Oral Tablet fluconazo le 150 mg tablet TAKE 1 TABLET BY MOUTH 7 10 DAYS NEEDED YEAST NEEDED VAGINITIS FROM ANTIBIOITC fluconazole 150 mg tablet TAKE 1 TABLET BY MOUTH 7 10 DAYS NEEDED YEAST NEEDED VAGINITIS FROM ANTIBIOITC completed fluconazole 150 MG Oral Tablet [facility] ([facility]) Prednisone 10 MG Oral Tablet prednisone 10 mg tablet TAKE THREE TABLETS BY MOUTH EVERY DAY prednisone 10 mg tablet TAKE THREE TABLETS BY MOUTH EVERY DAY completed prednisone 10 MG Oral Tab let [facility]) Ibuprofen 800 MG Oral Tablet ibuprofen 8 00 mg tablet TAKE ONE TABLET BY MOUTH THREE TIMES A DAY NEEDED FOR PAIN ibuprofen 800 mg tablet TAKE ONE TABLET BY MOUTH THREE TIMES A DAY NEEDED FOR PAIN completed ibuprofen 800 MG Oral Tablet [facility] ([facility]) Amoxicillin 500 MG Oral Capsule amoxicillin 500 mg cap timbo amoxicillin 500 mg capsule completed amoxicillin 50 0 MG Oral Capsule [facility] ([facility]) Acetaminophen 325 MG / Oxycodone Hydroch [...] oxycodone hydrochloride 5 MG Oral Tablet [facility] ([facility]) Prednisone 10 MG Oral Tablet prednisone 10 mg tablet TAKE THREE TABLETS BY MOUTH EVERY DAY prednisone 10 mg tablet TAKE THREE TABLETS BY MOUTH EVERY DAY completed prednisone 10 MG Oral Tab let [facility] ([facility]) Ergocalciferol 93146 UNT Oral Capsule Vi tamin D2 1,250 mcg (50,000 unit) capsule TAKE 1 CAPSULE BY MOUTH ONCE WEEKLY Vitamin D2 1,250 mcg (50,000 unit) capsu le TAKE 1 CAPSULE BY MOUTH ONCE WEEKLY co mpleted ergocalciferol 1.25 MG Oral Capsule [facility] ([facility]) Prednisone 10 MG Oral Tablet prednisone 10 mg tablet TAKE THREE TABLETS BY MOUTH EVERY DAY prednisone 10 mg tablet TAKE THREE TABLETS BY MOUTH EVERY DAY completed prednisone 10 MG Oral Tab let [facility] ([facility]) cefdinir 300 MG Oral Capsule cefdinir 30 0 mg capsule TAKE ONE CAPSULE BY MOUTH TWICE A DAY cefdinir 300 mg capsule TAKE ONE CAPSULE BY MOUTH TWICE A DAY completed cefdinir 300 MG Oral Capsule [facility] ([facility]) Ibuprofen 800 MG Oral Tablet ibuprofen 8 00 mg tablet TAKE ONE TABLET BY MOUTH THREE TIMES A DAY NEEDED FOR PAIN ibuprofen 800 mg tablet TAKE ONE TABLET BY MOUTH THREE TIMES A DAY NEEDED FOR PAIN completed ibuprofen 800 MG Oral Tablet [facility] ([facility]) Fluconazole 150 MG Oral Tablet fluconazo le 150 mg tablet TAKE 1 TABLET BY MOUTH 7 10 DAYS NEEDED YEAST NEEDED VAGINITIS FROM ANTIBIOITC fluconazole 150 mg tablet TAKE 1 TABLET BY MOUTH 7 10 DAYS NEEDED YEAST NEEDED VAGINITIS FROM ANTIBIOITC completed fluconazole 150 MG Oral Tablet [facility] ([facility]) Insurance Providers Payer name Policy type / Coverage type Policy ID Covered constitution party ID Covered constitution party's relationship to melara Policy Melara Plan Information Medicaid S [id number] S [id number] [place] MED[place] [id number] [place] [id number] Kiya 7 [id number] Managed Care [place]a P [id number] S [id number] [employer] UNAVAILABLE UNAVAIL ABLE [place]AN[place] [id number] SP [id number] MEDICAID ([id number]) [id number] EMEDNY [id number] SP [id number] [facility] [id number] S [id number] MEDICAID [id number] Problems, Conditions, and Diagnoses Code Display Name Description Problem Type Effective Dates Data Source(s) K21.9 Gastro-esophageal reflux disease without esophagitis Gastro-esophageal reflux disease without Diagnosis 06/20/2021 01:08:06 PM [facility] [id number] Hypertriglyceridemia Hypertriglyceridemia Problem 02/28/2021 12:00:00 AM EDT [facility] ([facility]) [id number] Hypertriglyceridemia Hypertriglyceridemia Problem 02/28/2021 12:00:00 AM EDT [facility] ([facility]) [id number] Hypertriglyceridemia Hypertriglyceridemia Problem 02/28/2021 12:00:00 AM EDT [facility] ([facility]) [id number] Impacted cerumen of bilateral ears Impac mandy Cerumen of Bilateral Ears Problem 04/18/2020 12:00:00 AM EDT - 02/11/2021 12:00:00 AM EDT [facility] ([facility]) [id number] Screening mammography Screening Mammography Problem 04/18/2020 12:00:00 AM EDT - 02/28/2021 12:00:00 AM EDT [facility] ([facility]) [id number] Influenza vaccine needed Influenza Vaccine Needed Pro blem 04/18/2020 12:00:00 AM EDT - 02/11/2021 12:00:00 AM EDT [facility] ([facility]) [id number] Impacted cerumen of bilateral ears Impac mandy Cerumen of Bilateral Ears Problem 04/18/2020 12:00:00 AM EDT - 02/11/2021 12:00:00 AM EDT [facility] ([facility]) [id number] Screening mammography Screening Mammography Problem 04/18/2020 12:00:00 AM EDT - 02/28/2021 12:00:00 AM EDT [facility] ([facility]) [id number] Influenza vaccine needed Influenza Vaccine Needed Pro blem 04/18/2020 12:00:00 AM EDT - 02/11/2021 12:00:00 AM EDT [facility] ([facility]) [id number] Impacted cerumen of bilateral ears Impac mandy Cerumen of Bilateral Ears Problem 04/18/2020 12:00:00 AM EDT - 02/11/2021 12:00:00 AM EDT [facility] ([facility]) [id number] Screening mammography Screening Mammography Problem 04/18/2020 12:00:00 AM EDT - 02/28/2021 12:00:00 AM EDT [facility] ([facility]) [id number] Influenza vaccine needed Influenza Vaccine Needed Pro blem 04/18/2020 12:00:00 AM EDT - 02/11/2021 12:00:00 AM EDT [facility] ([facility]) [id number] Finding of pattern of menstrual cycle Fi nding of Pattern of Menstrual Cycle Problem 02/14/2020 12:00:00 AM EDT - 02/11/2021 12:00:00 AM EDT [facility]) [id number] Microscopic hematuria Microscopic Hematuria Problem 02/14/2020 12:00:00 AM EDT - 07/17/2020 12:00:00 AM ANATOLIY POWELL ([facility]) [id number] Finding of pattern of menstrual cycle Fi nding of Pattern of Menstrual Cycle Problem 02/14/2020 12:00:00 AM EDT - 02/11/2021 12:00:00 AM EDT [facility]) [id number] Microscopic hematuria Microscopic Hematuria Problem 02/14/2020 12:00:00 AM EDT - 07/17/2020 12:00:00 AM ANATOLIY POWELL ([facility]) [id number] Finding of pattern of menstrual cycle Fi nding of Pattern of Menstrual Cycle Problem 02/14/2020 12:00:00 AM EDT - 02/11/2021 12:00:00 AM EDT [facility] ([facility]) [id number] Microscopic hematuria Microscopic Hematuria Problem 02/14/2020 12:00:00 AM EDT - 07/17/2020 12:00:00 AM EST [facility] ([facility]) 021706388 Microscopic hematuria Microscopic Hematuria Problem 02/14/2020 12:00:00 AM EDT - 07/17/2020 12:00:00 AM EST [facility] ([facility]) [id number] Microscopic hematuria Microscopic Hematuria Problem 02/14/2020 12:00:00 AM EDT - 07/17/2020 12:00:00 AM EST [facility] ([facility]) [id number] Clinical finding Clinical Finding Problem 12:00:00 AM EDT - 07/17/2020 12:00:00 AM EST [facility] ([facility]) [id number] Pain in female genitalia Pain in Female Genitalia Prob mariana 02/28/2019 12:00:00 AM EDT - 02/11/2021 12:00:00 AM EDT [facility] ([facility]) [id number] Procedure by method Procedure by Method Problem 0 02/28/2019 12:00:00 AM EDT - 07/17/2020 12:00:00 AM EST [facility] ([facility]) [id number] Clinical finding Clinical Finding Problem 12:00:00 AM EDT - 07/17/2020 12:00:00 AM EST [facility] ([facility]) [id number] Pain in female genitalia Pain in Female Genitalia Prob mariana 02/28/2019 12:00:00 AM EDT - 02/11/2021 12:00:00 AM EDT [facility] ([facility]) [id number] Procedure by method Procedure by Method Problem 0 02/28/2019 12:00:00 AM EDT - 07/17/2020 12:00:00 AM EST [facility] ([facility]) [id number] Clinical finding Clinical Finding Problem 12:00:00 AM EDT - 07/17/2020 12:00:00 AM EST [facility] ([facility]) [id number] Female genitalia finding Female Genitalia Finding Prob mariana 02/28/2019 12:00:00 AM EDT - 02/11/2021 12:00:00 AM EDT [facility] ([facility]) [id number] Procedure by method Procedure by Method Problem 0 02/28/2019 12:00:00 AM EDT - 07/17/2020 12:00:00 AM EST [facility] ([facility]) [id number] Clinical finding Clinical Finding Problem 12:00:00 AM EDT - 07/17/2020 12:00:00 AM EST [facility] ([facility]) [id number] Procedure by method Procedure by Method Problem 0 02/28/2019 12:00:00 AM EDT - 07/17/2020 12:00:00 AM EST [facility] ([facility]) [id number] Clinical finding Clinical Finding Problem 019 12:00:00 AM EDT - 07/17/2020 12:00:00 AM EST [facility] ([facility]) [id number] Procedure by method Procedure by Method Problem 0 02/28/2019 12:00:00 AM EDT - 07/17/2020 12:00:00 AM EST [facility] ([facility]) Surgeries/Procedures Procedure Description Date Indications Data Source(s) RADIOLOGIC EXAM KNEE COMPLETE 4/MORE VIEWS 06/18/2021 12:00:00 AM EST [facility] ([facility]) OFFICE OUTPATIENT VISIT 25 MINUTES 06/18/2021 12:00:00 AM EST [facility] ([facility]) Results ID Date Data Source [id number] 05/22/2021 09:13:00 AM EDT [facility]) Name Value Range Interpretation Code Description Data Gillian rce(s) Supporting Document(s) Hemoglobin A1c/Hemoglobin.total in Blood 6.4 %_of_total_HGB <5.7 Above high normal Hemoglobin a1C [facility] ([facility]) ID Date Data Source [id number] 05/22/2021 09:13:00 AM EDT [facility] ([facility]) Name Value Range Interpretation Code Description Data Gillian rce(s) Supporting Document(s) Calcidiol [Mass/volume] in Serum or Plasma 24 NG/mL 30-100 Below low normal Vitamin D,25-Oh,total,ia [facility] ([facility]) ID Date Data Source [id number] 05/22/2021 09:13:00 AM EDT [facility]) Name Value Range Interpretation Code Description Data Gillian rce(s) Supporting Document(s) Leukocytes [#/volume] in Blood by Automated count 8.1 thousand/uL 3 .8-10.8 White Blood Cell Count [facility] ([facility]) Erythrocytes [#/volume] in Blood by Automated count 4.65 million/uL 3.80-5.10 Red Blood Cell Count [facility] ([facility]) Hemoglobin [Mass/volume] in Blood 12.3 g/dL 11.7-15.5 He moglobin [facility] ([facility]) Hematocrit [Volume Fraction] of Blood by Automated count 37.7 % 35.0-45.0 Hematocrit [facility] ([facility]) Erythrocyte mean corpuscular volume [Entitic volume] by Auto mated count 81.1 fL 80.0-100.0 Mcv [facility] ([facility]) Erythrocyte mean corpuscular hemoglobin [Entitic mass] by Automated count 26.5 pg 27.0-33.0 Below low normal Mch [facility] ([facility]) Erythrocyte mean corpuscular hemoglobin concentration [Mass/volume] by Automated count 32.6 g/dL 32.0-36.0 Mchc [facility] ([facility]) Platelets [#/volume] in Blood by Automated count 369 thousand/uL 14 0-400 Platelet Count [facility] ([facility]) Erythrocyte distribution width [Ratio] by Automated count 14.4 % 11.0-15.0 Rdw [facility] ([facility]) Platelet mean volume [Entitic volume] in Blood by Bhavesh 9.7 fL 7.5-12.5 Mpv [facility] ([facility]) Lymphocytes [#/volume] in Blood by Automated count 2365 cells/uL 85 0-3900 Absolute Lymphocytes [facility] ([facility]) Neutrophils [#/volume] in Blood by Automated count 4698 cells/uL 15 00-7800 Absolute Neutrophils [facility] ([facility]) Monocytes [#/volume] in Blood by Automated count 818 cells/uL 200-9 50 Absolute Monocytes [facility] ([facility]) Eosinophils [#/volume] in Blood by Automated count 178 cells/uL 15- 500 Absolute Eosinophils [facility] ([facility]) Basophils [#/volume] in Blood by Automated count 41 cells/uL 0-200 Absolute Basophils [facility] ([facility]) Neutrophils/100 leukocytes in Blood by Automated count 58 % 38- 80 Neutrophils [facility] ([facility]) Monocytes/100 leukocytes in Blood by Automated count 10.1 % 0-13 Monocytes [facility] ([facility]) Lymphocytes/100 leukocytes in Blood by Automated count 29.2 % 15-49 Lymphocytes [facility] ([facility]) Eosinophils/100 leukocytes in Blood by Automated count 2.2 % 0-8 Eosinophils [facility] ([facility]) Basophils/100 leukocytes in Blood by Automated count 0.5 % 0-2 Basophils [place] ([facility]) ID Date Data Source [id number] 05/22/2021 09:13:00 AM EDT [place] ([facility]) Name Value Range Interpretation Code Description Data Gillian rce(s) Supporting Document(s) Glucose [Mass/volume] in Serum or Plasma 97 mg/dL 65-99 Glucose [facility] ([facility]) Urea nitrogen [Mass/volume] in Serum or Plasma 16 mg/dL 7-25 Urea Nitrogen (BUN) [facility] ([facility]) Creatinine [Mass/volume] in Serum or Plasma 0.50 mg/dL 0.50-1.10 Creatinine [facility] ([facility]) Glomerular filtration rate/1.73 sq M.pre dicted among blacks [Volume Rate/Area] in Serum, Plasma or Blood by Creatinine-based formula (CKD-EPI) 135 mL/min/1.73m2 > or = 60 eGFR [facility] ([facility]) Glomerular filtration rate/1.73 sq M.pre dicted among non-blacks [Volume Rate/Area] in Serum, Plasma or Blood by Creatinine-based formula (CKD-EPI) 116 mL/min/1.73m2 > or = 60 eGFR Non-afr. [place] [facility] ([facility]) Urea nitrogen/Creatinine [Mass Ratio] in Serum or Plasma not applic able 6-22 BUN/creatinine Ratio [facility] ([facility]) Sodium [Moles/volume] in Serum or Plasma 139 mmol/L 135-146 Sodium [facility] ([facility]) Potassium [Moles/volume] in Serum or Plasma 4.2 mmol/L 3.5-5.3 Potassium [facility] ([facility]) Chloride [Moles/volume] in Serum or Plasma 106 mmol/L 98-110 Chloride [facility] ([facility]) Calcium [Mass/volume] in Serum or Plasma 8.7 mg/dL 8.6-10.2 Calcium [facility] ([facility]) Carbon dioxide, total [Moles/volume] in Serum or Plasma 26 mmol/L 20-32 Carbon Dioxide [facility] ([facility]) Albumin [Mass/volume] in Serum or Plasma 4.1 g/dL 3.6-5.1 Albumin [place] ([facility]) Protein [Mass/volume] in Serum or Plasma 6.9 g/dL 6.1-8.1 Protein, Total [facility] ([facility]) Albumin/Globulin [Mass Ratio] in Serum or Plasma 1.5 (calc) 1.0-2 .5 Albumin/globulin Ratio [facility] ([facility]) Globulin [Mass/volume] in Serum by calculation 2.8 g/dL_(calc) 1.9- 3.7 Globulin [facility] ([facility]) Alkaline phosphatase [Enzymatic activity/volume] in Serum or Plasma 85 U/L 31-125 Alkaline Phosphatase [facility] ([facility]) Bilirubin.total [Mass/volume] in Serum or Plasma 0.2 mg/dL 0.2-1 .2 Bilirubin, Total [facility] ([facility]) Aspartate aminotransferase [Enzymatic activity/volume] in Serum or Plasma 10 U/L 10-35 Ast [facility] ([facility]) Alanine aminotransferase [Enzymatic activity/volume] in Seru m or Plasma 12 U/L 6-29 Alt [facility] ([facility]) ID Date Data Source [id number] 05/22/2021 09:13:00 AM EDT [place] ([facility]) Name Value Range Interpretation Code Description Data Gillian rce(s) Supporting Document(s) Iron [Mass/volume] in Serum or Plasma 47 mcg/dL 40-190 Iron, Total [facility] ([facility]) Iron binding capacity [Mass/volume] in Serum or Plasma 468 m cg/dL_(calc) 250-450 Above high normal Iron Binding Capacity [facility] ([facility]) Iron saturation [Mass Fraction] in Serum or Plasma 10 %_(calc) 16-45 Below low normal % Saturation [facility] ([facility]) Ferritin [Mass/volume] in Serum or Plasma 27 NG/mL 16-232 Ferritin [place] ([facility]) ID Date Data Source [id number] 01/22/2021 09:47:00 AM EDT [facility]) Name Value Range Interpretation Code Description Data Gillian rce(s) Supporting Document(s) Hemoglobin A1c/Hemoglobin.total in Blood 6.2 %_of_total_HGB <5.7 Above high normal Hemoglobin a1C [facility] ([facility]) ID Date Data Source [id number] 01/22/2021 09:47:00 [facility] Name Value Range Interpretation Code Description Data Gillian rce(s) Supporting Document(s) Calcidiol [Mass/volume] in Serum or Plasma 21 NG/mL 30-100 Below low normal Vitamin D,25-Oh,total,ia [facility] ([facility]) ID Date Data Source [id number] 01/22/2021 09:47:00 AM EDT [facility]) Name Value Range Interpretation Code Description Data Gillian rce(s) Supporting Document(s) Creatinine [Mass/volume] in Serum or Plasma 0.50 mg/dL 0.50-1.10 Creatinine [facility] ([facility]) Glucose [Mass/volume] in Serum or Plasma 115 mg/dL 65-99 Above high normal Glucose [facility] ([facility]) Urea nitrogen [Mass/volume] in Serum or Plasma 12 mg/dL 7-25 Urea Nitrogen (BUN) [facility] ([facility]) Glomerular filtration rate/1.73 sq M.pre dicted among blacks [Volume Rate/Area] in Serum, Plasma or Blood by Creatinine-based formula (CKD-EPI) 135 mL/min/1.73m2 > or = 60 eGFR [facility] ([facility]) Glomerular filtration rate/1.73 sq M.pre dicted among non-blacks [Volume Rate/Area] in Serum, Plasma or Blood by Creatinine-based formula (CKD-EPI) 116 mL/min/1.73m2 > or = 60 eGFR Non-afr. [place] [facility] ([facility]) Sodium [Moles/volume] in Serum or Plasma 138 mmol/L 135-146 Sodium [facility] ([facility]) Urea nitrogen/Creatinine [Mass Ratio] in Serum or Plasma not applic able 6-22 [facility]inine [facility] Potassium [Moles/volume] in Serum or Plasma 3.9 mmol/L 3.5-5.3 Potassium [place] ([facility]) Chloride [Moles/volume] in Serum or Plasma 104 mmol/L 98-110 Chloride [facility]) Carbon dioxide, total [Moles/volume] in Serum or Plasma 24 mmol/L 20-32 Carbon Dioxide [place] ([facility]) Albumin [Mass/volume] in Serum or Plasma 3.9 g/dL 3.6-5.1 Albumin [place] ([facility]) Protein [Mass/volume] in Serum or Plasma 6.7 g/dL 6.1-8.1 [facility], [facility] Calcium [Mass/volume] in Serum or Plasma 9.1 mg/dL 8.6-10.2 Calcium [facility]) Globulin [Mass/volume] in Serum by calculation 2.8 g/dL_(calc) 1.9- 3.7 Globulin [facility] ([facility]) Albumin/Globulin [Mass Ratio] in Serum or Plasma 1.4 (calc) 1.0-2 .5 Albumin/globulin Ratio [place] ([facility]) Alkaline phosphatase [Enzymatic activity/volume] in Serum or Plasma 74 U/L 31-125 Alkaline Phosphatase [facility]) Aspartate aminotransferase [Enzymatic activity/volume] in Serum or Plasma 19 U/L 10-35 Ast [facility] ([facility]) Bilirubin.total [Mass/volume] in Serum or Plasma 0.3 mg/dL 0.2-1 .2 Bilirubin, Total [facility] ([facility]) Alanine aminotransferase [Enzymatic activity/volume] in Seru m or Plasma 23 U/L 6-29 Alt [facility] ([facility]) ID Date Data Source [id number] 01/22/2021 09:47:00 AM EDT SHERR[facility] ([facility]) Name Value Range Interpretation Code Description Data Gillian rce(s) Supporting Document(s) Cholesterol [Mass/volume] in Serum or Plasma 149 mg/dL <200 Cholesterol, Total [facility] ([facility]) Cholesterol in HDL [Mass/volume] in Serum or Plasma 44 mg/dL > or = 50 Below low normal HDL Cholesterol [facility] ([facility]) Triglyceride [Mass/volume] in Serum or Plasma 271 mg/dL <150 Above high normal Triglycerides [facility] ([facility]) Cholesterol non HDL [Mass/volume] in Serum or Plasma 105 mg/dL_(karina c) <130 Non HDL Cholesterol SH[facility] ([facility]) Cholesterol in LDL [Mass/volume] in Serum or Plasma by calculation 69 mg/dL_(calc) <100 LDL-cholesterol [facility] ([facility]) Cholesterol.total/Cholesterol in HDL [Mass Ratio] in Serum o r Plasma 3.4 calc <5.0 Chol/hdlc Ratio [facility] ([facility]) ID Date Data Source [id number] 01/22/2021 09:47:00 AM EDT [facility] ([facility]) Name Value Range Interpretation Code Description Data Gillian rce(s) Supporting Document(s) Hemoglobin A1c/Hemoglobin.total in Blood 6.2 %_of_total_HGB <5.7 Above high normal Hemoglobin a1C [facility] ([facility]) ID Date Data Source [id number] 01/22/2021 09:47:00 AM EDT [place] ([facility]) Name Value Range Interpretation Code Description Data Gillian rce(s) Supporting Document(s) Calcidiol [Mass/volume] in Serum or Plasma 21 NG/mL 30-100 Below low normal Vitamin D,25-Oh,total,ia [place] ([facility]) ID Date Data Source [id number] 01/22/2021 09:47:00 AM EDT [facility]) Name Value Range Interpretation Code Description Data Gillian rce(s) Supporting Document(s) Glucose [Mass/volume] in Serum or Plasma 115 mg/dL 65-99 Above high normal Glucose [facility] ([facility]) Urea nitrogen [Mass/volume] in Serum or Plasma 12 mg/dL 7-25 Urea Nitrogen (BUN) [facility]) Creatinine [Mass/volume] in Serum or Plasma 0.50 mg/dL 0.50-1.10 Creatinine [facility]) Glomerular filtration rate/1.73 sq M.pre dicted among non-blacks [Volume Rate/Area] in Serum, Plasma or Blood by Creatinine-based formula (CKD-EPI) 116 mL/min/1.73m2 > or = 60 eGFR Non-afr. [place] [facility]Y ([facility]) Urea nitrogen/Creatinine [Mass Ratio] in Serum or Plasma not applic able 6-22 BUN/creatinine Ratio [place] ([facility]) Glomerular filtration rate/1.73 sq M.pre dicted among blacks [Volume Rate/Area] in Serum, Plasma or Blood by Creatinine-based formula (CKD-EPI) 135 mL/min/1.73m2 > or = 60 eGFR [facility]ERRY (No [facility]) Sodium [Moles/volume] in Serum or Plasma 138 mmol/L 135-146 Sodium [facility] ([facility]) Potassium [Moles/volume] in Serum or Plasma 3.9 mmol/L 3.5-5.3 Potassium [facility] ([facility]) Calcium [Mass/volume] in Serum or Plasma 9.1 mg/dL 8.6-10.2 Calcium [place] ([facility]) Carbon dioxide, total [Moles/volume] in Serum or Plasma 24 mmol/L 20-32 Carbon Dioxide [facility] ([facility]) Chloride [Moles/volume] in Serum or Plasma 104 mmol/L 98-110 Chloride [facility] ([facility]) Protein [Mass/volume] in Serum or Plasma 6.7 g/dL 6.1-8.1 Protein, Total [facility] ([facility]) Albumin [Mass/volume] in Serum or Plasma 3.9 g/dL 3.6-5.1 Albumin [facility] ([facility]) Albumin/Globulin [Mass Ratio] in Serum or Plasma 1.4 (calc) 1.0-2 .5 Albumin/globulin Ratio [facility] ([facility]) Globulin [Mass/volume] in Serum by calculation 2.8 g/dL_(calc) 1.9- 3.7 Globulin [place] ([facility]) Bilirubin.total [Mass/volume] in Serum or Plasma 0.3 mg/dL 0.2-1 .2 Bilirubin, Total [facility] ([facility]) Alanine aminotransferase [Enzymatic activity/volume] in Seru m or Plasma 23 U/L 6-29 Alt SH[facility] ([facility]) Alkaline phosphatase [Enzymatic activity/volume] in Serum or Plasma 74 U/L 31-125 Alkaline Phosphatase [place] ([facility]) Aspartate aminotransferase [Enzymatic activity/volume] in Serum or Plasma 19 U/L 10-35 Ast [facility] ([facility]) ID Date Data Source [id number] 01/22/2021 09:47:00 AM EDT [place] ([facility]) Name Value Range Interpretation Code Description Data Gillian rce(s) Supporting Document(s) Cholesterol [Mass/volume] in Serum or Plasma 149 mg/dL <200 Cholesterol, Total [facility] ([facility]) Cholesterol in HDL [Mass/volume] in Serum or Plasma 44 mg/dL > or = 50 Below low normal HDL Cholesterol [facility] ([facility]) Triglyceride [Mass/volume] in Serum or Plasma 271 mg/dL <150 Above high normal Triglycerides [facility] ([facility]) Cholesterol in LDL [Mass/volume] in Serum or Plasma by calculation 69 mg/dL_(calc) <100 LDL-cholesterol [facility] ([facility]) Cholesterol.total/Cholesterol in HDL [Mass Ratio] in Serum o r Plasma 3.4 calc <5.0 Chol/hdlc Ratio [facility] ([facility]) Cholesterol non HDL [Mass/volume] in Serum or Plasma 105 mg/dL_(karina c) <130 Non HDL Cholesterol [facility] ([facility]) ID Date Data Source [id number] 01/22/2021 09:47:00 AM EDT [facility]) Name Value Range Interpretation Code Description Data Gillian rce(s) Supporting Document(s) Hemoglobin A1c/Hemoglobin.total in Blood 6.2 %_of_total_HGB <5.7 Above high normal Hemoglobin a1C [facility]) ID Date Data Source [id number] 01/22/2021 09:47:00 AM EDT [place] ([facility]) Name Value Range Interpretation Code Description Data Gillian rce(s) Supporting Document(s) Calcidiol [Mass/volume] in Serum or Plasma 21 NG/mL 30-100 Below low normal Vitamin D,25-Oh,total,ia [facility]) ID Date Data Source [id number] 01/22/2021 09:47:00 AM EDT [facility]) Name Value Range Interpretation Code Description Data Gillian rce(s) Supporting Document(s) Glucose [Mass/volume] in Serum or Plasma 115 mg/dL 65-99 Above high normal Glucose [facility] ([facility]) Urea nitrogen [Mass/volume] in Serum or Plasma 12 mg/dL 7-25 Urea Nitrogen (BUN) [facility] ([facility]) Creatinine [Mass/volume] in Serum or Plasma 0.50 mg/dL 0.50-1.10 Creatinine [facility] ([facility]) Glomerular filtration rate/1.73 sq M.pre dicted among non-blacks [Volume Rate/Area] in Serum, Plasma or Blood by Creatinine-based formula (CKD-EPI) 116 mL/min/1.73m2 > or = 60 eGFR Non-afr. [place] [facility] ([facility]) Glomerular filtration rate/1.73 sq M.pre dicted among blacks [Volume Rate/Area] in Serum, Plasma or Blood by Creatinine-based formula (CKD-EPI) 135 mL/min/1.73m2 > or = 60 eGFR [facility] (No [facility]) Urea nitrogen/Creatinine [Mass Ratio] in Serum or Plasma not applic able 6-22 BUN/creatinine Ratio [facility] ([facility]) Potassium [Moles/volume] in Serum or Plasma 3.9 mmol/L 3.5-5.3 Potassium [facility] ([facility]) Sodium [Moles/volume] in Serum or Plasma 138 mmol/L 135-146 Sodium [place] ([facility]) Carbon dioxide, total [Moles/volume] in Serum or Plasma 24 mmol/L 20-32 Carbon Dioxide [facility] ([facility]) Chloride [Moles/volume] in Serum or Plasma 104 mmol/L 98-110 Chloride [place] ([facility]) Protein [Mass/volume] in Serum or Plasma 6.7 g/dL 6.1-8.1 Protein, Total [place] ([facility]) Calcium [Mass/volume] in Serum or Plasma 9.1 mg/dL 8.6-10.2 Calcium [place] ([facility]) Albumin [Mass/volume] in Serum or Plasma 3.9 g/dL 3.6-5.1 Albumin [place] ([facility]) Albumin/Globulin [Mass Ratio] in Serum or Plasma 1.4 (calc) 1.0-2 .5 Albumin/globulin Ratio [place] ([facility]) Globulin [Mass/volume] in Serum by calculation 2.8 g/dL_(calc) 1.9- 3.7 Globulin [facility]) Bilirubin.total [Mass/volume] in Serum or Plasma 0.3 mg/dL 0.2-1 .2 Bilirubin, Total [facility] ([facility]) Alkaline phosphatase [Enzymatic activity/volume] in Serum or Plasma 74 U/L 31-125 Alkaline Phosphatase [place] ([facility]) Aspartate aminotransferase [Enzymatic activity/volume] in Serum or Plasma 19 U/L 10-35 Ast [place] ([facility]) Alanine aminotransferase [Enzymatic activity/volume] in Seru m or Plasma 23 U/L 6-29 Alt [place] ([facility]) ID Date Data Source [id number] 01/22/2021 09:47:00 AM EDT [place] ([facility]) Name Value Range Interpretation Code Description Data Gillian rce(s) Supporting Document(s) Cholesterol in HDL [Mass/volume] in Serum or Plasma 44 mg/dL > or = 50 Below low normal HDL Cholesterol [facility] ([facility]) Cholesterol [Mass/volume] in Serum or Plasma 149 mg/dL <200 Cholesterol, Total [facility] ([facility]) Cholesterol in LDL [Mass/volume] in Serum or Plasma by calculation 69 mg/dL_(calc) <100 LDL-cholesterol [facility] ([facility]) Triglyceride [Mass/volume] in Serum or Plasma 271 mg/dL <150 Above high normal Triglycerides [facility] ([facility]) Cholesterol.total/Cholesterol in HDL [Mass Ratio] in Serum o r Plasma 3.4 calc <5.0 Chol/hdlc Ratio [place] ([facility]) Cholesterol non HDL [Mass/volume] in Serum or Plasma 105 mg/dL_(karina c) <130 Non HDL Cholesterol [place] ([facility]) ID Date Data Source [id number] 11/06/2020 12:45:00 AM EDT [place] ([facility]) Name Value Range Interpretation Code Description Data Gillian rce(s) Supporting Document(s) appearance, urine rfx hazy clear Appearance, Ur ine Rfx [place] ([facility]) color, urine rfx yellow yellow Color, Urine Rfx AT [place] ([facility]) specific gravity ur auto rfx 1.002-1.035 Specif ic [place] Ur Auto Rfx [place] ([facility]) pH,urine rfx 5.0 units 5.0-9.0 pH,urine Rfx [facility] (No [facility]) ketone, urine auto rfx trace negative Above high normal Ketone , Urine Auto Rfx [facility] ([facility]) protein, urine auto rfx negative negative Protein, Uri ne Auto Rfx [place] ([facility]) glucose, urine (UA) auto rfx negative negative Glucose , Urine (UA) Auto Rfx [place] ([facility]) urobilinogen, urine auto rfx 0.2 mg/dL 0.0-2.0 Urobili nogen, Urine Auto Rfx [facility] ([facility]) bilirubin, urine auto rfx negative negative Bilirubin, Urine Auto Rfx [facility] ([facility]) nitrite, urine auto rfx negative negative Nitrite, Uri ne Auto Rfx [place] ([facility]) leukocyte esterase ur auto rfx negative negative Leukocyte Esterase Ur Auto Rfx [place] ([facility]) blood, urine blood rfx 1+ negative Above high normal Blood, Urine Blood Rfx [place] ([facility]) WBC, urine auto rfx 1 /hpf 0-3 WBC, Urine Auto Rfx [place] ([facility]) RBC, urine auto rfx 2 /hpf 0-3 RBC, Urine Auto Rfx [place] ([facility]) squam epithelial cell ur aurfx 1 /hpf 0-6 Squam Epithelial Cell Ur Aurfx [place] ([facility]) bacteria, urine auto rfx negative negative Bacteria, U rine Auto Rfx [place] ([facility]) hyaline cast, urine auto rfx 0 /lpf 0-1 Hyaline Cast, Urine Auto Rfx [place] ([facility]) mucus, urine rfx small negative Mucus, Urine Rfx AT [facility]) ID Date Data Source [id number] 11/06/2020 12:45:00 AM EDT [facility]) Name Value Range Interpretation Code Description Data Gillian rce(s) Supporting Document(s) appearance, urine rfx hazy clear Appearance, Ur ine Rfx [facility]) color, urine rfx yellow yellow Color, Urine Rfx AT [facility]) pH,urine rfx 5.0 units 5.0-9.0 pH,urine Rfx [facility] (No [facility]) protein, urine auto rfx negative negative Protein, Uri ne Auto Rfx [place] ([facility]) specific gravity ur auto rfx 1.002-1.035 Specif ic [place] Ur Auto Rfx [place] ([facility]) urobilinogen, urine auto rfx 0.2 mg/dL 0.0-2.0 Urobili nogen, Urine Auto Rfx [place] ([facility]) ketone, urine auto rfx trace negative Above high normal Ketone , Urine Auto Rfx [place] ([facility]) glucose, urine (UA) auto rfx negative negative Glucose , Urine (UA) Auto Rfx [place] ([facility]) nitrite, urine auto rfx negative negative Nitrite, Uri ne Auto Rfx [place] ([facility]) bilirubin, urine auto rfx negative negative Bilirubin, Urine Auto Rfx [place] ([facility]) WBC, urine auto rfx 1 /hpf 0-3 WBC, Urine Auto Rfx [place] ([facility]) blood, urine blood rfx 1+ negative Above high normal Blood, Urine Blood Rfx [place] ([facility]) leukocyte esterase ur auto rfx negative negative Leukocyte Esterase Ur Auto Rfx [place] ([facility]) RBC, urine auto rfx 2 /hpf 0-3 RBC, Urine Auto Rfx [place] ([facility]) bacteria, urine auto rfx negative negative Bacteria, U rine Auto Rfx [place] ([facility]) mucus, urine rfx small negative Mucus, Urine Rfx AT [facility]) squam epithelial cell ur aurfx 1 /hpf 0-6 Squam Epithelial Cell Ur Aurfx [place] ([facility]) hyaline cast, urine auto rfx 0 /lpf 0-1 Hyaline Cast, Urine Auto Rfx [facility]) ID Date Data Source [id number] 11/06/2020 12:45:00 AM EDT [place] ([facility]) Name Value Range Interpretation Code Description Data Gillian rce(s) Supporting Document(s) color, urine rfx yellow yellow Color, Urine Rfx AT [facility] ([facility]) appearance, urine rfx hazy clear Appearance, Ur ine Rfx [place] ([facility]) pH,urine rfx 5.0 units 5.0-9.0 pH,urine Rfx [facility] specific gravity ur auto rfx 1.002-1.035 Specif ic [place] Ur Auto Rfx SHERRY ([facility]) glucose, urine (UA) auto rfx negative negative Glucose , Urine (UA) Auto Rfx [place] ([facility]) protein, urine auto rfx negative negative Protein, Uri ne Auto Rfx [place] ([facility]) ketone, urine auto rfx trace negative Above high normal Ketone , Urine Auto Rfx [place] ([facility]) urobilinogen, urine auto rfx 0.2 mg/dL 0.0-2.0 Urobili nogen, Urine Auto Rfx SHERRY ([facility]) bilirubin, urine auto rfx negative negative Bilirubin, Urine Auto Rfx SHERRY ([facility]) leukocyte esterase ur auto rfx negative negative Leukocyte Esterase Ur Auto Rfx [place] ([facility]) nitrite, urine auto rfx negative negative Nitrite, Uri ne Auto Rfx [place] ([facility]) blood, urine blood rfx 1+ negative Above high normal Blood, Urine Blood Rfx [place] ([facility]) WBC, urine auto rfx 1 /hpf 0-3 WBC, Urine Auto Rfx SHERRY ([facility]) RBC, urine auto rfx 2 /hpf 0-3 RBC, Urine Auto Rfx SH[place]Y ([facility]) squam epithelial cell ur aurfx 1 /hpf 0-6 Squam Epithelial Cell Ur Aurfx SHERRY ([facility]) bacteria, urine auto rfx negative negative Bacteria, U rine Auto Rfx [place] ([facility]) mucus, urine rfx small negative Mucus, Urine Rfx AT [facility] ([facility]) hyaline cast, urine auto rfx 0 /lpf 0-1 Hyaline Cast, Urine Auto Rfx [place] ([facility]) ID Date Data Source [id number] 11/06/2020 12:45:00 AM EDT [place] ([facility]) Name Value Range Interpretation Code Description Data Gillian rce(s) Supporting Document(s) appearance, urine rfx hazy clear Appearance, Ur ine Rfx [place] ([facility]) color, urine rfx yellow yellow Color, Urine Rfx AT [place] ([facility]) specific gravity ur auto rfx 1.002-1.035 Specif ic [place] Ur Auto Rfx [place] ([facility]) pH,urine rfx 5.0 units 5.0-9.0 pH,urine Rfx [place] (No [facility]) glucose, urine (UA) auto rfx negative negative Glucose , Urine (UA) Auto Rfx [place] ([facility]) protein, urine auto rfx negative negative Protein, Uri ne Auto Rfx [place] ([facility]) urobilinogen, urine auto rfx 0.2 mg/dL 0.0-2.0 Urobili nogen, Urine Auto Rfx [place] ([facility]) ketone, urine auto rfx trace negative Above high normal Ketone , Urine Auto Rfx [place] ([facility]) bilirubin, urine auto rfx negative negative Bilirubin, Urine Auto Rfx [place] ([facility]) nitrite, urine auto rfx negative negative Nitrite, Uri ne Auto Rfx [place] ([facility]) leukocyte esterase ur auto rfx negative negative Leukocyte Esterase Ur Auto Rfx [place] ([facility]) blood, urine blood rfx 1+ negative Above high normal Blood, Urine Blood Rfx SHERRY ([facility]) WBC, urine auto rfx 1 /hpf 0-3 WBC, Urine Auto Rfx [place] ([facility]) squam epithelial cell ur aurfx 1 /hpf 0-6 Squam Epithelial Cell Ur Aurfx [place] ([facility]) bacteria, urine auto rfx negative negative Bacteria, U rine Auto Rfx [place] ([facility]) RBC, urine auto rfx 2 /hpf 0-3 RBC, Urine Auto Rfx [place] ([facility]) hyaline cast, urine auto rfx 0 /lpf 0-1 Hyaline Cast, Urine Auto Rfx [place] ([facility]) mucus, urine rfx small negative Mucus, Urine Rfx AT [facility] ([facility]) ID Date Data Source [id number] 11/05/2020 10:19:00 PM EDT SHERRY ([facility]) Name Value Range Interpretation Code Description Data Gillian rce(s) Supporting Document(s) lipase 110 U/L 73-393 Lipase SHERRY ([facility]) ID Date Data Source [id number] 11/05/2020 10:19:00 PM EDT SHERRY ([facility]) Name Value Range Interpretation Code Description Data Gillian rce(s) Supporting Document(s) ALT/SGPT 27 U/L 12-78 ALT/SGPT [place] ([facility]) AST/SGOT 18 U/L 7-37 AST/SGOT [place] ([facility]) bilirubin,direct < 0.1 0.0-0.2 Bilirubin,direct AT [facility] ([facility]) alkaline phosphatase 101 U/L 45-117 Alkaline Phosph atase SHERRY ([facility]) bilirubin,total 0.2 mg/dL 0.2-1.0 Bilirubin,total ATHE ([facility]) total protein 8.0 gm/dL 6.4-8.2 Total Protein SHERRY ( [facility]) albumin/globulin ratio 1.2-2.2 Below low normal Albumin /globulin Ratio SHERRY ([facility]) albumin 3.8 gm/dL 3.2-5.2 Albumin SH[place] ([facility]) ID Date Data Source [id number] 11/05/2020 10:19:00 PM EDT SHERRY ([facility]) Name Value Range Interpretation Code Description Data Gillian rce(s) Supporting Document(s) white blood count 10.5 10 4.0-10.0 Above high normal White Blood Count SHERRY ([facility]) hematocrit 44.2 % 36.0-47.0 Hematocrit SH[place]Y ([facility]) hemoglobin 14.0 g/dL 12.0-15.5 Hemoglobin SHERRY ([facility]) red blood count 5.33 10 4.00-5.40 Red Blood Count ATHE NA ([facility]) mean corpuscular volume 82.9 fL 80.0-96.0 Mean Corpusc ular Volume SHERRY ([facility]) mean corpuscular hemoglobin 26.3 pg 27.0-33.0 Below low nor mal Mean Corpuscular Hemoglobin SHERRY ([facility]) mean corpuscular HGB conc 31.7 g/dL 32.0-36.5 Below low antwon l Mean Corpuscular HGB Conc SHERRY ([facility]) platelet count, automated 375 10 150-450 Platelet C ount, Automated SHERRY ([facility]) red cell distribution width 14.7 % 11.5-14.5 Above high no rmal Red Cell Distribution Width SHERRY ([facility]) neutrophils % 69.5 % 36.0-66.0 Above high normal Neutrophils % A THENA ([facility]) mono % 7.3 % 2.0-8.0 [place] % [place] ([facility]) lymph % 20.2 % 24.0-44.0 Below low normal Lymph % SHERRY ( [facility]) baso % 0.6 % 0.0-1.0 Baso % SHERRY ([facility]) eos % 1.8 % 0.0-3.0 Eos % SHERRY ([facility]) immature granulocyte % 0.6 % 0-3.0 Immature Gran ulocyte % SHERRY ([facility]) neutrophils # 7.3 10 1.5-8.5 Neutrophils # SHERRY ( [facility]) nucleated red blood cell % 0.0 % 0-0 Nucleated Red Blood Cell % SHERRY ([facility]) lymph # 2.1 10 1.5-5.0 Lymph # SHERRY ([facility]) baso # 0.1 10 0.0-0.2 Baso # SHERRY ([facility]) mono # 0.8 10 0.0-0.8 [place] # SHERRY ([facility]) eos # 0.2 10 0.0-0.5 Eos # SHERRY ([facility]) ID Date Data Source [id number] 11/05/2020 10:19:00 PM EDT SHERRY ([facility]) Name Value Range Interpretation Code Description Data Gillian rce(s) Supporting Document(s) lipase 110 U/L 73-393 Lipase SHERRY ([facility]) ID Date Data Source [id number] 11/05/2020 10:19:00 PM EDT SHERRY ([facility]) Name Value Range Interpretation Code Description Data Gillian rce(s) Supporting Document(s) alkaline phosphatase 101 U/L 45-117 Alkaline Phosph atase SHERRY ([facility]) AST/SGOT 18 U/L 7-37 AST/SGOT [place] ([facility]) ALT/SGPT 27 U/L 12-78 ALT/SGPT [place]Y ([facility]) bilirubin,total 0.2 mg/dL 0.2-1.0 Bilirubin,total ATHE NA ([facility]) bilirubin,direct < 0.1 0.0-0.2 Bilirubin,direct AT [place] ([facility]) total protein 8.0 gm/dL 6.4-8.2 Total Protein SHERRY ( [facility]) albumin 3.8 gm/dL 3.2-5.2 Albumin SHERRY ([facility]) albumin/globulin ratio 1.2-2.2 Below low normal Albumin /globulin Ratio SHERRY ([facility]) ID Date Data Source [id number] 11/05/2020 10:19:00 PM EDT SHERRY ([facility]) Name Value Range Interpretation Code Description Data Gillian rce(s) Supporting Document(s) white blood count 10.5 10 4.0-10.0 Above high normal White Blood Count SHERRY ([facility]) hemoglobin 14.0 g/dL 12.0-15.5 Hemoglobin SHERRY ([facility]) red blood count 5.33 10 4.00-5.40 Red Blood Count ATHE NA ([facility]) hematocrit 44.2 % 36.0-47.0 Hematocrit SHERRY ([facility]) mean corpuscular hemoglobin 26.3 pg 27.0-33.0 Below low nor mal Mean Corpuscular Hemoglobin SHERRY ([facility]) mean corpuscular HGB conc 31.7 g/dL 32.0-36.5 Below low antwon l Mean Corpuscular HGB Conc SHERRY ([facility]) mean corpuscular volume 82.9 fL 80.0-96.0 Mean Corpusc ular Volume SHERRY ([facility]) red cell distribution width 14.7 % 11.5-14.5 Above high no rmal Red Cell Distribution Width SHERRY ([facility]) platelet count, automated 375 10 150-450 Platelet C ount, Automated SHERRY ([facility]) lymph % 20.2 % 24.0-44.0 Below low normal Lymph % SHERRY ( [facility]) neutrophils % 69.5 % 36.0-66.0 Above high normal Neutrophils % A THENA ([facility]) eos % 1.8 % 0.0-3.0 Eos % SHERRY ([facility]) mono % 7.3 % 2.0-8.0 [place] % SHERRY ([facility]) nucleated red blood cell % 0.0 % 0-0 Nucleated Red Blood Cell % SHERRY ([facility]) immature granulocyte % 0.6 % 0-3.0 Immature Gran ulocyte % SHERRY ([facility]) baso % 0.6 % 0.0-1.0 Baso % SHERRY ([facility]) neutrophils # 7.3 10 1.5-8.5 Neutrophils # SHERRY ( [facility]) mono # 0.8 10 0.0-0.8 [place] # SHERYR ([facility]) lymph # 2.1 10 1.5-5.0 Lymph # SHERRY ([facility]) eos # 0.2 10 0.0-0.5 Eos # SH[place]Y ([facility]) baso # 0.1 10 0.0-0.2 Baso # SHERRY ([facility]) ID Date Data Source [id number] 11/05/2020 10:19:00 PM EDT SHERRY ([facility]) Name Value Range Interpretation Code Description Data Gillian rce(s) Supporting Document(s) lipase 110 U/L 73-393 Lipase SHERRY ([facility]) ID Date Data Source [id number] 11/05/2020 10:19:00 PM EDT SHERRY ([facility]) Name Value Range Interpretation Code Description Data Gillian rce(s) Supporting Document(s) AST/SGOT 18 U/L 7-37 AST/SGOT [place] ([facility]) ALT/SGPT 27 U/L 12-78 ALT/SGPT [place] ([facility]) alkaline phosphatase 101 U/L 45-117 Alkaline Phosph atase SHERRY ([facility]) bilirubin,direct < 0.1 0.0-0.2 Bilirubin,direct AT [place] ([facility]) bilirubin,total 0.2 mg/dL 0.2-1.0 Bilirubin,total ATHE NA ([facility]) albumin 3.8 gm/dL 3.2-5.2 Albumin SHERRY ([facility]) total protein 8.0 gm/dL 6.4-8.2 Total Protein SHERRY ( [facility]) albumin/globulin ratio 1.2-2.2 Below low normal Albumin /globulin Ratio SHERRY ([facility]) ID Date Data Source [id number] 11/05/2020 10:19:00 PM EDT SHERRY ([facility]) Name Value Range Interpretation Code Description Data Gillian rce(s) Supporting Document(s) white blood count 10.5 10 4.0-10.0 Above high normal White Blood Count SHERRY ([facility]) red blood count 5.33 10 4.00-5.40 Red Blood Count ATHE NA ([facility]) hemoglobin 14.0 g/dL 12.0-15.5 Hemoglobin SH[place]Y ([facility]) hematocrit 44.2 % 36.0-47.0 Hematocrit SH[place]Y ([facility]) mean corpuscular HGB conc 31.7 g/dL 32.0-36.5 Below low antwon l Mean Corpuscular HGB Conc SHERRY ([facility]) mean corpuscular hemoglobin 26.3 pg 27.0-33.0 Below low nor mal Mean Corpuscular Hemoglobin SHERRY ([facility]) mean corpuscular volume 82.9 fL 80.0-96.0 Mean Corpusc ular Volume SHERRY ([facility]) platelet count, automated 375 10 150-450 Platelet C ount, Automated SHERRY ([facility]) red cell distribution width 14.7 % 11.5-14.5 Above high no rmal Red Cell Distribution Width SHERRY ([facility]) neutrophils % 69.5 % 36.0-66.0 Above high normal Neutrophils % A THENA ([facility]) eos % 1.8 % 0.0-3.0 Eos % [place] ([facility]) lymph % 20.2 % 24.0-44.0 Below low normal Lymph % SHERRY ( [facility]) mono % 7.3 % 2.0-8.0 [place] % SHERRY ([facility]) baso % 0.6 % 0.0-1.0 Baso % SHERRY ([facility]) immature granulocyte % 0.6 % 0-3.0 Immature Gran ulocyte % SHERRY ([facility]) nucleated red blood cell % 0.0 % 0-0 Nucleated Red Blood Cell % [place] ([facility]) lymph # 2.1 10 1.5-5.0 Lymph # SHERRY ([facility]) neutrophils # 7.3 10 1.5-8.5 Neutrophils # [place] ( [facility]) eos # 0.2 10 0.0-0.5 Eos # SH[place]Y ([facility]) mono # 0.8 10 0.0-0.8 [place] # SHERRY ([facility]) baso # 0.1 10 0.0-0.2 Baso # SHERRY ([facility]) ID Date Data Source [id number] 11/05/2020 10:19:00 PM EDT SHERRY ([facility]) Name Value Range Interpretation Code Description Data Gillian rce(s) Supporting Document(s) lipase 110 U/L 73-393 Lipase SHERRY ([facility]) ID Date Data Source [id number] 11/05/2020 10:19:00 PM EDT SHERRY ([facility]) Name Value Range Interpretation Code Description Data Gillian rce(s) Supporting Document(s) AST/SGOT 18 U/L 7-37 AST/SGOT [place] ([facility]) ALT/SGPT 27 U/L 12-78 ALT/SGPT [place]Y ([facility]) alkaline phosphatase 101 U/L 45-117 Alkaline Phosph atase SH[place]Y ([facility]) bilirubin,direct < 0.1 0.0-0.2 Bilirubin,direct AT [place] ([facility]) bilirubin,total 0.2 mg/dL 0.2-1.0 Bilirubin,total ATHE NA ([facility]) albumin 3.8 gm/dL 3.2-5.2 Albumin SH[place]Y ([facility]) total protein 8.0 gm/dL 6.4-8.2 Total Protein SH[place]Y ( [facility]) albumin/globulin ratio 1.2-2.2 Below low normal Albumin /globulin Ratio SHERRY ([facility]) ID Date Data Source [id number] 11/05/2020 10:19:00 PM EDT SHERRY ([facility]) Name Value Range Interpretation Code Description Data Gillian rce(s) Supporting Document(s) white blood count 10.5 10 4.0-10.0 Above high normal White Blood Count SH[place]Y ([facility]) red blood count 5.33 10 4.00-5.40 Red Blood Count ATHE NA ([facility]) hemoglobin 14.0 g/dL 12.0-15.5 Hemoglobin SH[place]Y ([facility]) hematocrit 44.2 % 36.0-47.0 Hematocrit SH[place]Y ([facility]) mean corpuscular volume 82.9 fL 80.0-96.0 Mean Corpusc ular Volume SHERRY ([facility]) red cell distribution width 14.7 % 11.5-14.5 Above high no rmal Red Cell Distribution Width SHERRY ([facility]) mean corpuscular HGB conc 31.7 g/dL 32.0-36.5 Below low antwon l Mean Corpuscular HGB Conc SHERRY ([facility]) mean corpuscular hemoglobin 26.3 pg 27.0-33.0 Below low nor mal Mean Corpuscular Hemoglobin SHERRY ([facility]) platelet count, automated 375 10 150-450 Platelet C ount, Automated SH[place]Y ([facility]) neutrophils % 69.5 % 36.0-66.0 Above high normal Neutrophils % A THENA ([facility]) eos % 1.8 % 0.0-3.0 Eos % SHERRY ([facility]) lymph % 20.2 % 24.0-44.0 Below low normal Lymph % SHERRY ( [facility]) mono % 7.3 % 2.0-8.0 [place] % SHERRY ([facility]) nucleated red blood cell % 0.0 % 0-0 Nucleated Red Blood Cell % SHERRY ([facility]) immature granulocyte % 0.6 % 0-3.0 Immature Gran ulocyte % SHERRY ([facility]) baso % 0.6 % 0.0-1.0 Baso % SHERRY ([facility]) lymph # 2.1 10 1.5-5.0 Lymph # [place] ([facility]) neutrophils # 7.3 10 1.5-8.5 Neutrophils # SHERRY ( [facility]) eos # 0.2 10 0.0-0.5 Eos # SH[place]Y ([facility]) mono # 0.8 10 0.0-0.8 [place] # SHERRY ([facility]) baso # 0.1 10 0.0-0.2 Baso # SHERRY ([facility]) ID Date Data Source [id number] 11/05/2020 10:18:00 PM EDT SHERRY ([facility]) Name Value Range Interpretation Code Description Data Gillian rce(s) Supporting Document(s) istat B-HCG < 5.0 Istat B-HCG [place] ([facility]) ID Date Data Source [id number] 11/05/2020 10:18:00 PM EDT SHERRY ([facility]) Name Value Range Interpretation Code Description Data Gillian rce(s) Supporting Document(s) istat B-HCG < 5.0 Istat B-HCG [place] ([facility]) ID Date Data Source [id number] 11/05/2020 10:18:00 PM EDT [place] ([facility]) Name Value Range Interpretation Code Description Data Gillian rce(s) Supporting Document(s) istat B-HCG < 5.0 Istat B-HCG SHERRY ([facility]) ID Date Data Source [id number] 11/05/2020 10:18:00 PM EDT [place] ([facility]) Name Value Range Interpretation Code Description Data Gillian rce(s) Supporting Document(s) istat B-HCG < 5.0 Istat B-HCG SHERRY ([facility]) ID Date Data Source [id number] 11/05/2020 10:11:00 PM EDT [place] ([facility]) Name Value Range Interpretation Code Description Data Gillian rce(s) Supporting Document(s) istat glucose 109 mg/dL 70-105 Above high normal Istat Glucose A THENA ([facility]) istat HCT 43.0 % 38.0-51.0 Istat HCT SHERRY ([facility]) istat sodium 140 mEq/L 136-145 Istat Sodium SHERRY (No [facility]) istat Ca++ 4.9 mg/dL 4.5-5.3 Istat Ca++ SH[place]Y ([facility]) istat chloride 102 mEq/L 98-109 Istat Chloride SH[place]Y ([facility]) istat potassium 4.0 mEq/L 3.5-5.1 Istat Potassium ATHE NA ([facility]) istat creatinine 0.5 mg/dL 0.6-1.3 Below low normal Istat Creatin ine SH[place]Y ([facility]) istat CO2 28.0 mm/L 23.0-27.0 Above high normal Istat CO2 [place] ([facility]) istat BUN 9 mg/dL 8-26 Istat BUN [place] ([facility]) ID Date Data Source [id number] 11/05/2020 10:11[facility] Value Range Interpretation Code Description Data Gillian rce(s) Supporting Document(s) istat HCT 43.0 % 38.0-51.0 Istat HCT SHERRY ([facility]) istat glucose 109 mg/dL 70-105 Above high normal Istat Glucose A THENA ([facility]) istat potassium 4.0 mEq/L 3.5-5.1 Istat Potassium ATHE NA ([facility]) istat Ca++ 4.9 mg/dL 4.5-5.3 Istat Ca++ SHERRY ([facility]) istat sodium 140 mEq/L 136-145 Istat Sodium [place] ([facility]) istat BUN 9 mg/dL 8-26 Istat BUN [place] ([facility]) istat chloride 102 mEq/L 98-109 Istat Chloride [place]Y ([facility]) istat CO2 28.0 mm/L 23.0-27.0 Above high normal Istat CO2 [place] ([facility]) istat creatinine 0.5 mg/dL 0.6-1.3 Below low normal Istat Creatin ine [place]Y ([facility]) ID Date Data Source [id number] 11/05/2020 10:11[facility]00 [facility] Name Value Range Interpretation Code Description Data Gillian rce(s) Supporting Document(s) istat HCT 43.0 % 38.0-51.0 Istat HCT SH[place]Y ([facility]) istat glucose 109 mg/dL 70-105 Above high normal Istat Glucose A THENA ([facility]) istat Ca++ 4.9 mg/dL 4.5-5.3 Istat Ca++ [place] ([facility]) istat sodium 140 mEq/L 136-145 Istat Sodium [place] ([facility]) istat potassium 4.0 mEq/L 3.5-5.1 Istat Potassium ATHE NA ([facility]) istat BUN 9 mg/dL 8-26 Istat BUN [place] ([facility]) istat CO2 28.0 mm/L 23.0-27.0 Above high normal Istat CO2 [place] ([facility]) istat chloride 102 mEq/L 98-109 Istat Chloride [place] ([facility]) istat creatinine 0.5 mg/dL 0.6-1.3 Below low normal Istat Creatin ine SHERRY ([facility]) ID Date Data Source [id number] 11/05/2020 10:11:00 PM EDT SHERRY ([facility]) Name Value Range Interpretation Code Description Data Gillian rce(s) Supporting Document(s) istat HCT 43.0 % 38.0-51.0 Istat HCT SH[place]Y ([facility]) istat potassium 4.0 mEq/L 3.5-5.1 Istat Potassium ATHE NA ([facility]) istat sodium 140 mEq/L 136-145 Istat Sodium SHERRY ([facility]) istat glucose 109 mg/dL 70-105 Above high normal Istat Glucose A THENA ([facility]) istat chloride 102 mEq/L 98-109 Istat Chloride SH[place]Y ([facility]) istat Ca++ 4.9 mg/dL 4.5-5.3 Istat Ca++ [place] ([facility]) istat CO2 28.0 mm/L 23.0-27.0 Above high normal Istat CO2 [place] ([facility]) istat creatinine 0.5 mg/dL 0.6-1.3 Below low normal Istat Creatin ine [place] ([facility]) istat BUN 9 mg/dL 8-26 Istat BUN [place] ([facility]) ID Date Data Source [id number] 07/10/2020 09:14:00 AM EST SHERRY ([facility]) Name Value Range Interpretation Code Description Data Gillian rce(s) Supporting Document(s) Hemoglobin A1c/Hemoglobin.total in Blood 6.0 % Hemoglobin a1C SH[place]Y ([facility]) estimated average glucose 126 mg/dL 60-110 Above high norm al Estimated Average Glucose SHERRY ([facility]) ID Date Data Source [id number] 07/10/2020 09:14:00 AM EST SHERRY ([facility]) Name Value Range Interpretation Code Description Data Gillian rce(s) Supporting Document(s) ferritin 24 NG/mL 8-252 Ferritin SHERRY ([facility]) ID Date Data Source [id number] 07/10/2020 09:14:00 AM EST SHERRY ([facility]) Name Value Range Interpretation Code Description Data Gillian rce(s) Supporting Document(s) total 25(oh) vitamin D 21.1 NG/mL 30.0-100.0 Below low normal T otal 25(Oh) Vitamin D SHERRY ([facility]) ID Date Data Source [id number] 07/10/2020 09:14:00 AM EST SHERRY ([facility]) Name Value Range Interpretation Code Description Data Gillian rce(s) Supporting Document(s) iron (fe) 56 ug/dL 50-170 Iron (Fe) SHERRY ([facility]) total iron binding capacity 412 ug/dL 250-450 Total Ir on Binding Capacity [facility] ([facility]) percent saturation 13.6 % 13.2-45.0 Percent Saturatio n SHERRY ([facility]) ID Date Data Source [id number] 07/10/2020 09:14:00 AM EST [facility] ([facility]) Name Value Range Interpretation Code Description Data Gillian rce(s) Supporting Document(s) triglycerides level 179 mg/dL <150 Above high normal Triglycer ides Level [facility] ([facility]) cholesterol level 166 mg/dL <200 Cholesterol Level [facility] ([facility]) non-HDL-C 118 mg/dL Non-hdl-c [facility] ([facility]) cholesterol risk ratio <5 Cholesterol R isk Ratio [facility] ([facility]) HDL cholesterol 48 mg/dL >40 HDL Cholesterol ATHE NA ([facility]) Cholesterol in LDL [Mass/volume] in Serum or Plasma 82 mg/dL <1 00 LDL Cholesterol [facility] ([facility]) ID Date Data Source [id number] 07/10/2020 09:14[facility]00 [facility] Name Value Range Interpretation Code Description Data Gillian rce(s) Supporting Document(s) creatinine for GFR 0.64 mg/dL 0.55-1.30 Creatinine for GF R [facility] ([facility]) glomerular filtration rate > 60.0 >58 Glomerula r Filtration Rate [facility] ([facility]) glucose, fasting 115 mg/dL 70-100 Above high normal Glucose, Fas ting [facility] ([facility]) blood urea nitrogen 11 mg/dL 7-18 Blood Urea Nitro gen [facility] ([facility]) carbon dioxide level 27 mEq/L 21-32 Carbon Dioxide Level [facility] ([facility]) sodium level 140 mEq/L 136-145 Sodium Level [facility]Y ([facility]) chloride level 108 mEq/L 98-107 Above high normal Chloride Level [facility] ([facility]) potassium serum 4.1 mEq/L 3.5-5.1 Potassium Serum ATHE ([facility]) alkaline phosphatase 84 U/L 45-117 Alkaline Phosph atase [facility] ([facility]) anion gap 5 mEq/L 8-16 Below low normal Anion Gap [facility] ( [facility]) ALT/SGPT 22 U/L 12-78 ALT/SGPT [facility] ([facility]) AST/SGOT 10 U/L 7-37 AST/SGOT [facility] ([facility]) calcium level 8.9 mg/dL 8.5-10.1 Calcium Level [facility] ( [facility]) bilirubin,total 0.2 mg/dL 0.2-1.0 Bilirubin,total ATHE ([facility]) total protein 7.0 gm/dL 6.4-8.2 Total Protein [facility] ( [facility]) albumin/globulin ratio 1.2-2.2 Below low normal Albumin /globulin Ratio [facility] ([facility]) albumin 3.4 gm/dL 3.2-5.2 Albumin [facility] ([facility]) ID Date Data Source [id number] 07/10/2020 09:14:00 AM EST [facility] ([facility]) Name Value Range Interpretation Code Description Data Gillian rce(s) Supporting Document(s) white blood count 8.1 10 4.0-10.0 White Blood Count [facility] ([facility]) red blood count 4.77 10 4.00-5.40 Red Blood Count ATHE NA ([facility]) hematocrit 40.4 % 36.0-47.0 Hematocrit [facility] ([facility]) mean corpuscular hemoglobin 27.0 pg 27.0-33.0 Mean Cor puscular Hemoglobin [facility] ([facility]) mean corpuscular volume 84.7 fL 80.0-96.0 Mean Corpusc ular Volume [facility] ([facility]) hemoglobin 12.9 g/dL 12.0-15.5 Hemoglobin [facility] ([facility]) red cell distribution width 13.2 % 11.5-14.5 Red Cell Distribution Width [facility] ([facility]) platelet count, automated 351 10 150-450 Platelet C ount, Automated [facility] ([facility]) mean corpuscular HGB conc 31.9 g/dL 32.0-36.5 Below low antwon l Mean Corpuscular HGB Conc [facility] ([facility]) eos % 2.1 % 0.0-3.0 Eos % [facility] ([facility]) neutrophils % 65.5 % 36.0-66.0 Neutrophils % [facility] ( [facility]) lymph % 24.0 % 24.0-44.0 Lymph % [facility] ([facility]) mono % 7.6 % 0.0-5.0 Above high normal [place] % [facility] ([facility]) baso % 0.4 % 0.0-1.0 Baso % [facility] ([facility]) neutrophils # 5.3 10 1.5-8.5 Neutrophils # [facility] ( [facility]) nucleated red blood cell % 0.0 % 0-0 Nucleated Red Blood Cell % [facility] ([facility]) immature granulocyte % 0.4 % 0-3.0 Immature Gran ulocyte % [facility] ([facility]) lymph # 1.9 10 1.5-5.0 Lymph # [facility] ([facility]) baso # 0.0 10 0.0-0.2 Baso # [facility] ([facility]) mono # 0.6 10 0.0-0.8 [place] # [facility] ([facility]) eos # 0.2 10 0.0-0.5 Eos # [facility] ([facility]) ID Date Data Source [id number] 07/10/2020 09:14:00 AM EST [facility] ([facility]) Name Value Range Interpretation Code Description Data Gillian rce(s) Supporting Document(s) estimated average glucose 126 mg/dL 60-110 Above high norm al Estimated Average Glucose [facility] ([facility]) Hemoglobin A1c/Hemoglobin.total in Blood 6.0 % Hemoglobin a1C [facility] ([facility]) ID Date Data Source [id number] 07/10/2020 09:14:00 AM EST [facility] ([facility]) Name Value Range Interpretation Code Description Data Gillian rce(s) Supporting Document(s) ferritin 24 NG/mL 8-252 Ferritin [facility] ([facility]) ID Date Data Source [id number] 07/10/2020 09:14:00 AM EST [facility] ([facility]) Name Value Range Interpretation Code Description Data Gillian rce(s) Supporting Document(s) total 25(oh) vitamin D 21.1 NG/mL 30.0-100.0 Below low normal T otal 25(Oh) Vitamin D [facility] ([facility]) ID Date Data Source [id number] 07/10/2020 09:14:00 AM EST [facility] ([facility]) Name Value Range Interpretation Code Description Data Gillian rce(s) Supporting Document(s) iron (fe) 56 ug/dL 50-170 Iron (Fe) [facility] ([facility]) total iron binding capacity 412 ug/dL 250-450 Total Ir on Binding Capacity [facility] ([facility]) percent saturation 13.6 % 13.2-45.0 Percent Saturatio n [facility] ([facility]) ID Date Data Source [id number] 07/10/2020 09:14:00 AM EST [facility] ([facility]) Name Value Range Interpretation Code Description Data Gillian rce(s) Supporting Document(s) triglycerides level 179 mg/dL <150 Above high normal Triglycer ides Level [facility] ([facility]) Cholesterol in LDL [Mass/volume] in Serum or Plasma 82 mg/dL <1 00 LDL Cholesterol [facility] ([facility]) non-HDL-C 118 mg/dL Non-hdl-c [facility] ([facility]) cholesterol risk ratio <5 Cholesterol R isk Ratio [facility] ([facility]) HDL cholesterol 48 mg/dL >40 HDL Cholesterol ATHE ([facility]) cholesterol level 166 mg/dL <200 Cholesterol Level [facility] ([facility]) ID Date Data Source [id number] 07/10/2020 09:14:00 AM EST [facility] ([facility]) Name Value Range Interpretation Code Description Data Gillian rce(s) Supporting Document(s) glucose, fasting 115 mg/dL 70-100 Above high normal Glucose, Fas ting [facility] ([facility]) creatinine for GFR 0.64 mg/dL 0.55-1.30 Creatinine for GF R [place] ([facility]) blood urea nitrogen 11 mg/dL 7-18 Blood Urea Nitro gen [facility] ([facility]) sodium level 140 mEq/L 136-145 Sodium Level [facility] ([facility]) glomerular filtration rate > 60.0 >58 Glomerula r Filtration Rate [facility] ([facility]) chloride level 108 mEq/L 98-107 Above high normal Chloride Level [facility] ([facility]) carbon dioxide level 27 mEq/L 21-32 Carbon Dioxide Level [facility] ([facility]) potassium serum 4.1 mEq/L 3.5-5.1 Potassium Serum ATHE NA ([facility]) anion gap 5 mEq/L 8-16 Below low normal Anion Gap [facility] ( [facility]) alkaline phosphatase 84 U/L 45-117 Alkaline Phosph atase [facility] ([facility]) ALT/SGPT 22 U/L 12-78 ALT/SGPT [facility] ([facility]) AST/SGOT 10 U/L 7-37 AST/SGOT [facility] ([facility]) calcium level 8.9 mg/dL 8.5-10.1 Calcium Level [facility] ( [facility]) albumin/globulin ratio 1.2-2.2 Below low normal Albumin /globulin Ratio [facility] ([facility]) total protein 7.0 gm/dL 6.4-8.2 Total Protein [facility] ( [facility]) bilirubin,total 0.2 mg/dL 0.2-1.0 Bilirubin,total ATHE NA ([facility]) albumin 3.4 gm/dL 3.2-5.2 Albumin [facility] ([facility]) ID Date Data Source [id number] 07/10/2020 09:14:00 AM EST [facility] ([facility]) Name Value Range Interpretation Code Description Data Gillian rce(s) Supporting Document(s) white blood count 8.1 10 4.0-10.0 White Blood Count [facility] ([facility]) red blood count 4.77 10 4.00-5.40 Red Blood Count ATHE NA ([facility]) hemoglobin 12.9 g/dL 12.0-15.5 Hemoglobin [facility] ([facility]) hematocrit 40.4 % 36.0-47.0 Hematocrit [facility] ([facility]) mean corpuscular volume 84.7 fL 80.0-96.0 Mean Corpusc ular Volume [facility] ([facility]) mean corpuscular HGB conc 31.9 g/dL 32.0-36.5 Below low antwon l Mean Corpuscular HGB Conc [facility] ([facility]) mean corpuscular hemoglobin 27.0 pg 27.0-33.0 Mean Cor puscular Hemoglobin [facility] ([facility]) red cell distribution width 13.2 % 11.5-14.5 Red Cell Distribution Width [facility] ([facility]) lymph % 24.0 % 24.0-44.0 Lymph % [facility] ([facility]) neutrophils % 65.5 % 36.0-66.0 Neutrophils % [facility] ( [facility]) platelet count, automated 351 10 150-450 Platelet C ount, Automated [facility] ([facility]) mono % 7.6 % 0.0-5.0 Above high normal [place] % [facility] ([facility]) eos % 2.1 % 0.0-3.0 Eos % [facility] ([facility]) baso % 0.4 % 0.0-1.0 Baso % [facility] ([facility]) immature granulocyte % 0.4 % 0-3.0 Immature Gran ulocyte % [facility] ([facility]) neutrophils # 5.3 10 1.5-8.5 Neutrophils # [facility] ( [facility]) lymph # 1.9 10 1.5-5.0 Lymph # [facility] ([facility]) mono # 0.6 10 0.0-0.8 [place] # [facility] ([facility]) nucleated red blood cell % 0.0 % 0-0 Nucleated Red Blood Cell % [facility] ([facility]) eos # 0.2 10 0.0-0.5 Eos # [facility] ([facility]) baso # 0.0 10 0.0-0.2 Baso # [facility] ([facility]) ID Date Data Source [id number] 07/10/2020 09:14:00 AM EST [facility] ([facility]) Name Value Range Interpretation Code Description Data Gillian rce(s) Supporting Document(s) Hemoglobin A1c/Hemoglobin.total in Blood 6.0 % Hemoglobin a1C [facility] ([facility]) estimated average glucose 126 mg/dL 60-110 Above high norm al Estimated Average Glucose [facility] ([facility]) ID Date Data Source [id number] 07/10/2020 09:14:00 AM EST [facility] ([facility]) Name Value Range Interpretation Code Description Data Gillian rce(s) Supporting Document(s) ferritin 24 NG/mL 8-252 Ferritin [facility] ([facility]) ID Date Data Source [id number] 07/10/2020 09:14:00 AM EST [facility] ([facility]) Name Value Range Interpretation Code Description Data Gillian rce(s) Supporting Document(s) total 25(oh) vitamin D 21.1 NG/mL 30.0-100.0 Below low normal T otal 25(Oh) Vitamin D [facility] ([facility]) ID Date Data Source [id number] 07/10/2020 09:14:00 AM EST [facility] ([facility]) Name Value Range Interpretation Code Description Data Gillian rce(s) Supporting Document(s) total iron binding capacity 412 ug/dL 250-450 Total Ir on Binding Capacity [facility] ([facility]) iron (fe) 56 ug/dL 50-170 Iron (Fe) [facility] ([facility]) percent saturation 13.6 % 13.2-45.0 Percent Saturatio n [facility] ([facility]) ID Date Data Source [id number] 07/10/2020 09:14:00 AM EST [facility] ([facility]) Name Value Range Interpretation Code Description Data Gillian rce(s) Supporting Document(s) triglycerides level 179 mg/dL <150 Above high normal Triglycer ides Level [facility] ([facility]) cholesterol level 166 mg/dL <200 Cholesterol Level [facility] ([facility]) Cholesterol in LDL [Mass/volume] in Serum or Plasma 82 mg/dL <1 00 LDL Cholesterol [facility] ([facility]) HDL cholesterol 48 mg/dL >40 HDL Cholesterol ATHE NA ([facility]) cholesterol risk ratio <5 Cholesterol R isk Ratio [facility] ([facility]) non-HDL-C 118 mg/dL Non-hdl-c [facility] ([facility]) ID Date Data Source [id number] 07/10/2020 09:14:00 AM EST [facility] ([facility]) Name Value Range Interpretation Code Description Data Gillian rce(s) Supporting Document(s) glucose, fasting 115 mg/dL 70-100 Above high normal Glucose, Fas ting [facility] ([facility]) blood urea nitrogen 11 mg/dL 7-18 Blood Urea Nitro gen [facility] ([facility]) creatinine for GFR 0.64 mg/dL 0.55-1.30 Creatinine for GF R [facility] ([facility]) glomerular filtration rate > 60.0 >58 Glomerula r Filtration Rate [facility] ([facility]) sodium level 140 mEq/L 136-145 Sodium Level [facility]Y (No [facility]) chloride level 108 mEq/L 98-107 Above high normal Chloride Level [facility] ([facility]) carbon dioxide level 27 mEq/L 21-32 Carbon Dioxide Level [facility] ([facility]) potassium serum 4.1 mEq/L 3.5-5.1 Potassium Serum ATHE NA ([facility]) AST/SGOT 10 U/L 7-37 AST/SGOT [facility] ([facility]) ALT/SGPT 22 U/L 12-78 ALT/SGPT [facility] ([facility]) calcium level 8.9 mg/dL 8.5-10.1 Calcium Level [facility] ( [facility]) anion gap 5 mEq/L 8-16 Below low normal Anion Gap [facility] ( [facility]) alkaline phosphatase 84 U/L 45-117 Alkaline Phosph atase [facility] ([facility]) albumin 3.4 gm/dL 3.2-5.2 Albumin [facility] ([facility]) total protein 7.0 gm/dL 6.4-8.2 Total Protein [facility] ( [facility]) bilirubin,total 0.2 mg/dL 0.2-1.0 Bilirubin,total ATHE ([facility]) albumin/globulin ratio 1.2-2.2 Below low normal Albumin /globulin Ratio [facility] ([facility]) ID Date Data Source [id number] 07/10/2020 09:14:00 AM EST [facility] ([facility]) Name Value Range Interpretation Code Description Data Gillian rce(s) Supporting Document(s) white blood count 8.1 10 4.0-10.0 White Blood Count [facility] ([facility]) hemoglobin 12.9 g/dL 12.0-15.5 Hemoglobin [facility] ([facility]) hematocrit 40.4 % 36.0-47.0 Hematocrit [facility] ([facility]) red blood count 4.77 10 4.00-5.40 Red Blood Count ATHE NA ([facility]) mean corpuscular HGB conc 31.9 g/dL 32.0-36.5 Below low antwon l Mean Corpuscular HGB Conc [facility] ([facility]) mean corpuscular hemoglobin 27.0 pg 27.0-33.0 Mean Cor puscular Hemoglobin [facility] ([facility]) mean corpuscular volume 84.7 fL 80.0-96.0 Mean Corpusc ular Volume [facility] ([facility]) neutrophils % 65.5 % 36.0-66.0 Neutrophils % [facility] ( [facility]) red cell distribution width 13.2 % 11.5-14.5 Red Cell Distribution Width [facility] ([facility]) platelet count, automated 351 10 150-450 Platelet C ount, Automated [facility] ([facility]) lymph % 24.0 % 24.0-44.0 Lymph % [facility] ([facility]) mono % 7.6 % 0.0-5.0 Above high normal [place] % [facility] ([facility]) eos % 2.1 % 0.0-3.0 Eos % [facility] ([facility]) baso % 0.4 % 0.0-1.0 Baso % [facility] ([facility]) neutrophils # 5.3 10 1.5-8.5 Neutrophils # [facility] ( [facility]) immature granulocyte % 0.4 % 0-3.0 Immature Gran ulocyte % [facility] ([facility]) lymph # 1.9 10 1.5-5.0 Lymph # [facility] ([facility]) nucleated red blood cell % 0.0 % 0-0 Nucleated Red Blood Cell % [facility] ([facility]) eos # 0.2 10 0.0-0.5 Eos # [facility] ([facility]) mono # 0.6 10 0.0-0.8 [place] # [facility] ([facility]) baso # 0.0 10 0.0-0.2 Baso # [facility] ([facility]) ID Date Data Source [id number] 07/10/2020 09:14:00 AM EST [facility] ([facility]) Name Value Range Interpretation Code Description Data Gillian rce(s) Supporting Document(s) Hemoglobin A1c/Hemoglobin.total in Blood 6.0 % Hemoglobin a1C [facility] ([facility]) estimated average glucose 126 mg/dL 60-110 Above high norm al Estimated Average Glucose [place] ([facility]) ID Date Data Source [id number] 07/10/2020 09:14:00 AM EST [facility] ([facility]) Name Value Range Interpretation Code Description Data Gillian rce(s) Supporting Document(s) ferritin 24 NG/mL 8-252 Ferritin [facility] ([facility]) ID Date Data Source [id number] 07/10/2020 09:14:00 AM EST [facility] ([facility]) Name Value Range Interpretation Code Description Data Gillian rce(s) Supporting Document(s) total 25(oh) vitamin D 21.1 NG/mL 30.0-100.0 Below low normal T otal 25(Oh) Vitamin D [facility] ([facility]) ID Date Data Source [id number] 07/10/2020 09:14:00 AM EST [facility] ([facility]) Name Value Range Interpretation Code Description Data Gillian rce(s) Supporting Document(s) iron (fe) 56 ug/dL 50-170 Iron (Fe) [facility] ([facility]) percent saturation 13.6 % 13.2-45.0 Percent Saturatio n [facility] ([facility]) total iron binding capacity 412 ug/dL 250-450 Total Ir on Binding Capacity [facility] ([facility]) ID Date Data Source [id number] 07/10/2020 09:14:00 AM EST [facility] ([facility]) Name Value Range Interpretation Code Description Data Gillian rce(s) Supporting Document(s) HDL cholesterol 48 mg/dL >40 HDL Cholesterol ATHE ([facility]) triglycerides level 179 mg/dL <150 Above high normal Triglycer ides Level [facility] ([facility]) Cholesterol in LDL [Mass/volume] in Serum or Plasma 82 mg/dL <1 00 LDL Cholesterol [facility] ([facility]) cholesterol level 166 mg/dL <200 Cholesterol Level [facility] ([facility]) non-HDL-C 118 mg/dL Non-hdl-c [facility] ([facility]) cholesterol risk ratio <5 Cholesterol R isk Ratio [facility] ([facility]) ID Date Data Source [id number] 07/10/2020 09:14:00 AM EST [facility] ([facility]) Name Value Range Interpretation Code Description Data Gillian rce(s) Supporting Document(s) glucose, fasting 115 mg/dL 70-100 Above high normal Glucose, Fas ting [facility] ([facility]) creatinine for GFR 0.64 mg/dL 0.55-1.30 Creatinine for GF R [facility] ([facility]) blood urea nitrogen 11 mg/dL 7-18 Blood Urea Nitro gen [facility] ([facility]) sodium level 140 mEq/L 136-145 Sodium Level [facility]Y (No [facility]) glomerular filtration rate > 60.0 >58 Glomerula r Filtration Rate [facility] ([facility]) potassium serum 4.1 mEq/L 3.5-5.1 Potassium Serum ATHE NA ([facility]) chloride level 108 mEq/L 98-107 Above high normal Chloride Level [facility] ([facility]) calcium level 8.9 mg/dL 8.5-10.1 Calcium Level [facility] ( [facility]) carbon dioxide level 27 mEq/L 21-32 Carbon Dioxide Level [facility] ([facility]) anion gap 5 mEq/L 8-16 Below low normal Anion Gap [facility] ( [facility]) ALT/SGPT 22 U/L 12-78 ALT/SGPT [facility] ([facility]) alkaline phosphatase 84 U/L 45-117 Alkaline Phosph atase [facility] ([facility]) AST/SGOT 10 U/L 7-37 AST/SGOT [facility] ([facility]) albumin/globulin ratio 1.2-2.2 Below low normal Albumin /globulin Ratio [facility] ([facility]) bilirubin,total 0.2 mg/dL 0.2-1.0 Bilirubin,total ATHE NA ([facility]) total protein 7.0 gm/dL 6.4-8.2 Total Protein [facility] ( [facility]) albumin 3.4 gm/dL 3.2-5.2 Albumin [facility] ([facility]) ID Date Data Source [id number] 07/10/2020 09:14:00 AM EST [facility] ([facility]) Name Value Range Interpretation Code Description Data Gillian rce(s) Supporting Document(s) white blood count 8.1 10 4.0-10.0 White Blood Count [facility] ([facility]) red blood count 4.77 10 4.00-5.40 Red Blood Count ATHE NA ([facility]) hemoglobin 12.9 g/dL 12.0-15.5 Hemoglobin [facility] ([facility]) hematocrit 40.4 % 36.0-47.0 Hematocrit [facility] ([facility]) mean corpuscular hemoglobin 27.0 pg 27.0-33.0 Mean Cor puscular Hemoglobin [facility] ([facility]) mean corpuscular volume 84.7 fL 80.0-96.0 Mean Corpusc ular Volume [facility] ([facility]) red cell distribution width 13.2 % 11.5-14.5 Red Cell Distribution Width [facility] ([facility]) platelet count, automated 351 10 150-450 Platelet C ount, Automated [facility] ([facility]) mean corpuscular HGB conc 31.9 g/dL 32.0-36.5 Below low antwon l Mean Corpuscular HGB Conc [facility] ([facility]) lymph % 24.0 % 24.0-44.0 Lymph % [facility] ([facility]) eos % 2.1 % 0.0-3.0 Eos % [facility] ([facility]) mono % 7.6 % 0.0-5.0 Above high normal [place] % [facility] ([facility]) neutrophils % 65.5 % 36.0-66.0 Neutrophils % [facility] ( [facility]) baso % 0.4 % 0.0-1.0 Baso % [facility] ([facility]) nucleated red blood cell % 0.0 % 0-0 Nucleated Red Blood Cell % [facility] ([facility]) immature granulocyte % 0.4 % 0-3.0 Immature Gran ulocyte % [facility] ([facility]) neutrophils # 5.3 10 1.5-8.5 Neutrophils # [facility] ( [facility]) lymph # 1.9 10 1.5-5.0 Lymph # [facility] ([facility]) mono # 0.6 10 0.0-0.8 [place] # [facility]Y ([facility]) baso # 0.0 10 0.0-0.2 Baso # [facility] ([facility]) eos # 0.2 10 0.0-0.5 Eos # [facility] ([facility]) ID Date Data Source [id number] 07/10/2020 09:14:00 AM EST [facility] ([facility]) Name Value Range Interpretation Code Description Data Gillian rce(s) Supporting Document(s) Hemoglobin A1c/Hemoglobin.total in Blood 6.0 % Hemoglobin a1C [facility] ([facility]) estimated average glucose 126 mg/dL 60-110 Above high norm al Estimated Average Glucose [facility] ([facility]) ID Date Data Source [id number] 07/10/2020 09:14:00 AM EST SHERR[facility] ([facility]) Name Value Range Interpretation Code Description Data Gillian rce(s) Supporting Document(s) ferritin 24 NG/mL 8-252 Ferritin [facility] ([facility]) ID Date Data Source [id number] 07/10/2020 09:14:00 AM EST [facility] ([facility]) Name Value Range Interpretation Code Description Data Gillian rce(s) Supporting Document(s) total 25(oh) vitamin D 21.1 NG/mL 30.0-100.0 Below low normal T otal 25(Oh) Vitamin D [facility] ([facility]) ID Date Data Source [id number] 07/10/2020 09:14:00 AM EST [facility] ([facility]) Name Value Range Interpretation Code Description Data Gillian rce(s) Supporting Document(s) iron (fe) 56 ug/dL 50-170 Iron (Fe) [facility] ([facility]) total iron binding capacity 412 ug/dL 250-450 Total Ir on Binding Capacity [facility] ([facility]) percent saturation 13.6 % 13.2-45.0 Percent Saturatio n SHERRY ([facility]) ID Date Data Source [id number] 07/10/2020 09:14:00 AM EST [facility] ([facility]) Name Value Range Interpretation Code Description Data Gillian rce(s) Supporting Document(s) triglycerides level 179 mg/dL <150 Above high normal Triglycer ides Level SH[facility] ([facility]) cholesterol level 166 mg/dL <200 Cholesterol Level [facility] ([facility]) Cholesterol in LDL [Mass/volume] in Serum or Plasma 82 mg/dL <1 00 LDL Cholesterol [facility] ([facility]) non-HDL-C 118 mg/dL Non-hdl-c [facility] ([facility]) cholesterol risk ratio <5 Cholesterol R isk Ratio [facility] ([facility]) HDL cholesterol 48 mg/dL >40 HDL Cholesterol ATHE NA ([facility]) ID Date Data Source [id number] 07/10/2020 09:14:00 AM EST SHERR[facility] ([facility]) Name Value Range Interpretation Code Description Data Gillian rce(s) Supporting Document(s) glucose, fasting 115 mg/dL 70-100 Above high normal Glucose, Fas ting SH[facility] ([facility]) blood urea nitrogen 11 mg/dL 7-18 Blood Urea Nitro gen [facility] ([facility]) glomerular filtration rate > 60.0 >58 Glomerula r Filtration Rate [facility] ([facility]) sodium level 140 mEq/L 136-145 Sodium Level [facility]ERRY ([facility]) chloride level 108 mEq/L 98-107 Above high normal Chloride Level SHERRY ([facility]) creatinine for GFR 0.64 mg/dL 0.55-1.30 Creatinine for GF R SH[facility] ([facility]) potassium serum 4.1 mEq/L 3.5-5.1 Potassium Serum ATHE ([facility]) carbon dioxide level 27 mEq/L 21-32 Carbon Dioxide Level SHERRY ([facility]) anion gap 5 mEq/L 8-16 Below low normal Anion Gap SHERRY ( [facility]) AST/SGOT 10 U/L 7-37 AST/SGOT [facility] ([facility]) calcium level 8.9 mg/dL 8.5-10.1 Calcium Level SHERRY ( [facility]) total protein 7.0 gm/dL 6.4-8.2 Total Protein SHERRY ( [facility]) ALT/SGPT 22 U/L 12-78 ALT/SGPT [facility] ([facility]) bilirubin,total 0.2 mg/dL 0.2-1.0 Bilirubin,total ATHE ([facility]) alkaline phosphatase 84 U/L 45-117 Alkaline Phosph atase SHERRY ([facility]) albumin/globulin ratio 1.2-2.2 Below low normal Albumin /globulin Ratio [facility] ([facility]) albumin 3.4 gm/dL 3.2-5.2 Albumin [facility] ([facility]) ID Date Data Source [id number] 07/10/2020 09:14:00 AM EST [facility] ([facility]) Name Value Range Interpretation Code Description Data Gillian rce(s) Supporting Document(s) white blood count 8.1 10 4.0-10.0 White Blood Count [facility] ([facility]) hematocrit 40.4 % 36.0-47.0 Hematocrit [facility] ([facility]) red blood count 4.77 10 4.00-5.40 Red Blood Count ATHE NA ([facility]) hemoglobin 12.9 g/dL 12.0-15.5 Hemoglobin [facility] ([facility]) mean corpuscular volume 84.7 fL 80.0-96.0 Mean Corpusc ular Volume [facility] ([facility]) mean corpuscular HGB conc 31.9 g/dL 32.0-36.5 Below low antwon l Mean Corpuscular HGB Conc [facility] ([facility]) mean corpuscular hemoglobin 27.0 pg 27.0-33.0 Mean Cor puscular Hemoglobin [facility] ([facility]) lymph % 24.0 % 24.0-44.0 Lymph % [facility] ([facility]) platelet count, automated 351 10 150-450 Platelet C ount, Automated [facility] ([facility]) neutrophils % 65.5 % 36.0-66.0 Neutrophils % SH[facility] ( [facility]) mono % 7.6 % 0.0-5.0 Above high normal [place] % [facility]Y ([facility]) immature granulocyte % 0.4 % 0-3.0 Immature Gran ulocyte % [facility] ([facility]) eos % 2.1 % 0.0-3.0 Eos % [facility] ([facility]) baso % 0.4 % 0.0-1.0 Baso % [facility] ([facility]) lymph # 1.9 10 1.5-5.0 Lymph # [facility] ([facility]) mono # 0.6 10 0.0-0.8 [place] # [facility]Y ([facility]) neutrophils # 5.3 10 1.5-8.5 Neutrophils # SHERRY ( [facility]) nucleated red blood cell % 0.0 % 0-0 Nucleated Red Blood Cell % [facility] ([facility]) eos # 0.2 10 0.0-0.5 Eos # [facility] ([facility]) baso # 0.0 10 0.0-0.2 Baso # [facility]Y ([facility]) Procedure Social History No Information Vital Signs ID Date Data Source [id number] Name Value Range Interpretation Code Description Data Source(s) Body temperature 97.1 [degF] 97.1 [degF] [facility] ([facility]) Body height 60 [in_i] 60 [in_i] [facility] ([facility]) 5'0" Body weight 235.25 [lb_av] 235.25 [lb_av] MEDEN T ([facility]) Body mass index (BMI) [Ratio] 45.9 kg/m2 45.9 k g/m2 [facility] ([facility]) Diastolic blood pressure 83 mm[Hg] 83 mm[Hg] SHERRY ([facility]) Body height 62 [in_i] 62 [in_i] [facility]Y ([facility]) Body mass index (BMI) [Ratio] 43.3 kg/m2 43.3 k g/m2 [facility] ([facility]) Systolic blood pressure 132 mm[Hg] 132 mm[Hg] A THENA ([facility]) Body weight 3788.8 [oz_av] 3788.8 [oz_av] ATHEN A ([facility]) Body height 62 [in_i] 62 [in_i] SHERRY ([facility]) Body height 62 [in_i] 62 [in_i] SEHRRY ([facility]) Body height 62 [in_i] 62 [in_i] SHERRY ([facility]) Body height 62 [in_i] 62 [in_i] SHERRY ([facility]) Body height 62 [in_i] 62 [in_i] [facility] ([facility]) Body height 62 [in_i] 62 [in_i] [facility]Y ([facility]) Body height 62 [in_i] 62 [in_i] [facility] ([facility]) Body height 62 [in_i] 62 [in_i] [facility]Y ([facility]) Patient Treatment Plan of Care Planned Activity Planned Date Details Description Data Source (s) Ibuprofen 800 MG Oral Tablet [facility] ([facility]) Acetaminophen 325 MG / Hydrocodone Bitartrate 5 MG Oral Tablet [facility] ([facility]) Fluconazole 150 MG Oral Tablet [facility] ([facility]) cefdinir 300 MG Oral Capsule [facility] ([facility]) Amoxicillin 875 MG Oral Tablet [facility] ([facility]) Amoxicillin 500 MG Oral Capsule [facility] ([facility]) Ergocalciferol 31489 UNT Oral Capsule [facility] ([facility]) Prednisone 10 MG Oral Tablet [facility] ([facility]) Acetaminophen 325 MG / Oxycodone Hydrochloride 5 MG Oral Tablet [facility] ([facility]) Ibuprofen 800 MG Oral Tablet [facility] ([facility]) Fluconazole 150 MG Oral Tablet [facility] ([facility]) cefdinir 300 MG Oral Capsule [facility] ([facility]) Amoxicillin 875 MG Oral Tablet [facility] ([facility]) Amoxicillin 500 MG Oral Capsule [facility]Y ([facility]) Ergocalciferol [id number] UNT Oral Capsule [facility] ([facility]) Prednisone 10 MG Oral Tablet [facility] ([facility]) Acetaminophen 325 MG / Oxycodone Hydrochloride 5 MG Oral Tablet [facility] ([facility]) Ibuprofen 800 MG Oral Tablet [facility] ([facility]) Fluconazole 150 MG Oral Tablet [facility] ([facility]) cefdinir 300 MG Oral Capsule [facility] ([facility]) Amoxicillin 875 MG Oral Tablet [facility] ([facility]) Amoxicillin 500 MG Oral Capsule [facility] ([facility]) Ergocalciferol 75511 UNT Oral Capsule SHERRY ([facility]) Prednisone 10 MG Oral Tablet [facility] ([facility]) Acetaminophen 325 MG / Oxycodone Hydrochloride 5 MG Oral Tablet [facility]Y ([facility]) Ibuprofen 800 MG Oral Tablet [facility] ([facility]) Fluconazole 150 MG Oral Tablet [facility] ([facility]) cefdinir 300 MG Oral Capsule [facility]Y ([facility]) Amoxicillin 875 MG Oral Tablet SH[facility]Y ([facility]) Ergocalciferol 03550 UNT Oral Capsule SHERRY ([facility]) Prednisone 10 MG Oral Tablet [facility] ([facility]) Acetaminophen 325 MG / Oxycodone Hydrochloride 5 MG Oral Tablet SHERYR ([facility]) Ibuprofen 800 MG Oral Tablet [facility] ([facility]) Fluconazole 150 MG Oral Tablet [facility] ([facility]) cefdinir 300 MG Oral Capsule [facility]Y ([facility]) Cholecalciferol 1000 UNT Oral Capsule SHERRY ([facility]) Ergocalciferol 31057 UNT Oral Capsule SH[facility]Y ([facility]) Prednisone 10 MG Oral Tablet [facility]Y ([facility]) Acetaminophen 325 MG / Oxycodone Hydrochloride 5 MG Oral Tablet [facility]Y ([facility]) Amoxicillin 875 MG Oral Tablet [facility] ([facility])
--- NOTE | 2021-06-21 10:09 | REP ---
INDICATION: rule out DVT, lower left leg pain COMPARISON: None. TECHNIQUE: Hernández scale and color Doppler evaluation using linear high frequency transducer. FINDINGS: Ultrasound examination of the left lower extremity deep venous structures from the common femoral vein through the popliteal vein demonstrates normal compressibility flow and wave patterns in response to respiration and augmentation. There is no evidence for deep venous thrombosis. Contralateral CFV is patent and normal. IMPRESSION: No evidence for deep venous thrombosis. <Electronically signed by Arnel Howard > 06/21/21 [id number]
--- OUTSIDE RECORDS SUMMARY | 2021-06-21 12:16 | CCD ---
Author Author [facility] Organization [facility] Address Unknown Phone Unavailable Care Team Providers Care Physical Anthropologist Name Role Phone FUENTES, ANDRIA TYREE RPA-C [...] ANDRIA TYREE RPA-C Unavailable Unavailable FUENTES, ANDRIA TRYEE RPA-C Unavailable Unavailable FUENTES, ANDRIA TYREE RPA-C [...] FUENTES, ANDRIA TYREE RPA-C Unavailable Unavailable FUENTES, ANRDIA TYREE RPA-C Unavailable Unavailable FUENTES, ANDRIA TYREE [...] Jaqueline Alice NPP Unavailable Unavailable Quinones, Jaqueline Biswasie NPP [...] Unavailable Marino Estrada MD Unavailable Unavailable Marino sEtrada MD Unavailable Unavailable Marino Estrada MD Unavailable [...] is protected by Article 27-F of the [facility] Public Health law. If you continue you may have access to information: Regarding HIV / AIDS; Provided by facilities licensed or operated by the [facility] Office of Mental Health; or Provided by the [facility] Office for People With Developmental Disabilities. If such information is present, then the following [facility] mandated warning applies: This information has been [...] law may result in a fine or half-way sentence or both. A general authorization for the release of medical or other information is NOT sufficient authorization for further disc losure. Encounters Encounter Providers Location Date Indications Data Source(s ) Outpatient Attender: Dougie BULLOCK Physical Therapy 09:45:00 AM [facility] Tyree Fuentes, RPA-C: [address] [facility], [facility] [address], [place] [address], Ph. Attender: TYREE FUENTES RPA-C [facility] Medical 05/29/2021 12:00:00 AM EDT [facility] ([facility]) Outpatient Attender: Torrey Estrada MDAdmitter: Torrey Estrada MD E [email or web address] 05/27/2021 08:27:46 AM EDT [facility] Tyree Fuentes, RPA-C: [address], [place] [address], Ph. Attender: TYREE FUENTES RPA-C [facility] Medical 05/22/2021 12:00:00 AM EDT [facility] ([facility]) Tyree Fuentes, RPA-C: [address], [place] [address], Ph. Attender: TYREE FUENTES RPA-C [facility] Medical 05/22/2021 12:00:00 AM EDT [facility] ([facility]) Outpatient Attender: Alice WALLACE [email or web address] 04/26/2021 12:00:00 AM EDT [facility] Tyree Fuentes, RPA-C: [address], [place] [address], Ph. Attender: TYREE FUENTES RPA-C [facility] Medical 02/11/2021 12:00:00 AM EDT [facility] ([facility]) Tyree Fuentes, RPA-C: [address], [place] [address], Ph. Attender: TYREE FUENTES RPA-C [facility] Medical 02/11/2021 12:00:00 AM EDT [facility] ([facility]) Tyree Fuentes, RPA-C: [address], [place] [address], Ph. Attender: TYREE FUENTES RPA-C [facility] Medical 02/11/2021 12:00:00 AM EDT [facility] ([facility]) Tyree Fuentes, RPA-C: [address], [place] [address], Ph. Attender: TYREE FUENTES RPA-C [facility] Medical 01/22/2021 12:00:00 AM EDT [facility] ([facility]) Tyree Fuentes, RPA-C: [address], [place] [address], Ph. Attender: TYREE FUENTES RPA-C [facility] Medical 01/22/2021 12:00:00 AM EDT [facility] ([facility]) Tyree Fuentes, RPA-C: [address], [place] [address], Ph. Attender: TYREE FUENTES RPA-C [facility] Medical 01/22/2021 12:00:00 AM EDT [facility] ([facility]) Tyree Fuentes RPA-C: [address], [place] [address], Ph. Attender: TYREE FUENTES RPA-C [facility] Medical 01/22/2021 12:00:00 AM EDT [facility] ([facility]) Tyree Fuentes, RPA-C: [address], [place] [address], Ph. Attender: TYREE FUENTES RPA-C [facility] Medical 07/17/2020 12:00:00 AM EST [facility] ([facility]) Tyree Fuentes RPA-C: [address], [place] [address], Ph. Attender: TYREE FUENTES RPA-C [facility] Medical 07/17/2020 12:00:00 AM EST [facility] ([facility]) Tyree Fuentes RPA-C: [address], [place] [address], Ph. Attender: TYREE FUENTES RPA-C [facility] Medical 07/17/2020 12:00:00 AM EST [facility] ([facility]) Tyree Fuentes, RPA-C: [address], [place] [address], Ph. Attender: TYREE FUENTES RPA-C [facility] Medical 07/17/2020 12:00:00 AM EST [facility] ([facility]) Tyree Fuentes RPA-C: [address], [place] [address], Ph. Attender: TYREE FUENTES RPA-C [facility] Medical 07/17/2020 12:00:00 AM EST [facility] ([facility]) Tyree Fuentes, RPA-C: [address], [place] [address], Ph. Attender: TYREE FUENTES RPA-C [facility] Medical 07/10/2020 12:00:00 AM EST [facility] ([facility]) Tyree Fuentes, RPA-C: [address], [place] [address], Ph. Attender: TYREE FUENTES RPA-C [facility] Medical 07/10/2020 12:00:00 AM EST [facility] ([facility]) Tyree Fuentes, RPA-C: [address], [place] [address], Ph. Attender: TYREE FUENTES RPA-C [facility] Medical 07/10/2020 12:00:00 AM EST [facility] ([facility]) Tyree Fuentes RPA-C: [address], [place] [address], Ph. Attender: TYREE FUENTES RPA-C [facility] Medical 07/10/2020 12:00:00 AM EST [facility] ([facility]) Tyree Fuentes RPA-C: [address], [place] [address], Ph. Attender: TYREE FUENTES RPA-C [facility] Medical 07/10/2020 12:00:00 AM EST [facility] ([facility]) Tyree Fuentes RPA-C: [address], [place] [address], Ph. Attender: TYREE FUENTES RPA-C [facility] Medical 07/10/2020 12:00:00 AM EST [facility] ([facility]) Outpatient Attender: TYREE FUENTES RPA-C [facility] 05/07/2020 08:50:03 AM EDT [facility] Immunizations Vaccine Date Status Description Data Source(s) COVID-19, mRNA, LNP-S, PF, 100 mcg/0.5 mL dose 10/26/2020 12 :00:00 AM EDT completed 10/26/2020 [facility] ([facility]) COVID-19 VACCINE Moderna 10/26/2020 12:00:00 AM EDT completed [facility] Vaccine Series Complete: YESThis Data wa s Submitted to [facility]. COVID-19, mRNA, LNP-S, PF, 100 mcg/0.5 mL dose 09/28/2020 12 :00:00 AM EST completed 09/28/2020 [place] ([facility]) COVID-19 VACCINE Moderna 09/28/2020 12:00:00 AM EST completed [facility] Vaccine Series Complete: NOThis Data was Submitted to [facility]. Medications Medication Brand Name Start Date Product [...] completed ibuprofen 800 MG Oral Tablet [facility] ([facility]) Ergocalciferol 03559 UNT Oral Capsule Vi tamin D2 1,250 mcg (50,000 unit) capsule TAKE 1 CAPSULE BY MOUTH ONCE WEEKLY Vitamin D2 1,250 mcg (50,000 unit) capsu le TAKE 1 CAPSULE BY MOUTH ONCE WEEKLY co mpleted ergocalciferol 1.25 MG Oral Capsule [facility] ([facility]) Amoxicillin 875 MG Oral Tablet amoxicill in 875 mg tablet TAKE ONE TABLET BY MOUTH TWICE A DAY amoxicillin 875 mg tablet TAKE ONE TABLE T BY MOUTH TWICE A DAY completed amoxicillin 875 MG Oral Tablet [facility] ([facility]) Fluconazole 150 MG Oral Tablet fluconazo le 150 mg tablet TAKE 1 TABLET BY MOUTH 7 10 DAYS NEEDED YEAST NEEDED VAGINITIS FROM ANTIBIOITC fluconazole 150 mg tablet TAKE 1 TABLET BY MOUTH 7 10 DAYS NEEDED YEAST NEEDED VAGINITIS FROM ANTIBIOITC completed fluconazole 150 MG Oral Tablet [place] ([facility]) Acetaminophen 325 MG / Hydrocodone Angie trate [...] / hydrocodone bitartrate 5 MG Oral Tablet [place] ([facility]) Prednisone 10 MG Oral Tablet prednisone 10 mg tablet TAKE THREE TABLETS BY MOUTH EVERY DAY prednisone 10 mg tablet TAKE THREE TABLETS BY MOUTH EVERY DAY completed prednisone 10 MG Oral Tab let [place] ([facility]) Cholecalciferol 1000 UNT Oral Capsule Vi tamin D3 25 mcg (1,000 unit) capsule TAKE ONE CAPSULE BY MOUTH EVERY DAY Vitamin D3 25 mcg (1,000 unit) capsule T SEBASTIAN ONE CAPSULE BY MOUTH EVERY DAY complet ed cholecalciferol 0.025 MG Oral Capsule [place] ([facility]) cefdinir 300 MG Oral Capsule cefdinir 30 0 mg capsule TAKE ONE CAPSULE BY MOUTH TWICE A DAY cefdinir 300 mg capsule TAKE ONE CAPSULE BY MOUTH TWICE A DAY completed cefdinir 300 MG Oral Capsule [place] ([facility]) Fluconazole 150 MG Oral Tablet fluconazo le 150 mg tablet TAKE 1 TABLET BY MOUTH 7 10 DAYS NEEDED YEAST NEEDED VAGINITIS FROM ANTIBIOITC fluconazole 150 mg tablet TAKE 1 TABLET BY MOUTH 7 10 DAYS NEEDED YEAST NEEDED VAGINITIS FROM ANTIBIOITC completed fluconazole 150 MG Oral Tablet [place] ([facility]) Amoxicillin 875 MG Oral Tablet amoxicill in 875 mg tablet TAKE ONE TABLET BY MOUTH TWICE A DAY amoxicillin 875 mg tablet TAKE ONE TABLE T BY MOUTH TWICE A DAY completed amoxicillin 875 MG Oral Tablet [place] ([facility]) cefdinir 300 MG Oral Capsule cefdinir 30 0 mg capsule TAKE ONE CAPSULE BY MOUTH TWICE A DAY cefdinir 300 mg capsule TAKE ONE CAPSULE BY MOUTH TWICE A DAY completed cefdinir 300 MG Oral Capsule [place] ([facility]) Ergocalciferol 26278 UNT Oral Capsule Vi tamin D2 1,250 mcg (50,000 unit) capsule TAKE 1 CAPSULE BY MOUTH ONCE WEEKLY Vitamin D2 1,250 mcg (50,000 unit) capsu le TAKE 1 CAPSULE BY MOUTH ONCE WEEKLY co mpleted ergocalciferol 1.25 MG Oral Capsule [place] ([facility]) Fluconazole 150 MG Oral Tablet fluconazo le 150 mg tablet TAKE 1 TABLET BY MOUTH 7 10 DAYS NEEDED YEAST NEEDED VAGINITIS FROM ANTIBIOITC fluconazole 150 mg tablet TAKE 1 TABLET BY MOUTH 7 10 DAYS NEEDED YEAST NEEDED VAGINITIS FROM ANTIBIOITC completed fluconazole 150 MG Oral Tablet [place] ([facility]) Amoxicillin 875 MG Oral Tablet amoxicill in 875 mg tablet TAKE ONE TABLET BY MOUTH TWICE A DAY amoxicillin 875 mg tablet TAKE ONE TABLE T BY MOUTH TWICE A DAY completed amoxicillin 875 MG Oral Tablet [place] ([facility]) Acetaminophen 325 MG / Oxycodone Hydroch [...] oxycodone hydrochloride 5 MG Oral Tablet [facility] ([facility]) Amoxicillin 875 MG Oral Tablet amoxicill in 875 mg tablet TAKE ONE TABLET BY MOUTH TWICE A DAY amoxicillin 875 mg tablet TAKE ONE TABLE T BY MOUTH TWICE A DAY completed amoxicillin 875 MG Oral Tablet [place] ([facility]) Acetaminophen 325 MG / Oxycodone Hydroch [...] completed amoxicillin 875 MG Oral Tablet [facility] ([facility]) Amoxicillin 500 MG Oral Capsule amoxicillin 500 mg cap timbo amoxicillin 500 mg capsule completed amoxicillin 50 0 MG Oral Capsule [place] ([facility]) Prednisone 10 MG Oral Tablet prednisone 10 mg tablet TAKE THREE TABLETS BY MOUTH EVERY DAY prednisone 10 mg tablet TAKE THREE TABLETS BY MOUTH EVERY DAY completed prednisone 10 MG Oral Tab let [facility] ([facility]) Ibuprofen 800 MG Oral Tablet ibuprofen 8 00 mg tablet TAKE ONE TABLET BY MOUTH THREE TIMES A DAY NEEDED FOR PAIN ibuprofen 800 mg tablet TAKE ONE TABLET BY MOUTH THREE TIMES A DAY NEEDED FOR PAIN completed ibuprofen 800 MG Oral Tablet [facility] ([facility]) Acetaminophen 325 MG / Oxycodone Hydroch [...] oxycodone hydrochloride 5 MG Oral Tablet [facility] ([facility]) Acetaminophen 325 MG / Oxycodone Hydroch [...] oxycodone hydrochloride 5 MG Oral Tablet [facility] ([facility]) Ibuprofen 800 MG Oral Tablet ibuprofen 8 00 mg tablet TAKE ONE TABLET BY MOUTH THREE TIMES A DAY NEEDED FOR PAIN ibuprofen 800 mg tablet TAKE ONE TABLET BY MOUTH THREE TIMES A DAY NEEDED FOR PAIN completed ibuprofen 800 MG Oral Tablet [facility] ([facility]) Amoxicillin 500 MG Oral Capsule amoxicillin 500 mg cap timbo amoxicillin 500 mg capsule completed amoxicillin 50 0 MG Oral Capsule [place] ([facility]) Ergocalciferol 95189 UNT Oral Capsule Vi tamin D2 1,250 mcg (50,000 unit) capsule TAKE 1 CAPSULE BY MOUTH ONCE WEEKLY Vitamin D2 1,250 mcg (50,000 unit) capsu le TAKE 1 CAPSULE BY MOUTH ONCE WEEKLY co mpleted ergocalciferol 1.25 MG Oral Capsule [facility] ([facility]) cefdinir 300 MG Oral Capsule cefdinir 30 0 mg capsule TAKE ONE CAPSULE BY MOUTH TWICE A DAY cefdinir 300 mg capsule TAKE ONE CAPSULE BY MOUTH TWICE A DAY completed cefdinir 300 MG Oral Capsule [facility] ([facility]) Ergocalciferol 56367 UNT Oral Capsule Vi tamin D2 1,250 mcg (50,000 unit) capsule TAKE 1 CAPSULE BY MOUTH ONCE WEEKLY Vitamin D2 1,250 mcg (50,000 unit) capsu le TAKE 1 CAPSULE BY MOUTH ONCE WEEKLY co mpleted ergocalciferol 1.25 MG Oral Capsule [facility] ([facility]) cefdinir 300 MG Oral Capsule cefdinir 30 0 mg capsule TAKE ONE CAPSULE BY MOUTH TWICE A DAY cefdinir 300 mg capsule TAKE ONE CAPSULE BY MOUTH TWICE A DAY completed cefdinir 300 MG Oral Capsule [place] ([facility]) Fluconazole 150 MG Oral Tablet fluconazo le 150 mg tablet TAKE 1 TABLET BY MOUTH 7 10 DAYS NEEDED YEAST NEEDED VAGINITIS FROM ANTIBIOITC fluconazole 150 mg tablet TAKE 1 TABLET BY MOUTH 7 10 DAYS NEEDED YEAST NEEDED VAGINITIS FROM ANTIBIOITC completed fluconazole 150 MG Oral Tablet [place] ([facility]) Prednisone 10 MG Oral Tablet prednisone 10 mg tablet TAKE THREE TABLETS BY MOUTH EVERY DAY prednisone 10 mg tablet TAKE THREE TABLETS BY MOUTH EVERY DAY completed prednisone 10 MG Oral Tab let [facility]) Ibuprofen 800 MG Oral Tablet ibuprofen 8 00 mg tablet TAKE ONE TABLET BY MOUTH THREE TIMES A DAY NEEDED FOR PAIN ibuprofen 800 mg tablet TAKE ONE TABLET BY MOUTH THREE TIMES A DAY NEEDED FOR PAIN completed ibuprofen 800 MG Oral Tablet [facility] ([facility]) Amoxicillin 500 MG Oral Capsule amoxicillin 500 mg cap timbo amoxicillin 500 mg capsule completed amoxicillin 50 0 MG Oral Capsule [place] ([facility]) Acetaminophen 325 MG / Oxycodone Hydroch [...] oxycodone hydrochloride 5 MG Oral Tablet [facility] ([facility]) Prednisone 10 MG Oral Tablet prednisone 10 mg tablet TAKE THREE TABLETS BY MOUTH EVERY DAY prednisone 10 mg tablet TAKE THREE TABLETS BY MOUTH EVERY DAY completed prednisone 10 MG Oral Tab let [facility] ([facility]) Ergocalciferol 94543 UNT Oral Capsule Vi tamin D2 1,250 mcg (50,000 unit) capsule TAKE 1 CAPSULE BY MOUTH ONCE WEEKLY Vitamin D2 1,250 mcg (50,000 unit) capsu le TAKE 1 CAPSULE BY MOUTH ONCE WEEKLY co mpleted ergocalciferol 1.25 MG Oral Capsule [facility] ([facility]) Prednisone 10 MG Oral Tablet prednisone 10 mg tablet TAKE THREE TABLETS BY MOUTH EVERY DAY prednisone 10 mg tablet TAKE THREE TABLETS BY MOUTH EVERY DAY completed prednisone 10 MG Oral Tab let [facility] ([facility]) cefdinir 300 MG Oral Capsule cefdinir 30 0 mg capsule TAKE ONE CAPSULE BY MOUTH TWICE A DAY cefdinir 300 mg capsule TAKE ONE CAPSULE BY MOUTH TWICE A DAY completed cefdinir 300 MG Oral Capsule [place] ([facility]) Ibuprofen 800 MG Oral Tablet ibuprofen 8 00 mg tablet TAKE ONE TABLET BY MOUTH THREE TIMES A DAY NEEDED FOR PAIN ibuprofen 800 mg tablet TAKE ONE TABLET BY MOUTH THREE TIMES A DAY NEEDED FOR PAIN completed ibuprofen 800 MG Oral Tablet [facility] ([facility]) Fluconazole 150 MG Oral Tablet fluconazo le 150 mg tablet TAKE 1 TABLET BY MOUTH 7 10 DAYS NEEDED YEAST NEEDED VAGINITIS FROM ANTIBIOITC fluconazole 150 mg tablet TAKE 1 TABLET BY MOUTH 7 10 DAYS NEEDED YEAST NEEDED VAGINITIS FROM ANTIBIOITC completed fluconazole 150 MG Oral Tablet [facility] ([facility]) Insurance Providers Payer name Policy type / Coverage type Policy ID Covered green party ID Covered green party's relationship to melara Policy Melara Plan Information Medicaid S [id number] S [id number] [place] MED[place] [id number] [place] [id number] Kiya 7 [id number] Managed Care [place] P [id number] S [id number] [employer] UNAVAILABLE UNAVAIL ABLE FANNY [id number] SP [id number] MEDICAID ([id number]) [id number] EMEDNY [id number] SP [id number] [facility] [id number] S [id number] MEDICAID [id number] Problems, Conditions, and Diagnoses Code Display Name Description Problem Type Effective Dates Data Source(s) K21.9 Gastro-esophageal reflux disease without esophagitis Gastro-esophageal reflux disease without Diagnosis 06/20/2021 01:08:06 PM [facility] [id number] Hypertriglyceridemia Hypertriglyceridemia Problem 02/28/2021 12:00:00 AM EDT [facility] ([facility]) [id number] Hypertriglyceridemia Hypertriglyceridemia Problem 02/28/2021 12:00:00 AM EDT [facility] ([facility]) [id number] Hypertriglyceridemia Hypertriglyceridemia Problem 02/28/2021 12:00:00 AM EDT [facility] ([facility]) [id number] Impacted cerumen of bilateral ears Impac mandy Cerumen of Bilateral Ears Problem 04/18/2020 12:00:00 AM EDT - 02/11/2021 12:00:00 AM EDT [place] ([facility]) [id number] Screening mammography Screening Mammography Problem 04/18/2020 12:00:00 AM EDT - 02/28/2021 12:00:00 AM EDT [facility] ([facility]) [id number] Influenza vaccine needed Influenza Vaccine Needed Pro blem 04/18/2020 12:00:00 AM EDT - 02/11/2021 12:00:00 AM EDT [place] ([facility]) [id number] Impacted cerumen of bilateral ears Impac mandy Cerumen of Bilateral Ears Problem 04/18/2020 12:00:00 AM EDT - 02/11/2021 12:00:00 AM EDT [place] ([facility]) [id number] Screening mammography Screening Mammography Problem 04/18/2020 12:00:00 AM EDT - 02/28/2021 12:00:00 AM EDT [facility] ([facility]) [id number] Influenza vaccine needed Influenza Vaccine Needed Pro blem 04/18/2020 12:00:00 AM EDT - 02/11/2021 12:00:00 AM EDT [facility] ([facility]) [id number] Impacted cerumen of bilateral ears Impac mandy Cerumen of Bilateral Ears Problem 04/18/2020 12:00:00 AM EDT - 02/11/2021 12:00:00 AM EDT [facility] ([facility]) [id number] Screening mammography Screening Mammography Problem 04/18/2020 12:00:00 AM EDT - 02/28/2021 12:00:00 AM EDT [facility] ([facility]) [id number] Influenza vaccine needed Influenza Vaccine Needed Pro blem 04/18/2020 12:00:00 AM EDT - 02/11/2021 12:00:00 AM EDT [facility] ([facility]) [id number] Finding of pattern of menstrual cycle Fi nding of Pattern of Menstrual Cycle Problem 02/14/2020 12:00:00 AM EDT - 02/11/2021 12:00:00 AM EDT [facility]) [id number] Microscopic hematuria Microscopic Hematuria Problem 02/14/2020 12:00:00 AM EDT - 07/17/2020 12:00:00 AM [facility] ([facility]) [id number] Finding of pattern of menstrual cycle Fi nding of Pattern of Menstrual Cycle Problem 02/14/2020 12:00:00 AM EDT - 02/11/2021 12:00:00 AM EDT [facility]) [id number] Microscopic hematuria Microscopic Hematuria Problem 02/14/2020 12:00:00 AM EDT - 07/17/2020 12:00:00 AM [facility] ([facility]) [id number] Finding of pattern of menstrual cycle Fi nding of Pattern of Menstrual Cycle Problem 02/14/2020 12:00:00 AM EDT - 02/11/2021 12:00:00 AM EDT [facility] ([facility]) 480636007 Microscopic hematuria Microscopic Hematuria Problem 02/14/2020 12:00:00 AM EDT - 07/17/2020 12:00:00 AM EST [facility] ([facility]) [id number] Microscopic hematuria Microscopic Hematuria Problem 02/14/2020 12:00:00 AM EDT - 07/17/2020 12:00:00 AM EST [facility] ([facility]) 142684727 Microscopic hematuria Microscopic Hematuria Problem 02/14/2020 12:00:00 AM EDT - 07/17/2020 12:00:00 AM EST [facility] ([facility]) [id number] Clinical finding Clinical Finding Problem 12:00:00 AM EDT - 07/17/2020 12:00:00 AM EST [facility] ([facility]) [id number] Pain in female genitalia Pain in Female Genitalia Prob mariana 02/28/2019 12:00:00 AM EDT - 02/11/2021 12:00:00 AM EDT [facility] ([facility]) [id number] Procedure by method Procedure by Method Problem 0 02/28/2019 12:00:00 AM EDT - 07/17/2020 12:00:00 AM EST [facility] ([facility]) [id number] Clinical finding Clinical Finding Problem 12:00:00 AM EDT - 07/17/2020 12:00:00 AM EST [facility] ([facility]) [id number] Pain in female genitalia Pain in Female Genitalia Prob mariana 02/28/2019 12:00:00 AM EDT - 02/11/2021 12:00:00 AM EDT [facility] ([facility]) [id number] Procedure by method Procedure by Method Problem 0 02/28/2019 12:00:00 AM EDT - 07/17/2020 12:00:00 AM EST [facility] ([facility]) [id number] Clinical finding Clinical Finding Problem 12:00:00 AM EDT - 07/17/2020 12:00:00 AM EST [facility] ([facility]) [id number] Female genitalia finding Female Genitalia Finding Prob amriana 02/28/2019 12:00:00 AM EDT - 02/11/2021 12:00:00 AM EDT [facility] ([facility]) [id number] Procedure by method Procedure by Method Problem 0 02/28/2019 12:00:00 AM EDT - 07/17/2020 12:00:00 AM EST [facility] ([facility]) [id number] Clinical finding Clinical Finding Problem 12:00:00 AM EDT - 07/17/2020 12:00:00 AM EST [facility] ([facility]) [id number] Procedure by method Procedure by Method Problem 0 02/28/2019 12:00:00 AM EDT - 07/17/2020 12:00:00 AM EST [facility] ([facility]) [id number] Clinical finding Clinical Finding Problem 019 12:00:00 AM EDT - 07/17/2020 12:00:00 AM EST [facility] ([facility]) [id number] Procedure by method Procedure by Method Problem 0 02/28/2019 12:00:00 AM EDT - 07/17/2020 12:00:00 AM EST [facility] ([facility]) Surgeries/Procedures Procedure Description Date Indications Data Source(s) RADIOLOGIC EXAM KNEE COMPLETE 4/MORE VIEWS 06/18/2021 12:00:00 AM EST [facility] ([facility]) OFFICE OUTPATIENT VISIT 25 MINUTES 06/18/2021 12:00:00 AM EST [facility] ([facility]) Results ID Date Data Source [id number] 05/22/2021 09:13:00 AM EDT [facility]) Name Value Range Interpretation Code Description Data Gillian rce(s) Supporting Document(s) Hemoglobin A1c/Hemoglobin.total in Blood 6.4 %_of_total_HGB <5.7 Above high normal Hemoglobin a1C [place] ([facility]) ID Date Data Source [id number] 05/22/2021 09:13:00 AM EDT [place] ([facility]) Name Value Range Interpretation Code Description Data Gillian rce(s) Supporting Document(s) Calcidiol [Mass/volume] in Serum or Plasma 24 NG/mL 30-100 Below low normal Vitamin D,25-Oh,total,ia [place] ([facility]) ID Date Data Source [id number] 05/22/2021 09:13:00 AM EDT [facility]) Name Value Range Interpretation Code Description Data Gillian rce(s) Supporting Document(s) Leukocytes [#/volume] in Blood by Automated count 8.1 thousand/uL 3 .8-10.8 White Blood Cell Count [place] ([facility]) Erythrocytes [#/volume] in Blood by Automated count 4.65 million/uL 3.80-5.10 Red Blood Cell Count [place] ([facility]) Hemoglobin [Mass/volume] in Blood 12.3 g/dL 11.7-15.5 He moglobin [place] ([facility]) Hematocrit [Volume Fraction] of Blood by Automated count 37.7 % 35.0-45.0 Hematocrit [place] ([facility]) Erythrocyte mean corpuscular volume [Entitic volume] by Auto mated count 81.1 fL 80.0-100.0 Mcv [place] ([facility]) Erythrocyte mean corpuscular hemoglobin [Entitic mass] by Automated count 26.5 pg 27.0-33.0 Below low normal Mch [place] ([facility]) Erythrocyte mean corpuscular hemoglobin concentration [Mass/volume] by Automated count 32.6 g/dL 32.0-36.0 Mchc [place] ([facility]) Platelets [#/volume] in Blood by Automated count 369 thousand/uL 14 0-400 Platelet Count [place] ([facility]) Erythrocyte distribution width [Ratio] by Automated count 14.4 % 11.0-15.0 Rdw [place] ([facility]) Platelet mean volume [Entitic volume] in Blood by Bhavesh 9.7 fL 7.5-12.5 Mpv [place] ([facility]) Lymphocytes [#/volume] in Blood by Automated count 2365 cells/uL 85 0-3900 Absolute Lymphocytes [place] ([facility]) Neutrophils [#/volume] in Blood by Automated count 4698 cells/uL 15 00-7800 Absolute Neutrophils [place] ([facility]) Monocytes [#/volume] in Blood by Automated count 818 cells/uL 200-9 50 Absolute Monocytes [place] ([facility]) Eosinophils [#/volume] in Blood by Automated count 178 cells/uL 15- 500 Absolute Eosinophils [place] ([facility]) Basophils [#/volume] in Blood by Automated count 41 cells/uL 0-200 Absolute Basophils [place] ([facility]) Neutrophils/100 leukocytes in Blood by Automated count 58 % 38- 80 Neutrophils [place] ([facility]) Monocytes/100 leukocytes in Blood by Automated count 10.1 % 0-13 Monocytes [place] ([facility]) Lymphocytes/100 leukocytes in Blood by Automated count 29.2 % 15-49 Lymphocytes [place] ([facility]) Eosinophils/100 leukocytes in Blood by Automated count 2.2 % 0-8 Eosinophils [place] ([facility]) Basophils/100 leukocytes in Blood by Automated count 0.5 % 0-2 Basophils [place] ([facility]) ID Date Data Source [id number] 05/22/2021 09:13:00 AM EDT [place] ([facility]) Name Value Range Interpretation Code Description Data Gillian rce(s) Supporting Document(s) Glucose [Mass/volume] in Serum or Plasma 97 mg/dL 65-99 Glucose [place] ([facility]) Urea nitrogen [Mass/volume] in Serum or Plasma 16 mg/dL 7-25 Urea Nitrogen (BUN) [place] ([facility]) Creatinine [Mass/volume] in Serum or Plasma 0.50 mg/dL 0.50-1.10 Creatinine [place] ([facility]) Glomerular filtration rate/1.73 sq M.pre dicted among blacks [Volume Rate/Area] in Serum, Plasma or Blood by Creatinine-based formula (CKD-EPI) 135 mL/min/1.73m2 > or = 60 eGFR [place] ([facility]) Glomerular filtration rate/1.73 sq M.pre dicted among non-blacks [Volume Rate/Area] in Serum, Plasma or Blood by Creatinine-based formula (CKD-EPI) 116 mL/min/1.73m2 > or = 60 eGFR Non-afr. [place] ([facility]) Urea nitrogen/Creatinine [Mass Ratio] in Serum or Plasma not applic able 6-22 BUN/creatinine Ratio [place] ([facility]) Sodium [Moles/volume] in Serum or Plasma 139 mmol/L 135-146 Sodium [place] ([facility]) Potassium [Moles/volume] in Serum or Plasma 4.2 mmol/L 3.5-5.3 Potassium [place] ([facility]) Chloride [Moles/volume] in Serum or Plasma 106 mmol/L 98-110 Chloride [place] ([facility]) Calcium [Mass/volume] in Serum or Plasma 8.7 mg/dL 8.6-10.2 Calcium [place] ([facility]) Carbon dioxide, total [Moles/volume] in Serum or Plasma 26 mmol/L 20-32 Carbon Dioxide [place] ([facility]) Albumin [Mass/volume] in Serum or Plasma 4.1 g/dL 3.6-5.1 Albumin [place] ([facility]) Protein [Mass/volume] in Serum or Plasma 6.9 g/dL 6.1-8.1 Protein, Total [place] ([facility]) Albumin/Globulin [Mass Ratio] in Serum or Plasma 1.5 (calc) 1.0-2 .5 Albumin/globulin Ratio [place] ([facility]) Globulin [Mass/volume] in Serum by calculation 2.8 g/dL_(calc) 1.9- 3.7 Globulin [place] ([facility]) Alkaline phosphatase [Enzymatic activity/volume] in Serum or Plasma 85 U/L 31-125 Alkaline Phosphatase [place] ([facility]) Bilirubin.total [Mass/volume] in Serum or Plasma 0.2 mg/dL 0.2-1 .2 Bilirubin, Total [place] ([facility]) Aspartate aminotransferase [Enzymatic activity/volume] in Serum or Plasma 10 U/L 10-35 Ast [place] ([facility]) Alanine aminotransferase [Enzymatic activity/volume] in Seru m or Plasma 12 U/L 6-29 Alt [place] ([facility]) ID Date Data Source [id number] 05/22/2021 09:13:00 AM EDT [place] ([facility]) Name Value Range Interpretation Code Description Data Gillian rce(s) Supporting Document(s) Iron [Mass/volume] in Serum or Plasma 47 mcg/dL 40-190 Iron, Total [place] ([facility]) Iron binding capacity [Mass/volume] in Serum or Plasma 468 m cg/dL_(calc) 250-450 Above high normal Iron Binding Capacity [place] ([facility]) Iron saturation [Mass Fraction] in Serum or Plasma 10 %_(calc) 16-45 Below low normal % Saturation [place] ([facility]) Ferritin [Mass/volume] in Serum or Plasma 27 NG/mL 16-232 Ferritin [place] ([facility]) ID Date Data Source [id number] 01/22/2021 09:47:00 AM EDT [facility]) Name Value Range Interpretation Code Description Data Gillian rce(s) Supporting Document(s) Hemoglobin A1c/Hemoglobin.total in Blood 6.2 %_of_total_HGB <5.7 Above high normal Hemoglobin a1C [place] ([facility]) ID Date Data Source [id number] 01/22/[facility]21 09:47[facility] Name Value Range Interpretation Code Description Data Gillian rce(s) Supporting Document(s) Calcidiol [Mass/volume] in Serum or Plasma 21 NG/mL 30-100 Below low normal Vitamin D,25-Oh,total,ia [place] ([facility]) ID Date Data Source [id number] 01/22/2021 09:47:00 AM EDT [facility]) Name Value Range Interpretation Code Description Data Gillian rce(s) Supporting Document(s) Creatinine [Mass/volume] in Serum or Plasma 0.50 mg/dL 0.50-1.10 Creatinine [place] ([facility]) Glucose [Mass/volume] in Serum or Plasma 115 mg/dL 65-99 Above high normal Glucose [place] ([facility]) Urea nitrogen [Mass/volume] in Serum or Plasma 12 mg/dL 7-25 Urea Nitrogen (BUN) [place] ([facility]) Glomerular filtration rate/1.73 sq M.pre dicted among blacks [Volume Rate/Area] in Serum, Plasma or Blood by Creatinine-based formula (CKD-EPI) 135 mL/min/1.73m2 > or = 60 eGFR [place] ([facility]) Glomerular filtration rate/1.73 sq M.pre dicted among non-blacks [Volume Rate/Area] in Serum, Plasma or Blood by Creatinine-based formula (CKD-EPI) 116 mL/min/1.73m2 > or = 60 eGFR Non-afr. [place] ([facility]) Sodium [Moles/volume] in Serum or Plasma 138 mmol/L 135-146 Sodium [place] ([facility]) Urea nitrogen/Creatinine [Mass Ratio] in Serum or Plasma not applic able 6-22 [facility] Potassium [Moles/volume] in Serum or Plasma 3.9 mmol/L 3.5-5.3 Potassium [place] ([facility]) Chloride [Moles/volume] in Serum or Plasma 104 mmol/L 98-110 Chloride [facility]) Carbon dioxide, total [Moles/volume] in Serum or Plasma 24 mmol/L 20-32 Carbon Dioxide [place] ([facility]) Albumin [Mass/volume] in Serum or Plasma 3.9 g/dL 3.6-5.1 Albumin [place] ([facility]) Protein [Mass/volume] in Serum or Plasma 6.7 g/dL 6.1-8.1 [facility], [facility] Calcium [Mass/volume] in Serum or Plasma 9.1 mg/dL 8.6-10.2 Calcium [facility]) Globulin [Mass/volume] in Serum by calculation 2.8 g/dL_(calc) 1.9- 3.7 Globulin [place] ([facility]) Albumin/Globulin [Mass Ratio] in Serum or Plasma 1.4 (calc) 1.0-2 .5 Albumin/globulin Ratio [place] ([facility]) Alkaline phosphatase [Enzymatic activity/volume] in Serum or Plasma 74 U/L 31-125 Alkaline Phosphatase [facility]) Aspartate aminotransferase [Enzymatic activity/volume] in Serum or Plasma 19 U/L 10-35 Ast [place] ([facility]) Bilirubin.total [Mass/volume] in Serum or Plasma 0.3 mg/dL 0.2-1 .2 Bilirubin, Total [place] ([facility]) Alanine aminotransferase [Enzymatic activity/volume] in Seru m or Plasma 23 U/L 6-29 Alt [place] ([facility]) ID Date Data Source [id number] 01/22/2021 09:47:00 AM EDT [place] ([facility]) Name Value Range Interpretation Code Description Data Gillian rce(s) Supporting Document(s) Cholesterol [Mass/volume] in Serum or Plasma 149 mg/dL <200 Cholesterol, Total [place] ([facility]) Cholesterol in HDL [Mass/volume] in Serum or Plasma 44 mg/dL > or = 50 Below low normal HDL Cholesterol [place] ([facility]) Triglyceride [Mass/volume] in Serum or Plasma 271 mg/dL <150 Above high normal Triglycerides [place] ([facility]) Cholesterol non HDL [Mass/volume] in Serum or Plasma 105 mg/dL_(karina c) <130 Non HDL Cholesterol [place] ([facility]) Cholesterol in LDL [Mass/volume] in Serum or Plasma by calculation 69 mg/dL_(calc) <100 LDL-cholesterol [place] ([facility]) Cholesterol.total/Cholesterol in HDL [Mass Ratio] in Serum o r Plasma 3.4 calc <5.0 Chol/hdlc Ratio [place] ([facility]) ID Date Data Source [id number] 01/22/2021 09:47:00 AM EDT [place] ([facility]) Name Value Range Interpretation Code Description Data Gillian rce(s) Supporting Document(s) Hemoglobin A1c/Hemoglobin.total in Blood 6.2 %_of_total_HGB <5.7 Above high normal Hemoglobin a1C [place] ([facility]) ID Date Data Source [id number] 01/22/2021 09:47:00 AM EDT [place] ([facility]) Name Value Range Interpretation Code Description Data Gillian rce(s) Supporting Document(s) Calcidiol [Mass/volume] in Serum or Plasma 21 NG/mL 30-100 Below low normal Vitamin D,25-Oh,total,ia [place] ([facility]) ID Date Data Source [id number] 01/22/2021 09:47:00 AM EDT [facility]) Name Value Range Interpretation Code Description Data Gillian rce(s) Supporting Document(s) Glucose [Mass/volume] in Serum or Plasma 115 mg/dL 65-99 Above high normal Glucose [place] ([facility]) Urea nitrogen [Mass/volume] in Serum or Plasma 12 mg/dL 7-25 Urea Nitrogen (BUN) [facility]) Creatinine [Mass/volume] in Serum or Plasma 0.50 mg/dL 0.50-1.10 Creatinine [facility]) Glomerular filtration rate/1.73 sq M.pre dicted among non-blacks [Volume Rate/Area] in Serum, Plasma or Blood by Creatinine-based formula (CKD-EPI) 116 mL/min/1.73m2 > or = 60 eGFR Non-afr. [place] ([facility]) Urea nitrogen/Creatinine [Mass Ratio] in Serum or Plasma not applic able 6-22 BUN/creatinine Ratio [place] ([facility]) Glomerular filtration rate/1.73 sq M.pre dicted among blacks [Volume Rate/Area] in Serum, Plasma or Blood by Creatinine-based formula (CKD-EPI) 135 mL/min/1.73m2 > or = 60 eGFR [place] ([facility]) Sodium [Moles/volume] in Serum or Plasma 138 mmol/L 135-146 Sodium [place] ([facility]) Potassium [Moles/volume] in Serum or Plasma 3.9 mmol/L 3.5-5.3 Potassium [place] ([facility]) Calcium [Mass/volume] in Serum or Plasma 9.1 mg/dL 8.6-10.2 Calcium [place] ([facility]) Carbon dioxide, total [Moles/volume] in Serum or Plasma 24 mmol/L 20-32 Carbon Dioxide [place] ([facility]) Chloride [Moles/volume] in Serum or Plasma 104 mmol/L 98-110 Chloride [place] ([facility]) Protein [Mass/volume] in Serum or Plasma 6.7 g/dL 6.1-8.1 Protein, Total [place] ([facility]) Albumin [Mass/volume] in Serum or Plasma 3.9 g/dL 3.6-5.1 Albumin [place] ([facility]) Albumin/Globulin [Mass Ratio] in Serum or Plasma 1.4 (calc) 1.0-2 .5 Albumin/globulin Ratio [place] ([facility]) Globulin [Mass/volume] in Serum by calculation 2.8 g/dL_(calc) 1.9- 3.7 Globulin [place] ([facility]) Bilirubin.total [Mass/volume] in Serum or Plasma 0.3 mg/dL 0.2-1 .2 Bilirubin, Total [place] ([facility]) Alanine aminotransferase [Enzymatic activity/volume] in Seru m or Plasma 23 U/L 6-29 Alt [place] ([facility]) Alkaline phosphatase [Enzymatic activity/volume] in Serum or Plasma 74 U/L 31-125 Alkaline Phosphatase [place] ([facility]) Aspartate aminotransferase [Enzymatic activity/volume] in Serum or Plasma 19 U/L 10-35 Ast [place] ([facility]) ID Date Data Source [id number] 01/22/2021 09:47:00 AM EDT [place] ([facility]) Name Value Range Interpretation Code Description Data Gillian rce(s) Supporting Document(s) Cholesterol [Mass/volume] in Serum or Plasma 149 mg/dL <200 Cholesterol, Total [place] ([facility]) Cholesterol in HDL [Mass/volume] in Serum or Plasma 44 mg/dL > or = 50 Below low normal HDL Cholesterol [place] ([facility]) Triglyceride [Mass/volume] in Serum or Plasma 271 mg/dL <150 Above high normal Triglycerides [place] ([facility]) Cholesterol in LDL [Mass/volume] in Serum or Plasma by calculation 69 mg/dL_(calc) <100 LDL-cholesterol [place] ([facility]) Cholesterol.total/Cholesterol in HDL [Mass Ratio] in Serum o r Plasma 3.4 calc <5.0 Chol/hdlc Ratio [place] ([facility]) Cholesterol non HDL [Mass/volume] in Serum or Plasma 105 mg/dL_(karina c) <130 Non HDL Cholesterol [place] ([facility]) ID Date Data Source [id number] 01/22/2021 09:47:00 AM EDT [facility]) Name Value Range Interpretation Code Description Data Gillian rce(s) Supporting Document(s) Hemoglobin A1c/Hemoglobin.total in Blood 6.2 %_of_total_HGB <5.7 Above high normal Hemoglobin a1C [facility]) ID Date Data Source [id number] 01/22/2021 09:47:00 AM EDT [place] ([facility]) Name Value Range Interpretation Code Description Data Gillian rce(s) Supporting Document(s) Calcidiol [Mass/volume] in Serum or Plasma 21 NG/mL 30-100 Below low normal Vitamin D,25-Oh,total,ia [facility]) ID Date Data Source [id number] 01/22/2021 09:47:00 AM EDT [facility]) Name Value Range Interpretation Code Description Data Gillian rce(s) Supporting Document(s) Glucose [Mass/volume] in Serum or Plasma 115 mg/dL 65-99 Above high normal Glucose [place] ([facility]) Urea nitrogen [Mass/volume] in Serum or Plasma 12 mg/dL 7-25 Urea Nitrogen (BUN) [place] ([facility]) Creatinine [Mass/volume] in Serum or Plasma 0.50 mg/dL 0.50-1.10 Creatinine [place] ([facility]) Glomerular filtration rate/1.73 sq M.pre dicted among non-blacks [Volume Rate/Area] in Serum, Plasma or Blood by Creatinine-based formula (CKD-EPI) 116 mL/min/1.73m2 > or = 60 eGFR Non-afr. [place] ([facility]) Glomerular filtration rate/1.73 sq M.pre dicted among blacks [Volume Rate/Area] in Serum, Plasma or Blood by Creatinine-based formula (CKD-EPI) 135 mL/min/1.73m2 > or = 60 eGFR [place] ([facility]) Urea nitrogen/Creatinine [Mass Ratio] in Serum or Plasma not applic able 6-22 BUN/creatinine Ratio [place] ([facility]) Potassium [Moles/volume] in Serum or Plasma 3.9 mmol/L 3.5-5.3 Potassium [place] ([facility]) Sodium [Moles/volume] in Serum or Plasma 138 mmol/L 135-146 Sodium [place] ([facility]) Carbon dioxide, total [Moles/volume] in Serum or Plasma 24 mmol/L 20-32 Carbon Dioxide [place] ([facility]) Chloride [Moles/volume] in Serum or Plasma 104 mmol/L 98-110 Chloride [place] ([facility]) Protein [Mass/volume] in Serum or Plasma 6.7 g/dL 6.1-8.1 Protein, Total [place] ([facility]) Calcium [Mass/volume] in Serum or Plasma 9.1 mg/dL 8.6-10.2 Calcium [place] ([facility]) Albumin [Mass/volume] in Serum or Plasma 3.9 g/dL 3.6-5.1 Albumin [place] ([facility]) Albumin/Globulin [Mass Ratio] in Serum or Plasma 1.4 (calc) 1.0-2 .5 Albumin/globulin Ratio [place] ([facility]) Globulin [Mass/volume] in Serum by calculation 2.8 g/dL_(calc) 1.9- 3.7 Globulin [facility]) Bilirubin.total [Mass/volume] in Serum or Plasma 0.3 mg/dL 0.2-1 .2 Bilirubin, Total [place] ([facility]) Alkaline phosphatase [Enzymatic activity/volume] in Serum or Plasma 74 U/L 31-125 Alkaline Phosphatase [place] ([facility]) Aspartate aminotransferase [Enzymatic activity/volume] in Serum or Plasma 19 U/L 10-35 Ast [place] ([facility]) Alanine aminotransferase [Enzymatic activity/volume] in Seru m or Plasma 23 U/L 6-29 Alt [place] ([facility]) ID Date Data Source [id number] 01/22/2021 09:47:00 AM EDT [place] ([facility]) Name Value Range Interpretation Code Description Data Glilian rce(s) Supporting Document(s) Cholesterol in HDL [Mass/volume] in Serum or Plasma 44 mg/dL > or = 50 Below low normal HDL Cholesterol [place] ([facility]) Cholesterol [Mass/volume] in Serum or Plasma 149 mg/dL <200 Cholesterol, Total [place] ([facility]) Cholesterol in LDL [Mass/volume] in Serum or Plasma by calculation 69 mg/dL_(calc) <100 LDL-cholesterol [place] ([facility]) Triglyceride [Mass/volume] in Serum or Plasma 271 mg/dL <150 Above high normal Triglycerides [place] ([facility]) Cholesterol.total/Cholesterol in HDL [Mass Ratio] in Serum o r Plasma 3.4 calc <5.0 Chol/hdlc Ratio [place] ([facility]) Cholesterol non HDL [Mass/volume] in Serum or Plasma 105 mg/dL_(karina c) <130 Non HDL Cholesterol [place] ([facility]) ID Date Data Source [id number] 11/06/2020 12:45:00 AM EDT [place] ([facility]) Name Value Range Interpretation Code Description Data Gillian rce(s) Supporting Document(s) appearance, urine rfx hazy clear Appearance, Ur ine Rfx [place] ([facility]) color, urine rfx yellow yellow Color, Urine Rfx [place] ([facility]) specific gravity ur auto rfx 1.002-1.035 Specif ic [place] Ur Auto Rfx [place] ([facility]) pH,urine rfx 5.0 units 5.0-9.0 pH,urine Rfx [place] ([facility]) ketone, urine auto rfx trace negative Above high normal Ketone , Urine Auto Rfx [place] ([facility]) protein, urine auto rfx negative negative Protein, Uri ne Auto Rfx [place] ([facility]) glucose, urine (UA) auto rfx negative negative Glucose , Urine (UA) Auto Rfx [place] ([facility]) urobilinogen, urine auto rfx 0.2 mg/dL 0.0-2.0 Urobili nogen, Urine Auto Rfx [place] ([facility]) bilirubin, urine auto rfx negative negative Bilirubin, Urine Auto Rfx [place] ([facility]) nitrite, urine auto rfx negative negative Nitrite, Uri ne Auto Rfx [place] ([facility]) leukocyte esterase ur auto rfx negative negative Leukocyte Esterase Ur Auto Rfx [place] ([facility]) blood, urine blood rfx 1+ negative Above high normal Blood, Urine Blood Rfx [place] ([facility]) WBC, urine auto rfx 1 /hpf 0-3 WBC, Urine Auto Rfx [place] ([facility]) RBC, urine auto rfx 2 /hpf 0-3 RBC, Urine Auto Rfx [place] ([facility]) squam epithelial cell ur aurfx 1 /hpf 0-6 Squam Epithelial Cell Ur Aurfx [place] ([facility]) bacteria, urine auto rfx negative negative Bacteria, U rine Auto Rfx [place] ([facility]) hyaline cast, urine auto rfx 0 /lpf 0-1 Hyaline Cast, Urine Auto Rfx [place] ([facility]) mucus, urine rfx small negative Mucus, Urine Rfx AT [facility]) ID Date Data Source [id number] 11/06/2020 12:45:00 AM EDT [facility]) Name Value Range Interpretation Code Description Data Gillian rce(s) Supporting Document(s) appearance, urine rfx hazy clear Appearance, Ur ine Rfx [facility]) color, urine rfx yellow yellow Color, Urine Rfx AT [facility]) pH,urine rfx 5.0 units 5.0-9.0 pH,urine Rfx [place] ([facility]) protein, urine auto rfx negative negative Protein, Uri ne Auto Rfx [place] ([facility]) specific gravity ur auto rfx 1.002-1.035 Specif ic [place] Ur Auto Rfx [place] ([facility]) urobilinogen, urine auto rfx 0.2 mg/dL 0.0-2.0 Urobili nogen, Urine Auto Rfx [place] ([facility]) ketone, urine auto rfx trace negative Above high normal Ketone , Urine Auto Rfx [place] ([facility]) glucose, urine (UA) auto rfx negative negative Glucose , Urine (UA) Auto Rfx [place] ([facility]) nitrite, urine auto rfx negative negative Nitrite, Uri ne Auto Rfx [place] ([facility]) bilirubin, urine auto rfx negative negative Bilirubin, Urine Auto Rfx [place] ([facility]) WBC, urine auto rfx 1 /hpf 0-3 WBC, Urine Auto Rfx [place] ([facility]) blood, urine blood rfx 1+ negative Above high normal Blood, Urine Blood Rfx [place] ([facility]) leukocyte esterase ur auto rfx negative negative Leukocyte Esterase Ur Auto Rfx [place] ([facility]) RBC, urine auto rfx 2 /hpf 0-3 RBC, Urine Auto Rfx [place] ([facility]) bacteria, urine auto rfx negative negative Bacteria, U rine Auto Rfx [place] ([facility]) mucus, urine rfx small negative Mucus, Urine Rfx AT [facility]) squam epithelial cell ur aurfx 1 /hpf 0-6 Squam Epithelial Cell Ur Aurfx [place] ([facility]) hyaline cast, urine auto rfx 0 /lpf 0-1 Hyaline Cast, Urine Auto Rfx [facility]) ID Date Data Source [id number] 11/06/2020 12:45:00 AM EDT [place] ([facility]) Name Value Range Interpretation Code Description Data Gillian rce(s) Supporting Document(s) color, urine rfx yellow yellow Color, Urine Rfx AT [facility] ([facility]) appearance, urine rfx hazy clear Appearance, Ur ine Rfx [place] ([facility]) pH,urine rfx 5.0 units 5.0-9.0 pH,urine Rfx [place] [facility] specific gravity ur auto rfx 1.002-1.035 Specif ic [place] Ur Auto Rfx [place] ([facility]) glucose, urine (UA) auto rfx negative negative Glucose , Urine (UA) Auto Rfx [place] ([facility]) protein, urine auto rfx negative negative Protein, Uri ne Auto Rfx [place] ([facility]) ketone, urine auto rfx trace negative Above high normal Ketone , Urine Auto Rfx [place] ([facility]) urobilinogen, urine auto rfx 0.2 mg/dL 0.0-2.0 Urobili nogen, Urine Auto Rfx [place] ([facility]) bilirubin, urine auto rfx negative negative Bilirubin, Urine Auto Rfx [place] ([facility]) leukocyte esterase ur auto rfx negative negative Leukocyte Esterase Ur Auto Rfx [place] ([facility]) nitrite, urine auto rfx negative negative Nitrite, Uri ne Auto Rfx [place] ([facility]) blood, urine blood rfx 1+ negative Above high normal Blood, Urine Blood Rfx [place] ([facility]) WBC, urine auto rfx 1 /hpf 0-3 WBC, Urine Auto Rfx [place] ([facility]) RBC, urine auto rfx 2 /hpf 0-3 RBC, Urine Auto Rfx [place] ([facility]) squam epithelial cell ur aurfx 1 /hpf 0-6 Squam Epithelial Cell Ur Aurfx [place] ([facility]) bacteria, urine auto rfx negative negative Bacteria, U rine Auto Rfx [place] ([facility]) mucus, urine rfx small negative Mucus, Urine Rfx AT [facility] ([facility]) hyaline cast, urine auto rfx 0 /lpf 0-1 Hyaline Cast, Urine Auto Rfx [place] ([facility]) ID Date Data Source [id number] 11/06/2020 12:45:00 AM EDT [place] ([facility]) Name Value Range Interpretation Code Description Data Gillian rce(s) Supporting Document(s) appearance, urine rfx hazy clear Appearance, Ur ine Rfx [place] ([facility]) color, urine rfx yellow yellow Color, Urine Rfx AT [place] ([facility]) specific gravity ur auto rfx 1.002-1.035 Specif ic [place] Ur Auto Rfx [place] ([facility]) pH,urine rfx 5.0 units 5.0-9.0 pH,urine Rfx [place] ([facility]) glucose, urine (UA) auto rfx negative negative Glucose , Urine (UA) Auto Rfx [place] ([facility]) protein, urine auto rfx negative negative Protein, Uri ne Auto Rfx [place] ([facility]) urobilinogen, urine auto rfx 0.2 mg/dL 0.0-2.0 Urobili nogen, Urine Auto Rfx [place] ([facility]) ketone, urine auto rfx trace negative Above high normal Ketone , Urine Auto Rfx [place] ([facility]) bilirubin, urine auto rfx negative negative Bilirubin, Urine Auto Rfx [place] ([facility]) nitrite, urine auto rfx negative negative Nitrite, Uri ne Auto Rfx [place] ([facility]) leukocyte esterase ur auto rfx negative negative Leukocyte Esterase Ur Auto Rfx [place] ([facility]) blood, urine blood rfx 1+ negative Above high normal Blood, Urine Blood Rfx [place] ([facility]) WBC, urine auto rfx 1 /hpf 0-3 WBC, Urine Auto Rfx [place] ([facility]) squam epithelial cell ur aurfx 1 /hpf 0-6 Squam Epithelial Cell Ur Aurfx [place] ([facility]) bacteria, urine auto rfx negative negative Bacteria, U rine Auto Rfx [place] ([facility]) RBC, urine auto rfx 2 /hpf 0-3 RBC, Urine Auto Rfx [place] ([facility]) hyaline cast, urine auto rfx 0 /lpf 0-1 Hyaline Cast, Urine Auto Rfx [place] ([facility]) mucus, urine rfx small negative Mucus, Urine Rfx AT [facility] ([facility]) ID Date Data Source [id number] 11/05/2020 10:19:00 PM EDT [place] ([facility]) Name Value Range Interpretation Code Description Data Gillian rce(s) Supporting Document(s) lipase 110 U/L 73-393 Lipase [place] ([facility]) ID Date Data Source [id number] 11/05/2020 10:19:00 PM EDT [place] ([facility]) Name Value Range Interpretation Code Description Data Gillian rce(s) Supporting Document(s) ALT/SGPT 27 U/L 12-78 ALT/SGPT [place] ([facility]) AST/SGOT 18 U/L 7-37 AST/SGOT [place] ([facility]) bilirubin,direct < 0.1 0.0-0.2 Bilirubin,direct AT [facility] ([facility]) alkaline phosphatase 101 U/L 45-117 Alkaline Phosph atase [place] ([facility]) bilirubin,total 0.2 mg/dL 0.2-1.0 Bilirubin,total [place] ([facility]) total protein 8.0 gm/dL 6.4-8.2 Total Protein [place] ( [facility]) albumin/globulin ratio 1.2-2.2 Below low normal Albumin /globulin Ratio [place] ([facility]) albumin 3.8 gm/dL 3.2-5.2 Albumin [place] ([facility]) ID Date Data Source [id number] 11/05/2020 10:19:00 PM EDT [place] ([facility]) Name Value Range Interpretation Code Description Data Gillian rce(s) Supporting Document(s) white blood count 10.5 10 4.0-10.0 Above high normal White Blood Count [place] ([facility]) hematocrit 44.2 % 36.0-47.0 Hematocrit [place] ([facility]) hemoglobin 14.0 g/dL 12.0-15.5 Hemoglobin [place] ([facility]) red blood count 5.33 10 4.00-5.40 Red Blood Count [place] ([facility]) mean corpuscular volume 82.9 fL 80.0-96.0 Mean Corpusc ular Volume [place] ([facility]) mean corpuscular hemoglobin 26.3 pg 27.0-33.0 Below low nor mal Mean Corpuscular Hemoglobin [place] ([facility]) mean corpuscular HGB conc 31.7 g/dL 32.0-36.5 Below low antwon l Mean Corpuscular HGB Conc [place] ([facility]) platelet count, automated 375 10 150-450 Platelet C ount, Automated [place] ([facility]) red cell distribution width 14.7 % 11.5-14.5 Above high no rmal Red Cell Distribution Width [place] ([facility]) neutrophils % 69.5 % 36.0-66.0 Above high normal Neutrophils % A [place] ([facility]) mono % 7.3 % 2.0-8.0 [place] % [place] ([facility]) lymph % 20.2 % 24.0-44.0 Below low normal Lymph % [place] ( [facility]) baso % 0.6 % 0.0-1.0 Baso % [place] ([facility]) eos % 1.8 % 0.0-3.0 Eos % [place] ([facility]) immature granulocyte % 0.6 % 0-3.0 Immature Gran ulocyte % [place] ([facility]) neutrophils # 7.3 10 1.5-8.5 Neutrophils # [place] ( [facility]) nucleated red blood cell % 0.0 % 0-0 Nucleated Red Blood Cell % [place] ([facility]) lymph # 2.1 10 1.5-5.0 Lymph # [place] ([facility]) baso # 0.1 10 0.0-0.2 Baso # [place] ([facility]) mono # 0.8 10 0.0-0.8 [place] # [place] ([facility]) eos # 0.2 10 0.0-0.5 Eos # [place] ([facility]) ID Date Data Source [id number] 11/05/2020 10:19:00 PM EDT [place] ([facility]) Name Value Range Interpretation Code Description Data Gillian rce(s) Supporting Document(s) lipase 110 U/L 73-393 Lipase [place] ([facility]) ID Date Data Source [id number] 11/05/2020 10:19:00 PM EDT [place] ([facility]) Name Value Range Interpretation Code Description Data Gillian rce(s) Supporting Document(s) alkaline phosphatase 101 U/L 45-117 Alkaline Phosph atase [place] ([facility]) AST/SGOT 18 U/L 7-37 AST/SGOT [place] ([facility]) ALT/SGPT 27 U/L 12-78 ALT/SGPT [place] ([facility]) bilirubin,total 0.2 mg/dL 0.2-1.0 Bilirubin,total [place] ([facility]) bilirubin,direct < 0.1 0.0-0.2 Bilirubin,direct AT [place] ([facility]) total protein 8.0 gm/dL 6.4-8.2 Total Protein [place] ( [facility]) albumin 3.8 gm/dL 3.2-5.2 Albumin [place] ([facility]) albumin/globulin ratio 1.2-2.2 Below low normal Albumin /globulin Ratio [place] ([facility]) ID Date Data Source [id number] 11/05/2020 10:19:00 PM EDT [place] ([facility]) Name Value Range Interpretation Code Description Data Gillian rce(s) Supporting Document(s) white blood count 10.5 10 4.0-10.0 Above high normal White Blood Count [place] ([facility]) hemoglobin 14.0 g/dL 12.0-15.5 Hemoglobin [place] ([facility]) red blood count 5.33 10 4.00-5.40 Red Blood Count [place] ([facility]) hematocrit 44.2 % 36.0-47.0 Hematocrit [place] ([facility]) mean corpuscular hemoglobin 26.3 pg 27.0-33.0 Below low nor mal Mean Corpuscular Hemoglobin [place] ([facility]) mean corpuscular HGB conc 31.7 g/dL 32.0-36.5 Below low antwon l Mean Corpuscular HGB Conc [place] ([facility]) mean corpuscular volume 82.9 fL 80.0-96.0 Mean Corpusc ular Volume [place] ([facility]) red cell distribution width 14.7 % 11.5-14.5 Above high no rmal Red Cell Distribution Width [place] ([facility]) platelet count, automated 375 10 150-450 Platelet C ount, Automated [place] ([facility]) lymph % 20.2 % 24.0-44.0 Below low normal Lymph % [place] ( [facility]) neutrophils % 69.5 % 36.0-66.0 Above high normal Neutrophils % A [place] ([facility]) eos % 1.8 % 0.0-3.0 Eos % [place] ([facility]) mono % 7.3 % 2.0-8.0 [place] % [place] ([facility]) nucleated red blood cell % 0.0 % 0-0 Nucleated Red Blood Cell % [place] ([facility]) immature granulocyte % 0.6 % 0-3.0 Immature Gran ulocyte % [place] ([facility]) baso % 0.6 % 0.0-1.0 Baso % [place] ([facility]) neutrophils # 7.3 10 1.5-8.5 Neutrophils # [place] ( [facility]) mono # 0.8 10 0.0-0.8 [place] # [place] ([facility]) lymph # 2.1 10 1.5-5.0 Lymph # [place] ([facility]) eos # 0.2 10 0.0-0.5 Eos # [place] ([facility]) baso # 0.1 10 0.0-0.2 Baso # [place] ([facility]) ID Date Data Source [id number] 11/05/2020 10:19:00 PM EDT [place] ([facility]) Name Value Range Interpretation Code Description Data Gillian rce(s) Supporting Document(s) lipase 110 U/L 73-393 Lipase [place] ([facility]) ID Date Data Source [id number] 11/05/2020 10:19:00 PM EDT [place] ([facility]) Name Value Range Interpretation Code Description Data Gillian rce(s) Supporting Document(s) AST/SGOT 18 U/L 7-37 AST/SGOT [place] ([facility]) ALT/SGPT 27 U/L 12-78 ALT/SGPT [place] ([facility]) alkaline phosphatase 101 U/L 45-117 Alkaline Phosph atase [place] ([facility]) bilirubin,direct < 0.1 0.0-0.2 Bilirubin,direct AT [place] ([facility]) bilirubin,total 0.2 mg/dL 0.2-1.0 Bilirubin,total [place] ([facility]) albumin 3.8 gm/dL 3.2-5.2 Albumin [place] ([facility]) total protein 8.0 gm/dL 6.4-8.2 Total Protein [place] ( [facility]) albumin/globulin ratio 1.2-2.2 Below low normal Albumin /globulin Ratio [place] ([facility]) ID Date Data Source [id number] 11/05/2020 10:19:00 PM EDT [place] ([facility]) Name Value Range Interpretation Code Description Data Gillian rce(s) Supporting Document(s) white blood count 10.5 10 4.0-10.0 Above high normal White Blood Count [place] ([facility]) red blood count 5.33 10 4.00-5.40 Red Blood Count [place] ([facility]) hemoglobin 14.0 g/dL 12.0-15.5 Hemoglobin [place] ([facility]) hematocrit 44.2 % 36.0-47.0 Hematocrit [place] ([facility]) mean corpuscular HGB conc 31.7 g/dL 32.0-36.5 Below low antwon l Mean Corpuscular HGB Conc [place] ([facility]) mean corpuscular hemoglobin 26.3 pg 27.0-33.0 Below low nor mal Mean Corpuscular Hemoglobin [place] ([facility]) mean corpuscular volume 82.9 fL 80.0-96.0 Mean Corpusc ular Volume [place] ([facility]) platelet count, automated 375 10 150-450 Platelet C ount, Automated [place] ([facility]) red cell distribution width 14.7 % 11.5-14.5 Above high no rmal Red Cell Distribution Width [place] ([facility]) neutrophils % 69.5 % 36.0-66.0 Above high normal Neutrophils % A [place] ([facility]) eos % 1.8 % 0.0-3.0 Eos % [place] ([facility]) lymph % 20.2 % 24.0-44.0 Below low normal Lymph % [place] ( [facility]) mono % 7.3 % 2.0-8.0 [place] % [place] ([facility]) baso % 0.6 % 0.0-1.0 Baso % [place] ([facility]) immature granulocyte % 0.6 % 0-3.0 Immature Gran ulocyte % [place] ([facility]) nucleated red blood cell % 0.0 % 0-0 Nucleated Red Blood Cell % [place] ([facility]) lymph # 2.1 10 1.5-5.0 Lymph # [place] ([facility]) neutrophils # 7.3 10 1.5-8.5 Neutrophils # [place] ( [facility]) eos # 0.2 10 0.0-0.5 Eos # [place] ([facility]) mono # 0.8 10 0.0-0.8 [place] # [place] ([facility]) baso # 0.1 10 0.0-0.2 Baso # [place] ([facility]) ID Date Data Source [id number] 11/05/2020 10:19:00 PM EDT [place] ([facility]) Name Value Range Interpretation Code Description Data Gillian rce(s) Supporting Document(s) lipase 110 U/L 73-393 Lipase [place] ([facility]) ID Date Data Source [id number] 11/05/2020 10:19:00 PM EDT [place] ([facility]) Name Value Range Interpretation Code Description Data Gillian rce(s) Supporting Document(s) AST/SGOT 18 U/L 7-37 AST/SGOT [place] ([facility]) ALT/SGPT 27 U/L 12-78 ALT/SGPT [place] ([facility]) alkaline phosphatase 101 U/L 45-117 Alkaline Phosph atase [place] ([facility]) bilirubin,direct < 0.1 0.0-0.2 Bilirubin,direct AT [place] ([facility]) bilirubin,total 0.2 mg/dL 0.2-1.0 Bilirubin,total [facility] [place] ([facility]) albumin 3.8 gm/dL 3.2-5.2 Albumin [place] ([facility]) total protein 8.0 gm/dL 6.4-8.2 Total Protein [place] ( [facility]) albumin/globulin ratio 1.2-2.2 Below low normal Albumin /globulin Ratio [place] ([facility]) ID Date Data Source [id number] 11/05/2020 10:19:00 PM EDT [place] ([facility]) Name Value Range Interpretation Code Description Data Gillian rce(s) Supporting Document(s) white blood count 10.5 10 4.0-10.0 Above high normal White Blood Count [place] ([facility]) red blood count 5.33 10 4.00-5.40 Red Blood Count [place] ([facility]) hemoglobin 14.0 g/dL 12.0-15.5 Hemoglobin [place] ([facility]) hematocrit 44.2 % 36.0-47.0 Hematocrit [place] ([facility]) mean corpuscular volume 82.9 fL 80.0-96.0 Mean Corpusc ular Volume [place] ([facility]) red cell distribution width 14.7 % 11.5-14.5 Above high no rmal Red Cell Distribution Width [place] ([facility]) mean corpuscular HGB conc 31.7 g/dL 32.0-36.5 Below low antwon l Mean Corpuscular HGB Conc [place] ([facility]) mean corpuscular hemoglobin 26.3 pg 27.0-33.0 Below low nor mal Mean Corpuscular Hemoglobin [place] ([facility]) platelet count, automated 375 10 150-450 Platelet C ount, Automated [place] ([facility]) neutrophils % 69.5 % 36.0-66.0 Above high normal Neutrophils % A [place] ([facility]) eos % 1.8 % 0.0-3.0 Eos % [place] ([facility]) lymph % 20.2 % 24.0-44.0 Below low normal Lymph % [place] ( [facility]) mono % 7.3 % 2.0-8.0 [place] % [place] ([facility]) nucleated red blood cell % 0.0 % 0-0 Nucleated Red Blood Cell % [place] ([facility]) immature granulocyte % 0.6 % 0-3.0 Immature Gran ulocyte % [place] ([facility]) baso % 0.6 % 0.0-1.0 Baso % [place] ([facility]) lymph # 2.1 10 1.5-5.0 Lymph # [place] ([facility]) neutrophils # 7.3 10 1.5-8.5 Neutrophils # [place] ( [facility]) eos # 0.2 10 0.0-0.5 Eos # [place] ([facility]) mono # 0.8 10 0.0-0.8 [place] # [place] ([facility]) baso # 0.1 10 0.0-0.2 Baso # [place] ([facility]) ID Date Data Source [id number] 11/05/2020 10:18:00 PM EDT [place] ([facility]) Name Value Range Interpretation Code Description Data Gillian rce(s) Supporting Document(s) istat B-HCG < 5.0 Istat B-HCG [place] ([facility]) ID Date Data Source [id number] 11/05/2020 10:18:00 PM EDT [place] ([facility]) Name Value Range Interpretation Code Description Data Gillian rce(s) Supporting Document(s) istat B-HCG < 5.0 Istat B-HCG [place] ([facility]) ID Date Data Source [id number] 11/05/2020 10:18:00 PM EDT [place] ([facility]) Name Value Range Interpretation Code Description Data Gillian rce(s) Supporting Document(s) istat B-HCG < 5.0 Istat B-HCG [place] ([facility]) ID Date Data Source [id number] 11/05/2020 10:18:00 PM EDT [place] ([facility]) Name Value Range Interpretation Code Description Data Gillian rce(s) Supporting Document(s) istat B-HCG < 5.0 Istat B-HCG [place] ([facility]) ID Date Data Source [id number] 11/05/2020 10:11:00 PM EDT [place] ([facility]) Name Value Range Interpretation Code Description Data Gillian rce(s) Supporting Document(s) istat glucose 109 mg/dL 70-105 Above high normal Istat Glucose A [place] ([facility]) istat HCT 43.0 % 38.0-51.0 Istat HCT [place] ([facility]) istat sodium 140 mEq/L 136-145 Istat Sodium [place] ([facility]) istat Ca++ 4.9 mg/dL 4.5-5.3 Istat Ca++ [place] ([facility]) istat chloride 102 mEq/L 98-109 Istat Chloride [place] ([facility]) istat potassium 4.0 mEq/L 3.5-5.1 Istat Potassium [facility] [place] ([facility]) istat creatinine 0.5 mg/dL 0.6-1.3 Below low normal Istat Creatin ine [place] ([facility]) istat CO2 28.0 mm/L 23.0-27.0 Above high normal Istat CO2 [place] ([facility]) istat BUN 9 mg/dL 8-26 Istat BUN [place] ([facility]) ID Date Data Source [id number] 11/05/2020 10:11[facility] Value Range Interpretation Code Description Data Gillian rce(s) Supporting Document(s) istat HCT 43.0 % 38.0-51.0 Istat HCT [place] ([facility]) istat glucose 109 mg/dL 70-105 Above high normal Istat Glucose A [facility] ([facility]) istat potassium 4.0 mEq/L 3.5-5.1 Istat Potassium [place] ([facility]) istat Ca++ 4.9 mg/dL 4.5-5.3 Istat Ca++ [place] ([facility]) istat sodium 140 mEq/L 136-145 Istat Sodium [place] ([facility]) istat BUN 9 mg/dL 8-26 Istat BUN [place] ([facility]) istat chloride 102 mEq/L 98-109 Istat Chloride [place] ([facility]) istat CO2 28.0 mm/L 23.0-27.0 Above high normal Istat CO2 [place] ([facility]) istat creatinine 0.5 mg/dL 0.6-1.3 Below low normal Istat Creatin ine [place] ([facility]) ID Date Data Source [id number] 11/05/2020 10:11:00 PM [facility] Name Value Range Interpretation Code Description Data Gillian rce(s) Supporting Document(s) istat HCT 43.0 % 38.0-51.0 Istat HCT [place] ([facility]) istat glucose 109 mg/dL 70-105 Above high normal Istat Glucose A [facility] ([facility]) istat Ca++ 4.9 mg/dL 4.5-5.3 Istat Ca++ [place] ([facility]) istat sodium 140 mEq/L 136-145 Istat Sodium [place] ([facility]) istat potassium 4.0 mEq/L 3.5-5.1 Istat Potassium [facility] [place] ([facility]) istat BUN 9 mg/dL 8-26 Istat BUN [place] ([facility]) istat CO2 28.0 mm/L 23.0-27.0 Above high normal Istat CO2 [place] ([facility]) istat chloride 102 mEq/L 98-109 Istat Chloride [place] ([facility]) istat creatinine 0.5 mg/dL 0.6-1.3 Below low normal Istat Creatin ine [place] ([facility]) ID Date Data Source [id number] 11/05/2020 10:11:00 PM EDT [place] ([facility]) Name Value Range Interpretation Code Description Data Gillian rce(s) Supporting Document(s) istat HCT 43.0 % 38.0-51.0 Istat HCT [place] ([facility]) istat potassium 4.0 mEq/L 3.5-5.1 Istat Potassium [facility] ([facility]) istat sodium 140 mEq/L 136-145 Istat Sodium [place] ([facility]) istat glucose 109 mg/dL 70-105 Above high normal Istat Glucose A [facility] ([facility]) istat chloride 102 mEq/L 98-109 Istat Chloride [place] ([facility]) istat Ca++ 4.9 mg/dL 4.5-5.3 Istat Ca++ [place] ([facility]) istat CO2 28.0 mm/L 23.0-27.0 Above high normal Istat CO2 [place] ([facility]) istat creatinine 0.5 mg/dL 0.6-1.3 Below low normal Istat Creatin ine [place] ([facility]) istat BUN 9 mg/dL 8-26 Istat BUN [place] ([facility]) ID Date Data Source [id number] 07/10/2020 09:14:00 AM EST [place] ([facility]) Name Value Range Interpretation Code Description Data Gillian rce(s) Supporting Document(s) Hemoglobin A1c/Hemoglobin.total in Blood 6.0 % Hemoglobin a1C [place] ([facility]) estimated average glucose 126 mg/dL 60-110 Above high norm al Estimated Average Glucose [facility] ([facility]) ID Date Data Source [id number] 07/10/2020 09:14:00 AM EST [place] ([facility]) Name Value Range Interpretation Code Description Data Gillian rce(s) Supporting Document(s) ferritin 24 NG/mL 8-252 Ferritin [place] ([facility]) ID Date Data Source [id number] 07/10/2020 09:14:00 AM EST [place] ([facility]) Name Value Range Interpretation Code Description Data Gillian rce(s) Supporting Document(s) total 25(oh) vitamin D 21.1 NG/mL 30.0-100.0 Below low normal T otal 25(Oh) Vitamin D [place] ([facility]) ID Date Data Source [id number] 07/10/2020 09:14:00 AM EST [place] ([facility]) Name Value Range Interpretation Code Description Data Gillian rce(s) Supporting Document(s) iron (fe) 56 ug/dL 50-170 Iron (Fe) [facility] ([facility]) total iron binding capacity 412 ug/dL 250-450 Total Ir on Binding Capacity [facility] ([facility]) percent saturation 13.6 % 13.2-45.0 Percent Saturatio n [facility] ([facility]) ID Date Data Source [id number] 07/10/2020 09:14:00 AM EST [facility] ([facility]) Name Value Range Interpretation Code Description Data Gillian rce(s) Supporting Document(s) triglycerides level 179 mg/dL <150 Above high normal Triglycer ides Level [facility] ([facility]) cholesterol level 166 mg/dL <200 Cholesterol Level [facility] ([facility]) non-HDL-C 118 mg/dL Non-hdl-c [facility] ([facility]) cholesterol risk ratio <5 Cholesterol R isk Ratio [facility] ([facility]) HDL cholesterol 48 mg/dL >40 HDL Cholesterol ATHE NA ([facility]) Cholesterol in LDL [Mass/volume] in Serum or Plasma 82 mg/dL <1 00 LDL Cholesterol [facility] ([facility]) ID Date Data Source [id number] 07/10/2020 [facility] Name Value Range Interpretation Code Description Data Gillian rce(s) Supporting Document(s) creatinine for GFR 0.64 mg/dL 0.55-1.30 Creatinine for GF R [facility] ([facility]) glomerular filtration rate > 60.0 >58 Glomerula r Filtration Rate [facility] ([facility]) glucose, fasting 115 mg/dL 70-100 Above high normal Glucose, Fas ting [facility] ([facility]) blood urea nitrogen 11 mg/dL 7-18 Blood Urea Nitro gen [facility] ([facility]) carbon dioxide level 27 mEq/L 21-32 Carbon Dioxide Level [facility] ([facility]) sodium level 140 mEq/L 136-145 Sodium Level [facility] ([facility]) chloride level 108 mEq/L 98-107 Above high normal Chloride Level [facility] ([facility]) potassium serum 4.1 mEq/L 3.5-5.1 Potassium Serum ATHE ([facility]) alkaline phosphatase 84 U/L 45-117 Alkaline Phosph atase [facility] ([facility]) anion gap 5 mEq/L 8-16 Below low normal Anion Gap [facility] ( [facility]) ALT/SGPT 22 U/L 12-78 ALT/SGPT [facility] ([facility]) AST/SGOT 10 U/L 7-37 AST/SGOT [facility] ([facility]) calcium level 8.9 mg/dL 8.5-10.1 Calcium Level [facility] ( [facility]) bilirubin,total 0.2 mg/dL 0.2-1.0 Bilirubin,total ATHE ([facility]) total protein 7.0 gm/dL 6.4-8.2 Total Protein [facility] ( [facility]) albumin/globulin ratio 1.2-2.2 Below low normal Albumin /globulin Ratio [facility] ([facility]) albumin 3.4 gm/dL 3.2-5.2 Albumin [facility] ([facility]) ID Date Data Source [id number] 07/10/2020 09:14:00 AM EST [facility] ([facility]) Name Value Range Interpretation Code Description Data Gillian rce(s) Supporting Document(s) white blood count 8.1 10 4.0-10.0 White Blood Count [facility] ([facility]) red blood count 4.77 10 4.00-5.40 Red Blood Count ATHE NA ([facility]) hematocrit 40.4 % 36.0-47.0 Hematocrit [facility] ([facility]) mean corpuscular hemoglobin 27.0 pg 27.0-33.0 Mean Cor puscular Hemoglobin [facility] ([facility]) mean corpuscular volume 84.7 fL 80.0-96.0 Mean Corpusc ular Volume [facility] ([facility]) hemoglobin 12.9 g/dL 12.0-15.5 Hemoglobin [facility] ([facility]) red cell distribution width 13.2 % 11.5-14.5 Red Cell Distribution Width [facility] ([facility]) platelet count, automated 351 10 150-450 Platelet C ount, Automated [facility] ([facility]) mean corpuscular HGB conc 31.9 g/dL 32.0-36.5 Below low antwon l Mean Corpuscular HGB Conc [facility] ([facility]) eos % 2.1 % 0.0-3.0 Eos % [facility] ([facility]) neutrophils % 65.5 % 36.0-66.0 Neutrophils % [facility] ( [facility]) lymph % 24.0 % 24.0-44.0 Lymph % [facility] ([facility]) mono % 7.6 % 0.0-5.0 Above high normal [place] % [facility] ([facility]) baso % 0.4 % 0.0-1.0 Baso % [facility] ([facility]) neutrophils # 5.3 10 1.5-8.5 Neutrophils # [facility] ( [facility]) nucleated red blood cell % 0.0 % 0-0 Nucleated Red Blood Cell % [facility] ([facility]) immature granulocyte % 0.4 % 0-3.0 Immature Gran ulocyte % [facility] ([facility]) lymph # 1.9 10 1.5-5.0 Lymph # [facility] ([facility]) baso # 0.0 10 0.0-0.2 Baso # [facility] ([facility]) mono # 0.6 10 0.0-0.8 [place] # [facility] ([facility]) eos # 0.2 10 0.0-0.5 Eos # [facility] ([facility]) ID Date Data Source [id number] 07/10/2020 09:14:00 AM EST [facility] ([facility]) Name Value Range Interpretation Code Description Data Gillian rce(s) Supporting Document(s) estimated average glucose 126 mg/dL 60-110 Above high norm al Estimated Average Glucose [facility] ([facility]) Hemoglobin A1c/Hemoglobin.total in Blood 6.0 % Hemoglobin a1C [facility] ([facility]) ID Date Data Source [id number] 07/10/2020 09:14:00 AM EST [facility] ([facility]) Name Value Range Interpretation Code Description Data Gillian rce(s) Supporting Document(s) ferritin 24 NG/mL 8-252 Ferritin [facility] ([facility]) ID Date Data Source [id number] 07/10/2020 09:14:00 AM EST [facility] ([facility]) Name Value Range Interpretation Code Description Data Gillian rce(s) Supporting Document(s) total 25(oh) vitamin D 21.1 NG/mL 30.0-100.0 Below low normal T otal 25(Oh) Vitamin D [facility] ([facility]) ID Date Data Source [id number] 07/10/2020 09:14:00 AM EST [facility] ([facility]) Name Value Range Interpretation Code Description Data Gillian rce(s) Supporting Document(s) iron (fe) 56 ug/dL 50-170 Iron (Fe) [facility] ([facility]) total iron binding capacity 412 ug/dL 250-450 Total Ir on Binding Capacity [facility] ([facility]) percent saturation 13.6 % 13.2-45.0 Percent Saturatio n [facility] ([facility]) ID Date Data Source [id number] 07/10/2020 09:14:00 AM EST [place] ([facility]) Name Value Range Interpretation Code Description Data Gillian rce(s) Supporting Document(s) triglycerides level 179 mg/dL <150 Above high normal Triglycer ides Level [facility] ([facility]) Cholesterol in LDL [Mass/volume] in Serum or Plasma 82 mg/dL <1 00 LDL Cholesterol [facility] ([facility]) non-HDL-C 118 mg/dL Non-hdl-c [facility] ([facility]) cholesterol risk ratio <5 Cholesterol R isk Ratio [facility] ([facility]) HDL cholesterol 48 mg/dL >40 HDL Cholesterol ATHE ([facility]) cholesterol level 166 mg/dL <200 Cholesterol Level [place] ([facility]) ID Date Data Source [id number] 07/10/2020 09:14:00 AM EST [facility] ([facility]) Name Value Range Interpretation Code Description Data Gillian rce(s) Supporting Document(s) glucose, fasting 115 mg/dL 70-100 Above high normal Glucose, Fas ting [place] ([facility]) creatinine for GFR 0.64 mg/dL 0.55-1.30 Creatinine for GF R [place] ([facility]) blood urea nitrogen 11 mg/dL 7-18 Blood Urea Nitro gen [facility] ([facility]) sodium level 140 mEq/L 136-145 Sodium Level [facility] ([facility]) glomerular filtration rate > 60.0 >58 Glomerula r Filtration Rate [facility] ([facility]) chloride level 108 mEq/L 98-107 Above high normal Chloride Level [facility] ([facility]) carbon dioxide level 27 mEq/L 21-32 Carbon Dioxide Level [facility] ([facility]) potassium serum 4.1 mEq/L 3.5-5.1 Potassium Serum ATHE NA ([facility]) anion gap 5 mEq/L 8-16 Below low normal Anion Gap [facility] ( [facility]) alkaline phosphatase 84 U/L 45-117 Alkaline Phosph atase [facility] ([facility]) ALT/SGPT 22 U/L 12-78 ALT/SGPT [facility] ([facility]) AST/SGOT 10 U/L 7-37 AST/SGOT [facility] ([facility]) calcium level 8.9 mg/dL 8.5-10.1 Calcium Level [facility] ( [facility]) albumin/globulin ratio 1.2-2.2 Below low normal Albumin /globulin Ratio [facility] ([facility]) total protein 7.0 gm/dL 6.4-8.2 Total Protein [facility] ( [facility]) bilirubin,total 0.2 mg/dL 0.2-1.0 Bilirubin,total ATHE NA ([facility]) albumin 3.4 gm/dL 3.2-5.2 Albumin [facility] ([facility]) ID Date Data Source [id number] 07/10/2020 09:14:00 AM EST [facility] ([facility]) Name Value Range Interpretation Code Description Data Gillian rce(s) Supporting Document(s) white blood count 8.1 10 4.0-10.0 White Blood Count [facility] ([facility]) red blood count 4.77 10 4.00-5.40 Red Blood Count ATHE NA ([facility]) hemoglobin 12.9 g/dL 12.0-15.5 Hemoglobin [facility] ([facility]) hematocrit 40.4 % 36.0-47.0 Hematocrit [facility] ([facility]) mean corpuscular volume 84.7 fL 80.0-96.0 Mean Corpusc ular Volume [facility] ([facility]) mean corpuscular HGB conc 31.9 g/dL 32.0-36.5 Below low antwon l Mean Corpuscular HGB Conc [facility] ([facility]) mean corpuscular hemoglobin 27.0 pg 27.0-33.0 Mean Cor puscular Hemoglobin [facility] ([facility]) red cell distribution width 13.2 % 11.5-14.5 Red Cell Distribution Width [facility] ([facility]) lymph % 24.0 % 24.0-44.0 Lymph % [facility] ([facility]) neutrophils % 65.5 % 36.0-66.0 Neutrophils % [facility] ( [facility]) platelet count, automated 351 10 150-450 Platelet C ount, Automated [facility] ([facility]) mono % 7.6 % 0.0-5.0 Above high normal [place] % [facility] ([facility]) eos % 2.1 % 0.0-3.0 Eos % [facility] ([facility]) baso % 0.4 % 0.0-1.0 Baso % [facility] ([facility]) immature granulocyte % 0.4 % 0-3.0 Immature Gran ulocyte % [facility] ([facility]) neutrophils # 5.3 10 1.5-8.5 Neutrophils # [facility] ( [facility]) lymph # 1.9 10 1.5-5.0 Lymph # [facility] ([facility]) mono # 0.6 10 0.0-0.8 [place] # [facility] ([facility]) nucleated red blood cell % 0.0 % 0-0 Nucleated Red Blood Cell % [facility] ([facility]) eos # 0.2 10 0.0-0.5 Eos # [facility] ([facility]) baso # 0.0 10 0.0-0.2 Baso # [facility] ([facility]) ID Date Data Source [id number] 07/10/2020 09:14:00 AM EST [facility] ([facility]) Name Value Range Interpretation Code Description Data Gillian rce(s) Supporting Document(s) Hemoglobin A1c/Hemoglobin.total in Blood 6.0 % Hemoglobin a1C [facility] ([facility]) estimated average glucose 126 mg/dL 60-110 Above high norm al Estimated Average Glucose [place] ([facility]) ID Date Data Source [id number] 07/10/2020 09:14:00 AM EST [facility] ([facility]) Name Value Range Interpretation Code Description Data Gillian rce(s) Supporting Document(s) ferritin 24 NG/mL 8-252 Ferritin [facility] ([facility]) ID Date Data Source [id number] 07/10/2020 09:14:00 AM EST [facility] ([facility]) Name Value Range Interpretation Code Description Data Gillian rce(s) Supporting Document(s) total 25(oh) vitamin D 21.1 NG/mL 30.0-100.0 Below low normal T otal 25(Oh) Vitamin D [facility] ([facility]) ID Date Data Source [id number] 07/10/2020 09:14:00 AM EST [facility] ([facility]) Name Value Range Interpretation Code Description Data Gillian rce(s) Supporting Document(s) total iron binding capacity 412 ug/dL 250-450 Total Ir on Binding Capacity [facility] ([facility]) iron (fe) 56 ug/dL 50-170 Iron (Fe) [facility] ([facility]) percent saturation 13.6 % 13.2-45.0 Percent Saturatio n [facility] ([facility]) ID Date Data Source [id number] 07/10/2020 09:14:00 AM EST [facility] ([facility]) Name Value Range Interpretation Code Description Data Gillian rce(s) Supporting Document(s) triglycerides level 179 mg/dL <150 Above high normal Triglycer ides Level [facility] ([facility]) cholesterol level 166 mg/dL <200 Cholesterol Level [facility] ([facility]) Cholesterol in LDL [Mass/volume] in Serum or Plasma 82 mg/dL <1 00 LDL Cholesterol [facility] ([facility]) HDL cholesterol 48 mg/dL >40 HDL Cholesterol ATHE NA ([facility]) cholesterol risk ratio <5 Cholesterol R isk Ratio [facility] ([facility]) non-HDL-C 118 mg/dL Non-hdl-c [facility] ([facility]) ID Date Data Source [id number] 07/10/2020 09:14:00 AM EST [facility] ([facility]) Name Value Range Interpretation Code Description Data Gillian rce(s) Supporting Document(s) glucose, fasting 115 mg/dL 70-100 Above high normal Glucose, Fas ting [facility] ([facility]) blood urea nitrogen 11 mg/dL 7-18 Blood Urea Nitro gen [facility] ([facility]) creatinine for GFR 0.64 mg/dL 0.55-1.30 Creatinine for GF R [facility] ([facility]) glomerular filtration rate > 60.0 >58 Glomerula r Filtration Rate [facility] ([facility]) sodium level 140 mEq/L 136-145 Sodium Level [facility] ([facility]) chloride level 108 mEq/L 98-107 Above high normal Chloride Level [facility] ([facility]) carbon dioxide level 27 mEq/L 21-32 Carbon Dioxide Level [place] ([facility]) potassium serum 4.1 mEq/L 3.5-5.1 Potassium Serum ATHE NA ([facility]) AST/SGOT 10 U/L 7-37 AST/SGOT [facility] ([facility]) ALT/SGPT 22 U/L 12-78 ALT/SGPT [facility] ([facility]) calcium level 8.9 mg/dL 8.5-10.1 Calcium Level [facility] ( [facility]) anion gap 5 mEq/L 8-16 Below low normal Anion Gap [facility] ( [facility]) alkaline phosphatase 84 U/L 45-117 Alkaline Phosph atase [facility] ([facility]) albumin 3.4 gm/dL 3.2-5.2 Albumin [facility] ([facility]) total protein 7.0 gm/dL 6.4-8.2 Total Protein [facility] ( [facility]) bilirubin,total 0.2 mg/dL 0.2-1.0 Bilirubin,total AT[facility] ([facility]) albumin/globulin ratio 1.2-2.2 Below low normal Albumin /globulin Ratio [facility] ([facility]) ID Date Data Source [id number] 07/10/2020 09:14:00 AM EST [place] ([facility]) Name Value Range Interpretation Code Description Data Gillian rce(s) Supporting Document(s) white blood count 8.1 10 4.0-10.0 White Blood Count [facility] ([facility]) hemoglobin 12.9 g/dL 12.0-15.5 Hemoglobin [facility] ([facility]) hematocrit 40.4 % 36.0-47.0 Hematocrit [facility] ([facility]) red blood count 4.77 10 4.00-5.40 Red Blood Count AT[facility] NA ([facility]) mean corpuscular HGB conc 31.9 g/dL 32.0-36.5 Below low antwon l Mean Corpuscular HGB Conc [facility] ([facility]) mean corpuscular hemoglobin 27.0 pg 27.0-33.0 Mean Cor puscular Hemoglobin [facility] ([facility]) mean corpuscular volume 84.7 fL 80.0-96.0 Mean Corpusc ular Volume [facility] ([facility]) neutrophils % 65.5 % 36.0-66.0 Neutrophils % [facility] ( [facility]) red cell distribution width 13.2 % 11.5-14.5 Red Cell Distribution Width [facility] ([facility]) platelet count, automated 351 10 150-450 Platelet C ount, Automated [facility] ([facility]) lymph % 24.0 % 24.0-44.0 Lymph % [facility] ([facility]) mono % 7.6 % 0.0-5.0 Above high normal [place] % [facility] ([facility]) eos % 2.1 % 0.0-3.0 Eos % [facility] ([facility]) baso % 0.4 % 0.0-1.0 Baso % [facility] ([facility]) neutrophils # 5.3 10 1.5-8.5 Neutrophils # [facility] ( [facility]) immature granulocyte % 0.4 % 0-3.0 Immature Gran ulocyte % [facility] ([facility]) lymph # 1.9 10 1.5-5.0 Lymph # [facility] ([facility]) nucleated red blood cell % 0.0 % 0-0 Nucleated Red Blood Cell % [facility] ([facility]) eos # 0.2 10 0.0-0.5 Eos # [facility] ([facility]) mono # 0.6 10 0.0-0.8 [place] # [facility] ([facility]) baso # 0.0 10 0.0-0.2 Baso # [facility] ([facility]) ID Date Data Source [id number] 07/10/2020 09:14:00 AM EST [place] ([facility]) Name Value Range Interpretation Code Description Data Gillian rce(s) Supporting Document(s) Hemoglobin A1c/Hemoglobin.total in Blood 6.0 % Hemoglobin a1C [facility] ([facility]) estimated average glucose 126 mg/dL 60-110 Above high norm al Estimated Average Glucose [place] ([facility]) ID Date Data Source [id number] 07/10/2020 09:14:00 AM EST [place] ([facility]) Name Value Range Interpretation Code Description Data Gillian rce(s) Supporting Document(s) ferritin 24 NG/mL 8-252 Ferritin [facility] ([facility]) ID Date Data Source [id number] 07/10/2020 09:14:00 AM EST [place] ([facility]) Name Value Range Interpretation Code Description Data Gillian rce(s) Supporting Document(s) total 25(oh) vitamin D 21.1 NG/mL 30.0-100.0 Below low normal T otal 25(Oh) Vitamin D [facility] ([facility]) ID Date Data Source [id number] 07/10/2020 09:14:00 AM EST [place] ([facility]) Name Value Range Interpretation Code Description Data Gillian rce(s) Supporting Document(s) iron (fe) 56 ug/dL 50-170 Iron (Fe) [facility] ([facility]) percent saturation 13.6 % 13.2-45.0 Percent Saturatio n [facility] ([facility]) total iron binding capacity 412 ug/dL 250-450 Total Ir on Binding Capacity [facility] ([facility]) ID Date Data Source [id number] 07/10/2020 09:14:00 AM EST [place] ([facility]) Name Value Range Interpretation Code Description Data Gillian rce(s) Supporting Document(s) HDL cholesterol 48 mg/dL >40 HDL Cholesterol [facility] ([facility]) triglycerides level 179 mg/dL <150 Above high normal Triglycer ides Level [facility] ([facility]) Cholesterol in LDL [Mass/volume] in Serum or Plasma 82 mg/dL <1 00 LDL Cholesterol [facility] ([facility]) cholesterol level 166 mg/dL <200 Cholesterol Level [facility] ([facility]) non-HDL-C 118 mg/dL Non-hdl-c [facility] ([facility]) cholesterol risk ratio <5 Cholesterol R isk Ratio [facility] ([facility]) ID Date Data Source [id number] 07/10/2020 09:14:00 AM EST [place] ([facility]) Name Value Range Interpretation Code Description Data Gillian rce(s) Supporting Document(s) glucose, fasting 115 mg/dL 70-100 Above high normal Glucose, Fas ting [place] ([facility]) creatinine for GFR 0.64 mg/dL 0.55-1.30 Creatinine for GF R [place] ([facility]) blood urea nitrogen 11 mg/dL 7-18 Blood Urea Nitro gen [facility] ([facility]) sodium level 140 mEq/L 136-145 Sodium Level [facility] ([facility]) glomerular filtration rate > 60.0 >58 Glomerula r Filtration Rate [facility] ([facility]) potassium serum 4.1 mEq/L 3.5-5.1 Potassium Serum [place] NA ([facility]) chloride level 108 mEq/L 98-107 Above high normal Chloride Level [place] ([facility]) calcium level 8.9 mg/dL 8.5-10.1 Calcium Level [place] ( [facility]) carbon dioxide level 27 mEq/L 21-32 Carbon Dioxide Level [place] ([facility]) anion gap 5 mEq/L 8-16 Below low normal Anion Gap [place] ( [facility]) ALT/SGPT 22 U/L 12-78 ALT/SGPT [place] ([facility]) alkaline phosphatase 84 U/L 45-117 Alkaline Phosph atase [facility] ([facility]) AST/SGOT 10 U/L 7-37 AST/SGOT [place] ([facility]) albumin/globulin ratio 1.2-2.2 Below low normal Albumin /globulin Ratio [facility] ([facility]) bilirubin,total 0.2 mg/dL 0.2-1.0 Bilirubin,total AT[facility] NA ([facility]) total protein 7.0 gm/dL 6.4-8.2 Total Protein [place] ( [facility]) albumin 3.4 gm/dL 3.2-5.2 Albumin [facility] ([facility]) ID Date Data Source [id number] 07/10/2020 09:14:00 AM EST [place] ([facility]) Name Value Range Interpretation Code Description Data Gillian rce(s) Supporting Document(s) white blood count 8.1 10 4.0-10.0 White Blood Count [facility] ([facility]) red blood count 4.77 10 4.00-5.40 Red Blood Count [facility] NA ([facility]) hemoglobin 12.9 g/dL 12.0-15.5 Hemoglobin [facility] ([facility]) hematocrit 40.4 % 36.0-47.0 Hematocrit [facility] ([facility]) mean corpuscular hemoglobin 27.0 pg 27.0-33.0 Mean Cor puscular Hemoglobin [facility] ([facility]) mean corpuscular volume 84.7 fL 80.0-96.0 Mean Corpusc ular Volume [facility] ([facility]) red cell distribution width 13.2 % 11.5-14.5 Red Cell Distribution Width [facility] ([facility]) platelet count, automated 351 10 150-450 Platelet C ount, Automated [place] ([facility]) mean corpuscular HGB conc 31.9 g/dL 32.0-36.5 Below low antwon l Mean Corpuscular HGB Conc [facility] ([facility]) lymph % 24.0 % 24.0-44.0 Lymph % [facility] ([facility]) eos % 2.1 % 0.0-3.0 Eos % [place] ([facility]) mono % 7.6 % 0.0-5.0 Above high normal [place] % [facility] ([facility]) neutrophils % 65.5 % 36.0-66.0 Neutrophils % [place] ( [facility]) baso % 0.4 % 0.0-1.0 Baso % [place] ([facility]) nucleated red blood cell % 0.0 % 0-0 Nucleated Red Blood Cell % [facility] ([facility]) immature granulocyte % 0.4 % 0-3.0 Immature Gran ulocyte % [place] ([facility]) neutrophils # 5.3 10 1.5-8.5 Neutrophils # [place] ( [facility]) lymph # 1.9 10 1.5-5.0 Lymph # [place] ([facility]) mono # 0.6 10 0.0-0.8 [place] # [facility] ([facility]) baso # 0.0 10 0.0-0.2 Baso # [place] ([facility]) eos # 0.2 10 0.0-0.5 Eos # [facility] ([facility]) ID Date Data Source [id number] 07/10/2020 09:14:00 AM EST [place] ([facility]) Name Value Range Interpretation Code Description Data Gillian rce(s) Supporting Document(s) Hemoglobin A1c/Hemoglobin.total in Blood 6.0 % Hemoglobin a1C [place] ([facility]) estimated average glucose 126 mg/dL 60-110 Above high norm al Estimated Average Glucose [facility] ([facility]) ID Date Data Source [id number] 07/10/2020 09:14:00 AM EST SHERRY ([facility]) Name Value Range Interpretation Code Description Data Gillian rce(s) Supporting Document(s) ferritin 24 NG/mL 8-252 Ferritin SHERRY ([facility]) ID Date Data Source [id number] 07/10/2020 09:14:00 AM EST SHERRY ([facility]) Name Value Range Interpretation Code Description Data Gillian rce(s) Supporting Document(s) total 25(oh) vitamin D 21.1 NG/mL 30.0-100.0 Below low normal T otal 25(Oh) Vitamin D SHERRY ([facility]) ID Date Data Source [id number] 07/10/2020 09:14:00 AM EST SHERRY ([facility]) Name Value Range Interpretation Code Description Data Gillian rce(s) Supporting Document(s) iron (fe) 56 ug/dL 50-170 Iron (Fe) SHERRY ([facility]) total iron binding capacity 412 ug/dL 250-450 Total Ir on Binding Capacity SHERRY ([facility]) percent saturation 13.6 % 13.2-45.0 Percent Saturatio n SHERRY ([facility]) ID Date Data Source [id number] 07/10/2020 09:14:00 AM EST SHERRY ([facility]) Name Value Range Interpretation Code Description Data Gillian rce(s) Supporting Document(s) triglycerides level 179 mg/dL <150 Above high normal Triglycer ides Level SHERRY ([facility]) cholesterol level 166 mg/dL <200 Cholesterol Level SHERRY ([facility]) Cholesterol in LDL [Mass/volume] in Serum or Plasma 82 mg/dL <1 00 LDL Cholesterol SHERRY ([facility]) non-HDL-C 118 mg/dL Non-hdl-c SHERRY ([facility]) cholesterol risk ratio <5 Cholesterol R isk Ratio SHERRY ([facility]) HDL cholesterol 48 mg/dL >40 HDL Cholesterol ATHE NA ([facility]) ID Date Data Source [id number] 07/10/2020 09:14:00 AM EST SHERRY ([facility]) Name Value Range Interpretation Code Description Data Gillian rce(s) Supporting Document(s) glucose, fasting 115 mg/dL 70-100 Above high normal Glucose, Fas ting SHERRY ([facility]) blood urea nitrogen 11 mg/dL 7-18 Blood Urea Nitro gen SHERRY ([facility]) glomerular filtration rate > 60.0 >58 Glomerula r Filtration Rate SHERRY ([facility]) sodium level 140 mEq/L 136-145 Sodium Level SHERRY ([facility]) chloride level 108 mEq/L 98-107 Above high normal Chloride Level SHERRY ([facility]) creatinine for GFR 0.64 mg/dL 0.55-1.30 Creatinine for GF R SHERRY ([facility]) potassium serum 4.1 mEq/L 3.5-5.1 Potassium Serum ATHE ([facility]) carbon dioxide level 27 mEq/L 21-32 Carbon Dioxide Level SHERRY ([facility]) anion gap 5 mEq/L 8-16 Below low normal Anion Gap SHERRY ( [facility]) AST/SGOT 10 U/L 7-37 AST/SGOT SHERRY ([facility]) calcium level 8.9 mg/dL 8.5-10.1 Calcium Level SHERRY ( [facility]) total protein 7.0 gm/dL 6.4-8.2 Total Protein SHERRY ( [facility]) ALT/SGPT 22 U/L 12-78 ALT/SGPT SHERRY ([facility]) bilirubin,total 0.2 mg/dL 0.2-1.0 Bilirubin,total ATHE ([facility]) alkaline phosphatase 84 U/L 45-117 Alkaline Phosph atase SHERRY ([facility]) albumin/globulin ratio 1.2-2.2 Below low normal Albumin /globulin Ratio SHERRY ([facility]) albumin 3.4 gm/dL 3.2-5.2 Albumin SHERRY ([facility]) ID Date Data Source [id number] 07/10/2020 09:14:00 AM EST SHERRY ([facility]) Name Value Range Interpretation Code Description Data Gillian rce(s) Supporting Document(s) white blood count 8.1 10 4.0-10.0 White Blood Count SHERRY ([facility]) hematocrit 40.4 % 36.0-47.0 Hematocrit SHERRY ([facility]) red blood count 4.77 10 4.00-5.40 Red Blood Count ATHE NA ([facility]) hemoglobin 12.9 g/dL 12.0-15.5 Hemoglobin SHERRY ([facility]) mean corpuscular volume 84.7 fL 80.0-96.0 Mean Corpusc ular Volume SHERRY ([facility]) mean corpuscular HGB conc 31.9 g/dL 32.0-36.5 Below low antwon l Mean Corpuscular HGB Conc SHERRY ([facility]) mean corpuscular hemoglobin 27.0 pg 27.0-33.0 Mean Cor puscular Hemoglobin SHERRY ([facility]) lymph % 24.0 % 24.0-44.0 Lymph % SHERRY ([facility]) platelet count, automated 351 10 150-450 Platelet C ount, Automated SHERRY ([facility]) neutrophils % 65.5 % 36.0-66.0 Neutrophils % SHERRY ( [facility]) mono % 7.6 % 0.0-5.0 Above high normal [place] % SHERRY ([facility]) immature granulocyte % 0.4 % 0-3.0 Immature Gran ulocyte % SHERRY ([facility]) eos % 2.1 % 0.0-3.0 Eos % SHERRY ([facility]) baso % 0.4 % 0.0-1.0 Baso % SHERRY ([facility]) lymph # 1.9 10 1.5-5.0 Lymph # SHERRY ([facility]) mono # 0.6 10 0.0-0.8 [place] # SHERRY ([facility]) neutrophils # 5.3 10 1.5-8.5 Neutrophils # SHERRY ( [facility]) nucleated red blood cell % 0.0 % 0-0 Nucleated Red Blood Cell % SHERRY ([facility]) eos # 0.2 10 0.0-0.5 Eos # SHERRY ([facility]) baso # 0.0 10 0.0-0.2 Baso # SHERRY ([facility]) Procedure Social History No Information Vital Signs ID Date Data Source UNK Name Value Range Interpretation Code Description Data Source(s) Body temperature 97.1 [degF] 97.1 [degF] MEDENT ([facility]) Body height 60 [in_i] 60 [in_i] MEDENT ([facility]) 5'0" Body weight 235.25 [lb_av] 235.25 [lb_av] MEDEN T ([facility]) Body mass index (BMI) [Ratio] 45.9 kg/m2 45.9 k g/m2 MEDENT ([facility]) Diastolic blood pressure 83 mm[Hg] 83 mm[Hg] SHERRY ([facility]) Body height 62 [in_i] 62 [in_i] SHERRY ([facility]) Body mass index (BMI) [Ratio] 43.3 kg/m2 43.3 k g/m2 SHERRY ([facility]) Systolic blood pressure 132 mm[Hg] 132 mm[Hg] A THENA ([facility]) Body weight 3788.8 [oz_av] 3788.8 [oz_av] ATHEN A ([facility]) Body height 62 [in_i] 62 [in_i] SHERRY ([facility]) Body height 62 [in_i] 62 [in_i] SHERRY ([facility]) Body height 62 [in_i] 62 [in_i] SHERRY ([facility]) Body height 62 [in_i] 62 [in_i] SHERRY ([facility]) Body height 62 [in_i] 62 [in_i] SHERRY ([facility]) Body height 62 [in_i] 62 [in_i] SHERRY ([facility]) Body height 62 [in_i] 62 [in_i] SHERRY ([facility]) Body height 62 [in_i] 62 [in_i] SHERRY ([facility]) Patient Treatment Plan of Care Planned Activity Planned Date Details Description Data Source (s) Ibuprofen 800 MG Oral Tablet SHERRY ([facility]) Acetaminophen 325 MG / Hydrocodone Bitartrate 5 MG Oral Tablet SHERRY ([facility]) Fluconazole 150 MG Oral Tablet SHERRY ([facility]) cefdinir 300 MG Oral Capsule SHERRY ([facility]) Amoxicillin 875 MG Oral Tablet SHERRY ([facility]) Amoxicillin 500 MG Oral Capsule SHERRY ([facility]) Ergocalciferol 04761 UNT Oral Capsule SHERRY ([facility]) Prednisone 10 MG Oral Tablet SHERRY ([facility]) Acetaminophen 325 MG / Oxycodone Hydrochloride 5 MG Oral Tablet SHERRY ([facility]) Ibuprofen 800 MG Oral Tablet SHERRY ([facility]) Fluconazole 150 MG Oral Tablet SHERRY ([facility]) cefdinir 300 MG Oral Capsule SHERRY ([facility]) Amoxicillin 875 MG Oral Tablet SHERRY ([facility]) Amoxicillin 500 MG Oral Capsule SHERRY ([facility]) Ergocalciferol [id number] UNT Oral Capsule SHERRY ([facility]) Prednisone 10 MG Oral Tablet SHERRY ([facility]) Acetaminophen 325 MG / Oxycodone Hydrochloride 5 MG Oral Tablet SHERRY ([facility]) Ibuprofen 800 MG Oral Tablet SHERRY ([facility]) Fluconazole 150 MG Oral Tablet SHERRY ([facility]) cefdinir 300 MG Oral Capsule SHERRY ([facility]) Amoxicillin 875 MG Oral Tablet SHERRY ([facility]) Amoxicillin 500 MG Oral Capsule SHERRY ([facility]) Ergocalciferol 18741 UNT Oral Capsule SHERRY ([facility]) Prednisone 10 MG Oral Tablet SHERRY ([facility]) Acetaminophen 325 MG / Oxycodone Hydrochloride 5 MG Oral Tablet SHERRY ([facility]) Ibuprofen 800 MG Oral Tablet SHERRY ([facility]) Fluconazole 150 MG Oral Tablet SHERRY ([facility]) cefdinir 300 MG Oral Capsule SHERRY ([facility]) Amoxicillin 875 MG Oral Tablet SHERRY ([facility]) Ergocalciferol 75514 UNT Oral Capsule SHERRY ([facility]) Prednisone 10 MG Oral Tablet SHERRY ([facility]) Acetaminophen 325 MG / Oxycodone Hydrochloride 5 MG Oral Tablet SHERRY ([facility]) Ibuprofen 800 MG Oral Tablet SHERRY ([facility]) Fluconazole 150 MG Oral Tablet SHERRY ([facility]) cefdinir 300 MG Oral Capsule SHERRY ([facility]) Cholecalciferol 1000 UNT Oral Capsule SHERRY ([facility]) Ergocalciferol 38927 UNT Oral Capsule SHERRY ([facility]) Prednisone 10 MG Oral Tablet SHERRY ([facility]) Acetaminophen 325 MG / Oxycodone Hydrochloride 5 MG Oral Tablet SHERRY ([facility]) Amoxicillin 875 MG Oral Tablet SHERRY ([facility])
[2021-06-21] MEDS ORDERED: PRED20TA PO (13:21)
[2021-06-21 13:38] VITALS: BP 148/76
== END 2021-06-21 13:43 | disposition home or self-care (01) ==
LOC: M ED 08:57
DX: M17.12 Unilateral primary osteoarthritis, left knee (principal); X50.0XXA Overexertion from strenuous movement or load, initial encounter; D64.9 Anemia, unspecified; J45.909 Unspecified asthma, uncomplicated; Z88.1 Allergy status to other antibiotic agents; Z91.013 Allergy to seafood; Z79.52 Long term (current) use of systemic steroids; Z79.899 Other long term (current) drug therapy

== ENCOUNTER → 2021-11-26 | Outpatient (CLI) | payer OTHER ==
[~2021-11-26] MED LIST changes: +PRED20TA PO
== END ==
LOC: M WHC 08:13
PROVIDERS: ATTEND Physician Assistant
DX: Z12.31 Encounter for screening mammogram for malignant neoplasm of breast (principal)

== ENCOUNTER → 2022-04-22 | Outpatient (CLI) | payer OTHER ==
[2022-04-22 16:07] LABS: HEMATOCRIT 41.1 % (36.0-47.0); HEMOGLOBIN 12.7 g/dl (12.0-15.5); MEAN CORPUSCULAR HEMOGLOBIN 25.5 pg (27.0-33.0); MEAN CORPUSCULAR HGB CONC 30.9 g/dl (32.0-36.5); MEAN CORPUSCULAR VOLUME 82.5 fl (80.0-96.0); PLATELET COUNT, AUTOMATED 432 10^3/uL (150-450); RED BLOOD COUNT 4.98 10^6/uL (4.00-5.40); WHITE BLOOD COUNT 8.7 10^3/uL (4.0-10.0)
[2022-04-22 16:47] LABS: FREE T4 0.89 NG/DL (0.76-1.46); THYROID STIMULATING HORMONE 1.26 uIU/ML (0.358-3.740)
== END ==
LOC: M PLALAB 11:38
PROVIDERS: ATTEND Obstetrics & Gynecology
DX: Z12.4 Encounter for screening for malignant neoplasm of cervix (principal); N93.9 Abnormal uterine and vaginal bleeding, unspecified

== ENCOUNTER → 2022-04-24 | Outpatient (CLI) | payer OTHER | LOC: M WHC 14:09 | PROVIDERS: ATTEND Obstetrics & Gynecology | DX: N93.9 Abnormal uterine and vaginal bleeding, unspecified (principal) ==

== ENCOUNTER → 2022-06-04 | Outpatient (REF) | payer OTHER ==
[2022-06-04 17:17] LABS: BASO # 0.1 10^3/uL (0.0-0.2); BASO % 0.6 % (0.0-1.0); EOS # 0.2 10^3/uL (0.0-0.5); EOS % 2.1 % (0.0-3.0); HEMATOCRIT 41.9 % (36.0-47.0); HEMOGLOBIN 12.7 g/dl (12.0-15.5); LYMPH # 2.4 10^3/uL (1.5-5.0); MEAN CORPUSCULAR HEMOGLOBIN 25.7 pg (27.0-33.0); MEAN CORPUSCULAR HGB CONC 30.3 g/dl (32.0-36.5); MEAN CORPUSCULAR VOLUME 84.6 fl (80.0-96.0); MONO # 0.7 10^3/uL (0.0-0.8); MONO % 7.6 % (2.0-8.0); NEUTROPHILS # 5.3 10^3/uL (1.5-8.5); NEUTROPHILS % 61.4 % (36.0-66.0); PLATELET COUNT, AUTOMATED 427 10^3/uL (150-450); RED BLOOD COUNT 4.95 10^6/uL (4.00-5.40); WHITE BLOOD COUNT 8.6 10^3/uL (4.0-10.0)
[2022-06-04 17:25] LABS: BLOOD UREA NITROGEN 11 MG/DL (7-18); CALCIUM LEVEL 9.3 MG/DL (8.5-10.1); CARBON DIOXIDE LEVEL 27 MEQ/L (21-32); CHLORIDE LEVEL 103 MEQ/L (98-107); CREATININE FOR GFR 0.58 MG/DL (0.55-1.30); FERRITIN 18 NG/ML (8-252); GLOMERULAR FILTRATION RATE > 60.0 (>58); GLUCOSE, FASTING 114 MG/DL (70-100); IRON (FE) 61 UG/DL (50-170); PERCENT SATURATION 13.5 % (13.2-45.0); POTASSIUM SERUM 4.2 MEQ/L (3.5-5.1); SODIUM LEVEL 137 MEQ/L (136-145); TOTAL IRON BINDING CAPACITY 452 UG/DL (250-450)
[2022-06-04 18:05] LABS: HEMOGLOBIN A1c 6.2 %
== END ==
LOC: M LAB REF 16:22
PROVIDERS: ATTEND Physician Assistant
DX: E55.9 Vitamin D deficiency, unspecified (principal); R73.03 Prediabetes; E61.1 Iron deficiency

== ENCOUNTER → 2022-08-25 | Outpatient (CLI) | payer OTHER ==
[2022-08-25 15:20] LABS: BLOOD UREA NITROGEN 13 MG/DL (9-23); CALCIUM LEVEL 9.2 MG/DL (8.5-10.1); CARBON DIOXIDE LEVEL 30 MMOL/L (20-31); CHLORIDE LEVEL 105 MMOL/L (98-107); CREATININE FOR GFR 0.56 MG/DL (0.55-1.30); GLOMERULAR FILTRATION RATE > 60.0 (>58); GLUCOSE, FASTING 108 MG/DL (60-100); POTASSIUM SERUM 4.6 MMOL/L (3.5-5.1); SODIUM LEVEL 140 MMOL/L (136-145)
== END ==
LOC: M PLALAB 09:37
PROVIDERS: ATTEND Physician Assistant Surgical
DX: S83.8X1A Sprain of other specified parts of right knee, initial encounter (principal); X58.XXXA Exposure to other specified factors, initial encounter; Y92.9 Unspecified place or not applicable; Y93.9 Activity, unspecified; Y99.9 Unspecified external cause status; Z79.899 Other long term (current) drug therapy

== ENCOUNTER → 2022-09-17 | Outpatient (REF) | payer OTHER | LOC: M SFHCWAGY 17:10 | PROVIDERS: ATTEND Obstetrics & Gynecology | DX: N93.9 Abnormal uterine and vaginal bleeding, unspecified (principal) ==

== ENCOUNTER → 2022-10-03 | Outpatient (CLI) | payer OTHER ==
[~2022-10-03] MED LIST changes: +ALBU6.7H6 INH; +VITA200016 PO
[2022-10-03 06:57] LABS: BASO % 0.5 % (0.0-1.0); EOS # 0.2 10^3/uL (0.0-0.5); EOS % 2.1 % (0.0-3.0); HEMATOCRIT 37.5 % (36.0-47.0); LYMPH # 2.2 10^3/uL (1.5-5.0); LYMPH % 25.5 % (24.0-44.0); MEAN CORPUSCULAR HEMOGLOBIN 25.9 pg (27.0-33.0); MEAN CORPUSCULAR VOLUME 80.8 fl (80.0-96.0); MONO # 0.8 10^3/uL (0.0-0.8); MONO % 9.6 % (2.0-8.0); NEUTROPHILS # 5.3 10^3/uL (1.5-8.5); NEUTROPHILS % 61.8 % (36.0-66.0); PLATELET COUNT, AUTOMATED 369 10^3/uL (150-450); RED BLOOD COUNT 4.64 10^6/uL (4.00-5.40); WHITE BLOOD COUNT 8.6 10^3/uL (4.0-10.0)
[2022-10-03 07:28] LABS: BLOOD UREA NITROGEN 11 MG/DL (9-23); CALCIUM LEVEL 8.8 MG/DL (8.5-10.1); CARBON DIOXIDE LEVEL 29 MMOL/L (20-31); CHLORIDE LEVEL 105 MMOL/L (98-107); CREATININE FOR GFR 0.54 MG/DL (0.55-1.30); GLOMERULAR FILTRATION RATE > 60.0 (>58); GLUCOSE, FASTING 112 MG/DL (60-100); SODIUM LEVEL 140 MMOL/L (136-145)
[2022-10-03 08:01] LABS: HEMOGLOBIN A1c 6.1 % (4.0-6.0)
== END ==
LOC: M LAB 06:22
PROVIDERS: ATTEND Physician Assistant
DX: R73.03 Prediabetes (principal); Z86.39 Personal history of other endocrine, nutritional and metabolic disease

== ENCOUNTER → 2022-10-08 | Outpatient (CLI) | payer OTHER | LOC: M LABSMTC 10:19 | PROVIDERS: ATTEND Anesthesiology | DX: Z01.818 Encounter for other preprocedural examination (principal) ==

== ENCOUNTER 2022-10-13 08:03 | Observation (INO) | payer OTHER ==
[~2022-10-13] VITALS: Ht 154.9 cm; Wt 96.2 kg
[2022-10-13] VITALS (9 sets, daily range): BP systolic 146–166; BP diastolic 76–98
[~2022-10-13 08:03] MED LIST changes: +LIDOCAINE 2% 100MG/5ML SDV (FOR ANES.) As Ordered ONE; +MIDAZOLAM INJ 2MG/2ML VIAL As Ordered ONE; +NS 1,000 ML IV ONE; +ONDANSETRON 4MG 2ML VIAL As Ordered ONE; +ROCURONIUM BROMIDE 50MG/5ML VIAL As Ordered ONE; +ceFAZolin SOD 2 GM in IV 1 EA IV ONE; +fentaNYL 100 MCG/2 ML INJECTION As Ordered ONE; +propofoL 200 MG/20 ML VIAL As Ordered ONE
[2022-10-13] MEDS ORDERED: LR 1,000 ML IV SCH ×3 (08:50→12:50)
[2022-10-13] MEDS ORDERED: INSULIN LISPRO (NovoLOG) PER UNIT SC PRN (08:50)
[2022-10-13 09:11] LABS: HEMATOCRIT 41.7 % (36.0-47.0); HEMOGLOBIN 13.1 g/dl (12.0-15.5); MEAN CORPUSCULAR HEMOGLOBIN 25.7 pg (27.0-33.0); MEAN CORPUSCULAR HGB CONC 31.4 g/dl (32.0-36.5); MEAN CORPUSCULAR VOLUME 81.9 fl (80.0-96.0); PLATELET COUNT, AUTOMATED 381 10^3/uL (150-450); RED BLOOD COUNT 5.09 10^6/uL (4.00-5.40)
[2022-10-13] MEDS ORDERED: BUPIVACAINE HCL 0.25% 30ML VIAL As Ordered ONE (09:41)
[2022-10-13] MEDS ORDERED: METHYLENE BLUE 0.5% (5MG/ML) 10 ML AMP (PROVAYBLUE) As Ordered ONE (09:41)
[2022-10-13] MEDS ORDERED: ACETAMINOPHEN 1000MG 100ML IV BAG As Ordered ONE (10:15)
[2022-10-13] MEDS ORDERED: fentaNYL 100 MCG/2 ML INJECTION As Ordered ONE (10:23)
[2022-10-13] MEDS ORDERED: ROCURONIUM BROMIDE 50MG/5ML VIAL As Ordered ONE (10:27)
[2022-10-13] MEDS ORDERED: KETOROLAC 60MG 2ML VIAL As Ordered ONE (10:27)
[2022-10-13] MEDS ORDERED: SUGAMMADEX SODIUM 500 MG/5 ML VIAL (BRIDION) As Ordered ONE (10:41)
[2022-10-13] MEDS ORDERED: HYDROmorphone HCL 2MG/ML 1ML VIAL As Ordered ONE (10:58)
[2022-10-13] MEDS ORDERED: METOCLOPRAMIDE INJ 10MG/2ML VIAL As Ordered ONE (12:07)
[2022-10-13] MEDS ORDERED: METOCLOPRAMIDE INJ 10MG/2ML VIAL IV PRN (12:30)
[2022-10-13] MEDS ORDERED: fentaNYL 100 MCG/2 ML INJECTION IV PRN (12:30)
[2022-10-13] MEDS ORDERED: ONDANSETRON 4MG 2ML VIAL IV PRN ×2 (12:30→12:50)
[2022-10-13] MEDS ORDERED: HYDROMORPHONE HCL 0.5 MG/ 0.5 ML SYRINGE IV PRN (12:30)
[2022-10-13] MEDS ORDERED: oxyCODONE 5MG TAB PO PRN (12:30)
[2022-10-13] MEDS ORDERED: PERCOCET 5MG/325MG TAB PO PRN (12:50)
[2022-10-13] MEDS ORDERED: MORPHINE 2 MG/ML 1ML VIAL IV PRN (12:50)
[2022-10-13] MEDS ORDERED: IBUP80TA PO (15:45)
[2022-10-13] MEDS ORDERED: PERCOCET PO (15:45)
[2022-10-13] MEDS ORDERED: COLA100C5 PO (15:45)
[2022-10-13] MEDS: KETOROLAC 30 MG/ML 1ML VIAL IV SCH ×2 (16:20→23:31)
[2022-10-13] MEDS ORDERED: LABETALOL 100MG TAB PO ONE (18:30)
[2022-10-13] MEDS: DOCUSATE SODIUM 100MG CAPSULE PO SCH (20:15)
[2022-10-13] MEDS: PERCOCET 5MG/325MG TAB PO PRN (20:16)
[2022-10-14 03:00] VITALS: BP 146/77
[2022-10-14] MEDS: KETOROLAC 30 MG/ML 1ML VIAL IV SCH (05:00)
[2022-10-14] MEDS: PERCOCET 5MG/325MG TAB PO PRN (07:32)
[2022-10-14] MEDS: DOCUSATE SODIUM 100MG CAPSULE PO SCH (09:36)
[2022-10-14 10:00] VITALS: BP 126/66
[2022-10-14] MEDS ORDERED: IBUPROFEN 800 MG TAB PO SCH (13:00)
== END 2022-10-14 13:04 | disposition home or self-care (01) ==
LOC: M SDC 08:03 → M MS5PR 08:04 → M MSPAV 14:09
PROVIDERS: ADMIT Obstetrics & Gynecology; ATTEND Obstetrics & Gynecology
DX: N88.8 Other specified noninflammatory disorders of cervix uteri (principal); D25.2 Subserosal leiomyoma of uterus; N93.9 Abnormal uterine and vaginal bleeding, unspecified; R10.2 Pelvic and perineal pain; N99.71 Accidental puncture and laceration of a genitourinary system organ or structure during a genitourinary system procedure; R73.03 Prediabetes; D64.9 Anemia, unspecified; M17.0 Bilateral primary osteoarthritis of knee; J45.909 Unspecified asthma, uncomplicated; Z88.1 Allergy status to other antibiotic agents; Z91.013 Allergy to seafood; Z79.899 Other long term (current) drug therapy; Z79.84 Long term (current) use of oral hypoglycemic drugs
CPT/HCPCS: 36415; 58573; 85027; 86850; 86900; 86901; 88307; 96360; 96361; J0131; J0690; J1100; J1170; J1885; J2250; J2405; J2765; J3010; Q9968; S0020; S2900

== ENCOUNTER → 2023-01-19 | Outpatient (CLI) | payer OTHER ==
[~2023-01-19] MED LIST changes: +COLA100C5 PO; -LIDOCAINE 2% 100MG/5ML SDV (FOR ANES.) As Ordered ONE; -MIDAZOLAM INJ 2MG/2ML VIAL As Ordered ONE; -NS 1,000 ML IV ONE; -ONDANSETRON 4MG 2ML VIAL As Ordered ONE; +PERCOCET PO; -ROCURONIUM BROMIDE 50MG/5ML VIAL As Ordered ONE; -ceFAZolin SOD 2 GM in IV 1 EA IV ONE; -fentaNYL 100 MCG/2 ML INJECTION As Ordered ONE; -propofoL 200 MG/20 ML VIAL As Ordered ONE
== END ==
LOC: M WHC 08:49
PROVIDERS: ATTEND Physician Assistant
DX: Z12.31 Encounter for screening mammogram for malignant neoplasm of breast (principal)

== ENCOUNTER → 2023-06-15 | Outpatient (REF) | payer OTHER ==
[2023-06-15 12:26] LABS: HEMATOCRIT 42.7 % (36.0-47.0); HEMOGLOBIN 13.8 g/dl (12.0-15.5); MEAN CORPUSCULAR HEMOGLOBIN 27.3 pg (27.0-33.0); MEAN CORPUSCULAR HGB CONC 32.3 g/dl (32.0-36.5); MEAN CORPUSCULAR VOLUME 84.4 fl (80.0-96.0); PLATELET COUNT, AUTOMATED 422 10^3/uL (150-450); RED BLOOD COUNT 5.06 10^6/uL (4.00-5.40); WHITE BLOOD COUNT 8.9 10^3/uL (4.0-10.0)
[2023-06-15 13:03] LABS: ALBUMIN 3.5 G/DL (3.2-5.2); ALKALINE PHOSPHATASE 88 U/L (46-116); ALT/SGPT 18 U/L (7.0-40); AST/SGOT 9 U/L (<34); BILIRUBIN,TOTAL 0.3 MG/DL (0.3-1.2); BLOOD UREA NITROGEN 14 MG/DL (9-23); CALCIUM LEVEL 9.2 MG/DL (8.5-10.1); CARBON DIOXIDE LEVEL 28 MMOL/L (20-31); CHLORIDE LEVEL 103 MMOL/L (98-107); CHOLESTEROL LEVEL 151 MG/DL (<200); CHOLESTEROL RISK RATIO 2.95 (<5); CREATININE FOR GFR 0.54 MG/DL (0.55-1.30); GLOMERULAR FILTRATION RATE > 60.0 (>58); GLUCOSE, FASTING 109 MG/DL (60-100); HDL CHOLESTEROL 51.1 MG/DL (>40); LDL CHOLESTEROL 71.9 MG/DL (<100); NON-HDL-C 99.9 MG/DL; POTASSIUM SERUM 4.2 MMOL/L (3.5-5.1); SODIUM LEVEL 139 MMOL/L (136-145); TOTAL 25(OH) VITAMIN D 40.6 NG/ML (20.0-100.0); TOTAL PROTEIN 6.9 G/DL (5.7-8.2); TRIGLYCERIDES LEVEL 140 MG/DL (<150)
[2023-06-15 13:08] LABS: HEMOGLOBIN A1c 5.9 % (4.0-6.0)
== END ==
LOC: M LABWUC 11:24
PROVIDERS: ATTEND Physician Assistant
DX: R73.03 Prediabetes (principal); E78.1 Pure hyperglyceridemia; E55.9 Vitamin D deficiency, unspecified

== ENCOUNTER 2024-03-29 15:27 | Emergency (ER) | payer OTHER ==
[~2024-03-29] VITALS: Ht 154.9 cm; Wt 104.4 kg
[2024-03-29] MEDS ORDERED: GUAI237L38 PO (15:37)
[2024-03-29 16:04] LABS: BASO # 0.1 10^3/uL (0.0-0.2); BASO % 0.6 % (0.0-1.0); EOS # 0.3 10^3/uL (0.0-0.5); EOS % 2.1 % (0.0-3.0); HEMATOCRIT 37.1 % (36.0-47.0); HEMOGLOBIN 12.2 g/dl (12.0-15.5); LYMPH # 2.9 10^3/uL (1.5-5.0); LYMPH % 23.2 % (24.0-44.0); MEAN CORPUSCULAR HEMOGLOBIN 27.6 pg (27.0-33.0); MEAN CORPUSCULAR HGB CONC 32.9 g/dl (32.0-36.5); MEAN CORPUSCULAR VOLUME 83.9 fl (80.0-96.0); MONO % 8.1 % (2.0-8.0); NEUTROPHILS # 8.1 10^3/uL (1.5-8.5); PLATELET COUNT, AUTOMATED 380 10^3/uL (150-450); RED BLOOD COUNT 4.42 10^6/uL (4.00-5.40); WHITE BLOOD COUNT 12.5 10^3/uL (4.0-10.0)
[2024-03-29 16:16] LABS: INR 0.95; PROTHROMBIN TIME 12.4 SECONDS (12.5-14.5)
[2024-03-29 16:29] LABS: CK-MB VALUE MASS < 1.0 NG/ML (<3.6); LIPASE 39 U/L (12-53)
[2024-03-29 16:31] LABS: ALKALINE PHOSPHATASE 93 U/L (46-116); ALT/SGPT 14 U/L (7.0-40); AST/SGOT < 8 U/L (<34); BILIRUBIN,DIRECT < 0.1 MG/DL (<0.4); BILIRUBIN,TOTAL 0.2 MG/DL (0.3-1.2); BLOOD UREA NITROGEN 11 MG/DL (9-23); CALCIUM LEVEL 9.1 MG/DL (8.5-10.1); CARBON DIOXIDE LEVEL 26 MMOL/L (20-31); CHLORIDE LEVEL 109 MMOL/L (98-107); CPK CREATINE PHOSPHOKINASE 58 U/L (34-145); CREATININE FOR GFR 0.51 MG/DL (0.55-1.30); GLOMERULAR FILTRATION RATE > 60.0 (>58); GLUCOSE, FASTING 143 MG/DL (60-100); MB/CK RELATIVE INDEX 1.72 (< OR =4); POTASSIUM SERUM 3.7 MMOL/L (3.5-5.1); SODIUM LEVEL 143 MMOL/L (136-145); TOTAL PROTEIN 6.3 G/DL (5.7-8.2)
[2024-03-29] MEDS ORDERED: ISOVUE-370 76% 100ML VIAL As Ordered ONE (18:08)
[2024-03-29] MEDS: NS 500 ML IV ONE (18:23)
[2024-03-29 18:48] LABS: CK-MB VALUE MASS < 1.0 NG/ML (<3.6)
[2024-03-29 18:49] LABS: CPK CREATINE PHOSPHOKINASE 57 U/L (34-145); MB/CK RELATIVE INDEX 1.75 (< OR =4)
[2024-03-29] MEDS ORDERED: BENZ200C70 PO (19:52)
[2024-03-29] MEDS ORDERED: PROT1TAB2 PO (19:52)
[2024-03-29 20:00] VITALS: BP 142/90; TEMP 97.8; O2SAT 99
[2024-03-29] MEDS: PANTOPRAZOLE 40MG TAB (PROTONIX) PO ONE (20:15)
[2024-03-29] MEDS: BENZONATATE 100MG CAPSULE PO ONE (20:15)
== END 2024-03-29 20:28 | disposition home or self-care (01) ==
LOC: M ED 15:27
DX: K21.9 Gastro-esophageal reflux disease without esophagitis (principal); R03.0 Elevated blood-pressure reading, without diagnosis of hypertension; R05.2 Subacute cough; Z86.16 Personal history of COVID-19; J45.909 Unspecified asthma, uncomplicated; R73.03 Prediabetes; D73.4 Cyst of spleen; Z79.84 Long term (current) use of oral hypoglycemic drugs; Z79.899 Other long term (current) drug therapy; Z88.1 Allergy status to other antibiotic agents; Z91.013 Allergy to seafood
CPT/HCPCS: 71045; 71275; 73130; 80048; 80076; 82550; 82553; 83690; 84484; 85025; 85610; 93005; 93041; 94760; 96360; 99285; Q9967

== ENCOUNTER → 2024-04-07 | Outpatient (CLI) | payer OTHER ==
[~2024-04-07] MED LIST changes: +BENZ200C70 PO; +GUAI237L38 PO; +PROT1TAB2 PO
[2024-04-07 08:59] LABS: HEMOGLOBIN A1c 6.5 % (4.0-6.0)
[2024-04-07 09:16] LABS: ALBUMIN 3.6 G/DL (3.2-5.2); ALKALINE PHOSPHATASE 96 U/L (46-116); ALT/SGPT 24 U/L (7.0-40); AST/SGOT 26 U/L (<34); BILIRUBIN,TOTAL 0.3 MG/DL (0.3-1.2); BLOOD UREA NITROGEN 16 MG/DL (9-23); CALCIUM LEVEL 9.7 MG/DL (8.5-10.1); CARBON DIOXIDE LEVEL 28 MMOL/L (20-31); CHLORIDE LEVEL 108 MMOL/L (98-107); CHOLESTEROL LEVEL 212 MG/DL (<200); CHOLESTEROL RISK RATIO 3.86 (<5); CREATININE FOR GFR 0.54 MG/DL (0.55-1.30); GLOMERULAR FILTRATION RATE > 60.0 (>58); GLUCOSE, FASTING 122 MG/DL (60-100); HDL CHOLESTEROL 54.8 MG/DL (>40); NON-HDL-C 157.2 MG/DL; POTASSIUM SERUM 4.6 MMOL/L (3.5-5.1); SODIUM LEVEL 141 MMOL/L (136-145); TOTAL PROTEIN 7.5 G/DL (5.7-8.2); TRIGLYCERIDES LEVEL 246 MG/DL (<150)
== END ==
LOC: M LAB 07:56
PROVIDERS: ATTEND Physician Assistant
DX: E78.1 Pure hyperglyceridemia (principal); R73.03 Prediabetes

== ENCOUNTER → 2024-04-13 | Outpatient (REF) | payer OTHER ==
[2024-04-13 18:06] LABS: CREATININE, URINE 111.9 MG/DL; MALB URINE SIEMENS < 3.0 MG/L; MAU/CREAT RATIO 2.6 MCG/MG (0.0-30.0)
== END ==
LOC: M LAB REF 16:33
PROVIDERS: ATTEND Physician Assistant
DX: E78.2 Mixed hyperlipidemia (principal); E11.9 Type 2 diabetes mellitus without complications

== ENCOUNTER → 2024-10-05 | Outpatient (REF) | payer OTHER ==
[2024-10-05 14:07] LABS: HEMATOCRIT 39.3 % (36.0-47.0); HEMOGLOBIN 12.3 g/dl (12.0-15.5); MEAN CORPUSCULAR HEMOGLOBIN 26.3 pg (27.0-33.0); MEAN CORPUSCULAR HGB CONC 31.3 g/dl (32.0-36.5); PLATELET COUNT, AUTOMATED 393 10^3/uL (150-450); RED BLOOD COUNT 4.68 10^6/uL (4.00-5.40); WHITE BLOOD COUNT 7.7 10^3/uL (4.0-10.0)
[2024-10-05 14:10] LABS: ALBUMIN 3.7 G/DL (3.2-5.2); ALKALINE PHOSPHATASE 94 U/L (35-104); ALT/SGPT 20 U/L (7.0-40); AST/SGOT 14 U/L (<34); BILIRUBIN,TOTAL 0.4 MG/DL (0.3-1.2); BLOOD UREA NITROGEN 12 MG/DL (9-23); CALCIUM LEVEL 9.1 MG/DL (8.5-10.1); CARBON DIOXIDE LEVEL 27 MMOL/L (20-31); CHLORIDE LEVEL 108 MMOL/L (98-107); CHOLESTEROL LEVEL 110 MG/DL (<200); CREATININE FOR GFR 0.58 MG/DL (0.55-1.30); GLOMERULAR FILTRATION RATE > 60.0 (>51); GLUCOSE, FASTING 89 MG/DL (60-100); LDL CHOLESTEROL 37.6 MG/DL (<100); POTASSIUM SERUM 4.6 MMOL/L (3.5-5.1); SODIUM LEVEL 144 MMOL/L (136-145); TOTAL PROTEIN 7.2 G/DL (5.7-8.2); TRIGLYCERIDES LEVEL 112 MG/DL (<150)
[2024-10-05 14:46] LABS: HEMOGLOBIN A1c 5.8 % (4.0-6.0)
== END ==
LOC: M LAB REF 12:59
PROVIDERS: ATTEND Physician Assistant
DX: E11.9 Type 2 diabetes mellitus without complications (principal); E78.2 Mixed hyperlipidemia

== ENCOUNTER → 2024-10-20 | Outpatient (CLI) | payer OTHER ==
[2024-10-21 15:17] LABS: MUMPS VIRUS IgG ANTIBODY 34.9 AU/mL (>10.99); RUBEOLA IgG ANTIBODY 17.3 AU/mL (>16.49)
== END ==
LOC: M LAB 08:03
PROVIDERS: ATTEND Physician Assistant
DX: Z76.89 Persons encountering health services in other specified circumstances (principal)